=== PATIENT | male | born 1965 | race African-American/Black ===

== ENCOUNTER 2017-04-01 12:45 | Inpatient (IN) | payer OTHER ==
[2017-04-01 13:56] VITALS: BMI 28.3
--- NOTE | 2017-04-01 16:28 | HP ---
CIWA Score - CIWA Score Nausea/Vomitin Muscle Tremors: 4-Moderate,w/Arms Extend Anxiety: 4-Mod. Anxious/Guarded Agitation: 4-Moderately Restless Paroxysmal Sweats: 3 Orientation: 0-Oriented Tacttile Disturbances: 1-Very Mild Itch/Numbness Auditory Disturbances: 0-None Visual Disturbances: 0-None Headache: 1-Very Mild CIWA-Ar Total Score: 20 Admission ROS BHS - HPI Chief Complaint: alcohol withdrawal sx Allergies/Adverse Reactions: Allergies Allergy/AdvReac Type Severity Reaction Status Date / Time No Known Allergies Allergy Verified 04/01/17 15:23 History of Present Illness: 51 yo m with h/o alcohol, cannbis and crack cocaoine dependence admitted for alcohol detoxification c/o ALBERT. PMHX HIV+, DM, nicotine depenence 1PPD, hearing impaired bilaterally, wears aid left ear, totally deaf left ear, no suicidal ideation no suicide attempts in the pst. no h/o seizures or DTs. last drink this am, smoked crack this am. Exam Limitations: No Limitations, Physical Impairment (hearing impaired) - Ebola screening Have you been sick,other than usual withdrawal symptoms: No - Review of Systems Constitutional: Chills, Diaphoresis, Malaise, Night Sweats, Weakness, Weight Stable EENT: reports: No Symptoms Reported Respiratory: reports: No Symptoms reported Cardiac: reports: No Symptoms Reported GI: reports: Diarrhea, Nausea, Poor Appetite, Poor Fluid Intake, Indigestion, Abdominal cramping : reports: No Symptoms Reported Musculoskeletal: reports: No Symptoms Reported Integumentary: reports: Flushing, Lesions Neuro: reports: Headache, Numbness, Paresthesia, Tingling, Tremors, Weakness Endocrine: reports: No Symptoms Reported Hematology: reports: No Symptoms Reported Psychiatric: reports: Judgement Intact, Mood/Affect Appropiate, Orientated x3, Anxious, Depressed Other Systems: Reviewed and Negative Patient History - Patient Medical History Hx Anemia: No Hx Asthma: No Hx Chronic Obstructive Pulmonary Disease (COPD): No Hx Cancer: No Hx Cardiac Disorders: No Hx Congestive Heart Failure: No Hx Hypertension: Yes Hx Hypercholesterolemia: No Hx Pacemaker: No HX Cerebrovascular Accident: No Hx Seizures: No Hx Dementia: No Hx Diabetes: Yes (NIDDM) Hx Gastrointestinal Disorders: No Hx Liver Disease: No Hx Genitourinary Disorders: No Hx Sexually Transmitted Disorders: No Hx Renal Disease (ESRD): No Hx Thyroid Disease: No Hx Human Immunodeficiency Virus (HIV): Yes (2007, on atripla) Hx Hepatitis C: No Hx Depression: No Hx Suicide Attempt: No Hx Bipolar Disorder: No Hx Schizophrenia: No - Patient Surgical History Past Surgical History: Yes Hx Neurologic Surgery: No Hx Cataract Extraction: No Hx Cardiac Surgery: No Hx Lung Surgery: No Hx Breast Surgery: No Hx Breast Biopsy: No Hx Abdominal Surgery: No Hx Appendectomy: No Hx Cholecystectomy: No Hx Genitourinary Surgery: No Hx Section: No Hx Orthopedic Surgery: No Other Surgical History: left ear Anesthesia Reaction: No - PPD History Previous Implant?: Yes Documented Results: Negative w/proof Implanted On Prior [facility] Admission?: Yes Date: 02/14/16 Results: 0 mm PPD to be Administered?: Yes - Reproductive History Patient is a Female of Child Bearing Age (11 -55 yrs old): No Patient : No - Smoking Cessation Smoking history: Current every day smoker Have you smoked in the past 12 months: Yes Aproximately how many cigarettes per day: 10 Hx Chewing Tobacco Use: No Initiated information on smoking cessation: Yes 'Breaking Loose' booklet given: 04/01/17 - Substance & Tx. History Hx Alcohol Use: Yes Hx Substance Use: Yes Substance Use Type: Alcohol, Cocaine, Marijuana Hx Substance Use Treatment: Yes - Substances Abused Crack Route: Smoking Frequency: 1-2 times per week Amount used: $300 Age of first use: 24 Date of Last Use: 04/01/17 Alcohol-beer/vodka Route: Oral Frequency: Daily Amount used: 1-6 pk./2 pts. Age of first use: 17 Date of Last Use: 04/01/17 Marijuana/Hashish Frequency: 3-6 times per week Date of Last Use: 03/31/17 Family Disease History - Family Disease History Family Disease History: Diabetes: Brother, Other: Father (FORMER ALCOHOLIC), Mother (FORMER ALCOHOLIC) Admission Physical Exam BHS - Vital Signs Vital Signs: Vital Signs - 24 hr 04/01/17 13:44 Temperature 97.5 F L Pulse Rate 71 Respiratory 18 Rate Blood Pressure 114/68 - Physical General Appearance: Yes: Nourished, Appropriately Dressed, Disheveled, Mild Distress, Tremorous, Irritable, Sweating, Anxious HEENTM: Yes: EOMI, Hearing grossly Normal, Normal ENT Inspection, Normocephalic , Normal Voice, FELISHA, Pharynx Normal Respiratory: Yes: Within Normal Limits, Chest Non-Tender, Lungs Clear, Normal Breath Sounds, No Respiratory Distress, No Accessory Muscle Use Neck: Yes: Within Normal Limits, No masses,lesions,Nodules, Trachea in good position Breast: Yes: Breast Exam Deferred Cardiology: Yes: Within Normal Limits, Regular Rhythm, Regular Rate, S1, S2 Abdominal: Yes: Normal Bowel Sounds, Non Tender, Flat, Soft Genitourinary: Yes: Within Normal Limits Back: Yes: Normal Inspection Musculoskeletal: Yes: Within Normal Limits, full range of Motion, Gait Steady, Pelvis Stable Extremities: Yes: Normal Capillary Refill, Normal Inspection, Normal Range of Motion, Non-Tender, Tremors Neurological: Yes: block mason II-XII NML intact, Fully Oriented, Alert, Motor Strength 5/5, Normal Response, Depressed Affect Lymphatic: Yes: Within Normal Limits - Addiitonal Findings: withdrawal sx - Diagnostic (1) Alcohol dependence with uncomplicated withdrawal Current Visit: Yes Status: Acute (2) Cannabis dependence Current Visit: Yes Status: Acute (3) Cocaine dependence Current Visit: Yes Status: Acute (4) Drug-induced mood disorder Current Visit: Yes Status: Acute (5) Nicotine dependence Current Visit: Yes Status: Acute Qualifiers: Nicotine product type: cigarettes (6) Diabetes Current Visit: Yes Status: Acute (7) HTN (hypertension) Current Visit: Yes Status: Acute Qualifiers: Hypertension type: essential hypertension Qualified Code(s): I10 - Essential (primary) hypertension; I10 - Essential (primary) hypertension; I10 - Essential (primary) hypertension (8) Human immunodeficiency virus infection Current Visit: Yes Status: Chronic (9) deafness of right ear Current Visit: Yes Status: Acute (10) hearing loss left wearing hearing aide Current Visit: Yes Status: Acute Cleared for Admission S - Detox or Rehab [facility] Level of Care: Medically Managed Detox Regimen/Protocol: Librium S Breath Alcohol Content Breath Alcohol Content: 0 Urine Drug Screen - Results Drug Screen Negative: No Urine Drug Screen Results: THC-Marijuana, MINNIE-Cocaine
[2017-04-01] MEDS ORDERED: MAG HYDROX/AL HYDROX/SIMETH 30 ML UNIT-DOSE CUP PO PRN (16:31)
[2017-04-01] MEDS ORDERED: LOPERAMIDE HCL 2 MG CAPSULE PO PRN (16:31)
[2017-04-01] MEDS ORDERED: MENTHOL/PHENOL 1 EACH UD MM PRN (16:31)
[2017-04-01] MEDS ORDERED: MAGNESIUM HYDROX 2400MG/30ML ORAL SUSPENSION 30 ML CUP PO PRN (16:31)
[2017-04-01] MEDS ORDERED: ACETAMINOPHEN 325 MG TABLET (FP) PO PRN (16:31)
[2017-04-01] MEDS ORDERED: chlordiazePOXIDE HCL 25 MG CAPSULE PO PRN (16:31)
[2017-04-01] MEDS ORDERED: P-EPHED 60MG/TRIPROLIDI 2.5MG TABLET PO PRN (16:31)
[2017-04-01] MEDS ORDERED: MAGNESIUM CITRATE 300 ML BOTTLE PO PRN (16:31)
[2017-04-01] MEDS ORDERED: NICOTINE POLACRILEX 2 MG GUM BUC PRN (16:31)
[2017-04-01] MEDS ORDERED: hydrOXYzine PAMOATE 50 MG CAPSULE (FP) PO PRN (16:31)
[2017-04-01] MEDS ORDERED: IBUPROFEN 400 MG TABLET (FP) PO PRN (16:31)
[2017-04-01] MEDS ORDERED: guaiFENesin/D-METHORPHAN HB 10 ML UNIT-DOSE CUPS PO PRN (16:31)
[2017-04-01] MEDS: HYDROCHLOROTHIAZIDE 12.5 MG CAPSULE (FP) PO SCH (18:25)
[2017-04-01] MEDS: NICOTINE 14 MG/24 HOURS TOPICAL PATCH TD SCH (18:29)
[2017-04-01] MEDS: THIAMINE HCL 100 MG TABLET (FP) PO SCH (22:12)
[2017-04-01] MEDS: ZOLPIDEM TARTRATE 5 MG TABLET PO PRN (22:12)
[2017-04-01] MEDS: chlordiazePOXIDE HCL 25 MG CAPSULE PO SCH (22:12)
[2017-04-02] MEDS: chlordiazePOXIDE HCL 25 MG CAPSULE PO SCH ×4 (06:24→22:13)
[2017-04-02] MEDS: metFORMIN HCL 500 MG TABLET (FP) PO SCH ×2 (07:14→17:15)
[2017-04-02] MEDS ORDERED: EMTRICITABINE 200MG/TENOFOVIR 300MG PO SCH (10:00)
[2017-04-02] MEDS: PRENATAL VITAMINS W/ FOLIC ACID TABLET (FP) PO SCH (10:14)
[2017-04-02] MEDS: HYDROCHLOROTHIAZIDE 12.5 MG CAPSULE (FP) PO SCH (10:15)
[2017-04-02] MEDS: NICOTINE 14 MG/24 HOURS TOPICAL PATCH TD SCH (10:15)
[2017-04-02] MEDS ORDERED: PATIENT'S OWN MEDICATION (NON-FORMULARY) (Efavirenz/Emtricitab/Tenofovir 1 TAB) PO SCH (10:33)
[2017-04-02] MEDS: [UNRECOGNIZED DRUG - OTHER] OP SCH ×2 (11:05→11:38)
[2017-04-02] MEDS: PATIENT'S OWN MEDICATION (NON-FORMULARY) (Efavirenz/Emtricitab/Tenofovir 1 TAB) PO SCH ×2 (11:05→11:38)
[2017-04-02 11:29] LABS: MCH 27.4 pg (25.7-33.7); MCHC 32.5 g/dl (32.0-35.9); MEAN CELL VOLUME 84.3 fl (80-96); MEAN PLT VOLUME 7.7 fl (7.5-11.1); PLATELET COUNT 271 K/MM3 (134-434); RDW 15.3 % (11.9-15.9)
--- NOTE | 2017-04-02 11:37 | EKG ---
Test Reason : Blood Pressure : / mmHG Vent. Rate : 065 BPM Atrial Rate : 065 BPM P-R Int : 166 ms QRS Dur : 072 ms QT Int : 408 ms P-R-T Axes : 055 066 065 degrees QTc Int : 424 ms NORMAL SINUS RHYTHM WITH SINUS ARRHYTHMIA NONSPECIFIC T WAVE ABNORMALITY ABNORMAL ECG NO PREVIOUS ECGS AVAILABLE Confirmed by RAFAEL LOPES MD ([id number]) on 04/02/2017 11:37:04 AM Referred By: Confirmed By:RAFAEL LOPES MD
[2017-04-02 11:52] LABS: ALBUMIN 3.3 g/dl (3.4-5.0); ANION GAP 10 (8-16); CALCIUM 8.4 mg/dL (8.5-10.1); CO2 27 mmol/L (21-32); GLUCOSE,RANDOM 122 mg/dL (74-106)
[2017-04-02 11:56] LABS: ALK PHOS 96 U/L (45-117); BILIRUBIN,TOTAL 0.2 mg/dL (0.2-1.0); SGOT/AST 66 U/L (15-37); SGPT/ALT 89 U/L (12-78); TOT PROT 6.5 g/dl (6.4-8.2)
[2017-04-02] MEDS ORDERED: FLU VACCINE QUAD 60 MCG/0.5 ML (MDV 17-18) IM ONE (12:00)
--- NOTE | 2017-04-02 12:02 | PN ---
[facility] CIWA - CIWA Score Nausea/Vomitin-No Nausea/No Vomiting Muscle Tremors: 4-Moderate,w/Arms Extend Anxiety: 4-Mod. Anxious/Guarded Agitation: 4-Moderately Restless Paroxysmal Sweats: 1-Minimal Palms Moist Orientation: 0-Oriented Tacttile Disturbances: 3-Moderate Itch/Numb/Burn Auditory Disturbances: 0-None Visual Disturbances: 0-None Headache: 0-None Present CIWA-Ar Total Score: 16 BHS Progress Note (SOAP) Subjective: ANXIETY,TREMORS, SWEATS, INTERMITTENT SLEEP. Objective: 04/02/17 12:00 Vital Signs Temperature 97.5 F L 04/02/17 09:54 Pulse Rate 81 04/02/17 09:54 Respiratory Rate 20 04/02/17 09:54 Blood Pressure 116/68 04/02/17 09:54 O2 Sat by Pulse Oximetry (%) Laboratory Last Values WBC 6.0 K/mm3 (4.0-10.0) 04/02/17 07:45 RBC 4.79 M/mm3 (4.00-5.60) 04/02/17 07:45 Hgb 13.1 GM/dL (11.7-16.9) 04/02/17 07:45 Hct 40.4 % (35.4-49) 04/02/17 07:45 MCV 84.3 fl (80-96) 04/02/17 07:45 MCH 27.4 pg (25.7-33.7) 04/02/17 07:45 MCHC 32.5 g/dl (32.0-35.9) 04/02/17 07:45 RDW 15.3 % (11.9-15.9) 04/02/17 07:45 Plt Count 271 K/MM3 (134-434) 04/02/17 07:45 MPV 7.7 fl (7.5-11.1) 04/02/17 07:45 POC Glucometer 262 UNITS (()) 04/02/17 06:20 OTHER LABS PENDING Assessment: 04/02/17 12:01 WITHDRAWAL SX Plan: CONTINUE DETOX
[2017-04-02] MEDS: EMTRICITABINE 200MG/TENOFOVIR 300MG PO SCH (12:22)
[2017-04-02] MEDS: EFAVIRENZ 600 MG TABLET PO SCH (12:22)
[2017-04-02] MEDS ORDERED: NAPHAZOLINE/PHENIRAMINE OPHTHALMIC 15 ML BOTTLE OU SCH (14:00)
[2017-04-02 17:35] LABS: URINE APPEARANCE CLEAR; URINE BILIRUBIN NEGATIVE (NEGATIVE); URINE BLOOD NEGATIVE (NEGATIVE); URINE COLOR STRAW; URINE GLUCOSE (UA) NEGATIVE (NEGATIVE); URINE KETONE NEGATIVE (NEGATIVE); URINE NITRITE NEGATIVE (NEGATIVE); URINE PROTEIN NEGATIVE (NEGATIVE); URINE UROBILINOGEN NEGATIVE mg/dL (0.2-1.0)
[2017-04-02] MEDS: NAPHAZOLINE/PHENIRAMINE OPHTHALMIC 15 ML BOTTLE OU SCH ×3 (18:15→22:12)
[2017-04-02 20:28] LABS: URINE LEUK ESTERASE Negative (NEGATIVE)
[2017-04-02] MEDS: ZOLPIDEM TARTRATE 5 MG TABLET PO PRN (22:13)
[2017-04-02] MEDS: THIAMINE HCL 100 MG TABLET (FP) PO SCH (22:13)
[2017-04-03] MEDS: metFORMIN HCL 500 MG TABLET (FP) PO SCH ×2 (06:03→17:28)
[2017-04-03] MEDS: chlordiazePOXIDE HCL 25 MG CAPSULE PO SCH ×3 (06:03→17:28)
[2017-04-03] MEDS: POTASSIUM CHLORIDE TABS 20 MEQ TABLET.ER (FP) PO SCH (10:13)
[2017-04-03] MEDS: NICOTINE 14 MG/24 HOURS TOPICAL PATCH TD SCH (10:14)
[2017-04-03] MEDS: HYDROCHLOROTHIAZIDE 25 MG TABLET (FP) PO SCH (10:14)
[2017-04-03] MEDS: EFAVIRENZ 600 MG TABLET PO SCH (10:14)
[2017-04-03] MEDS: PRENATAL VITAMINS W/ FOLIC ACID TABLET (FP) PO SCH (10:14)
[2017-04-03] MEDS: NAPHAZOLINE/PHENIRAMINE OPHTHALMIC 15 ML BOTTLE OU SCH ×4 (10:16→22:11)
[2017-04-03] MEDS: EMTRICITABINE 200MG/TENOFOVIR 300MG PO SCH (10:16)
--- NOTE | 2017-04-03 11:43 | PN ---
[facility] CIWA - CIWA Score Nausea/Vomitin-No Nausea/No Vomiting Muscle Tremors: 3 Anxiety: 4-Mod. Anxious/Guarded Agitation: 3 Paroxysmal Sweats: 3 Orientation: 0-Oriented Tacttile Disturbances: 2-Mild Itch/Numbness/Burn Auditory Disturbances: 0-None Visual Disturbances: 2-Mild Sensitivity Headache: 0-None Present CIWA-Ar Total Score: 17 S Progress Note (SOAP) Subjective: Fatigue, Sweating, Tremors. Objective: PT. A & O X 3, OBSERVED AMBULATING ON UNIT. NO ACUTE DISTRESS. 04/03/17 11:42 Vital Signs Temperature 96.7 F L 04/03/17 09:44 Pulse Rate 84 04/03/17 09:44 Respiratory Rate 17 04/03/17 09:44 Blood Pressure 109/69 04/03/17 09:44 O2 Sat by Pulse Oximetry (%) Laboratory Tests 04/01/17 04/02/17 04/02/17 15:49 06:20 07:45 WBC 6.0 RBC 4.79 Hgb 13.1 Hct 40.4 MCV 84.3 MCH 27.4 MCHC 32.5 RDW 15.3 Plt Count 271 MPV 7.7 Sodium Potassium Chloride Carbon Dioxide Anion Gap BUN Creatinine Creat Clearance w eGFR POC Glucometer 118 262 Random Glucose Calcium Total Bilirubin AST ALT Alkaline Phosphatase Total Protein Albumin Urine Color Urine Appearance Urine pH Ur Specific [place] Urine Protein Urine Glucose (UA) Urine Ketones Urine Blood Urine Nitrite Urine Bilirubin Urine Urobilinogen Ur Leukocyte Esterase RPR Titer 04/02/17 04/02/17 04/02/17 07:45 07:45 16:12 WBC RBC Hgb Hct MCV MCH MCHC RDW Plt Count MPV Sodium 144 Potassium 3.3 L Chloride 107 Carbon Dioxide 27 Anion Gap 10 BUN 11 D Creatinine 1.0 Creat Clearance w eGFR > 60 POC Glucometer 139 Random Glucose 122 H D Calcium 8.4 L Total Bilirubin 0.2 AST 66 H D ALT 89 H D Alkaline Phosphatase 96 D Total Protein 6.5 Albumin 3.3 L Urine Color Urine Appearance Urine pH Ur Specific [place] Urine Protein Urine Glucose (UA) Urine Ketones Urine Blood Urine Nitrite Urine Bilirubin Urine Urobilinogen Ur Leukocyte Esterase RPR Titer Nonreactive 04/02/17 04/03/17 17:19 05:56 WBC RBC Hgb Hct MCV MCH MCHC RDW Plt Count MPV Sodium Potassium Chloride Carbon Dioxide Anion Gap BUN Creatinine Creat Clearance w eGFR POC Glucometer 153 Random Glucose Calcium Total Bilirubin AST ALT Alkaline Phosphatase Total Protein Albumin Urine Color Straw Urine Appearance Clear Urine pH 6.0 Ur Specific [place] 1.015 Urine Protein Negative Urine Glucose (UA) Negative Urine Ketones Negative Urine Blood Negative Urine Nitrite Negative Urine Bilirubin Negative Urine Urobilinogen Negative Ur Leukocyte Esterase Negative RPR Titer LABS NOTED. Assessment: 04/03/17 11:42 WITHDRAWAL SYMPTOMS. HYPOKALEMIA. Plan: CONTINUE DETOX. CONTINUE DAILY K-DUR FOR HYPOKALEMIA. INCREASE DAILY PO FLUID INTAKE.
[2017-04-03] MEDS: THIAMINE HCL 100 MG TABLET (FP) PO SCH (22:11)
[2017-04-03] MEDS: chlordiazePOXIDE 5 MG CAPSULE PO SCH (22:11)
[2017-04-03] MEDS: ZOLPIDEM TARTRATE 5 MG TABLET PO PRN (22:13)
[2017-04-04] MEDS: chlordiazePOXIDE 5 MG CAPSULE PO SCH ×3 (05:58→17:22)
[2017-04-04] MEDS: metFORMIN HCL 500 MG TABLET (FP) PO SCH ×2 (09:03→17:23)
[2017-04-04] MEDS: EFAVIRENZ 600 MG TABLET PO SCH (10:04)
[2017-04-04] MEDS: NICOTINE 14 MG/24 HOURS TOPICAL PATCH TD SCH (10:04)
[2017-04-04] MEDS: HYDROCHLOROTHIAZIDE 25 MG TABLET (FP) PO SCH (10:04)
[2017-04-04] MEDS: PRENATAL VITAMINS W/ FOLIC ACID TABLET (FP) PO SCH (10:04)
[2017-04-04] MEDS: EMTRICITABINE 200MG/TENOFOVIR 300MG PO SCH (10:04)
[2017-04-04] MEDS: NAPHAZOLINE/PHENIRAMINE OPHTHALMIC 15 ML BOTTLE OU SCH ×4 (10:04→22:04)
[2017-04-04] MEDS: POTASSIUM CHLORIDE TABS 20 MEQ TABLET.ER (FP) PO SCH (10:04)
--- NOTE | 2017-04-04 12:36 | PN ---
BHS Progress Note (SOAP) Subjective: Anxious. Objective: PT. A & O X 3, OBSERVED AMBULATING ON UNIT. NO ACUTE DISTRESS. 04/04/17 12:34 Vital Signs Temperature 97.2 F L 04/04/17 09:08 Pulse Rate 78 04/04/17 09:08 Respiratory Rate 18 04/04/17 09:08 Blood Pressure 140/99 04/04/17 09:08 O2 Sat by Pulse Oximetry (%) Laboratory Tests 04/01/17 04/02/17 04/02/17 15:49 06:20 07:45 WBC 6.0 RBC 4.79 Hgb 13.1 Hct 40.4 MCV 84.3 MCH 27.4 MCHC 32.5 RDW 15.3 Plt Count 271 MPV 7.7 Sodium Potassium Chloride Carbon Dioxide Anion Gap BUN Creatinine Creat Clearance w eGFR POC Glucometer 118 262 Random Glucose Calcium Total Bilirubin AST ALT Alkaline Phosphatase Total Protein Albumin Urine Color Urine Appearance Urine pH Ur Specific [place] Urine Protein Urine Glucose (UA) Urine Ketones Urine Blood Urine Nitrite Urine Bilirubin Urine Urobilinogen Ur Leukocyte Esterase RPR Titer 04/02/17 04/02/17 04/02/17 07:45 07:45 16:12 WBC RBC Hgb Hct MCV MCH MCHC RDW Plt Count MPV Sodium 144 Potassium 3.3 L Chloride 107 Carbon Dioxide 27 Anion Gap 10 BUN 11 D Creatinine 1.0 Creat Clearance w eGFR > 60 POC Glucometer 139 Random Glucose 122 H D Calcium 8.4 L Total Bilirubin 0.2 AST 66 H D ALT 89 H D Alkaline Phosphatase 96 D Total Protein 6.5 Albumin 3.3 L Urine Color Urine Appearance Urine pH Ur Specific [place] Urine Protein Urine Glucose (UA) Urine Ketones Urine Blood Urine Nitrite Urine Bilirubin Urine Urobilinogen Ur Leukocyte Esterase RPR Titer Nonreactive 04/02/17 04/03/17 04/03/17 17:19 05:56 16:14 WBC RBC Hgb Hct MCV MCH MCHC RDW Plt Count MPV Sodium Potassium Chloride Carbon Dioxide Anion Gap BUN Creatinine Creat Clearance w eGFR POC Glucometer 153 109 Random Glucose Calcium Total Bilirubin AST ALT Alkaline Phosphatase Total Protein Albumin Urine Color Straw Urine Appearance Clear Urine pH 6.0 Ur Specific [place] 1.015 Urine Protein Negative Urine Glucose (UA) Negative Urine Ketones Negative Urine Blood Negative Urine Nitrite Negative Urine Bilirubin Negative Urine Urobilinogen Negative Ur Leukocyte Esterase Negative RPR Titer 04/04/17 05:14 WBC RBC Hgb Hct MCV MCH MCHC RDW Plt Count MPV Sodium Potassium Chloride Carbon Dioxide Anion Gap BUN Creatinine Creat Clearance w eGFR POC Glucometer 116 Random Glucose Calcium Total Bilirubin AST ALT Alkaline Phosphatase Total Protein Albumin Urine Color Urine Appearance Urine pH Ur Specific [place] Urine Protein Urine Glucose (UA) Urine Ketones Urine Blood Urine Nitrite Urine Bilirubin Urine Urobilinogen Ur Leukocyte Esterase RPR Titer LABS NOTED. Assessment: 04/04/17 12:34 WITHDRAWAL SYMPTOMS. HYPOKALEMIA. 04/04/17 12:35 Plan: CONTINUE DETOX.
[2017-04-04] MEDS: ZOLPIDEM TARTRATE 5 MG TABLET PO PRN (22:04)
[2017-04-04] MEDS: THIAMINE HCL 100 MG TABLET (FP) PO SCH (22:04)
[2017-04-04] MEDS: chlordiazePOXIDE HCL 10 MG CAPSULE PO SCH (22:04)
[2017-04-05] MEDS: chlordiazePOXIDE HCL 10 MG CAPSULE PO SCH (07:03)
[2017-04-05] MEDS: metFORMIN HCL 500 MG TABLET (FP) PO SCH (08:38)
[2017-04-05 09:07] VITALS: BP 125/87; PULSE 72; TEMP 96.8
[2017-04-05] MEDS: HYDROCHLOROTHIAZIDE 25 MG TABLET (FP) PO SCH (09:37)
[2017-04-05] MEDS: POTASSIUM CHLORIDE TABS 20 MEQ TABLET.ER (FP) PO SCH (09:37)
[2017-04-05] MEDS: NAPHAZOLINE/PHENIRAMINE OPHTHALMIC 15 ML BOTTLE OU SCH (09:37)
[2017-04-05] MEDS: NICOTINE 14 MG/24 HOURS TOPICAL PATCH TD SCH (09:39)
--- NOTE | 2017-04-05 16:52 | DS ---
[facility] Detox Discharge Summary Admission Date: 04/01/17 Discharge Date: 04/05/17 - History Present History: Alcohol Dependence, Cannabis Dependence, Cocaine Dependence Additional Comments: PATIENT GOING HOME AND WILL RETURN TO WEEKLY COUNSELING SESSIONS AT [facility] ([place] PATIENT ALSO ADVISED TO CONSIDER LOCAL 12-STEP / NA / AA OUTPATIENT SUPPORTS GROUP MEETINGS FOR AFTERCARE. PATIENT WAS DISCHARGED FROM DETOX UNIT IN STABLE MEDICAL CONDITION. Pertinent Past History: HTN, Nicotine Dependence, Deafness of Right Ear, HIV, NIDDM. - Physical Exam Results Vital Signs: Vital Signs Temperature 96.8 F L 04/05/17 09:05 Pulse Rate 72 04/05/17 09:05 Respiratory Rate 18 04/05/17 09:05 Blood Pressure 125/87 04/05/17 09:05 O2 Sat by Pulse Oximetry (%) Pertinent Admission Physical Exam Findings: WITHDRAWAL SYMPTOMS. Laboratory Tests 04/01/17 04/02/17 04/02/17 15:49 06:20 07:45 WBC 6.0 RBC 4.79 Hgb 13.1 Hct 40.4 MCV 84.3 MCH 27.4 MCHC 32.5 RDW 15.3 Plt Count 271 MPV 7.7 Sodium Potassium Chloride Carbon Dioxide Anion Gap BUN Creatinine Creat Clearance w eGFR POC Glucometer 118 262 Random Glucose Calcium Total Bilirubin AST ALT Alkaline Phosphatase Total Protein Albumin Urine Color Urine Appearance Urine pH Ur Specific [place] Urine Protein Urine Glucose (UA) Urine Ketones Urine Blood Urine Nitrite Urine Bilirubin Urine Urobilinogen Ur Leukocyte Esterase RPR Titer 04/02/17 04/02/17 04/02/17 07:45 07:45 16:12 WBC RBC Hgb Hct MCV MCH MCHC RDW Plt Count MPV Sodium 144 Potassium 3.3 L Chloride 107 Carbon Dioxide 27 Anion Gap 10 BUN 11 D Creatinine 1.0 Creat Clearance w eGFR > 60 POC Glucometer 139 Random Glucose 122 H D Calcium 8.4 L Total Bilirubin 0.2 AST 66 H D ALT 89 H D Alkaline Phosphatase 96 D Total Protein 6.5 Albumin 3.3 L Urine Color Urine Appearance Urine pH Ur Specific [place] Urine Protein Urine Glucose (UA) Urine Ketones Urine Blood Urine Nitrite Urine Bilirubin Urine Urobilinogen Ur Leukocyte Esterase RPR Titer Nonreactive 04/02/17 04/03/17 04/03/17 17:19 05:56 16:14 WBC RBC Hgb Hct MCV MCH MCHC RDW Plt Count MPV Sodium Potassium Chloride Carbon Dioxide Anion Gap BUN Creatinine Creat Clearance w eGFR POC Glucometer 153 109 Random Glucose Calcium Total Bilirubin AST ALT Alkaline Phosphatase Total Protein Albumin Urine Color Straw Urine Appearance Clear Urine pH 6.0 Ur Specific [place] 1.015 Urine Protein Negative Urine Glucose (UA) Negative Urine Ketones Negative Urine Blood Negative Urine Nitrite Negative Urine Bilirubin Negative Urine Urobilinogen Negative Ur Leukocyte Esterase Negative RPR Titer 04/04/17 04/04/17 04/05/17 05:14 16:27 05:59 WBC RBC Hgb Hct MCV MCH MCHC RDW Plt Count MPV Sodium Potassium Chloride Carbon Dioxide Anion Gap BUN Creatinine Creat Clearance w eGFR POC Glucometer 116 126 120 Random Glucose Calcium Total Bilirubin AST ALT Alkaline Phosphatase Total Protein Albumin Urine Color Urine Appearance Urine pH Ur Specific [place] Urine Protein Urine Glucose (UA) Urine Ketones Urine Blood Urine Nitrite Urine Bilirubin Urine Urobilinogen Ur Leukocyte Esterase RPR Titer LABS NOTED. - Treatment Hospital Course: Detox Protocol Followed, Detoxed Safely, Responded well, Discharged Condition Good Patient has Accepted a Rehab Referral to: NO. PT WILL RETURN TO COUNSELING SESSIONS AT [facility] ([place]) - Medication Discharge Medications: Ambulatory Orders Naphazoline HCl/Phenir Mal [Opcon-A Eye Drops] 1 drop OP DAILY 30 Days 06/25/14 Metformin HCl [Glucophage -] 500 mg PO BID 01/15/15 Multivitamins [Tab-A-Vit -] 1 tab PO DAILY 01/15/15 Efavirenz/Emtricitab/Tenofovir [Atripla Tablet -] 1 tab PO DAILY #30 tab Hydrochlorothiazide [Hctz -] 25 mg PO DAILY #30 cap 02/16/16 - Diagnosis (1) Alcohol dependence with uncomplicated withdrawal Status: Acute (2) Cannabis dependence Status: Acute (3) Cocaine dependence Status: Acute (4) Diabetes Status: Chronic Qualifiers: Diabetes mellitus type: type 2 Diabetes mellitus complication status: without complication 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: without tool lathe operator use Qualified Code(s): E11.9 - Type 2 diabetes mellitus without complications; E11.9 - Type 2 diabetes mellitus without complications; E11.9 - Type 2 diabetes mellitus without complications; E11.9 - Type 2 diabetes mellitus without complications (5) Drug-induced mood disorder Status: Acute (6) Nicotine dependence Status: Acute Qualifiers: Nicotine product type: cigarettes Substance use status: in withdrawal Qualified Code(s): F17.213 - Nicotine dependence, cigarettes, with withdrawal; F17.213 - Nicotine dependence, cigarettes, with withdrawal (7) HTN (hypertension) Status: Chronic Qualifiers: Hypertension type: essential hypertension Qualified Code(s): I10 - Essential (primary) hypertension; I10 - Essential (primary) hypertension; I10 - Essential (primary) hypertension (8) Human immunodeficiency virus infection Status: Chronic (9) deafness of right ear Status: Chronic (10) hearing loss left wearing hearing aide Status: Chronic - AMA Did Patient Leave Against Medical Advice: No
== END 2017-04-05 10:03 | disposition home or self-care (01) | DRG 897 ==
LOC: YASAS 12:45 → Y3N 16:14
PROVIDERS: ADMIT Internal Medicine; ATTEND Internal Medicine
PROC: HZ2ZZZZ Detoxification Services for Substance Abuse Treatment (ICD-10-PCS; principal; 2017-04-01)
DX: F10.230 Alcohol dependence with withdrawal, uncomplicated (principal); F14.20 Cocaine dependence, uncomplicated; F12.20 Cannabis dependence, uncomplicated; F17.213 Nicotine dependence, cigarettes, with withdrawal; F19.24 Other psychoactive substance dependence with psychoactive substance-induced mood disorder; Z21 Asymptomatic human immunodeficiency virus [HIV] infection status; I10 Essential (primary) hypertension; E11.9 Type 2 diabetes mellitus without complications; Z79.84 Long term (current) use of oral hypoglycemic drugs; H91.8X1 Other specified hearing loss, right ear; H91.92 Unspecified hearing loss, left ear
CPT/HCPCS: 36415; 80053; 81003; 85027; 86593; 90688; 93005; 93010; G0008

== ENCOUNTER 2017-05-27 13:39 | Inpatient (IN) | payer OTHER ==
[2017-05-27 13:46] VITALS: BMI 28.4
--- NOTE | 2017-05-27 13:59 | HP ---
CIWA Score - CIWA Score Nausea/Vomitin Muscle Tremors: 3 Anxiety: 4-Mod. Anxious/Guarded Agitation: 1-Slight > Activity Paroxysmal Sweats: 1-Minimal Palms Moist Orientation: 0-Oriented Tacttile Disturbances: 1-Very Mild Itch/Numbness Auditory Disturbances: 0-None Visual Disturbances: 0-None Headache: 2-Mild CIWA-Ar Total Score: 14 Admission ROS BHS - HPI Chief Complaint: I want to detox from alcohol Allergies/Adverse Reactions: Allergies Allergy/AdvReac Type Severity Reaction Status Date / Time No Known Allergies Allergy Verified 04/01/17 15:23 History of Present Illness: 51 yo gentleman here for detox from alcohol, also using cocaine/crack. Last detoxed here in march. Exam Limitations: No Limitations - Ebola screening Have you traveled outside of the country in the last 21 days: No Have you had contact with anyone from an Ebola affected area: No Have you been sick,other than usual withdrawal symptoms: No Do you have a fever: No - Review of Systems Constitutional: Loss of Appetite, Changes in sleep EENT: reports: Hearing Loss, Other (left hearing aid) Respiratory: reports: No Symptoms reported Cardiac: reports: No Symptoms Reported GI: reports: No Symptoms Reported : reports: Frequency Musculoskeletal: reports: No Symptoms Reported Integumentary: reports: No Symptoms Reported Neuro: reports: Headache Endocrine: reports: No Symptoms Reported Hematology: reports: No Symptoms Reported Psychiatric: reports: Judgement Intact, Mood/Affect Appropiate, Anxious Other Systems: Reviewed and Negative Patient History - Patient Medical History Hx Anemia: No Hx Asthma: No Hx Chronic Obstructive Pulmonary Disease (COPD): No Hx Cancer: No Hx Cardiac Disorders: No Hx Congestive Heart Failure: No Hx Hypertension: Yes Hx Hypercholesterolemia: No Hx Pacemaker: No HX Cerebrovascular Accident: No Hx Seizures: No Hx Dementia: No Hx Diabetes: Yes (NIDDM) Hx Gastrointestinal Disorders: No Hx Liver Disease: No Hx Genitourinary Disorders: No Hx Sexually Transmitted Disorders: No Hx Renal Disease (ESRD): No Hx Thyroid Disease: No Hx Human Immunodeficiency Virus (HIV): Yes (2007, on atripla) Hx Hepatitis C: No Hx Depression: Yes (sees therapist) Hx Suicide Attempt: No Hx Bipolar Disorder: No Hx Schizophrenia: No Other Medical History: deafness - hearing aid left ear - Patient Surgical History Past Surgical History: Yes Hx Neurologic Surgery: No Hx Cataract Extraction: No Hx Cardiac Surgery: No Hx Lung Surgery: No Hx Breast Surgery: No Hx Breast Biopsy: No Hx Abdominal Surgery: No Hx Appendectomy: No Hx Cholecystectomy: No Hx Genitourinary Surgery: No Hx Section: No Hx Orthopedic Surgery: No Other Surgical History: left ear Anesthesia Reaction: No - PPD History Previous Implant?: Yes Documented Results: Negative w/proof Date: 04/03/17 Results: 0 mm PPD to be Administered?: No - Reproductive History Patient is a Female of Child Bearing Age (11 -55 yrs old): No (male) - Smoking Cessation Smoking history: Current some day smoker Have you smoked in the past 12 months: Yes Aproximately how many cigarettes per day: 5 Hx Chewing Tobacco Use: No Initiated information on smoking cessation: Yes 'Breaking Loose' booklet given: 05/27/17 - Substance & Tx. History Hx Alcohol Use: Yes Hx Substance Use: Yes Substance Use Type: Alcohol, Cocaine Hx Substance Use Treatment: Yes (detox, rehab) - Substances Abused Alcohol Route: Oral Frequency: Daily Amount used: 2 pints liquor, two 40 oz beer Age of first use: 17 Date of Last Use: 05/27/17 Crack Route: Smoking Frequency: 3-6 times per week Amount used: $300 Age of first use: 24 Date of Last Use: 05/27/17 Family Disease History - Family Disease History Family Disease History: Diabetes: Brother, Other: Father (living, FORMER ALCOHOLIC), Mother (living, FORMER ALCOHOLIC) Admission Physical Exam BHS - Vital Signs Vital Signs: Vital Signs - 24 hr 05/27/17 13:44 Temperature 98.2 F Pulse Rate 84 Respiratory 18 Rate Blood Pressure 120/69 - Physical General Appearance: Yes: Nourished, Appropriately Dressed, Mild Distress HEENTM: Yes: EOMI (mild redness of conjunctiva), Hearing Decreased, Other ( hearing aid left ear) Respiratory: Yes: Normal Breath Sounds, No Respiratory Distress Neck: Yes: No masses,lesions,Nodules, Supple Breast: Yes: Breast Exam Deferred Cardiology: Yes: Regular Rhythm, Regular Rate Abdominal: Yes: Soft Genitourinary: Yes: Frequency Back: Yes: Normal Inspection Musculoskeletal: Yes: full range of Motion, Gait Steady Extremities: Yes: Normal Inspection, Non-Tender Neurological: Yes: Fully Oriented, Alert, Normal Mood/Affect, Normal Response Integumentary: Yes: Normal Color, Warm Lymphatic: Yes: Within Normal Limits - Diagnostic (1) Alcohol dependence with uncomplicated withdrawal Current Visit: Yes Status: Acute (2) Cocaine dependence Current Visit: Yes Status: Acute (3) Diabetes Current Visit: Yes Status: Chronic Qualifiers: Diabetes mellitus type: type 2 Diabetes mellitus complication status: without complication Diabetes mellitus remote computer terminal operator insulin use: without remote computer terminal operator use Qualified Code(s): E11.9 - Type 2 diabetes mellitus without complications (4) HTN (hypertension) Current Visit: Yes Status: Chronic Qualifiers: Hypertension type: essential hypertension Qualified Code(s): I10 - Essential (primary) hypertension (5) Human immunodeficiency virus infection Current Visit: Yes Status: Chronic (6) deafness of right ear Current Visit: Yes Status: Chronic (7) hearing loss left wearing hearing aide Current Visit: Yes Status: Chronic Cleared for Admission S - Detox or Rehab [facility] Level of Care: Medically Managed Detox Regimen/Protocol: Librium S Breath Alcohol Content Breath Alcohol Content: 0 Urine Drug Screen - Results Drug Screen Negative: No Urine Drug Screen Results: MINNIE-Cocaine
[2017-05-27] MEDS ORDERED: MAGNESIUM HYDROX 2400MG/30ML ORAL SUSPENSION 30 ML CUP PO PRN (14:10)
[2017-05-27] MEDS ORDERED: ACETAMINOPHEN 325 MG TABLET (FP) PO PRN (14:10)
[2017-05-27] MEDS ORDERED: hydrOXYzine PAMOATE 25 MG CAPSULE (FP) PO PRN (14:10)
[2017-05-27] MEDS ORDERED: guaiFENesin/D-METHORPHAN HB 10 ML UNIT-DOSE CUPS PO PRN (14:10)
[2017-05-27] MEDS ORDERED: MAGNESIUM CITRATE 300 ML BOTTLE PO PRN (14:10)
[2017-05-27] MEDS ORDERED: MENTHOL/PHENOL 1 EACH UD MM PRN (14:10)
[2017-05-27] MEDS ORDERED: MAG HYDROX/AL HYDROX/SIMETH 30 ML UNIT-DOSE CUP PO PRN (14:10)
[2017-05-27] MEDS ORDERED: IBUPROFEN 400 MG TABLET (FP) PO PRN (14:10)
[2017-05-27] MEDS ORDERED: chlordiazePOXIDE HCL 25 MG CAPSULE PO PRN (14:10)
[2017-05-27] MEDS ORDERED: LOPERAMIDE HCL 2 MG CAPSULE PO PRN (14:10)
[2017-05-27] MEDS ORDERED: P-EPHED 60MG/TRIPROLIDI 2.5MG TABLET PO PRN (14:10)
[2017-05-27] MEDS ORDERED: PATIENT'S OWN MEDICATION (NON-FORMULARY) (Efavirenz/Emtricitab/Tenofovir 1 TAB) PO SCH (14:15)
[2017-05-27] MEDS ORDERED: chlordiazePOXIDE HCL 25 MG CAPSULE PO ONE (16:00)
[2017-05-27] MEDS: chlordiazePOXIDE HCL 25 MG CAPSULE PO SCH ×2 (17:37→22:47)
[2017-05-27] MEDS: THIAMINE HCL 100 MG TABLET (FP) PO SCH (22:47)
[2017-05-27] MEDS: metFORMIN HCL 500 MG TABLET (FP) PO SCH (22:47)
[2017-05-28 00:23] LABS: URINE APPEARANCE SLCLOUDY; URINE BILIRUBIN NEGATIVE (NEGATIVE); URINE BLOOD NEGATIVE (NEGATIVE); URINE COLOR AMBER; URINE GLUCOSE (UA) NEGATIVE (NEGATIVE); URINE KETONE 1+ (NEGATIVE); URINE LEUK ESTERASE NEGATIVE (NEGATIVE); URINE NITRITE NEGATIVE (NEGATIVE)
[2017-05-28 00:39] LABS: URINE PROTEIN 1+ (NEGATIVE)
[2017-05-28 00:45] LABS: URINE HYALINE CAST 2 /lpf; URINE MUCUS MANY; URINE RBC 7 /hpf (0-3); URINE WBC 4 /hpf (3-5)
[2017-05-28] MEDS: chlordiazePOXIDE HCL 25 MG CAPSULE PO SCH ×4 (05:13→22:17)
[2017-05-28 10:12] LABS: MCH 27.7 pg (25.7-33.7); MCHC 32.4 g/dl (32.0-35.9); MEAN CELL VOLUME 85.6 fl (80-96); MEAN PLT VOLUME 8.2 fl (7.5-11.1); PLATELET COUNT 255 K/MM3 (134-434); RDW 14.1 % (11.9-15.9); WHITE BLOOD COUNT 5.7 K/mm3 (4.0-10.0)
[2017-05-28 10:14] LABS: ALBUMIN 3.4 g/dl (3.4-5.0); ALK PHOS 76 U/L (45-117); ANION GAP 7 (8-16); BILIRUBIN,TOTAL 0.3 mg/dL (0.2-1.0); CALCIUM 8.6 mg/dL (8.5-10.1); CO2 28 mmol/L (21-32); CREATININE 0.9 mg/dL (0.7-1.3); GLUCOSE,RANDOM 99 mg/dL (74-106); SGOT/AST 70 U/L (15-37); SGPT/ALT 86 U/L (12-78); TOT PROT 6.4 g/dl (6.4-8.2)
[2017-05-28] MEDS: HYDROCHLOROTHIAZIDE 12.5 MG CAPSULE (FP) PO SCH (10:14)
[2017-05-28] MEDS: PRENATAL VITAMINS W/ FOLIC ACID TABLET (FP) PO SCH (10:14)
[2017-05-28] MEDS: metFORMIN HCL 500 MG TABLET (FP) PO SCH ×2 (10:14→22:17)
[2017-05-28 11:34] LABS: URINE LEUK ESTERASE Negative (NEGATIVE)
--- NOTE | 2017-05-28 12:31 | PN ---
[facility] CIWA - CIWA Score Nausea/Vomitin-No Nausea/No Vomiting Muscle Tremors: 3 Anxiety: 3 Agitation: 3 Paroxysmal Sweats: 1-Minimal Palms Moist Orientation: 0-Oriented Tacttile Disturbances: 0-None Auditory Disturbances: 0-None Visual Disturbances: 0-None Headache: 0-None Present CIWA-Ar Total Score: 10 S Progress Note (SOAP) Subjective: tremor anxiety agitation sweat Objective: 05/28/17 12:28 Vital Signs Temperature 98 F 05/28/17 10:36 Pulse Rate 71 05/28/17 10:36 Respiratory Rate 18 05/28/17 10:36 Blood Pressure 115/76 05/28/17 10:36 O2 Sat by Pulse Oximetry (%) Laboratory Last Values WBC 5.7 K/mm3 (4.0-10.0) 05/28/17 08:00 RBC 4.85 M/mm3 (4.00-5.60) 05/28/17 08:00 Hgb 13.5 GM/dL (11.7-16.9) 05/28/17 08:00 Hct 41.5 % (35.4-49) 05/28/17 08:00 MCV 85.6 fl (80-96) 05/28/17 08:00 MCH 27.7 pg (25.7-33.7) 05/28/17 08:00 MCHC 32.4 g/dl (32.0-35.9) 05/28/17 08:00 RDW 14.1 % (11.9-15.9) 05/28/17 08:00 Plt Count 255 K/MM3 (134-434) 05/28/17 08:00 MPV 8.2 fl (7.5-11.1) 05/28/17 08:00 Sodium 144 mmol/L (136-145) 05/28/17 08:00 Potassium 3.8 mmol/L (3.5-5.1) 05/28/17 08:00 Chloride 109 mmol/L (98-107) H 05/28/17 08:00 Carbon Dioxide 28 mmol/L (21-32) 05/28/17 08:00 Anion Gap 7 (8-16) L 05/28/17 08:00 BUN 14 mg/dL (7-18) D 05/28/17 08:00 Creatinine 0.9 mg/dL (0.7-1.3) 05/28/17 08:00 Creat Clearance w eGFR > 60 (>60) 05/28/17 08:00 POC Glucometer 117 UNITS (80-120) 05/27/17 14:55 Random Glucose 99 mg/dL (74-106) 05/28/17 08:00 Calcium 8.6 mg/dL (8.5-10.1) 05/28/17 08:00 Total Bilirubin 0.3 mg/dL (0.2-1.0) D 05/28/17 08:00 AST 70 U/L (15-37) H 05/28/17 08:00 ALT 86 U/L (12-78) H 05/28/17 08:00 Alkaline Phosphatase 76 U/L (45-117) D 05/28/17 08:00 Total Protein 6.4 g/dl (6.4-8.2) 05/28/17 08:00 Albumin 3.4 g/dl (3.4-5.0) 05/28/17 08:00 Urine Color Rosenda 05/27/17 14:30 Urine Appearance Slcloudy 05/27/17 14:30 Urine pH 5.0 (5.0-8.0) 05/27/17 14:30 Ur Specific [place] 1.034 (1.001-1.035) 05/27/17 14:30 Urine Protein 1+ (NEGATIVE) H 05/27/17 14:30 Urine Glucose (UA) Negative (NEGATIVE) 05/27/17 14:30 Urine Ketones 1+ (NEGATIVE) H 05/27/17 14:30 Urine Blood Negative (NEGATIVE) 05/27/17 14:30 Urine Nitrite Negative (NEGATIVE) 05/27/17 14:30 Urine Bilirubin Negative (NEGATIVE) 05/27/17 14:30 Urine Urobilinogen 2.0 mg/dL (0.2-1.0) 05/27/17 14:30 Ur Leukocyte Esterase Negative (NEGATIVE) 05/27/17 14:30 Urine WBC (Auto) 4 /hpf (3-5) 05/27/17 14:30 Urine RBC (Auto) 7 /hpf (0-3) 05/27/17 14:30 Ur Epithelial Cells Rare /HPF (FEW) 05/27/17 14:30 Hyaline Casts 2 /lpf 05/27/17 14:30 Urine Mucus Many 05/27/17 14:30 RPR Titer Nonreactive (NONREACTIVE) 05/28/17 08:00 lab noted Assessment: 05/28/17 12:30 withdrawal sx Plan: continue detox
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
[2017-05-28] MEDS: NAPHAZOLINE/PHENIRAMINE OPHTHALMIC 15 ML BOTTLE OU SCH (15:31)
[2017-05-28] MEDS: ZOLPIDEM TARTRATE 10 MG TABLET (PARK CARE ONLY) PO PRN (22:17)
[2017-05-28] MEDS: THIAMINE HCL 100 MG TABLET (FP) PO SCH (22:17)
[2017-05-28] MEDS: EFAVIRENZ 600 MG TABLET PO SCH (22:17)
[2017-05-28] MEDS: EMTRICITABINE 200MG/TENOFOVIR 300MG PO SCH (22:17)
[2017-05-29] MEDS: chlordiazePOXIDE HCL 25 MG CAPSULE PO SCH ×2 (05:52→10:18)
[2017-05-29] MEDS: HYDROCHLOROTHIAZIDE 12.5 MG CAPSULE (FP) PO SCH (10:18)
[2017-05-29] MEDS: PRENATAL VITAMINS W/ FOLIC ACID TABLET (FP) PO SCH (10:18)
[2017-05-29] MEDS: NAPHAZOLINE/PHENIRAMINE OPHTHALMIC 15 ML BOTTLE OU SCH (10:19)
[2017-05-29] MEDS: metFORMIN HCL 500 MG TABLET (FP) PO SCH ×2 (10:19→17:51)
--- NOTE | 2017-05-29 12:09 | PN ---
[facility] CIWA - CIWA Score Nausea/Vomitin-No Nausea/No Vomiting Muscle Tremors: 4-Moderate,w/Arms Extend Anxiety: 3 Agitation: 2 Paroxysmal Sweats: 2 Orientation: 0-Oriented Tacttile Disturbances: 0-None Auditory Disturbances: 0-None Visual Disturbances: 0-None Headache: 0-None Present CIWA-Ar Total Score: 11 S Progress Note (SOAP) Subjective: agitation sweats interrupted sleep Objective: 05/29/17 12:08 Vital Signs Temperature 98.1 F 05/29/17 10:00 Pulse Rate 78 05/29/17 10:00 Respiratory Rate 18 05/29/17 10:00 Blood Pressure 122/80 05/29/17 10:00 O2 Sat by Pulse Oximetry (%) Laboratory Tests 05/27/17 05/27/17 05/28/17 14:30 14:55 05:15 WBC RBC Hgb Hct MCV MCH MCHC RDW Plt Count MPV Sodium Potassium Chloride Carbon Dioxide Anion Gap BUN Creatinine Creat Clearance w eGFR POC Glucometer 117 127 Random Glucose Calcium Total Bilirubin AST ALT Alkaline Phosphatase Total Protein Albumin Urine Color Rosenda Urine Appearance Slcloudy Urine pH 5.0 Ur Specific [place] 1.034 Urine Protein 1+ H Urine Glucose (UA) Negative Urine Ketones 1+ H Urine Blood Negative Urine Nitrite Negative Urine Bilirubin Negative Urine Urobilinogen 2.0 Ur Leukocyte Esterase Negative Urine WBC (Auto) 4 Urine RBC (Auto) 7 Ur Epithelial Cells Rare Hyaline Casts 2 Urine Mucus Many RPR Titer 05/28/17 05/28/17 05/28/17 08:00 08:00 08:00 WBC 5.7 RBC 4.85 Hgb 13.5 Hct 41.5 MCV 85.6 MCH 27.7 MCHC 32.4 RDW 14.1 Plt Count 255 MPV 8.2 Sodium 144 Potassium 3.8 Chloride 109 H Carbon Dioxide 28 Anion Gap 7 L BUN 14 D Creatinine 0.9 Creat Clearance w eGFR > 60 POC Glucometer Random Glucose 99 Calcium 8.6 Total Bilirubin 0.3 D AST 70 H ALT 86 H Alkaline Phosphatase 76 D Total Protein 6.4 Albumin 3.4 Urine Color Urine Appearance Urine pH Ur Specific [place] Urine Protein Urine Glucose (UA) Urine Ketones Urine Blood Urine Nitrite Urine Bilirubin Urine Urobilinogen Ur Leukocyte Esterase Urine WBC (Auto) Urine RBC (Auto) Ur Epithelial Cells Hyaline Casts Urine Mucus RPR Titer Nonreactive 05/29/17 06:23 WBC RBC Hgb Hct MCV MCH MCHC RDW Plt Count MPV Sodium Potassium Chloride Carbon Dioxide Anion Gap BUN Creatinine Creat Clearance w eGFR POC Glucometer 123 Random Glucose Calcium Total Bilirubin AST ALT Alkaline Phosphatase Total Protein Albumin Urine Color Urine Appearance Urine pH Ur Specific [place] Urine Protein Urine Glucose (UA) Urine Ketones Urine Blood Urine Nitrite Urine Bilirubin Urine Urobilinogen Ur Leukocyte Esterase Urine WBC (Auto) Urine RBC (Auto) Ur Epithelial Cells Hyaline Casts Urine Mucus RPR Titer aaox3 ambulating no acute distress Assessment: 05/29/17 12:09 withdrawal sx Plan: continue detox increase fluids
--- NOTE | 2017-05-29 15:15 | EKG ---
Test Reason : Blood Pressure : / mmHG Vent. Rate : 067 BPM Atrial Rate : 067 BPM P-R Int : 162 ms QRS Dur : 074 ms QT Int : 412 ms P-R-T Axes : 059 072 068 degrees QTc Int : 435 ms NORMAL SINUS RHYTHM NORMAL ECG WHEN COMPARED WITH ECG OF 01-APR-2017 18:00, NO SIGNIFICANT CHANGE WAS FOUND Confirmed by ZA CHACON MD ([id number]) on 05/29/2017 3:15:21 PM Referred By: Confirmed By:ZA CHACON MD
[2017-05-29] MEDS: chlordiazePOXIDE 5 MG CAPSULE PO SCH ×2 (17:51→22:43)
[2017-05-29] MEDS: THIAMINE HCL 100 MG TABLET (FP) PO SCH (22:43)
[2017-05-29] MEDS: ZOLPIDEM TARTRATE 10 MG TABLET (PARK CARE ONLY) PO PRN (22:43)
[2017-05-29] MEDS: EFAVIRENZ 600 MG TABLET PO SCH (22:44)
[2017-05-29] MEDS: EMTRICITABINE 200MG/TENOFOVIR 300MG PO SCH (22:44)
[2017-05-30] MEDS: chlordiazePOXIDE 5 MG CAPSULE PO SCH ×2 (06:05→10:17)
[2017-05-30] MEDS: metFORMIN HCL 500 MG TABLET (FP) PO SCH ×2 (09:25→18:09)
[2017-05-30] MEDS: PRENATAL VITAMINS W/ FOLIC ACID TABLET (FP) PO SCH (10:17)
[2017-05-30] MEDS: HYDROCHLOROTHIAZIDE 25 MG TABLET (FP) PO SCH (10:17)
[2017-05-30] MEDS: NAPHAZOLINE/PHENIRAMINE OPHTHALMIC 15 ML BOTTLE OU SCH (10:17)
--- NOTE | 2017-05-30 12:06 | PN ---
BHS Progress Note (SOAP) Subjective: anxiety sweats Objective: 05/30/17 12:05 Vital Signs Temperature 97.4 F L 05/30/17 09:59 Pulse Rate 74 05/30/17 09:59 Respiratory Rate 18 05/30/17 09:59 Blood Pressure 135/95 05/30/17 09:59 O2 Sat by Pulse Oximetry (%) aaox3 ambulating no acute distress Assessment: 05/30/17 12:06 withdrawal sx Plan: continue detox increase fluids d/c in am
[2017-05-30] MEDS: chlordiazePOXIDE HCL 10 MG CAPSULE PO SCH ×2 (18:10→22:08)
[2017-05-30] MEDS: THIAMINE HCL 100 MG TABLET (FP) PO SCH (22:08)
[2017-05-30] MEDS: EFAVIRENZ 600 MG TABLET PO SCH (22:08)
[2017-05-30] MEDS: ZOLPIDEM TARTRATE 10 MG TABLET (PARK CARE ONLY) PO PRN (22:08)
[2017-05-30] MEDS: EMTRICITABINE 200MG/TENOFOVIR 300MG PO SCH (22:08)
[2017-05-31] MEDS: chlordiazePOXIDE HCL 10 MG CAPSULE PO SCH (05:37)
[2017-05-31] MEDS: metFORMIN HCL 500 MG TABLET (FP) PO SCH (07:38)
--- NOTE | 2017-05-31 08:55 | DS ---
[facility] Detox Discharge Summary Admission Date: 05/27/17 Discharge Date: 05/31/17 - History Present History: Alcohol Dependence, Cannabis Dependence, Cocaine Dependence - Physical Exam Results Vital Signs: Vital Signs Temperature 97.8 F 05/31/17 07:10 Pulse Rate 96 H 05/31/17 07:10 Respiratory Rate 20 05/31/17 07:10 Blood Pressure 134/92 05/31/17 07:10 O2 Sat by Pulse Oximetry (%) - Treatment Hospital Course: Detox Protocol Followed, Detoxed Safely, Responded well, Discharged Condition Good, Rehab Referral Accepted - Medication Discharge Medications: Ambulatory Orders Naphazoline HCl/Phenir Mal [Opcon-A Eye Drops] 1 drop OP DAILY 30 Days drops Metformin HCl [Glucophage -] 500 mg PO BID 01/15/15 Multivitamins [Tab-A-Vit -] 1 tab PO DAILY 01/15/15 Efavirenz/Emtricitab/Tenofovir [Atripla Tablet -] 1 tab PO DAILY #30 tab Hydrochlorothiazide [Hctz -] 25 mg PO DAILY #30 cap 02/16/16 - Diagnosis (1) Alcohol dependence with uncomplicated withdrawal Current Visit: Yes Status: Chronic (2) Cocaine dependence Current Visit: Yes Status: Chronic (3) Depressive disorder Current Visit: Yes Status: Acute (4) Substance-induced sleep disorder Current Visit: Yes Status: Acute (5) Diabetes Current Visit: Yes Status: Chronic Qualifiers: Diabetes mellitus type: type 2 Diabetes mellitus complication status: without complication Diabetes mellitus long-term insulin use: without salvage determiner use Qualified Code(s): E11.9 - Type 2 diabetes mellitus without complications (6) HTN (hypertension) Current Visit: Yes Status: Chronic Qualifiers: Hypertension type: essential hypertension Qualified Code(s): I10 - Essential (primary) hypertension (7) Human immunodeficiency virus infection Current Visit: Yes Status: Chronic (8) deafness of right ear Current Visit: Yes Status: Chronic (9) hearing loss left wearing hearing aide Current Visit: Yes Status: Chronic (10) Cannabis dependence Current Visit: No Status: Acute (11) Drug-induced mood disorder Current Visit: No Status: Acute (12) Nicotine dependence Current Visit: No Status: Chronic Qualifiers: Nicotine product type: cigarettes Substance use status: in withdrawal Qualified Code(s): F17.213 - Nicotine dependence, cigarettes, with withdrawal - AMA Did Patient Leave Against Medical Advice: No
[2017-05-31 10:00] VITALS: BP 143/70; PULSE 78; TEMP 96.6
[2017-05-31] MEDS: HYDROCHLOROTHIAZIDE 25 MG TABLET (FP) PO SCH (10:23)
[2017-05-31] MEDS: NAPHAZOLINE/PHENIRAMINE OPHTHALMIC 15 ML BOTTLE OU SCH (10:23)
[2017-05-31] MEDS: PRENATAL VITAMINS W/ FOLIC ACID TABLET (FP) PO SCH (10:23)
== END 2017-05-31 11:15 | disposition home or self-care (01) | DRG 897 ==
LOC: YASAS 13:39 → Y6N 15:12
PROVIDERS: ADMIT Internal Medicine; ATTEND Internal Medicine
PROC: HZ2ZZZZ Detoxification Services for Substance Abuse Treatment (ICD-10-PCS; principal; 2017-05-27)
DX: F10.230 Alcohol dependence with withdrawal, uncomplicated (principal); F14.20 Cocaine dependence, uncomplicated; F19.282 Other psychoactive substance dependence with psychoactive substance-induced sleep disorder; F12.20 Cannabis dependence, uncomplicated; F17.210 Nicotine dependence, cigarettes, uncomplicated; F19.24 Other psychoactive substance dependence with psychoactive substance-induced mood disorder; F32.9 Major depressive disorder, single episode, unspecified; E11.9 Type 2 diabetes mellitus without complications; Z79.84 Long term (current) use of oral hypoglycemic drugs; Z21 Asymptomatic human immunodeficiency virus [HIV] infection status
CPT/HCPCS: 36415; 80053; 81003; 81015; 85027; 86593; 93005; 93010

== ENCOUNTER 2017-06-30 12:21 | Inpatient (IN) | payer OTHER ==
[2017-06-30 16:23] VITALS: BMI 30.1
--- NOTE | 2017-06-30 16:57 | HP ---
CIWA Score - CIWA Score Nausea/Vomitin Muscle Tremors: 2 Anxiety: 1-Mildly Anxious Agitation: 3 Paroxysmal Sweats: 2 Orientation: 2-Disoriented Date<2 days Tacttile Disturbances: 0-None Auditory Disturbances: 0-None Visual Disturbances: 0-None Headache: 1-Very Mild CIWA-Ar Total Score: 13 Admission ROS S - HPI Chief Complaint: WITHDRAWAL SYMPTOMS Allergies/Adverse Reactions: Allergies Allergy/AdvReac Type Severity Reaction Status Date / Time No Known Allergies Allergy Verified 05/27/17 14:42 History of Present Illness: 51 Y.O. MAN WITH AN EXTENSIVE HISTORY OF ALCOHOL AND CRACK-COCAINE DEPENDENCE IS HERE SEEKING DETOX. HE HAS HAD MULTIPLE ADMISSION HERE FOR DETOX WITH HIS LAST BEING IN 05/2017. DOES NOT HAVE AN EXTENSIVE HISTORY OF SOBRIETY. Exam Limitations: Other (HARD HEARING) - Ebola screening Have you traveled outside of the country in the last 21 days: No Have you had contact with anyone from an Ebola affected area: No Have you been sick,other than usual withdrawal symptoms: No - Review of Systems Constitutional: No Symptoms Reported EENT: reports: Hearing Loss (DEAF ON RIGHT EAR), Tinnitus (LEFT EAR), Other Respiratory: reports: No Symptoms reported Cardiac: reports: No Symptoms Reported GI: reports: No Symptoms Reported : reports: Other (H/O PROSTATE CAN) Musculoskeletal: reports: No Symptoms Reported Integumentary: reports: No Symptoms Reported Neuro: reports: No Symptoms reported Endocrine: reports: No Symptoms Reported Hematology: reports: No Symptoms Reported Psychiatric: reports: Judgement Intact, Mood/Affect Appropiate Other Systems: Reviewed and Negative Patient History - Patient Medical History Hx Anemia: No Hx Asthma: No Hx Chronic Obstructive Pulmonary Disease (COPD): No Hx Cancer: No Hx Cardiac Disorders: No Hx Congestive Heart Failure: No Hx Hypertension: Yes Hx Hypercholesterolemia: No Hx Pacemaker: No HX Cerebrovascular Accident: No Hx Seizures: No Hx Dementia: No Hx Diabetes: Yes ([id number]) Hx Gastrointestinal Disorders: No Hx Liver Disease: No Hx Genitourinary Disorders: No Hx Sexually Transmitted Disorders: No Hx Renal Disease (ESRD): No Hx Thyroid Disease: No Hx Human Immunodeficiency Virus (HIV): Yes (2007, on atripla) Hx Hepatitis C: No Hx Depression: No Hx Suicide Attempt: No Hx Bipolar Disorder: No Hx Schizophrenia: No - Patient Surgical History Past Surgical History: Yes Hx Neurologic Surgery: No Hx Cataract Extraction: No Hx Cardiac Surgery: No Hx Lung Surgery: No Hx Breast Surgery: No Hx Breast Biopsy: No Hx Abdominal Surgery: No Hx Appendectomy: No Hx Cholecystectomy: No Hx Genitourinary Surgery: No Hx Section: No Hx Orthopedic Surgery: No Other Surgical History: left ear; prostate sx 08/2016 Anesthesia Reaction: No - PPD History Previous Implant?: Yes Documented Results: Negative w/proof Date: 04/03/17 Results: 0 mm PPD to be Administered?: No - Reproductive History Patient is a Female of Child Bearing Age (11 -55 yrs old): No - Smoking Cessation Smoking history: Current some day smoker Have you smoked in the past 12 months: Yes Aproximately how many cigarettes per day: 10 Hx Chewing Tobacco Use: No Initiated information on smoking cessation: Yes 'Breaking Loose' booklet given: 06/30/17 - Substance & Tx. History Hx Alcohol Use: Yes Hx Substance Use: Yes Substance Use Type: Alcohol, Cocaine Hx Substance Use Treatment: Yes (Detox: 05/2017) - Substances Abused Alcohol Route: Oral Frequency: Daily Amount used: 1 pint + 2 16oz cans of beer Age of first use: 17 Date of Last Use: 06/30/17 Crack Route: Smoking Frequency: 3-6 times per week Amount used: $100 Age of first use: 24 Date of Last Use: 06/30/17 Family Disease History - Family Disease History Family Disease History: Diabetes: Brother, Other: Father (living, FORMER ALCOHOLIC), Mother (living, FORMER ALCOHOLIC) Admission Physical Exam S - Vital Signs Vital Signs: Vital Signs - 24 hr 06/30/17 16:21 Temperature 98.9 F Pulse Rate 80 Respiratory 18 Rate Blood Pressure 137/70 - Physical General Appearance: Yes: No Apparent Distress, Nourished HEENTM: Yes: Hearing Decreased Respiratory: Yes: Lungs Clear, Normal Breath Sounds, No Respiratory Distress, No Accessory Muscle Use Neck: Yes: No masses,lesions,Nodules, Trachea in good position Breast: Yes: Breast Exam Deferred Cardiology: Yes: Regular Rhythm, Regular Rate Abdominal: Yes: Normal Bowel Sounds, Non Tender, Flat Genitourinary: Yes: Other (NO COMPLAINTS REPORTED) Back: Yes: Normal Inspection Musculoskeletal: Yes: full range of Motion, Gait Steady, Pelvis Stable Extremities: Yes: Normal Capillary Refill, Normal Inspection, Normal Range of Motion, Non-Tender Neurological: Yes: Alert, Normal Mood/Affect, Normal Response Integumentary: Yes: Normal Color, Dry, Warm Lymphatic: Yes: Within Normal Limits - Diagnostic (1) History of prostate cancer Current Visit: Yes Status: Chronic (2) Alcohol dependence with uncomplicated withdrawal Current Visit: Yes Status: Chronic (3) Cocaine dependence Current Visit: Yes Status: Chronic (4) Diabetes Current Visit: Yes Status: Chronic Qualifiers: Diabetes mellitus type: type 2 Diabetes mellitus complication status: without complication Diabetes mellitus long term care social worker insulin use: without correction use Qualified Code(s): E11.9 - Type 2 diabetes mellitus without complications (5) HTN (hypertension) Current Visit: Yes Status: Chronic Qualifiers: Hypertension type: essential hypertension Qualified Code(s): I10 - Essential (primary) hypertension (6) Human immunodeficiency virus infection Current Visit: Yes Status: Chronic (7) Nicotine dependence Current Visit: Yes Status: Chronic Qualifiers: Nicotine product type: cigarettes Substance use status: in withdrawal Qualified Code(s): F17.213 - Nicotine dependence, cigarettes, with withdrawal (8) deafness of right ear Current Visit: Yes Status: Chronic (9) hearing loss left wearing hearing aide Current Visit: Yes Status: Chronic Cleared for Admission S - Detox or Rehab [facility] Level of Care: Medically Supervised 2Day Detox Regimen/Protocol: Librium S Breath Alcohol Content Breath Alcohol Content: 0 Urine Drug Screen - Results Drug Screen Negative: No Urine Drug Screen Results: MINNIE-Cocaine, OPI-Opiates
[2017-06-30] MEDS ORDERED: guaiFENesin/D-METHORPHAN HB 10 ML UNIT-DOSE CUPS PO PRN (17:29)
[2017-06-30] MEDS ORDERED: chlordiazePOXIDE HCL 25 MG CAPSULE PO PRN (17:29)
[2017-06-30] MEDS ORDERED: MAGNESIUM HYDROX 2400MG/30ML ORAL SUSPENSION 30 ML CUP PO PRN (17:29)
[2017-06-30] MEDS ORDERED: MAGNESIUM CITRATE 300 ML BOTTLE PO PRN (17:29)
[2017-06-30] MEDS ORDERED: IBUPROFEN 400 MG TABLET (FP) PO PRN (17:29)
[2017-06-30] MEDS ORDERED: ACETAMINOPHEN 325 MG TABLET (FP) PO PRN (17:29)
[2017-06-30] MEDS ORDERED: LOPERAMIDE HCL 2 MG CAPSULE PO PRN (17:29)
[2017-06-30] MEDS ORDERED: MAG HYDROX/AL HYDROX/SIMETH 30 ML UNIT-DOSE CUP PO PRN (17:29)
[2017-06-30] MEDS ORDERED: MENTHOL/PHENOL 1 EACH UD MM PRN (17:29)
[2017-06-30] MEDS ORDERED: P-EPHED 60MG/TRIPROLIDI 2.5MG TABLET PO PRN (17:29)
[2017-06-30] MEDS: THIAMINE HCL 100 MG TABLET (FP) PO SCH (22:15)
[2017-06-30] MEDS: chlordiazePOXIDE HCL 25 MG CAPSULE PO SCH (22:15)
[2017-06-30 23:15] LABS: URINE APPEARANCE CLEAR; URINE BILIRUBIN NEGATIVE (NEGATIVE); URINE BLOOD NEGATIVE (NEGATIVE); URINE COLOR YELLOW; URINE GLUCOSE (UA) NEGATIVE (NEGATIVE); URINE KETONE NEGATIVE (NEGATIVE); URINE LEUK ESTERASE NEGATIVE (NEGATIVE); URINE NITRITE NEGATIVE (NEGATIVE); URINE PROTEIN NEGATIVE (NEGATIVE)
[2017-07-01] MEDS: chlordiazePOXIDE HCL 25 MG CAPSULE PO SCH ×4 (06:46→22:40)
[2017-07-01] MEDS: metFORMIN HCL 500 MG TABLET (FP) PO SCH ×2 (08:36→17:34)
[2017-07-01 10:42] LABS: ALBUMIN 3.6 g/dl (3.4-5.0); ALK PHOS 83 U/L (45-117); ANION GAP 4 (8-16); BILIRUBIN,TOTAL 0.3 mg/dL (0.2-1.0); BLOOD UREA NITROGEN 15 mg/dL (7-18); CALCIUM 8.3 mg/dL (8.5-10.1); CHLORIDE 110 mmol/L (98-107); CO2 29 mmol/L (21-32); CREATININE 0.9 mg/dL (0.7-1.3); GLUCOSE,RANDOM 93 mg/dL (74-106); POTASSIUM 3.9 mmol/L (3.5-5.1); SGOT/AST 53 U/L (15-37); SGPT/ALT 71 U/L (12-78); SODIUM 143 mmol/L (136-145); TOT PROT 6.9 g/dl (6.4-8.2)
[2017-07-01 10:44] LABS: HEMATOCRIT 41.1 % (35.4-49); HEMOGLOBIN 13.3 GM/dL (11.7-16.9); MCH 27.7 pg (25.7-33.7); MCHC 32.3 g/dl (32.0-35.9); MEAN CELL VOLUME 85.7 fl (80-96); MEAN PLT VOLUME 7.6 fl (7.5-11.1); PLATELET COUNT 268 K/MM3 (134-434); RDW 14.7 % (11.9-15.9); WHITE BLOOD COUNT 5.4 K/mm3 (4.0-10.0)
[2017-07-01] MEDS: HYDROCHLOROTHIAZIDE 12.5 MG CAPSULE (FP) PO SCH (11:22)
[2017-07-01] MEDS: PRENATAL VITAMINS W/ FOLIC ACID TABLET (FP) PO SCH (11:22)
--- NOTE | 2017-07-01 12:24 | PN ---
S CIWA - CIWA Score Nausea/Vomitin Muscle Tremors: 3 Anxiety: 3 Agitation: 2 Paroxysmal Sweats: 1-Minimal Palms Moist Orientation: 0-Oriented Tacttile Disturbances: 1-Very Mild Itch/Numbness Auditory Disturbances: 1-Very Mild Visual Disturbances: 0-None Headache: 2-Mild CIWA-Ar Total Score: 16 BHS Progress Note (SOAP) Subjective: ALERT,IRRITABLE,ANXIOUS,INTERRUPTED SLEEP,TREMOR,PAIN IN THE BODY Objective: 07/01/17 12:23 Vital Signs Temperature 97.9 F 07/01/17 10:30 Pulse Rate 65 07/01/17 10:30 Respiratory Rate 18 07/01/17 10:30 Blood Pressure 133/86 07/01/17 10:30 O2 Sat by Pulse Oximetry (%) 07/01/17 12:25 EKG NSR 75/MIN NO CHEST PAIN,NO SOB,NO DIZZINESS Laboratory Last Values WBC 5.4 K/mm3 (4.0-10.0) 07/01/17 08:00 RBC 4.80 M/mm3 (4.00-5.60) 07/01/17 08:00 Hgb 13.3 GM/dL (11.7-16.9) 07/01/17 08:00 Hct 41.1 % (35.4-49) 07/01/17 08:00 MCV 85.7 fl (80-96) 07/01/17 08:00 MCH 27.7 pg (25.7-33.7) 07/01/17 08:00 MCHC 32.3 g/dl (32.0-35.9) 07/01/17 08:00 RDW 14.7 % (11.9-15.9) 07/01/17 08:00 Plt Count 268 K/MM3 (134-434) 07/01/17 08:00 MPV 7.6 fl (7.5-11.1) 07/01/17 08:00 Sodium 143 mmol/L (136-145) 07/01/17 08:00 Potassium 3.9 mmol/L (3.5-5.1) 07/01/17 08:00 Chloride 110 mmol/L (98-107) H 07/01/17 08:00 Carbon Dioxide 29 mmol/L (21-32) 07/01/17 08:00 Anion Gap 4 (8-16) L 07/01/17 08:00 BUN 15 mg/dL (7-18) 07/01/17 08:00 Creatinine 0.9 mg/dL (0.7-1.3) 07/01/17 08:00 Creat Clearance w eGFR > 60 (>60) 07/01/17 08:00 POC Glucometer 116 UNITS (80-120) 07/01/17 06:55 Random Glucose 93 mg/dL (74-106) 07/01/17 08:00 Calcium 8.3 mg/dL (8.5-10.1) L 07/01/17 08:00 Total Bilirubin 0.3 mg/dL (0.2-1.0) 07/01/17 08:00 AST 53 U/L (15-37) H D 07/01/17 08:00 ALT 71 U/L (12-78) 07/01/17 08:00 Alkaline Phosphatase 83 U/L (45-117) 07/01/17 08:00 Total Protein 6.9 g/dl (6.4-8.2) 07/01/17 08:00 Albumin 3.6 g/dl (3.4-5.0) 07/01/17 08:00 Urine Color Yellow 06/30/17 21:00 Urine Appearance Clear 06/30/17 21:00 Urine pH 6.0 (5.0-8.0) 06/30/17 21:00 Ur Specific [place] 1.025 (1.001-1.035) 06/30/17 21:00 Urine Protein Negative (NEGATIVE) 06/30/17 21:00 Urine Glucose (UA) Negative (NEGATIVE) 06/30/17 21:00 Urine Ketones Negative (NEGATIVE) 06/30/17 21:00 Urine Blood Negative (NEGATIVE) 06/30/17 21:00 Urine Nitrite Negative (NEGATIVE) 06/30/17 21:00 Urine Bilirubin Negative (NEGATIVE) 06/30/17 21:00 Urine Urobilinogen 2.0 mg/dL (0.2-1.0) 06/30/17 21:00 Ur Leukocyte Esterase Negative (NEGATIVE) 06/30/17 21:00 Assessment: 07/01/17 12:27 WITHDRAWAL SYMPTOM Plan: CONTINUE DETOX,BGM MONITORING
[2017-07-01] MEDS: EFAVIRENZ 600 MG TABLET PO SCH (15:01)
[2017-07-01] MEDS: EMTRICITABINE 200MG/TENOFOVIR 300MG PO SCH (15:02)
--- NOTE | 2017-07-01 16:52 | EKG ---
Test Reason : Blood Pressure : / mmHG Vent. Rate : 075 BPM Atrial Rate : 075 BPM P-R Int : 172 ms QRS Dur : 070 ms QT Int : 378 ms P-R-T Axes : 056 049 062 degrees QTc Int : 422 ms NORMAL SINUS RHYTHM NONSPECIFIC T WAVE ABNORMALITY ABNORMAL ECG WHEN COMPARED WITH ECG OF 27-MAY-2017 17:39, NO SIGNIFICANT CHANGE WAS FOUND Confirmed by MEGHAN RAMOS MD ([id number]) on 07/01/2017 4:52:01 PM Referred By: Confirmed By:MEGHAN RAMOS MD
[2017-07-01] MEDS: ARTIFICIAL TEARS (POLYVINYL ALCOHOL 1.4%) OPTH DROPS OU SCH ×2 (22:40→23:48)
[2017-07-01] MEDS: THIAMINE HCL 100 MG TABLET (FP) PO SCH (22:40)
[2017-07-01] MEDS: hydrOXYzine PAMOATE 50 MG CAPSULE (FP) PO PRN (22:41)
[2017-07-02] MEDS: chlordiazePOXIDE HCL 25 MG CAPSULE PO SCH ×3 (06:32→17:42)
[2017-07-02] MEDS: metFORMIN HCL 500 MG TABLET (FP) PO SCH ×2 (06:32→17:43)
[2017-07-02] MEDS: ARTIFICIAL TEARS (POLYVINYL ALCOHOL 1.4%) OPTH DROPS OU SCH ×3 (06:32→22:41)
[2017-07-02] MEDS: EMTRICITABINE 200MG/TENOFOVIR 300MG PO SCH (10:55)
[2017-07-02] MEDS: EFAVIRENZ 600 MG TABLET PO SCH (10:55)
[2017-07-02] MEDS: PRENATAL VITAMINS W/ FOLIC ACID TABLET (FP) PO SCH (10:55)
[2017-07-02] MEDS: HYDROCHLOROTHIAZIDE 12.5 MG CAPSULE (FP) PO SCH (10:55)
--- NOTE | 2017-07-02 12:37 | PN ---
[facility] CIWA - CIWA Score Nausea/Vomitin-No Nausea/No Vomiting Muscle Tremors: 3 Anxiety: 3 Agitation: 3 Paroxysmal Sweats: 3 Orientation: 0-Oriented Tacttile Disturbances: 1-Very Mild Itch/Numbness Auditory Disturbances: 0-None Visual Disturbances: 0-None Headache: 0-None Present CIWA-Ar Total Score: 13 BHS Progress Note (SOAP) Subjective: tremor anxiety agitation restlessness alert Objective: 07/02/17 12:36 Vital Signs Temperature 97.7 F 07/02/17 10:00 Pulse Rate 70 07/02/17 10:00 Respiratory Rate 18 07/02/17 10:00 Blood Pressure 139/95 07/02/17 10:00 O2 Sat by Pulse Oximetry (%) Laboratory Last Values WBC 5.4 K/mm3 (4.0-10.0) 07/01/17 08:00 RBC 4.80 M/mm3 (4.00-5.60) 07/01/17 08:00 Hgb 13.3 GM/dL (11.7-16.9) 07/01/17 08:00 Hct 41.1 % (35.4-49) 07/01/17 08:00 MCV 85.7 fl (80-96) 07/01/17 08:00 MCH 27.7 pg (25.7-33.7) 07/01/17 08:00 MCHC 32.3 g/dl (32.0-35.9) 07/01/17 08:00 RDW 14.7 % (11.9-15.9) 07/01/17 08:00 Plt Count 268 K/MM3 (134-434) 07/01/17 08:00 MPV 7.6 fl (7.5-11.1) 07/01/17 08:00 Sodium 143 mmol/L (136-145) 07/01/17 08:00 Potassium 3.9 mmol/L (3.5-5.1) 07/01/17 08:00 Chloride 110 mmol/L (98-107) H 07/01/17 08:00 Carbon Dioxide 29 mmol/L (21-32) 07/01/17 08:00 Anion Gap 4 (8-16) L 07/01/17 08:00 BUN 15 mg/dL (7-18) 07/01/17 08:00 Creatinine 0.9 mg/dL (0.7-1.3) 07/01/17 08:00 Creat Clearance w eGFR > 60 (>60) 07/01/17 08:00 POC Glucometer 105 UNITS (80-120) 07/02/17 06:28 Random Glucose 93 mg/dL (74-106) 07/01/17 08:00 Calcium 8.3 mg/dL (8.5-10.1) L 07/01/17 08:00 Total Bilirubin 0.3 mg/dL (0.2-1.0) 07/01/17 08:00 AST 53 U/L (15-37) H D 07/01/17 08:00 ALT 71 U/L (12-78) 07/01/17 08:00 Alkaline Phosphatase 83 U/L (45-117) 07/01/17 08:00 Total Protein 6.9 g/dl (6.4-8.2) 07/01/17 08:00 Albumin 3.6 g/dl (3.4-5.0) 07/01/17 08:00 Urine Color Yellow 06/30/17 21:00 Urine Appearance Clear 06/30/17 21:00 Urine pH 6.0 (5.0-8.0) 06/30/17 21:00 Ur Specific [place] 1.025 (1.001-1.035) 06/30/17 21:00 Urine Protein Negative (NEGATIVE) 06/30/17 21:00 Urine Glucose (UA) Negative (NEGATIVE) 06/30/17 21:00 Urine Ketones Negative (NEGATIVE) 06/30/17 21:00 Urine Blood Negative (NEGATIVE) 06/30/17 21:00 Urine Nitrite Negative (NEGATIVE) 06/30/17 21:00 Urine Bilirubin Negative (NEGATIVE) 06/30/17 21:00 Urine Urobilinogen 2.0 mg/dL (0.2-1.0) 06/30/17 21:00 Ur Leukocyte Esterase Negative (NEGATIVE) 06/30/17 21:00 RPR Titer Nonreactive (NONREACTIVE) 07/01/17 08:00 lab noted Assessment: 07/02/17 12:36 withdrawal sx Plan: continue detox
[2017-07-02] MEDS: hydrOXYzine PAMOATE 50 MG CAPSULE (FP) PO PRN (22:41)
[2017-07-02] MEDS: chlordiazePOXIDE 5 MG CAPSULE PO SCH (22:41)
[2017-07-02] MEDS: THIAMINE HCL 100 MG TABLET (FP) PO SCH (22:41)
[2017-07-03] MEDS: ARTIFICIAL TEARS (POLYVINYL ALCOHOL 1.4%) OPTH DROPS OU SCH ×3 (06:05→22:37)
[2017-07-03] MEDS: chlordiazePOXIDE 5 MG CAPSULE PO SCH ×3 (06:06→18:04)
[2017-07-03] MEDS: metFORMIN HCL 500 MG TABLET (FP) PO SCH ×2 (06:06→18:04)
[2017-07-03] MEDS: EFAVIRENZ 600 MG TABLET PO SCH (11:54)
[2017-07-03] MEDS: PRENATAL VITAMINS W/ FOLIC ACID TABLET (FP) PO SCH (11:55)
[2017-07-03] MEDS: EMTRICITABINE 200MG/TENOFOVIR 300MG PO SCH (11:55)
[2017-07-03] MEDS: HYDROCHLOROTHIAZIDE 12.5 MG CAPSULE (FP) PO SCH (11:55)
--- NOTE | 2017-07-03 12:21 | PN ---
BHS Progress Note (SOAP) Subjective: ALERT,IRRITABLE,ANXIOUS,INTERRUPTED SLEEP,TREMOR Objective: 07/03/17 12:20 Vital Signs Temperature 98 F 07/03/17 11:47 Pulse Rate 69 07/03/17 11:47 Respiratory Rate 18 07/03/17 11:47 Blood Pressure 107/57 07/03/17 11:47 O2 Sat by Pulse Oximetry (%) Assessment: 07/03/17 12:20 WITHDRAWAL SYMPTOM 07/03/17 12:21 BGM 131 Plan: CONTINUE DETOX,BGM MONITORING
[2017-07-03] MEDS: chlordiazePOXIDE HCL 10 MG CAPSULE PO SCH (22:37)
[2017-07-03] MEDS: THIAMINE HCL 100 MG TABLET (FP) PO SCH (22:37)
[2017-07-03] MEDS: hydrOXYzine PAMOATE 50 MG CAPSULE (FP) PO PRN (22:37)
[2017-07-04] MEDS: chlordiazePOXIDE HCL 10 MG CAPSULE PO SCH ×2 (05:50→10:58)
[2017-07-04] MEDS: ARTIFICIAL TEARS (POLYVINYL ALCOHOL 1.4%) OPTH DROPS OU SCH ×2 (07:20→15:18)
[2017-07-04] MEDS: metFORMIN HCL 500 MG TABLET (FP) PO SCH (10:57)
[2017-07-04] MEDS: EFAVIRENZ 600 MG TABLET PO SCH (10:57)
[2017-07-04] MEDS: HYDROCHLOROTHIAZIDE 12.5 MG CAPSULE (FP) PO SCH (10:57)
[2017-07-04] MEDS: PRENATAL VITAMINS W/ FOLIC ACID TABLET (FP) PO SCH (10:57)
[2017-07-04] MEDS: EMTRICITABINE 200MG/TENOFOVIR 300MG PO SCH (10:58)
--- NOTE | 2017-07-04 13:27 | DS ---
[facility] Detox Discharge Summary Admission Date: 06/30/17 Discharge Date: 07/04/17 - History Present History: Alcohol Dependence, Cannabis Dependence, Cocaine Dependence Pertinent Past History: [place] (R) - Physical Exam Results Vital Signs: Vital Signs Temperature 97.5 F L 07/04/17 10:22 Pulse Rate 77 07/04/17 10:22 Respiratory Rate 18 07/04/17 10:22 Blood Pressure 151/95 07/04/17 10:22 O2 Sat by Pulse Oximetry (%) - Treatment Hospital Course: Detox Protocol Followed, Detoxed Safely, Responded well, Discharged Condition Good Patient has Accepted a Rehab Referral to: Continue self help programs - Medication Discharge Medications: Ambulatory Orders Naphazoline HCl/Phenir Mal [Opcon-A Eye Drops] 1 drop OP DAILY 30 Days drops Metformin HCl [Glucophage -] 500 mg PO BID 01/15/15 Multivitamins [Tab-A-Vit -] 1 tab PO DAILY 01/15/15 Efavirenz/Emtricitab/Tenofovir [Atripla Tablet -] 1 tab PO DAILY #30 tab Hydrochlorothiazide [Hctz -] 25 mg PO DAILY #30 cap 02/16/16 - Diagnosis (1) DM2 (diabetes mellitus, type 2) Current Visit: Yes Status: Acute (2) Alcohol dependence with uncomplicated withdrawal Current Visit: Yes Status: Chronic (3) Cocaine dependence Current Visit: Yes Status: Chronic (4) HTN (hypertension) Current Visit: Yes Status: Chronic Qualifiers: Hypertension type: essential hypertension Qualified Code(s): I10 - Essential (primary) hypertension (5) History of prostate cancer Current Visit: Yes Status: Chronic (6) Human immunodeficiency virus infection Current Visit: Yes Status: Chronic (7) Nicotine dependence Current Visit: Yes Status: Chronic Qualifiers: Nicotine product type: cigarettes Substance use status: in withdrawal Qualified Code(s): F17.213 - Nicotine dependence, cigarettes, with withdrawal (8) deafness of right ear Current Visit: Yes Status: Chronic (9) hearing loss left wearing hearing aide Current Visit: Yes Status: Chronic (10) Cannabis dependence Current Visit: No Status: Acute - AMA Did Patient Leave Against Medical Advice: No
[2017-07-04 14:37] VITALS: BP 155/95; PULSE 92; TEMP 98.2
== END 2017-07-04 15:10 | disposition other institution (70) | DRG 897 ==
LOC: YASAS 12:21 → Y6N 17:42
PROVIDERS: ADMIT Internal Medicine; ATTEND Internal Medicine
PROC: HZ2ZZZZ Detoxification Services for Substance Abuse Treatment (ICD-10-PCS; principal; 2017-06-30)
DX: F10.230 Alcohol dependence with withdrawal, uncomplicated (principal); F14.20 Cocaine dependence, uncomplicated; F12.20 Cannabis dependence, uncomplicated; F17.213 Nicotine dependence, cigarettes, with withdrawal; F19.24 Other psychoactive substance dependence with psychoactive substance-induced mood disorder; E11.9 Type 2 diabetes mellitus without complications; I10 Essential (primary) hypertension; Z85.46 Personal history of malignant neoplasm of prostate; H91.8X3 Other specified hearing loss, bilateral; Z79.84 Long term (current) use of oral hypoglycemic drugs
CPT/HCPCS: 36415; 80053; 81003; 82962; 85027; 86593; 93005; 93010

== ENCOUNTER 2017-07-04 15:31 | Inpatient (IN) | payer OTHER ==
[2017-07-04] MEDS ORDERED: MAGNESIUM CITRATE 300 ML BOTTLE PO PRN (16:24)
[2017-07-04] MEDS ORDERED: guaiFENesin/D-METHORPHAN HB 10 ML UNIT-DOSE CUPS PO PRN (16:24)
[2017-07-04] MEDS ORDERED: P-EPHED 60MG/TRIPROLIDI 2.5MG TABLET PO PRN (16:24)
[2017-07-04] MEDS ORDERED: MAG HYDROX/AL HYDROX/SIMETH 30 ML UNIT-DOSE CUP PO PRN (16:24)
[2017-07-04] MEDS ORDERED: LOPERAMIDE HCL 2 MG CAPSULE PO PRN (16:24)
[2017-07-04] MEDS ORDERED: MENTHOL/PHENOL 1 EACH UD MM PRN (16:24)
[2017-07-04] MEDS ORDERED: MAGNESIUM HYDROX 2400MG/30ML ORAL SUSPENSION 30 ML CUP PO PRN (16:24)
[2017-07-04] MEDS ORDERED: ACETAMINOPHEN 325 MG TABLET (FP) PO PRN (16:24)
[2017-07-04] MEDS ORDERED: NICOTINE POLACRILEX 2 MG GUM BUC PRN (16:24)
--- NOTE | 2017-07-04 16:24 | HP ---
[facility] Rehab Assess/Revision - Admission History Admitted to Rehab from: [facility] [place] Date of Admission to Rehab: 07/04/17 - Findings Detox History & Physical reviewed: Yes Concur with findings: Yes Comments/Additional Findings: transferred from detox to rehab as per protocol Inpatient Rehab Admission - Initial Determination Are CD services needed?: Yes Free of communicable disease: Yes Not in need of hospitalization: Yes - Rehab Admission Criteria Previous failed treatment: Yes Poor recovery environment: Yes Comorbidities: Yes Lacks judgement: No Patient is meeting Inpatient Rehab admission criteria:: Yes
[2017-07-04 16:39] VITALS: BMI 29.3
[2017-07-04] MEDS ORDERED: NICOTINE 14 MG/24 HOURS TOPICAL PATCH TD PRN (17:15)
[2017-07-04] MEDS: metFORMIN HCL 500 MG TABLET (FP) PO SCH (17:16)
[2017-07-04] MEDS: THIAMINE HCL 100 MG TABLET (FP) PO SCH (21:42)
[2017-07-04] MEDS: ARTIFICIAL TEARS (POLYVINYL ALCOHOL 1.4%) OPTH DROPS OU SCH (21:42)
[2017-07-05] MEDS ORDERED: hydrOXYzine PAMOATE 25 MG CAPSULE (FP) PO ONE (00:15)
[2017-07-05] MEDS ORDERED: PT OWN MED DRAWER 7, Y5N ONE (03:23)
[2017-07-05] MEDS: ARTIFICIAL TEARS (POLYVINYL ALCOHOL 1.4%) OPTH DROPS OU SCH ×3 (06:33→21:36)
[2017-07-05] MEDS: metFORMIN HCL 500 MG TABLET (FP) PO SCH ×2 (06:33→17:35)
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
[2017-07-05] MEDS: EMTRICITABINE 200MG/TENOFOVIR 300MG PO SCH (09:56)
[2017-07-05] MEDS: EFAVIRENZ 600 MG TABLET PO SCH (09:56)
[2017-07-05] MEDS: PRENATAL VITAMINS W/ FOLIC ACID TABLET (FP) PO SCH (09:56)
[2017-07-05] MEDS: HYDROCHLOROTHIAZIDE 25 MG TABLET (FP) PO SCH (09:56)
[2017-07-05] MEDS ORDERED: PATIENT'S OWN MEDICATION (NON-FORMULARY) (Efavirenz/Emtricitab/Tenofovir 1 TAB) PO SCH (10:00)
[2017-07-05] MEDS ORDERED: [UNRECOGNIZED DRUG - OTHER] OP SCH (10:00)
[2017-07-05] MEDS: THIAMINE HCL 100 MG TABLET (FP) PO SCH (21:36)
[2017-07-06] MEDS ORDERED: hydrOXYzine PAMOATE 25 MG CAPSULE (FP) PO ONE (00:15)
[2017-07-06] MEDS: metFORMIN HCL 500 MG TABLET (FP) PO SCH ×2 (06:22→16:47)
[2017-07-06] MEDS: ARTIFICIAL TEARS (POLYVINYL ALCOHOL 1.4%) OPTH DROPS OU SCH ×3 (06:23→21:39)
[2017-07-06] MEDS: EMTRICITABINE 200MG/TENOFOVIR 300MG PO SCH (10:19)
[2017-07-06] MEDS: PRENATAL VITAMINS W/ FOLIC ACID TABLET (FP) PO SCH (10:19)
[2017-07-06] MEDS: HYDROCHLOROTHIAZIDE 25 MG TABLET (FP) PO SCH (10:19)
[2017-07-06] MEDS: EFAVIRENZ 600 MG TABLET PO SCH (10:20)
[2017-07-06] MEDS: THIAMINE HCL 100 MG TABLET (FP) PO SCH (21:38)
[2017-07-07] MEDS ORDERED: hydrOXYzine PAMOATE 50 MG CAPSULE (FP) PO ONE (02:41)
[2017-07-07] MEDS: metFORMIN HCL 500 MG TABLET (FP) PO SCH ×2 (06:43→16:58)
[2017-07-07] MEDS: ARTIFICIAL TEARS (POLYVINYL ALCOHOL 1.4%) OPTH DROPS OU SCH ×3 (06:44→21:30)
[2017-07-07] MEDS: EFAVIRENZ 600 MG TABLET PO SCH (10:09)
[2017-07-07] MEDS: HYDROCHLOROTHIAZIDE 25 MG TABLET (FP) PO SCH (10:10)
[2017-07-07] MEDS: PRENATAL VITAMINS W/ FOLIC ACID TABLET (FP) PO SCH (10:10)
[2017-07-07] MEDS: EMTRICITABINE 200MG/TENOFOVIR 300MG PO SCH (10:10)
--- NOTE | 2017-07-07 11:39 | PN ---
Psychiatric Progress Note Vital Signs: Vital Signs Period Temp Pulse Resp BP Sys/Almanza Pulse Ox Last 24 Hr 97.8 F 77-85 16-18 131-141/71-82 Date of Session: 07/07/17 Chief Complaint:: "insomnia" HPI: Patient is addressing alcohol, cocaine and nicotine dependence. Current Medications: Active Medications Generic Name Dose Route Start Last Admin Trade Name Freq PRN Reason Stop Dose Admin Acetaminophen 650 mg 07/04/17 16:24 Tylenol - PO Q4H PRN FEVER Al Hydroxide/Mg Hydroxide 30 ml 07/04/17 16:24 Mylanta Oral Suspension - PO Q6H PRN DYSPEPSIA Artificial Tears 1 drop 07/04/17 22:00 07/07/17 06:44 Artificial Tears OU 1 drop TID MAXIME Administration Efavirenz 600 mg 07/05/17 10:00 07/07/17 10:09 Sustiva - PO 600 mg DAILY MAIXME Administration Emtricitabine/Tenofovir 1 tab 07/05/17 10:00 07/07/17 10:10 Truvada PO 1 tab DAILY MAXIME Administration Eucalyptus/Menthol/Phenol/Sorbitol 1 each 07/04/17 16:24 Cepastat Lozenge - MM Q4H PRN SORE THROAT Guaifenesin 10 ml 07/04/17 16:24 Robitussin Dm - PO Q6H PRN COUGH Hydrochlorothiazide 25 mg 07/05/17 10:00 07/07/17 10:10 Hctz - PO 25 mg DAILY MAXIME Administration Ibuprofen 400 mg 07/04/17 16:24 Motrin - PO Q6H PRN Pain Level 4-6 Loperamide HCl 4 mg 07/04/17 16:24 Imodium - PO Q6H PRN DIARRHEA Magnesium Citrate 300 ml 07/04/17 16:24 Citroma - PO Q48H PRN CONSTIPATION Magnesium Hydroxide 30 ml 07/04/17 16:24 Milk Of Magnesia - PO DAILY PRN CONSTIPATION Metformin HCl 500 mg 07/04/17 16:30 07/07/17 06:43 Glucophage - PO 500 mg BIDAC MAXIME Administration Nicotine 14 mg 07/04/17 17:15 Nicoderm Patch - TD DAILY PRN WITHDRAWAL(CONT SUBST) Nicotine Polacrilex 2 mg 07/04/17 16:24 Nicorette Gum - BUC Q2H PRN NICOTINE REPLACEMENT RX Multivit/Folic Acid/Iron 1 tab 07/05/17 10:00 07/07/17 10:10 Vitamins (Sjr) - PO 1 tab DAILY MAXIME Administration Pseudoephedrine/Triprolidine 1 combo 07/04/17 16:24 Actifed - PO TID PRN NASAL CONGESTION Thiamine HCl 100 mg 07/04/17 22:00 07/06/17 21:38 Vitamin B1 - PO 100 mg HS MAXIME Administration Current Side Effect: No Lab tests ordered: No Lab tests reviewed: Yes Provider note:: Patient was seen today, reports last night was not able to sleep ; even with Vistaril, slept 3 hours and was up the rest of the night. Patient was discussed sleep hygiene, educated regarding addiction relation with insomnia , indications and properties of Belsomra discussed and recommended, patient agreed to start. Supportive therapy provided. Total face to face time:: 25 Mental Status Exam - Mental Status Exam Alert and Oriented to: Time, Place, Person Cognitive Function: Grossly Intact Patient Appearance: Well Groomed Mood: Anxious Affect: Appropriate, Mood Congruent Patient Behavior: Appropriate, Cooperative Speech Pattern: Clear, Appropriate Voice Loudness: Normal Thought Process: Intact, Goal Oriented Thought Disorder: Not Present Hallucinations: Denies Suicidal Ideation: Denies Homicidal Ideation: Denies Insight/Judgement: Fair Sleep: Poorly, Difficulty falling asleep Appetite: Good Muscle strength/Tone: Normal Gait/Station: Normal Psychiatric Treatment Plan - Problem List (1) Cocaine dependence Current Visit: No (2) Alcohol dependence Current Visit: Yes (3) Diabetes Current Visit: No Qualifiers: Diabetes mellitus type: type 2 Diabetes mellitus complication status: without complication Diabetes mellitus terminal operations manager insulin use: without prison use Qualified Code(s): E11.9 - Type 2 diabetes mellitus without complications (4) HTN (hypertension) Current Visit: No Qualifiers: Hypertension type: essential hypertension Qualified Code(s): I10 - Essential (primary) hypertension (5) Nicotine dependence Current Visit: No Qualifiers: Nicotine product type: cigarettes Substance use status: in withdrawal Qualified Code(s): F17.213 - Nicotine dependence, cigarettes, with withdrawal (6) deafness of right ear Current Visit: No (7) hearing loss left wearing hearing aide Current Visit: No (8) Substance-induced sleep disorder Current Visit: No
[2017-07-07] MEDS: IBUPROFEN 400 MG TABLET (FP) PO PRN (15:10)
[2017-07-07] MEDS: SUVOREXANT 10 MG TABLET PO PRN (21:28)
[2017-07-07] MEDS: THIAMINE HCL 100 MG TABLET (FP) PO SCH (21:29)
[2017-07-08] MEDS: metFORMIN HCL 500 MG TABLET (FP) PO SCH ×2 (06:42→16:52)
[2017-07-08] MEDS: ARTIFICIAL TEARS (POLYVINYL ALCOHOL 1.4%) OPTH DROPS OU SCH ×3 (06:43→21:20)
[2017-07-08] MEDS: EFAVIRENZ 600 MG TABLET PO SCH (10:17)
[2017-07-08] MEDS: PRENATAL VITAMINS W/ FOLIC ACID TABLET (FP) PO SCH (10:17)
[2017-07-08] MEDS: EMTRICITABINE 200MG/TENOFOVIR 300MG PO SCH (10:17)
[2017-07-08] MEDS: HYDROCHLOROTHIAZIDE 25 MG TABLET (FP) PO SCH (10:17)
[2017-07-08] MEDS: THIAMINE HCL 100 MG TABLET (FP) PO SCH (21:20)
[2017-07-08] MEDS: SUVOREXANT 10 MG TABLET PO PRN (21:20)
[2017-07-09] MEDS: metFORMIN HCL 500 MG TABLET (FP) PO SCH ×2 (06:45→16:59)
[2017-07-09] MEDS: ARTIFICIAL TEARS (POLYVINYL ALCOHOL 1.4%) OPTH DROPS OU SCH ×3 (07:23→21:20)
[2017-07-09] MEDS: PRENATAL VITAMINS W/ FOLIC ACID TABLET (FP) PO SCH (10:00)
[2017-07-09] MEDS: EFAVIRENZ 600 MG TABLET PO SCH (10:00)
[2017-07-09] MEDS: HYDROCHLOROTHIAZIDE 25 MG TABLET (FP) PO SCH (10:00)
[2017-07-09] MEDS: EMTRICITABINE 200MG/TENOFOVIR 300MG PO SCH (10:01)
[2017-07-09] MEDS: IBUPROFEN 400 MG TABLET (FP) PO PRN (17:16)
[2017-07-09] MEDS: THIAMINE HCL 100 MG TABLET (FP) PO SCH (21:20)
[2017-07-09] MEDS: SUVOREXANT 10 MG TABLET PO PRN (21:20)
[2017-07-10] MEDS: IBUPROFEN 400 MG TABLET (FP) PO PRN (01:16)
[2017-07-10] MEDS: ARTIFICIAL TEARS (POLYVINYL ALCOHOL 1.4%) OPTH DROPS OU SCH ×3 (06:32→21:38)
[2017-07-10] MEDS: metFORMIN HCL 500 MG TABLET (FP) PO SCH ×2 (06:33→17:06)
[2017-07-10] MEDS: PRENATAL VITAMINS W/ FOLIC ACID TABLET (FP) PO SCH (10:21)
[2017-07-10] MEDS: EFAVIRENZ 600 MG TABLET PO SCH (10:21)
[2017-07-10] MEDS: EMTRICITABINE 200MG/TENOFOVIR 300MG PO SCH (10:21)
[2017-07-10] MEDS: HYDROCHLOROTHIAZIDE 25 MG TABLET (FP) PO SCH (10:21)
[2017-07-10] MEDS: THIAMINE HCL 100 MG TABLET (FP) PO SCH (21:37)
[2017-07-10] MEDS: SUVOREXANT 10 MG TABLET PO PRN (21:38)
[2017-07-11] MEDS: ARTIFICIAL TEARS (POLYVINYL ALCOHOL 1.4%) OPTH DROPS OU SCH ×3 (06:32→21:38)
[2017-07-11] MEDS: metFORMIN HCL 500 MG TABLET (FP) PO SCH ×2 (06:33→16:46)
[2017-07-11] MEDS: HYDROCHLOROTHIAZIDE 25 MG TABLET (FP) PO SCH (10:12)
[2017-07-11] MEDS: PRENATAL VITAMINS W/ FOLIC ACID TABLET (FP) PO SCH (10:12)
[2017-07-11] MEDS: EFAVIRENZ 600 MG TABLET PO SCH (10:12)
[2017-07-11] MEDS: EMTRICITABINE 200MG/TENOFOVIR 300MG PO SCH (10:13)
--- NOTE | 2017-07-11 12:26 | PN ---
[facility] Progress Note Note: patient reports belsomra effective, no side-effects reported, will r/n belsomra , continue to monitor progress
[2017-07-11] MEDS: THIAMINE HCL 100 MG TABLET (FP) PO SCH (21:38)
[2017-07-11] MEDS: SUVOREXANT 10 MG TABLET PO PRN (21:39)
[2017-07-12] MEDS: ARTIFICIAL TEARS (POLYVINYL ALCOHOL 1.4%) OPTH DROPS OU SCH ×3 (06:33→21:34)
[2017-07-12] MEDS: metFORMIN HCL 500 MG TABLET (FP) PO SCH ×2 (06:36→17:11)
[2017-07-12] MEDS: PRENATAL VITAMINS W/ FOLIC ACID TABLET (FP) PO SCH (10:41)
[2017-07-12] MEDS: EFAVIRENZ 600 MG TABLET PO SCH (10:41)
[2017-07-12] MEDS: HYDROCHLOROTHIAZIDE 25 MG TABLET (FP) PO SCH (10:41)
[2017-07-12] MEDS: EMTRICITABINE 200MG/TENOFOVIR 300MG PO SCH (10:41)
[2017-07-12] MEDS: SUVOREXANT 10 MG TABLET PO PRN (21:34)
[2017-07-12] MEDS: THIAMINE HCL 100 MG TABLET (FP) PO SCH (21:34)
[2017-07-13] MEDS: metFORMIN HCL 500 MG TABLET (FP) PO SCH ×2 (06:25→16:48)
[2017-07-13] MEDS: ARTIFICIAL TEARS (POLYVINYL ALCOHOL 1.4%) OPTH DROPS OU SCH ×3 (06:25→21:48)
[2017-07-13] MEDS: EMTRICITABINE 200MG/TENOFOVIR 300MG PO SCH (10:18)
[2017-07-13] MEDS: EFAVIRENZ 600 MG TABLET PO SCH (10:18)
[2017-07-13] MEDS: PRENATAL VITAMINS W/ FOLIC ACID TABLET (FP) PO SCH (10:18)
[2017-07-13] MEDS: HYDROCHLOROTHIAZIDE 25 MG TABLET (FP) PO SCH (10:18)
[2017-07-13] MEDS: SUVOREXANT 10 MG TABLET PO PRN (21:47)
[2017-07-13] MEDS: THIAMINE HCL 100 MG TABLET (FP) PO SCH (21:48)
[2017-07-14] MEDS: ARTIFICIAL TEARS (POLYVINYL ALCOHOL 1.4%) OPTH DROPS OU SCH ×3 (06:35→21:30)
[2017-07-14] MEDS: metFORMIN HCL 500 MG TABLET (FP) PO SCH ×2 (07:02→16:47)
[2017-07-14] MEDS: PRENATAL VITAMINS W/ FOLIC ACID TABLET (FP) PO SCH (10:23)
[2017-07-14] MEDS: EFAVIRENZ 600 MG TABLET PO SCH (10:23)
[2017-07-14] MEDS: EMTRICITABINE 200MG/TENOFOVIR 300MG PO SCH (10:23)
[2017-07-14] MEDS: HYDROCHLOROTHIAZIDE 25 MG TABLET (FP) PO SCH (10:23)
[2017-07-14] MEDS: THIAMINE HCL 100 MG TABLET (FP) PO SCH (21:30)
[2017-07-14] MEDS: SUVOREXANT 10 MG TABLET PO PRN (21:30)
[2017-07-15] MEDS: metFORMIN HCL 500 MG TABLET (FP) PO SCH ×2 (06:30→16:38)
[2017-07-15] MEDS: ARTIFICIAL TEARS (POLYVINYL ALCOHOL 1.4%) OPTH DROPS OU SCH ×3 (06:30→22:07)
[2017-07-15] MEDS: PRENATAL VITAMINS W/ FOLIC ACID TABLET (FP) PO SCH (10:22)
[2017-07-15] MEDS: HYDROCHLOROTHIAZIDE 25 MG TABLET (FP) PO SCH (10:22)
[2017-07-15] MEDS: EFAVIRENZ 600 MG TABLET PO SCH (10:22)
[2017-07-15] MEDS: EMTRICITABINE 200MG/TENOFOVIR 300MG PO SCH (10:23)
--- NOTE | 2017-07-15 16:51 | PN ---
[facility] Progress Note Note: Psychiatry Attending's note : Called to renew order for belsomra 10 m/hs. Chart reviewed.Dr Upton 's notes : read. Medication is verified.Tolerability confirmed. Belsomra 10 mg po hs. Renewed.
[2017-07-15] MEDS: SUVOREXANT 10 MG TABLET PO PRN (21:32)
[2017-07-15] MEDS: THIAMINE HCL 100 MG TABLET (FP) PO SCH (21:32)
[2017-07-16] MEDS: metFORMIN HCL 500 MG TABLET (FP) PO SCH ×2 (06:51→16:40)
[2017-07-16] MEDS: ARTIFICIAL TEARS (POLYVINYL ALCOHOL 1.4%) OPTH DROPS OU SCH ×3 (06:52→21:28)
[2017-07-16] MEDS: EMTRICITABINE 200MG/TENOFOVIR 300MG PO SCH (10:15)
[2017-07-16] MEDS: PRENATAL VITAMINS W/ FOLIC ACID TABLET (FP) PO SCH (10:15)
[2017-07-16] MEDS: HYDROCHLOROTHIAZIDE 25 MG TABLET (FP) PO SCH (10:15)
[2017-07-16] MEDS: EFAVIRENZ 600 MG TABLET PO SCH (10:15)
[2017-07-16] MEDS: THIAMINE HCL 100 MG TABLET (FP) PO SCH (21:27)
[2017-07-16] MEDS: SUVOREXANT 10 MG TABLET PO PRN (21:28)
[2017-07-17] MEDS: metFORMIN HCL 500 MG TABLET (FP) PO SCH ×2 (06:38→16:48)
[2017-07-17] MEDS: ARTIFICIAL TEARS (POLYVINYL ALCOHOL 1.4%) OPTH DROPS OU SCH ×3 (07:12→21:35)
[2017-07-17] MEDS: EFAVIRENZ 600 MG TABLET PO SCH (10:30)
[2017-07-17] MEDS: PRENATAL VITAMINS W/ FOLIC ACID TABLET (FP) PO SCH (10:30)
[2017-07-17] MEDS: HYDROCHLOROTHIAZIDE 25 MG TABLET (FP) PO SCH (10:30)
[2017-07-17] MEDS: EMTRICITABINE 200MG/TENOFOVIR 300MG PO SCH (10:31)
[2017-07-17] MEDS: THIAMINE HCL 100 MG TABLET (FP) PO SCH (21:34)
[2017-07-17] MEDS: SUVOREXANT 10 MG TABLET PO PRN (21:35)
[2017-07-18] MEDS: ARTIFICIAL TEARS (POLYVINYL ALCOHOL 1.4%) OPTH DROPS OU SCH ×3 (06:41→21:28)
[2017-07-18] MEDS: metFORMIN HCL 500 MG TABLET (FP) PO SCH ×2 (06:41→16:44)
[2017-07-18] MEDS: EFAVIRENZ 600 MG TABLET PO SCH (10:20)
[2017-07-18] MEDS: HYDROCHLOROTHIAZIDE 25 MG TABLET (FP) PO SCH (10:20)
[2017-07-18] MEDS: PRENATAL VITAMINS W/ FOLIC ACID TABLET (FP) PO SCH (10:20)
[2017-07-18] MEDS: EMTRICITABINE 200MG/TENOFOVIR 300MG PO SCH (10:20)
[2017-07-18] MEDS: THIAMINE HCL 100 MG TABLET (FP) PO SCH (21:28)
[2017-07-18] MEDS: SUVOREXANT 10 MG TABLET PO PRN (21:28)
[2017-07-19] MEDS: metFORMIN HCL 500 MG TABLET (FP) PO SCH ×2 (06:35→17:15)
[2017-07-19] MEDS: ARTIFICIAL TEARS (POLYVINYL ALCOHOL 1.4%) OPTH DROPS OU SCH ×3 (06:36→21:31)
[2017-07-19] MEDS: HYDROCHLOROTHIAZIDE 25 MG TABLET (FP) PO SCH (10:30)
[2017-07-19] MEDS: EMTRICITABINE 200MG/TENOFOVIR 300MG PO SCH (10:30)
[2017-07-19] MEDS: EFAVIRENZ 600 MG TABLET PO SCH (10:30)
[2017-07-19] MEDS: PRENATAL VITAMINS W/ FOLIC ACID TABLET (FP) PO SCH (10:30)
[2017-07-19] MEDS: SUVOREXANT 10 MG TABLET PO PRN (21:31)
[2017-07-19] MEDS: THIAMINE HCL 100 MG TABLET (FP) PO SCH (21:31)
[2017-07-20] MEDS: metFORMIN HCL 500 MG TABLET (FP) PO SCH ×2 (06:47→17:04)
[2017-07-20] MEDS: ARTIFICIAL TEARS (POLYVINYL ALCOHOL 1.4%) OPTH DROPS OU SCH ×3 (06:47→21:29)
[2017-07-20] MEDS: EMTRICITABINE 200MG/TENOFOVIR 300MG PO SCH (10:18)
[2017-07-20] MEDS: PRENATAL VITAMINS W/ FOLIC ACID TABLET (FP) PO SCH (10:18)
[2017-07-20] MEDS: EFAVIRENZ 600 MG TABLET PO SCH (10:18)
[2017-07-20] MEDS: HYDROCHLOROTHIAZIDE 25 MG TABLET (FP) PO SCH (10:18)
[2017-07-20] MEDS: SUVOREXANT 10 MG TABLET PO PRN (21:28)
[2017-07-20] MEDS: THIAMINE HCL 100 MG TABLET (FP) PO SCH (21:28)
[2017-07-21] MEDS: ARTIFICIAL TEARS (POLYVINYL ALCOHOL 1.4%) OPTH DROPS OU SCH ×3 (06:26→21:34)
[2017-07-21] MEDS: metFORMIN HCL 500 MG TABLET (FP) PO SCH ×2 (06:28→16:39)
[2017-07-21] MEDS: PRENATAL VITAMINS W/ FOLIC ACID TABLET (FP) PO SCH (10:18)
[2017-07-21] MEDS: HYDROCHLOROTHIAZIDE 25 MG TABLET (FP) PO SCH (10:18)
[2017-07-21] MEDS: EMTRICITABINE 200MG/TENOFOVIR 300MG PO SCH (10:19)
[2017-07-21] MEDS: EFAVIRENZ 600 MG TABLET PO SCH (10:19)
[2017-07-21] MEDS: SUVOREXANT 10 MG TABLET PO PRN (21:33)
[2017-07-21] MEDS: THIAMINE HCL 100 MG TABLET (FP) PO SCH (21:33)
[2017-07-22] MEDS: ARTIFICIAL TEARS (POLYVINYL ALCOHOL 1.4%) OPTH DROPS OU SCH ×3 (06:13→21:49)
[2017-07-22] MEDS: metFORMIN HCL 500 MG TABLET (FP) PO SCH ×2 (06:13→16:35)
[2017-07-22] MEDS: EFAVIRENZ 600 MG TABLET PO SCH (10:35)
[2017-07-22] MEDS: PRENATAL VITAMINS W/ FOLIC ACID TABLET (FP) PO SCH (10:35)
[2017-07-22] MEDS: HYDROCHLOROTHIAZIDE 25 MG TABLET (FP) PO SCH (10:35)
[2017-07-22] MEDS ORDERED: PT OWN MED DRAWER 7, Y5N ONE (10:38)
[2017-07-22] MEDS: EMTRICITABINE 200MG/TENOFOVIR 300MG PO SCH (11:05)
[2017-07-22] MEDS: THIAMINE HCL 100 MG TABLET (FP) PO SCH (21:48)
[2017-07-22] MEDS: SUVOREXANT 10 MG TABLET PO PRN (22:51)
[2017-07-23] MEDS: metFORMIN HCL 500 MG TABLET (FP) PO SCH ×2 (06:09→16:40)
[2017-07-23] MEDS: ARTIFICIAL TEARS (POLYVINYL ALCOHOL 1.4%) OPTH DROPS OU SCH ×3 (06:09→22:09)
[2017-07-23] MEDS: EFAVIRENZ 600 MG TABLET PO SCH (10:39)
[2017-07-23] MEDS: EMTRICITABINE 200MG/TENOFOVIR 300MG PO SCH (10:39)
[2017-07-23] MEDS: PRENATAL VITAMINS W/ FOLIC ACID TABLET (FP) PO SCH (10:39)
[2017-07-23] MEDS: HYDROCHLOROTHIAZIDE 25 MG TABLET (FP) PO SCH (10:39)
[2017-07-23] MEDS: THIAMINE HCL 100 MG TABLET (FP) PO SCH (22:09)
[2017-07-23] MEDS: SUVOREXANT 10 MG TABLET PO PRN (22:09)
[2017-07-24] MEDS: ARTIFICIAL TEARS (POLYVINYL ALCOHOL 1.4%) OPTH DROPS OU SCH ×3 (05:58→21:41)
[2017-07-24] MEDS: metFORMIN HCL 500 MG TABLET (FP) PO SCH ×2 (06:11→16:40)
[2017-07-24] MEDS: EFAVIRENZ 600 MG TABLET PO SCH (10:47)
[2017-07-24] MEDS: PRENATAL VITAMINS W/ FOLIC ACID TABLET (FP) PO SCH (10:47)
[2017-07-24] MEDS: HYDROCHLOROTHIAZIDE 25 MG TABLET (FP) PO SCH (10:47)
[2017-07-24] MEDS: EMTRICITABINE 200MG/TENOFOVIR 300MG PO SCH (10:48)
[2017-07-24] MEDS: THIAMINE HCL 100 MG TABLET (FP) PO SCH (21:39)
[2017-07-24] MEDS: SUVOREXANT 10 MG TABLET PO PRN (21:40)
[2017-07-25] MEDS: ARTIFICIAL TEARS (POLYVINYL ALCOHOL 1.4%) OPTH DROPS OU SCH (06:37)
[2017-07-25 06:40] VITALS: BP 144/88; PULSE 65; TEMP 97.6
[2017-07-25] MEDS: metFORMIN HCL 500 MG TABLET (FP) PO SCH (07:36)
[2017-07-25] MEDS: PRENATAL VITAMINS W/ FOLIC ACID TABLET (FP) PO SCH (10:09)
[2017-07-25] MEDS: HYDROCHLOROTHIAZIDE 25 MG TABLET (FP) PO SCH (10:09)
[2017-07-25] MEDS: EFAVIRENZ 600 MG TABLET PO SCH (10:09)
--- NOTE | 2017-07-25 10:11 | PN ---
Psychiatric Progress Note Vital Signs: Vital Signs Period Temp Pulse Resp BP Sys/Almanza Pulse Ox Last 24 Hr 97.6 F 65 18-18 144/88 Date of Session: 07/25/17 Chief Complaint:: discharge visit HPI: Patient is addressing alcohol, cocaine, nicotine dependence comorbid substance induced sleep diaorder.. ROS: DM, HTN medically managed. Current Medications: Active Medications Generic Name Dose Route Start Last Admin Trade Name Freq PRN Reason Stop Dose Admin Acetaminophen 650 mg 07/04/17 16:24 Tylenol - PO Q4H PRN FEVER Al Hydroxide/Mg Hydroxide 30 ml 07/04/17 16:24 Mylanta Oral Suspension - PO Q6H PRN DYSPEPSIA Artificial Tears 1 drop 07/04/17 22:00 07/25/17 06:37 Artificial Tears OU 1 drop TID MAXIME Administration Efavirenz 600 mg 07/05/17 10:00 07/24/17 10:47 Sustiva - PO 600 mg DAILY MAXIME Administration Emtricitabine/Tenofovir 1 tab 07/05/17 10:00 07/24/17 10:48 Truvada PO 1 tab DAILY MAXIME Administration Eucalyptus/Menthol/Phenol/Sorbitol 1 each 07/04/17 16:24 Cepastat Lozenge - MM Q4H PRN SORE THROAT Guaifenesin 10 ml 07/04/17 16:24 Robitussin Dm - PO Q6H PRN COUGH Hydrochlorothiazide 25 mg 07/05/17 10:00 07/24/17 10:47 Hctz - PO 25 mg DAILY MAXIME Administration Ibuprofen 400 mg 07/04/17 16:24 07/10/17 01:16 Motrin - PO 400 mg Q6H PRN Administration Pain Level 4-6 Loperamide HCl 4 mg 07/04/17 16:24 Imodium - PO Q6H PRN DIARRHEA Magnesium Citrate 300 ml 07/04/17 16:24 Citroma - PO Q48H PRN CONSTIPATION Magnesium Hydroxide 30 ml 07/04/17 16:24 Milk Of Magnesia - PO DAILY PRN CONSTIPATION Metformin HCl 500 mg 07/04/17 16:30 07/25/17 07:36 Glucophage - PO 500 mg BIDAC MAXIME Administration Nicotine 14 mg 07/04/17 17:15 Nicoderm Patch - TD DAILY PRN WITHDRAWAL(CONT SUBST) Nicotine Polacrilex 2 mg 07/04/17 16:24 Nicorette Gum - BUC Q2H PRN NICOTINE REPLACEMENT RX Multivit/Folic Acid/Iron 1 tab 07/05/17 10:00 07/24/17 10:47 Vitamins (Sjr) - PO 1 tab DAILY MAXIME Administration Pseudoephedrine/Triprolidine 1 combo 07/04/17 16:24 Actifed - PO TID PRN NASAL CONGESTION Thiamine HCl 100 mg 07/04/17 22:00 07/24/17 21:39 Vitamin B1 - PO 100 mg HS MAXIME Administration Current Side Effect: No Lab tests ordered: No Lab tests reviewed: Yes Provider note:: Patient has completed today his treatment and met his goals, will continue to address his issues at [facility] outpatient treatment program. He gained insights into importance of changning attitudes and utilize all supports available to prevent repases, patient was encouraged to continue maintain abstienence, he is stable for discharge today. Total face to face time:: 20 Mental Status Exam - Mental Status Exam Alert and Oriented to: Time, Place, Person Cognitive Function: Good Patient Appearance: Well Groomed Mood: Hopeful Affect: Appropriate, Mood Congruent Patient Behavior: Appropriate, Cooperative Speech Pattern: Clear, Appropriate Voice Loudness: Normal Thought Process: Intact Thought Disorder: Not Present Hallucinations: Denies Suicidal Ideation: Denies Homicidal Ideation: Denies Insight/Judgement: Fair Sleep: Fair Appetite: Fair Muscle strength/Tone: Normal Gait/Station: Normal Psychiatric Treatment Plan - Problem List (1) Cocaine dependence Current Visit: No (2) Alcohol dependence Current Visit: Yes (3) Diabetes Current Visit: No Qualifiers: Diabetes mellitus type: type 2 Diabetes mellitus complication status: without complication Diabetes mellitus half-way insulin use: without clinical social work aide use Qualified Code(s): E11.9 - Type 2 diabetes mellitus without complications (4) HTN (hypertension) Current Visit: No Qualifiers: Hypertension type: essential hypertension Qualified Code(s): I10 - Essential (primary) hypertension (5) Nicotine dependence Current Visit: No Qualifiers: Nicotine product type: cigarettes Substance use status: in withdrawal Qualified Code(s): F17.213 - Nicotine dependence, cigarettes, with withdrawal (6) deafness of right ear Current Visit: No (7) hearing loss left wearing hearing aide Current Visit: No (8) Substance-induced sleep disorder Current Visit: No
[2017-07-25] MEDS: EMTRICITABINE 200MG/TENOFOVIR 300MG PO SCH (10:12)
== END 2017-07-25 10:30 | disposition home or self-care (01) | DRG 895 ==
LOC: YASAS 15:31 → Y5N 15:32
PROVIDERS: ADMIT Psychiatry & Neurology Psychiatry; ATTEND Psychiatry & Neurology Psychiatry
PROC: HZ42ZZZ Group Counseling for Substance Abuse Treatment, Cognitive-Behavioral (ICD-10-PCS; principal; 2017-07-04)
DX: F10.20 Alcohol dependence, uncomplicated (principal); F14.20 Cocaine dependence, uncomplicated; F19.282 Other psychoactive substance dependence with psychoactive substance-induced sleep disorder; F17.213 Nicotine dependence, cigarettes, with withdrawal; I10 Essential (primary) hypertension; E11.9 Type 2 diabetes mellitus without complications; Z21 Asymptomatic human immunodeficiency virus [HIV] infection status; H91.93 Unspecified hearing loss, bilateral; Z79.84 Long term (current) use of oral hypoglycemic drugs
CPT/HCPCS: 82962

== ENCOUNTER 2017-10-09 15:25 | Inpatient (IN) | payer OTHER ==
[2017-10-09 17:01] VITALS: BMI 29.7
--- NOTE | 2017-10-09 18:25 | HP ---
CIWA Score - CIWA Score Nausea/Vomitin-No Nausea/No Vomiting Muscle Tremors: 2 Anxiety: 2 Agitation: 2 Paroxysmal Sweats: 2 Orientation: 0-Oriented Tacttile Disturbances: 1-Very Mild Itch/Numbness (right thumb) Auditory Disturbances: 1-Very Mild Visual Disturbances: 1-Very Mild Sensitivity Headache: 1-Very Mild CIWA-Ar Total Score: 12 Admission ROS S - HPI Chief Complaint: alcohol withdrawal symptoms Allergies/Adverse Reactions: Allergies Allergy/AdvReac Type Severity Reaction Status Date / Time No Known Allergies Allergy Verified 10/09/17 17:49 History of Present Illness: 52 yo male with hx of nicotine, alcohol and cocaine dependence is here seeking detox. Patient has had multiple admissions to [facility]. Reports recently relapse this past Monday. Longest period sobriety three years. PMHX: KIVALINA Right, tinnitus Left ear, DM II, HTN. Denies suicidal / homicidal ideation or suicide attempts. Exam Limitations: No Limitations - Ebola screening Have you traveled outside of the country in the last 21 days: No Have you had contact with anyone from an Ebola affected area: No Have you been sick,other than usual withdrawal symptoms: No Do you have a fever: No - Review of Systems Constitutional: Chills, Changes in sleep EENT: reports: Hearing Loss (right ear), Tinnitus (left ear), Dental Problems Respiratory: reports: No Symptoms reported Cardiac: reports: No Symptoms Reported GI: reports: Constipated (last BM this morning), Poor Fluid Intake : reports: Other (no symptoms reported past hx of prostate CA) Musculoskeletal: reports: No Symptoms Reported Integumentary: reports: No Symptoms Reported Neuro: reports: Headache, Tingling (right thumb) Endocrine: reports: No Symptoms Reported Hematology: reports: No Symptoms Reported Psychiatric: reports: Orientated x3, Agitated, Anxious Other Systems: Reviewed and Negative Patient History - Patient Medical History Hx Anemia: No Hx Asthma: No Hx Chronic Obstructive Pulmonary Disease (COPD): No Hx Cancer: No Hx Cardiac Disorders: No Hx Congestive Heart Failure: No Hx Hypertension: Yes (With treatment HCTZ) Hx Hypercholesterolemia: No Hx Pacemaker: No HX Cerebrovascular Accident: No Hx Seizures: No Hx Dementia: No Hx Diabetes: Yes (Type 2) Hx Gastrointestinal Disorders: No Hx Liver Disease: No Hx Genitourinary Disorders: No Hx Sexually Transmitted Disorders: No Hx Renal Disease (ESRD): No Hx Thyroid Disease: No Hx Human Immunodeficiency Virus (HIV): Yes (2007, on atripla) Hx Hepatitis C: No Hx Depression: Yes Hx Suicide Attempt: No Hx Bipolar Disorder: No Hx Schizophrenia: No - Patient Surgical History Past Surgical History: Yes Hx Neurologic Surgery: No Hx Cataract Extraction: No Hx Cardiac Surgery: No Hx Lung Surgery: No Hx Breast Surgery: No Hx Breast Biopsy: No Hx Abdominal Surgery: No Hx Appendectomy: No Hx Cholecystectomy: No Hx Genitourinary Surgery: No Hx Section: No Hx Orthopedic Surgery: No Other Surgical History: left ear; prostate sx 08/2016 Anesthesia Reaction: No - PPD History Date: 04/03/17 Results: 0mm PPD to be Administered?: No - Reproductive History Patient is a Female of Child Bearing Age (11 -55 yrs old): No - Smoking Cessation Smoking history: Current some day smoker Have you smoked in the past 12 months: Yes Aproximately how many cigarettes per day: 10 Hx Chewing Tobacco Use: No Initiated information on smoking cessation: Yes 'Breaking Loose' booklet given: 10/09/17 - Substance & Tx. History Hx Alcohol Use: Yes Hx Substance Use: Yes Substance Use Type: Alcohol, Cocaine Hx Substance Use Treatment: Yes ([facility] June 2017) - Substances Abused Alcohol Route: Oral Frequency: Daily Amount used: 3 PINT BACARDI - 6 PACKS BEER Age of first use: 14 Date of Last Use: 10/09/17 Cocaine Route: Smoking Frequency: 3-6 times per week Amount used: $200 Age of first use: 24 Date of Last Use: 10/09/17 Family Disease History - Family Disease History Family Disease History: Diabetes: Brother, Other: Father (living, FORMER ALCOHOLIC), Mother (living, FORMER ALCOHOLIC) Admission Physical Exam S - Vital Signs Vital Signs: Vital Signs - 24 hr 10/09/17 16:59 Temperature 96.8 F L Pulse Rate 73 Respiratory 18 Rate Blood Pressure 116/80 - Physical General Appearance: Yes: Appropriately Dressed, Irritable, Anxious HEENTM: Yes: EOMI, Normal ENT Inspection, Normocephalic, Normal Voice, FELISHA, Pharynx Normal, Tm's normal, Other (hearing aid left ear) Respiratory: Yes: Chest Non-Tender, Lungs Clear, Normal Breath Sounds, No Respiratory Distress, No Accessory Muscle Use Neck: Yes: Within Normal Limits Breast: Yes: Breast Exam Deferred Cardiology: Yes: Regular Rhythm, Regular Rate Abdominal: Yes: Normal Bowel Sounds, Non Tender, Soft, Protuberent Genitourinary: Yes: Within Normal Limits Back: Yes: Normal Inspection Musculoskeletal: Yes: full range of Motion, Gait Steady, Pelvis Stable Extremities: Yes: Normal Capillary Refill, Normal Inspection, Normal Range of Motion, Non-Tender Neurological: Yes: contact center representative II-XII NML intact, Fully Oriented, Alert, Motor Strength 5/5, Depressed Affect Integumentary: Yes: Normal Color, Warm, Moist Lymphatic: Yes: Within Normal Limits - Diagnostic (1) DM2 (diabetes mellitus, type 2) Current Visit: Yes Status: Chronic 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 shelter use (2) Alcohol dependence with uncomplicated withdrawal Current Visit: Yes Status: Chronic (3) Cocaine dependence Current Visit: No Status: Chronic (4) HTN (hypertension) Current Visit: No Status: Chronic Qualifiers: Hypertension type: essential hypertension Qualified Code(s): I10 - Essential (primary) hypertension (5) History of prostate cancer Current Visit: Yes Status: Chronic (6) Human immunodeficiency virus infection Current Visit: Yes Status: Chronic (7) Nicotine dependence Current Visit: Yes Status: Chronic Qualifiers: Nicotine product type: cigarettes Substance use status: in withdrawal Qualified Code(s): F17.213 - Nicotine dependence, cigarettes, with withdrawal (8) deafness of right ear Current Visit: Yes Status: Chronic (9) hearing loss left wearing hearing aide Current Visit: Yes Status: Chronic Cleared for Admission [facility] - Detox or Rehab [facility] Level of Care: Medically Managed Detox Regimen/Protocol: Librium [facility] Breath Alcohol Content Breath Alcohol Content: 0 Urine Drug Screen - Results Drug Screen Negative: No Urine Drug Screen Results: THC-Marijuana, MINNIE-Cocaine
[2017-10-09] MEDS ORDERED: MAGNESIUM HYDROX 2400MG/30ML ORAL SUSPENSION 30 ML CUP PO PRN (18:37)
[2017-10-09] MEDS ORDERED: guaiFENesin/D-METHORPHAN HB 10 ML UNIT-DOSE CUPS PO PRN (18:37)
[2017-10-09] MEDS ORDERED: MENTHOL/PHENOL 1 EACH UD MM PRN (18:37)
[2017-10-09] MEDS ORDERED: NICOTINE POLACRILEX 2 MG GUM BC PRN (18:37)
[2017-10-09] MEDS ORDERED: IBUPROFEN 400 MG TABLET (FP) PO PRN (18:37)
[2017-10-09] MEDS ORDERED: ACETAMINOPHEN 325 MG TABLET (FP) PO PRN (18:37)
[2017-10-09] MEDS ORDERED: MAGNESIUM CITRATE 300 ML BOTTLE PO PRN (18:37)
[2017-10-09] MEDS ORDERED: chlordiazePOXIDE HCL 25 MG CAPSULE PO PRN (18:37)
[2017-10-09] MEDS ORDERED: MAG HYDROX/AL HYDROX/SIMETH 30 ML UNIT-DOSE CUP PO PRN (18:37)
[2017-10-09] MEDS ORDERED: P-EPHED 60MG/TRIPROLIDI 2.5MG TABLET PO PRN (18:37)
[2017-10-09] MEDS ORDERED: LOPERAMIDE HCL 2 MG CAPSULE PO PRN (18:37)
[2017-10-09] MEDS ORDERED: hydrOXYzine PAMOATE 50 MG CAPSULE (FP) PO PRN (18:37)
[2017-10-09] MEDS ORDERED: chlordiazePOXIDE HCL 25 MG CAPSULE PO ONE (19:15)
[2017-10-09] MEDS ORDERED: MELATONIN 5 MG TABLETS PO PRN (22:00)
[2017-10-09] MEDS: THIAMINE HCL 100 MG TABLET (FP) PO SCH (22:16)
[2017-10-09] MEDS: chlordiazePOXIDE HCL 25 MG CAPSULE PO SCH (22:16)
[2017-10-10 03:51] LABS: URINE APPEARANCE CLEAR; URINE BILIRUBIN NEGATIVE (<2.0 mg/dL); URINE COLOR YELLOW; URINE GLUCOSE (UA) NEGATIVE (NEGATIVE); URINE KETONE NEGATIVE (NEGATIVE); URINE LEUK ESTERASE NEGATIVE (NEGATIVE); URINE NITRITE NEGATIVE (NEGATIVE); URINE PROTEIN NEGATIVE (NEGATIVE)
--- NOTE | 2017-10-10 04:31 | PN ---
[facility] Progress Note Note: Patient with history of DM on metformin. BMG ordered.
[2017-10-10] MEDS: metFORMIN HCL 500 MG TABLET (FP) PO SCH ×2 (06:01→16:35)
[2017-10-10] MEDS: chlordiazePOXIDE HCL 25 MG CAPSULE PO SCH ×4 (06:01→22:38)
[2017-10-10 10:07] LABS: HEMATOCRIT 38.2 % (35.4-49); HEMOGLOBIN 12.7 GM/dL (11.7-16.9); MCH 28.4 pg (25.7-33.7); MCHC 33.3 g/dl (32.0-35.9); MEAN CELL VOLUME 85.2 fl (80-96); MEAN PLT VOLUME 7.4 fl (7.5-11.1); PLATELET COUNT 272 K/MM3 (134-434); RBC 4.49 M/mm3 (4.00-5.60); RDW 14.3 % (11.9-15.9); WHITE BLOOD COUNT 6.4 K/mm3 (4.0-10.0)
--- NOTE | 2017-10-10 10:09 | PN ---
S CIWA - CIWA Score Nausea/Vomitin-No Nausea/No Vomiting Muscle Tremors: 4-Moderate,w/Arms Extend Anxiety: 5 Agitation: 4-Moderately Restless Paroxysmal Sweats: 1-Minimal Palms Moist Orientation: 0-Oriented Tacttile Disturbances: 0-None Auditory Disturbances: 0-None Visual Disturbances: 0-None Headache: 0-None Present CIWA-Ar Total Score: 14 BHS Progress Note (SOAP) Subjective: ANXIETY,SWEATS,IRRITABILITY. Objective: 10/10/17 10:08 Vital Signs Temperature 98.5 F 10/10/17 09:43 Pulse Rate 71 10/10/17 09:43 Respiratory Rate 20 10/10/17 09:43 Blood Pressure 106/61 10/10/17 09:43 O2 Sat by Pulse Oximetry (%) Laboratory Last Values POC Glucometer 110 UNITS (80-120) 10/10/17 05:58 Urine Color Yellow 10/09/17 22:46 Urine Appearance Clear 10/09/17 22:46 Urine pH 6.0 (5.0-8.0) 10/09/17 22:46 Ur Specific [place] 1.021 (1.001-1.035) 10/09/17 22:46 Urine Protein Negative (NEGATIVE) 10/09/17 22:46 Urine Glucose (UA) Negative (NEGATIVE) 10/09/17 22:46 Urine Ketones Negative (NEGATIVE) 10/09/17 22:46 Urine Blood Negative (NEGATIVE) 10/09/17 22:46 Urine Nitrite Negative (NEGATIVE) 10/09/17 22:46 Urine Bilirubin Negative (<2.0 mg/dL) 10/09/17 22:46 Urine Urobilinogen 2.0 mg/dL (0.2-1.0) 10/09/17 22:46 Ur Leukocyte Esterase Negative (NEGATIVE) 10/09/17 22:46 OTHER LABS PENDING Assessment: 10/10/17 10:09 WITHDRAWAL SX Plan: CONTINUE DETOX
--- NOTE | 2017-10-10 10:26 | EKG ---
Test Reason : Blood Pressure : / mmHG Vent. Rate : 064 BPM Atrial Rate : 064 BPM P-R Int : 172 ms QRS Dur : 074 ms QT Int : 396 ms P-R-T Axes : 051 064 053 degrees QTc Int : 408 ms NORMAL SINUS RHYTHM NORMAL ECG WHEN COMPARED WITH ECG OF 30-JUN-2017 19:14, NONSPECIFIC T WAVE ABNORMALITY NO LONGER EVIDENT IN ANTEROLATERAL LEADS Confirmed by MD RYLAND, KERWIN ([id number]) on 10/10/2017 10:25:31 AM Referred By: Confirmed By:KERWIN MARCELINO MD
[2017-10-10] MEDS: PRENATAL VITAMINS W/ FOLIC ACID TABLET (FP) PO SCH (10:35)
[2017-10-10] MEDS: HYDROCHLOROTHIAZIDE 25 MG TABLET (FP) PO SCH (10:35)
[2017-10-10] MEDS: NICOTINE 14 MG/24 HOURS TOPICAL PATCH TD SCH (10:36)
[2017-10-10 11:13] LABS: CHLORIDE 113 mmol/L (98-107); SODIUM 143 mmol/L (136-145)
[2017-10-10 11:26] LABS: ALBUMIN 3.4 g/dl (3.4-5.0); ALK PHOS 74 U/L (45-117); ANION GAP 3 (8-16); BILIRUBIN,TOTAL 0.3 mg/dL (0.2-1.0); BLOOD UREA NITROGEN 16 mg/dL (7-18); CALCIUM 8.1 mg/dL (8.5-10.1); CO2 27 mmol/L (21-32); GLUCOSE,RANDOM 108 mg/dL (74-106); SGOT/AST 35 U/L (15-37); SGPT/ALT 63 U/L (12-78); TOT PROT 6.3 g/dl (6.4-8.2)
[2017-10-10] MEDS ORDERED: [UNRECOGNIZED DRUG - OTHER] OP SCH (11:30)
--- NOTE | 2017-10-10 13:20 | CONSULT ---
[facility] Psychiatric Consult - Data Date of interview: 10/10/17 Admission source: [facility] Identifying data: Readmission to [facility] for this 52 y/o AA male seeking detox treatment on for alcohol and cocaine (crack) dependence.Patient is single without children,domiciled,unemployed and supported on SSI/SSD benefits (self-report). Substance Abuse History: Confirmed by patient in this session.Details in current [facility] report : Smoking history: Current some day smoker. Have you smoked in the past 12 months: Yes. Aproximately how many cigarettes per day: 10. Hx Chewing Tobacco Use: No. Initiated information on smoking cessation: Yes. ' Breaking Loose' booklet given: 10/09/17. - Substance & Tx. History. Hx Alcohol Use: Yes. Hx Substance Use: Yes. Substance Use Type: Alcohol, Cocaine. Hx Substance Use Treatment: Yes ([facility] June 2017). - Substances Abused. Alcohol. Route: Oral. Frequency: Daily. Amount used: 3 PINT BACARDI - 6 PACKS BEER. Age of first use: 14. Date of Last Use: 10/09/17. Cocaine. Route: Smoking. Frequency: 3-6 times per week. Amount used: $200. Age of first use: 24. Date of Last Use: 10/09/17 Medical History: Severe hearing impediment : deafness in right ear + decreased hearing in left ear (hearing aid in place),tinnitus,diabetes mellitus, hypertension,HIV infection since 2007 (on HAART medications) and a history of treatment for prostatic cancer. Psychiatric History: Patient admits to a distant psychiatric hospitalization ( 1992) at [facility].Reportedly diagnosed, in the past, with MDD but there is no evidence of utilization of antidepressant medications (noted refill for risperdal 1mg bid on 08/27/17 at [facility]).Mr Carreon sees a psychiatrist at the [facility] in [place].No reported history of suicide attempts. Physical/Sexual Abuse/Trauma History: Patient denies history of abuse.Traumatized by his hearing disability. Additional Comment: Urine Drug Screen Results: THC-Marijuana, MINNIE-Cocaine.Noted. Mental Status Exam - Mental Status Exam Alert and Oriented to: Time, Place, Person Cognitive Function: Good Patient Appearance: Well Groomed Mood: Nervous, Anxious, Irritable Affect: Mood Congruent Patient Behavior: Fatigued, Talkative, Cooperative Speech Pattern: Clear Voice Loudness: Moderately Loud (due to hearing disability) Thought Process: Goal Oriented Thought Disorder: Not Present Hallucinations: Denies Suicidal Ideation: Denies Homicidal Ideation: Denies Insight/Judgement: Poor Sleep: Poorly, Difficulty falling asleep Appetite: Good Muscle strength/Tone: Normal Gait/Station: Normal Psychiatric Findings - Problem List ([place] 1, 2,3) (1) Alcohol dependence with uncomplicated withdrawal Status: Acute (2) Cocaine dependence, uncomplicated Status: Acute (3) Nicotine dependence Status: Acute Qualifiers: Nicotine product type: cigarettes Substance use status: in withdrawal Qualified Code(s): F17.213 - Nicotine dependence, cigarettes, with withdrawal (4) Drug-induced mood disorder Status: Acute (5) Insomnia Status: Acute - Initial Treatment Plan Initial Treatment Plan: Records revisited.Detoxification in progress.Sleep hygiene.Ambien 5 mg po hs prn.Patient is informed of risk of sleep- walking.Agrees with this careplan.Declines to resume risperdal.Observation.
[2017-10-10] MEDS: NAPHAZOLINE/PHENIRAMINE OPHTHALMIC 15 ML BOTTLE OU SCH (13:46)
[2017-10-10] MEDS: EFAVIRENZ 600 MG TABLET PO SCH (13:46)
[2017-10-10] MEDS: EMTRICITABINE 200MG/TENOFOVIR 300MG PO SCH (13:46)
[2017-10-10] MEDS: ZOLPIDEM TARTRATE 5 MG TABLET PO PRN (22:38)
[2017-10-10] MEDS: THIAMINE HCL 100 MG TABLET (FP) PO SCH (22:38)
[2017-10-11] MEDS: chlordiazePOXIDE HCL 25 MG CAPSULE PO SCH ×3 (07:32→17:26)
[2017-10-11] MEDS: metFORMIN HCL 500 MG TABLET (FP) PO SCH ×2 (07:32→17:26)
[2017-10-11] MEDS: HYDROCHLOROTHIAZIDE 25 MG TABLET (FP) PO SCH (10:26)
[2017-10-11] MEDS: PRENATAL VITAMINS W/ FOLIC ACID TABLET (FP) PO SCH (10:26)
[2017-10-11] MEDS: NAPHAZOLINE/PHENIRAMINE OPHTHALMIC 15 ML BOTTLE OU SCH (10:27)
[2017-10-11] MEDS: EMTRICITABINE 200MG/TENOFOVIR 300MG PO SCH (10:27)
[2017-10-11] MEDS: NICOTINE 14 MG/24 HOURS TOPICAL PATCH TD SCH (10:28)
[2017-10-11] MEDS: EFAVIRENZ 600 MG TABLET PO SCH (10:59)
--- NOTE | 2017-10-11 11:33 | PN ---
[facility] CIWA - CIWA Score Nausea/Vomitin-No Nausea/No Vomiting Muscle Tremors: 4-Moderate,w/Arms Extend Anxiety: 4-Mod. Anxious/Guarded Agitation: 3 Paroxysmal Sweats: 1-Minimal Palms Moist Orientation: 0-Oriented Tacttile Disturbances: 0-None Auditory Disturbances: 0-None Visual Disturbances: 0-None Headache: 0-None Present CIWA-Ar Total Score: 12 S Progress Note (SOAP) Subjective: ALERT O X 3. OOB AMBULATING ON UNIT WITH NAD. DETOX PROCEEDING PER PROTOCOL. Objective: 10/11/17 11:32 Vital Signs Temperature 96.2 F L 10/11/17 10:11 Pulse Rate 104 H 10/11/17 10:11 Respiratory Rate 20 10/11/17 10:11 Blood Pressure 131/78 10/11/17 10:11 O2 Sat by Pulse Oximetry (%) Laboratory Last Values WBC 6.4 K/mm3 (4.0-10.0) 10/10/17 07:30 RBC 4.49 M/mm3 (4.00-5.60) 10/10/17 07:30 Hgb 12.7 GM/dL (11.7-16.9) 10/10/17 07:30 Hct 38.2 % (35.4-49) 10/10/17 07:30 MCV 85.2 fl (80-96) 10/10/17 07:30 MCH 28.4 pg (25.7-33.7) 10/10/17 07:30 MCHC 33.3 g/dl (32.0-35.9) 10/10/17 07:30 RDW 14.3 % (11.9-15.9) 10/10/17 07:30 Plt Count 272 K/MM3 (134-434) 10/10/17 07:30 MPV 7.4 fl (7.5-11.1) L 10/10/17 07:30 Sodium 143 mmol/L (136-145) 10/10/17 07:30 Potassium 4.0 mmol/L (3.5-5.1) 10/10/17 07:30 Chloride 113 mmol/L (98-107) H 10/10/17 07:30 Carbon Dioxide 27 mmol/L (21-32) 10/10/17 07:30 Anion Gap 3 (8-16) L 10/10/17 07:30 BUN 16 mg/dL (7-18) 10/10/17 07:30 Creatinine 1.0 mg/dL (0.7-1.3) 10/10/17 07:30 Creat Clearance w eGFR > 60 (>60) 10/10/17 07:30 POC Glucometer 122 UNITS (80-120) 10/11/17 07:27 Random Glucose 108 mg/dL (74-106) H 10/10/17 07:30 Calcium 8.1 mg/dL (8.5-10.1) L 10/10/17 07:30 Total Bilirubin 0.3 mg/dL (0.2-1.0) 10/10/17 07:30 AST 35 U/L (15-37) D 10/10/17 07:30 ALT 63 U/L (12-78) 10/10/17 07:30 Alkaline Phosphatase 74 U/L (45-117) 10/10/17 07:30 Total Protein 6.3 g/dl (6.4-8.2) L 10/10/17 07:30 Albumin 3.4 g/dl (3.4-5.0) 10/10/17 07:30 Urine Color Yellow 10/09/17 22:46 Urine Appearance Clear 10/09/17 22:46 Urine pH 6.0 (5.0-8.0) 10/09/17 22:46 Ur Specific [place] 1.021 (1.001-1.035) 10/09/17 22:46 Urine Protein Negative (NEGATIVE) 10/09/17 22:46 Urine Glucose (UA) Negative (NEGATIVE) 10/09/17 22:46 Urine Ketones Negative (NEGATIVE) 10/09/17 22:46 Urine Blood Negative (NEGATIVE) 10/09/17 22:46 Urine Nitrite Negative (NEGATIVE) 10/09/17 22:46 Urine Bilirubin Negative (<2.0 mg/dL) 10/09/17 22:46 Urine Urobilinogen 2.0 mg/dL (0.2-1.0) 10/09/17 22:46 Ur Leukocyte Esterase Negative (NEGATIVE) 10/09/17 22:46 RPR Titer Nonreactive (NONREACTIVE) 10/10/17 07:30 Assessment: 10/11/17 11:33 WITHDRAWAL SX Plan: CONTINUE DETOX
[2017-10-11] MEDS: THIAMINE HCL 100 MG TABLET (FP) PO SCH (22:22)
[2017-10-11] MEDS: ZOLPIDEM TARTRATE 5 MG TABLET PO PRN (22:22)
[2017-10-11] MEDS: chlordiazePOXIDE 5 MG CAPSULE PO SCH (22:22)
[2017-10-12] MEDS: chlordiazePOXIDE 5 MG CAPSULE PO SCH ×3 (06:03→17:33)
[2017-10-12] MEDS: metFORMIN HCL 500 MG TABLET (FP) PO SCH ×2 (08:33→16:59)
[2017-10-12] MEDS: NICOTINE 14 MG/24 HOURS TOPICAL PATCH TD SCH (10:05)
[2017-10-12] MEDS: NAPHAZOLINE/PHENIRAMINE OPHTHALMIC 15 ML BOTTLE OU SCH (10:05)
[2017-10-12] MEDS: EFAVIRENZ 600 MG TABLET PO SCH (10:05)
[2017-10-12] MEDS: PRENATAL VITAMINS W/ FOLIC ACID TABLET (FP) PO SCH (10:05)
[2017-10-12] MEDS: HYDROCHLOROTHIAZIDE 25 MG TABLET (FP) PO SCH (10:05)
[2017-10-12] MEDS: BACITRACIN 0.9 GM PACKET TP SCH (10:06)
[2017-10-12] MEDS: EMTRICITABINE 200MG/TENOFOVIR 300MG PO SCH (10:07)
--- NOTE | 2017-10-12 12:30 | PN ---
BHS Progress Note (SOAP) Subjective: OOB ON HALLWAYS WITH STAEDY GAIT. PT ABLE TO APPROPRIATELY MAKE NEEDS KNOWN TO STAFF.ALERT O X 3. 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 Objective: 10/12/17 12:29 Vital Signs 10/12/17 10/12/17 10/12/17 06:14 06:30 09:19 Temperature 96.7 F L 97.2 F L Pulse Rate 71 61 Respiratory 18 18 18 Rate Blood Pressure 127/78 128/88 Laboratory Last Values WBC 6.4 K/mm3 (4.0-10.0) 10/10/17 07:30 RBC 4.49 M/mm3 (4.00-5.60) 10/10/17 07:30 Hgb 12.7 GM/dL (11.7-16.9) 10/10/17 07:30 Hct 38.2 % (35.4-49) 10/10/17 07:30 MCV 85.2 fl (80-96) 10/10/17 07:30 MCH 28.4 pg (25.7-33.7) 10/10/17 07:30 MCHC 33.3 g/dl (32.0-35.9) 10/10/17 07:30 RDW 14.3 % (11.9-15.9) 10/10/17 07:30 Plt Count 272 K/MM3 (134-434) 10/10/17 07:30 MPV 7.4 fl (7.5-11.1) L 10/10/17 07:30 Sodium 143 mmol/L (136-145) 10/10/17 07:30 Potassium 4.0 mmol/L (3.5-5.1) 10/10/17 07:30 Chloride 113 mmol/L (98-107) H 10/10/17 07:30 Carbon Dioxide 27 mmol/L (21-32) 10/10/17 07:30 Anion Gap 3 (8-16) L 10/10/17 07:30 BUN 16 mg/dL (7-18) 10/10/17 07:30 Creatinine 1.0 mg/dL (0.7-1.3) 10/10/17 07:30 Creat Clearance w eGFR > 60 (>60) 10/10/17 07:30 POC Glucometer 119 UNITS (80-120) 10/12/17 05:55 Random Glucose 108 mg/dL (74-106) H 10/10/17 07:30 Calcium 8.1 mg/dL (8.5-10.1) L 10/10/17 07:30 Total Bilirubin 0.3 mg/dL (0.2-1.0) 10/10/17 07:30 AST 35 U/L (15-37) D 10/10/17 07:30 ALT 63 U/L (12-78) 10/10/17 07:30 Alkaline Phosphatase 74 U/L (45-117) 10/10/17 07:30 Total Protein 6.3 g/dl (6.4-8.2) L 10/10/17 07:30 Albumin 3.4 g/dl (3.4-5.0) 10/10/17 07:30 Urine Color Yellow 10/09/17 22:46 Urine Appearance Clear 10/09/17 22:46 Urine pH 6.0 (5.0-8.0) 10/09/17 22:46 Ur Specific [place] 1.021 (1.001-1.035) 10/09/17 22:46 Urine Protein Negative (NEGATIVE) 10/09/17 22:46 Urine Glucose (UA) Negative (NEGATIVE) 10/09/17 22:46 Urine Ketones Negative (NEGATIVE) 10/09/17 22:46 Urine Blood Negative (NEGATIVE) 10/09/17 22:46 Urine Nitrite Negative (NEGATIVE) 10/09/17 22:46 Urine Bilirubin Negative (<2.0 mg/dL) 10/09/17 22:46 Urine Urobilinogen 2.0 mg/dL (0.2-1.0) 10/09/17 22:46 Ur Leukocyte Esterase Negative (NEGATIVE) 10/09/17 22:46 RPR Titer Nonreactive (NONREACTIVE) 10/10/17 07:30 Assessment: 10/12/17 12:29 WITHDRAWAL SX Plan: CONTINUE DETOX BACITRACIN OINTMENT TO AFFECTED AREA DIRECTED
[2017-10-12] MEDS: chlordiazePOXIDE HCL 10 MG CAPSULE PO SCH (22:15)
[2017-10-12] MEDS: THIAMINE HCL 100 MG TABLET (FP) PO SCH (22:15)
[2017-10-13] MEDS: metFORMIN HCL 500 MG TABLET (FP) PO SCH (06:48)
[2017-10-13] MEDS: chlordiazePOXIDE HCL 10 MG CAPSULE PO SCH (06:48)
[2017-10-13 09:07] VITALS: BP 116/77; PULSE 90; TEMP 95.9
[2017-10-13] MEDS: NAPHAZOLINE/PHENIRAMINE OPHTHALMIC 15 ML BOTTLE OU SCH (09:42)
[2017-10-13] MEDS: BACITRACIN 0.9 GM PACKET TP SCH (09:43)
[2017-10-13] MEDS: EMTRICITABINE 200MG/TENOFOVIR 300MG PO SCH (09:44)
[2017-10-13] MEDS: HYDROCHLOROTHIAZIDE 25 MG TABLET (FP) PO SCH (09:44)
[2017-10-13] MEDS: PRENATAL VITAMINS W/ FOLIC ACID TABLET (FP) PO SCH (09:44)
[2017-10-13] MEDS: EFAVIRENZ 600 MG TABLET PO SCH (09:44)
[2017-10-13] MEDS: NICOTINE 14 MG/24 HOURS TOPICAL PATCH TD SCH (09:46)
--- NOTE | 2017-10-13 12:38 | PN ---
[facility] Progress Note (SOAP) Subjective: DETOX COMPLETED. ALERT O X 3. NAD. PT STATES HE HAS PCP DR. DELATORRE AT [place], [place] Objective: 10/13/17 12:37 Vital Signs Temperature 95.9 F L 10/13/17 09:07 Pulse Rate 90 10/13/17 09:07 Respiratory Rate 20 10/13/17 09:07 Blood Pressure 116/77 10/13/17 09:07 O2 Sat by Pulse Oximetry (%) Laboratory Tests 10/09/17 10/10/17 10/10/17 22:46 05:58 07:30 WBC 6.4 RBC 4.49 Hgb 12.7 Hct 38.2 MCV 85.2 MCH 28.4 MCHC 33.3 RDW 14.3 Plt Count 272 MPV 7.4 L Sodium Potassium Chloride Carbon Dioxide Anion Gap BUN Creatinine Creat Clearance w eGFR POC Glucometer 110 Random Glucose Calcium Total Bilirubin AST ALT Alkaline Phosphatase Total Protein Albumin Urine Color Yellow Urine Appearance Clear Urine pH 6.0 Ur Specific [place] 1.021 Urine Protein Negative Urine Glucose (UA) Negative Urine Ketones Negative Urine Blood Negative Urine Nitrite Negative Urine Bilirubin Negative Urine Urobilinogen 2.0 Ur Leukocyte Esterase Negative RPR Titer 10/10/17 10/10/17 10/10/17 07:30 07:30 16:32 WBC RBC Hgb Hct MCV MCH MCHC RDW Plt Count MPV Sodium 143 Potassium 4.0 Chloride 113 H Carbon Dioxide 27 Anion Gap 3 L BUN 16 Creatinine 1.0 Creat Clearance w eGFR > 60 POC Glucometer 114 Random Glucose 108 H Calcium 8.1 L Total Bilirubin 0.3 AST 35 D ALT 63 Alkaline Phosphatase 74 Total Protein 6.3 L Albumin 3.4 Urine Color Urine Appearance Urine pH Ur Specific [place] Urine Protein Urine Glucose (UA) Urine Ketones Urine Blood Urine Nitrite Urine Bilirubin Urine Urobilinogen Ur Leukocyte Esterase RPR Titer Nonreactive 10/11/17 10/11/17 10/12/17 07:27 16:27 05:55 WBC RBC Hgb Hct MCV MCH MCHC RDW Plt Count MPV Sodium Potassium Chloride Carbon Dioxide Anion Gap BUN Creatinine Creat Clearance w eGFR POC Glucometer 122 109 119 Random Glucose Calcium Total Bilirubin AST ALT Alkaline Phosphatase Total Protein Albumin Urine Color Urine Appearance Urine pH Ur Specific [place] Urine Protein Urine Glucose (UA) Urine Ketones Urine Blood Urine Nitrite Urine Bilirubin Urine Urobilinogen Ur Leukocyte Esterase RPR Titer 10/12/17 10/13/17 16:21 06:44 WBC RBC Hgb Hct MCV MCH MCHC RDW Plt Count MPV Sodium Potassium Chloride Carbon Dioxide Anion Gap BUN Creatinine Creat Clearance w eGFR POC Glucometer 126 101 Random Glucose Calcium Total Bilirubin AST ALT Alkaline Phosphatase Total Protein Albumin Urine Color Urine Appearance Urine pH Ur Specific [place] Urine Protein Urine Glucose (UA) Urine Ketones Urine Blood Urine Nitrite Urine Bilirubin Urine Urobilinogen Ur Leukocyte Esterase RPR Titer Assessment: 10/13/17 12:37 MEDICALLY STABLE Plan: D/C PT TODAY
--- NOTE | 2017-10-13 12:41 | DS ---
[facility] Dis[facility] Summary Admission Date: 10/09/17 Discharge Date: 10/13/17 - History Present History: Alcohol Dependence Additional Comments: DETOX COMPLETED. ALERT O X 3. NAD. REPORTS PCP DR. DELATORRE AT [facility] IN [place], [place]. REPORTS HE HAS OWN MEDS. Pertinent Past History: PLEASE SEE DX BELOW - Physical Exam Results Vital Signs: Vital Signs Temperature 95.9 F L 10/13/17 09:07 Pulse Rate 90 10/13/17 09:07 Respiratory Rate 20 10/13/17 09:07 Blood Pressure 116/77 10/13/17 09:07 O2 Sat by Pulse Oximetry (%) Pertinent Admission Physical Exam Findings: WITHDRAWAL SX Laboratory Last Values WBC 6.4 K/mm3 (4.0-10.0) 10/10/17 07:30 RBC 4.49 M/mm3 (4.00-5.60) 10/10/17 07:30 Hgb 12.7 GM/dL (11.7-16.9) 10/10/17 07:30 Hct 38.2 % (35.4-49) 10/10/17 07:30 MCV 85.2 fl (80-96) 10/10/17 07:30 MCH 28.4 pg (25.7-33.7) 10/10/17 07:30 MCHC 33.3 g/dl (32.0-35.9) 10/10/17 07:30 RDW 14.3 % (11.9-15.9) 10/10/17 07:30 Plt Count 272 K/MM3 (134-434) 10/10/17 07:30 MPV 7.4 fl (7.5-11.1) L 10/10/17 07:30 Sodium 143 mmol/L (136-145) 10/10/17 07:30 Potassium 4.0 mmol/L (3.5-5.1) 10/10/17 07:30 Chloride 113 mmol/L (98-107) H 10/10/17 07:30 Carbon Dioxide 27 mmol/L (21-32) 10/10/17 07:30 Anion Gap 3 (8-16) L 10/10/17 07:30 BUN 16 mg/dL (7-18) 10/10/17 07:30 Creatinine 1.0 mg/dL (0.7-1.3) 10/10/17 07:30 Creat Clearance w eGFR > 60 (>60) 10/10/17 07:30 POC Glucometer 101 UNITS (80-120) 10/13/17 06:44 Random Glucose 108 mg/dL (74-106) H 10/10/17 07:30 Calcium 8.1 mg/dL (8.5-10.1) L 10/10/17 07:30 Total Bilirubin 0.3 mg/dL (0.2-1.0) 10/10/17 07:30 AST 35 U/L (15-37) D 10/10/17 07:30 ALT 63 U/L (12-78) 10/10/17 07:30 Alkaline Phosphatase 74 U/L (45-117) 10/10/17 07:30 Total Protein 6.3 g/dl (6.4-8.2) L 10/10/17 07:30 Albumin 3.4 g/dl (3.4-5.0) 10/10/17 07:30 Urine Color Yellow 10/09/17 22:46 Urine Appearance Clear 10/09/17 22:46 Urine pH 6.0 (5.0-8.0) 10/09/17 22:46 Ur Specific [place] 1.021 (1.001-1.035) 10/09/17 22:46 Urine Protein Negative (NEGATIVE) 10/09/17 22:46 Urine Glucose (UA) Negative (NEGATIVE) 10/09/17 22:46 Urine Ketones Negative (NEGATIVE) 10/09/17 22:46 Urine Blood Negative (NEGATIVE) 10/09/17 22:46 Urine Nitrite Negative (NEGATIVE) 10/09/17 22:46 Urine Bilirubin Negative (<2.0 mg/dL) 10/09/17 22:46 Urine Urobilinogen 2.0 mg/dL (0.2-1.0) 10/09/17 22:46 Ur Leukocyte Esterase Negative (NEGATIVE) 10/09/17 22:46 RPR Titer Nonreactive (NONREACTIVE) 10/10/17 07:30 - Treatment Hospital Course: Detox Protocol Followed, Detoxed Safely, Responded well, Discharged Condition Good - Medication Discharge Medications: Ambulatory Orders Naphazoline HCl/Phenir Mal [Opcon-A Eye Drops] 1 drop OP DAILY 30 Days drops Multivitamins [Multivit ([facility] Formulary)] 1 tab PO DAILY 01/15/15 Efavirenz/Emtricitab/Tenofovir [Atripla Tablet -] 1 tab PO DAILY #30 tab Efavirenz [Sustiva -] 600 mg PO DAILY #30 tablet 07/24/17 Emtricitabine/Tenofovir [Truvada -] 1 tab PO DAILY #30 tablet 07/24/17 Hydrochlorothiazide [Hctz -] 25 mg PO DAILY #30 cap 07/24/17 metFORMIN HCL [Glucophage -] 500 mg PO BID #60 tablet 07/24/17 - Diagnosis (1) Alcohol dependence with uncomplicated withdrawal Status: Acute (2) DM2 (diabetes mellitus, type 2) Status: Chronic Qualifiers: Diabetes mellitus shelter insulin use: without superintendent container terminal use (3) History of prostate cancer Status: Chronic (4) Human immunodeficiency virus infection Status: Chronic (5) Nicotine dependence Status: Acute Qualifiers: Nicotine product type: cigarettes Substance use status: in withdrawal Qualified Code(s): F17.213 - Nicotine dependence, cigarettes, with withdrawal (6) hearing loss left wearing hearing aide Status: Chronic (7) HTN (hypertension) Status: Chronic Qualifiers: Hypertension type: essential hypertension Qualified Code(s): I10 - Essential (primary) hypertension (8) deafness of right ear Status: Chronic (9) Cocaine dependence, uncomplicated Status: Acute - AMA Did Patient Leave Against Medical Advice: No
== END 2017-10-13 09:55 | disposition home or self-care (01) | DRG 897 ==
LOC: YASAS 15:25 → Y3N 18:32
PROVIDERS: ADMIT Internal Medicine; ATTEND Internal Medicine
PROC: HZ2ZZZZ Detoxification Services for Substance Abuse Treatment (ICD-10-PCS; principal; 2017-10-09)
DX: F10.230 Alcohol dependence with withdrawal, uncomplicated (principal); F14.20 Cocaine dependence, uncomplicated; F19.282 Other psychoactive substance dependence with psychoactive substance-induced sleep disorder; F17.210 Nicotine dependence, cigarettes, uncomplicated; I10 Essential (primary) hypertension; E11.9 Type 2 diabetes mellitus without complications; Z79.4 Long term (current) use of insulin; G47.00 Insomnia, unspecified; Z21 Asymptomatic human immunodeficiency virus [HIV] infection status; Z85.46 Personal history of malignant neoplasm of prostate
CPT/HCPCS: 36415; 80053; 81003; 82962; 85027; 86593; 93005; 93010

== ENCOUNTER 2018-02-10 13:04 | Inpatient (IN) | payer OTHER ==
[2018-02-10 14:08] VITALS: BMI 28.8
--- NOTE | 2018-02-10 14:40 | HP ---
CIWA Score - CIWA Score Nausea/Vomitin-Mild Nausea/No Vomiting Muscle Tremors: 4-Moderate,w/Arms Extend Anxiety: 4-Mod. Anxious/Guarded Agitation: 1-Slight > Activity Paroxysmal Sweats: 1-Minimal Palms Moist Orientation: 0-Oriented Tacttile Disturbances: 1-Very Mild Itch/Numbness Auditory Disturbances: 0-None Visual Disturbances: 0-None Headache: 2-Mild CIWA-Ar Total Score: 14 Admission ROS BHS - HPI Chief Complaint: I want to stop, things have been getting out of control lately, I'm very lonely and dealing with too much since my cancer surgery Allergies/Adverse Reactions: Allergies Allergy/AdvReac Type Severity Reaction Status Date / Time No Known Allergies Allergy Verified 02/10/18 15:05 History of Present Illness: 52 yo gentleman here for detox from alcohol - no seizures, does have black outs. This is one of multiple admissions for treatment. Patient has very bloodshot left eye - states no pain, no blurriness, no discharge - he got dust in it yesterday and rubbed it too much. 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 Patient reports he has been seeing an eye doctor and told he needs laser surgery for his left eye but not sure why. Exam Limitations: Clinical Condition - Ebola screening Have you traveled outside of the country in the last 21 days: No (N) Have you had contact with anyone from an Ebola affected area: No Have you been sick,other than usual withdrawal symptoms: No Do you have a fever: No - Review of Systems Constitutional: Loss of Appetite, Changes in sleep, Weakness EENT: reports: Hearing Loss, Other (deaf right ear; hearing aid left ear) Respiratory: reports: No Symptoms reported Cardiac: reports: No Symptoms Reported GI: reports: Nausea, Poor Appetite, Poor Fluid Intake, Indigestion, Abdominal cramping : reports: Frequency Musculoskeletal: reports: No Symptoms Reported Integumentary: reports: Dryness Neuro: reports: Tremors Endocrine: reports: No Symptoms Reported Hematology: reports: No Symptoms Reported Psychiatric: reports: Judgement Intact, Mood/Affect Appropiate, Anxious Other Systems: Reviewed and Negative Patient History - Patient Medical History Hx Anemia: No Hx Asthma: No Hx Chronic Obstructive Pulmonary Disease (COPD): No Hx Cancer: Yes (prostate cancer - cancer free since prostatectomy) Hx Cardiac Disorders: No Hx Congestive Heart Failure: No Hx Hypertension: Yes (With treatment HCTZ) Hx Hypercholesterolemia: No Hx Pacemaker: No HX Cerebrovascular Accident: No Hx Seizures: No Hx Dementia: No Hx Diabetes: Yes (Type 2) Hx Gastrointestinal Disorders: No Hx Liver Disease: No Hx Genitourinary Disorders: Yes (prostate ca 2017 surgical removed) Hx Sexually Transmitted Disorders: No Hx Renal Disease (ESRD): No Hx Thyroid Disease: No Hx Human Immunodeficiency Virus (HIV): Yes (2007, on atripla) Hx Hepatitis C: No Hx Depression: Yes (years ago in [facility] related to disabilty) Hx Suicide Attempt: No Hx Bipolar Disorder: Yes Hx Schizophrenia: No Other Medical History: hearing loss - Patient Surgical History Past Surgical History: Yes Hx Neurologic Surgery: No Hx Cataract Extraction: No Hx Cardiac Surgery: No Hx Lung Surgery: No Hx Breast Surgery: No Hx Breast Biopsy: No Hx Abdominal Surgery: No Hx Appendectomy: No Hx Cholecystectomy: No Hx Genitourinary Surgery: No Hx Section: No Hx Orthopedic Surgery: No Other Surgical History: left ear; prostate sx 08/2016 Anesthesia Reaction: No - PPD History Previous Implant?: Yes Documented Results: Negative w/proof Implanted On Prior R Admission?: Yes Date: 04/03/17 Results: 0mm PPD to be Administered?: No - Reproductive History Patient is a Female of Child Bearing Age (11 -55 yrs old): No - Smoking Cessation Smoking history: Current some day smoker Have you smoked in the past 12 months: Yes Aproximately how many cigarettes per day: 10 Cigars Per Day: 0 Hx Chewing Tobacco Use: No Initiated information on smoking cessation: Yes 'Breaking Loose' booklet given: 02/10/18 (give on floor) - Substance & Tx. History Hx Alcohol Use: Yes Hx Substance Use: Yes Substance Use Type: Alcohol, Cocaine Hx Substance Use Treatment: Yes (detox, rehab) - Substances Abused alcohol Route: Oral Frequency: Daily Amount used: 3 nips, 1/5 bacardi; one six pack 8 oz beer Age of first use: 17 Date of Last Use: 02/10/18 crack Route: Smoking Frequency: 3-6 times per week Amount used: $150 Age of first use: 22 Date of Last Use: 02/10/18 Family Disease History - Family Disease History Family Disease History: Diabetes: Brother, Other: Father (living, FORMER ALCOHOLIC), Mother (living, FORMER ALCOHOLIC) Admission Physical Exam [facility] - Vital Signs Vital Signs: Vital Signs - 24 hr 02/10/18 13:58 Temperature 97.3 F L Pulse Rate 78 Respiratory 20 Rate Blood Pressure 135/91 - Physical General Appearance: Yes: Nourished, Appropriately Dressed, Moderate Distress, Tremorous, Anxious HEENTM: Yes: EOMI, Normocephalic, Pharynx Normal, Hearing Decreased, Other ( left eye red conjuntiva - denies blurriness, denies pain) Respiratory: Yes: Normal Breath Sounds, No Respiratory Distress Neck: Yes: No masses,lesions,Nodules Breast: Yes: Breast Exam Deferred Cardiology: Yes: Regular Rhythm, Regular Rate Abdominal: Yes: Non Tender, Flat, Soft Genitourinary: Yes: Frequency Back: Yes: Normal Inspection Musculoskeletal: Yes: full range of Motion, Gait Steady Extremities: Yes: Normal Capillary Refill, Normal Inspection, Non-Tender Neurological: Yes: Fully Oriented, Alert, Normal Mood/Affect, Normal Response Integumentary: Yes: Normal Color, Warm Lymphatic: Yes: Within Normal Limits - Diagnostic (1) Alcohol dependence with uncomplicated withdrawal Current Visit: Yes Status: Acute (2) Cocaine dependence, uncomplicated Current Visit: Yes Status: Chronic (3) Nicotine dependence Current Visit: Yes Status: Acute Qualifiers: Nicotine product type: cigarettes Substance use status: in withdrawal Qualified Code(s): F17.213 - Nicotine dependence, cigarettes, with withdrawal (4) DM2 (diabetes mellitus, type 2) Current Visit: Yes Status: Chronic Qualifiers: Diabetes mellitus long distance operator insulin use: without long distance operator use Diabetes mellitus complication status: without complication Qualified Code(s): E11.9 - Type 2 diabetes mellitus without complications (5) Human immunodeficiency virus infection Current Visit: Yes Status: Chronic (6) deafness of right ear Current Visit: Yes Status: Chronic (7) hearing loss left wearing hearing aide Current Visit: Yes Status: Chronic (8) History of prostate cancer Current Visit: Yes Status: Chronic (9) Irritation of left eye Current Visit: Yes Status: Acute Comment: no blurriness, no pain Cleared for Admission [facility] - Detox or Rehab [facility] Level of Care: Medically Managed Detox Regimen/Protocol: Librium S Breath Alcohol Content Breath Alcohol Content: 0 Urine Drug Screen - Results Drug Screen Negative: No Urine Drug Screen Results: MINNIE-Cocaine
[2018-02-10] MEDS ORDERED: MAG HYDROX/AL HYDROX/SIMETH 30 ML UNIT-DOSE CUP PO PRN (14:52)
[2018-02-10] MEDS ORDERED: MAGNESIUM HYDROX 2400MG/30ML ORAL SUSPENSION 30 ML CUP PO PRN (14:52)
[2018-02-10] MEDS ORDERED: MAGNESIUM CITRATE 300 ML BOTTLE PO PRN (14:52)
[2018-02-10] MEDS ORDERED: chlordiazePOXIDE HCL 25 MG CAPSULE PO ONE (14:52)
[2018-02-10] MEDS ORDERED: chlordiazePOXIDE HCL 25 MG CAPSULE PO PRN (14:52)
[2018-02-10] MEDS ORDERED: ACETAMINOPHEN 325 MG TABLET (FP) PO PRN (14:52)
[2018-02-10] MEDS ORDERED: guaiFENesin/D-METHORPHAN HB 10 ML UNIT-DOSE CUPS PO PRN (14:52)
[2018-02-10] MEDS ORDERED: LOPERAMIDE HCL 2 MG CAPSULE PO PRN (14:52)
[2018-02-10] MEDS ORDERED: IBUPROFEN 400 MG TABLET (FP) PO PRN (14:52)
[2018-02-10] MEDS ORDERED: MENTHOL/PHENOL 1 EACH UD MM PRN (14:52)
[2018-02-10] MEDS ORDERED: P-EPHED 60MG/TRIPROLIDI 2.5MG TABLET PO PRN (14:52)
[2018-02-10] MEDS ORDERED: hydrOXYzine PAMOATE 25 MG CAPSULE (FP) PO PRN (14:52)
[2018-02-10] MEDS ORDERED: PATIENT'S OWN MEDICATION (NON-FORMULARY) (Efavirenz/Emtricitab/Tenofovir 1 TAB) PO SCH (15:00)
[2018-02-10] MEDS: metFORMIN HCL 500 MG TABLET (FP) PO SCH (17:09)
[2018-02-10 21:18] LABS: URINE APPEARANCE TURBID; URINE BILIRUBIN NEGATIVE (<2.0 mg/dL); URINE COLOR YELLOW; URINE GLUCOSE (UA) NEGATIVE (NEGATIVE); URINE KETONE 1+ (NEGATIVE); URINE LEUK ESTERASE NEGATIVE (NEGATIVE); URINE NITRITE NEGATIVE (NEGATIVE); URINE PROTEIN NEGATIVE (NEGATIVE); URINE UROBILINOGEN NEGATIVE mg/dL (0.2-1.0)
[2018-02-10] MEDS ORDERED: MELATONIN 5 MG TABLETS PO PRN (22:00)
[2018-02-10] MEDS: ARTIFICIAL TEARS (POLYVINYL ALCOHOL) OPTH DROPS OU PRN (22:27)
[2018-02-10] MEDS: ATORVASTATIN CA 40 MG TABLET (FP) PO SCH (22:28)
[2018-02-10] MEDS: THIAMINE HCL 100 MG TABLET (FP) PO SCH (22:28)
[2018-02-10] MEDS: chlordiazePOXIDE HCL 25 MG CAPSULE PO SCH (22:28)
[2018-02-11] MEDS: chlordiazePOXIDE HCL 25 MG CAPSULE PO SCH ×4 (06:36→23:11)
[2018-02-11] MEDS: metFORMIN HCL 500 MG TABLET (FP) PO SCH ×2 (06:36→17:44)
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
[2018-02-11] MEDS ORDERED: EFAVIRENZ 600 MG TABLET PO ONE (10:30)
[2018-02-11] MEDS ORDERED: EMTRICITABINE 200MG/TENOFOVIR 300MG PO ONE (10:30)
[2018-02-11] MEDS: PRENATAL VITAMINS W/ FOLIC ACID TABLET (FP) PO SCH (10:33)
[2018-02-11] MEDS: HYDROCHLOROTHIAZIDE 12.5 MG CAPSULE (FP) PO SCH (10:33)
[2018-02-11 10:34] LABS: HEMATOCRIT 38.9 % (35.4-49); HEMOGLOBIN 12.8 GM/dL (11.7-16.9); MCH 28.2 pg (25.7-33.7); MCHC 32.9 g/dl (32.0-35.9); MEAN CELL VOLUME 85.5 fl (80-96); MEAN PLT VOLUME 7.5 fl (7.5-11.1); PLATELET COUNT 274 K/MM3 (134-434); RBC 4.55 M/mm3 (4.00-5.60); RDW 14.4 % (11.9-15.9); WHITE BLOOD COUNT 5.8 K/mm3 (4.0-10.0)
[2018-02-11] MEDS: ARTIFICIAL TEARS (POLYVINYL ALCOHOL) OPTH DROPS OU PRN (10:35)
[2018-02-11 10:37] LABS: CHLORIDE 108 mmol/L (98-107); POTASSIUM 3.8 mmol/L (3.5-5.1); SODIUM 144 mmol/L (136-145)
[2018-02-11 10:48] LABS: ALBUMIN 3.3 g/dl (3.4-5.0); ANION GAP 7 MMOL/L (8-16); BLOOD UREA NITROGEN 19 mg/dL (7-18); CALCIUM 8.6 mg/dL (8.5-10.1); CO2 29 mmol/L (21-32); GLUCOSE,RANDOM 90 mg/dL (74-106)
[2018-02-11 10:52] LABS: ALK PHOS 85 U/L (45-117); BILIRUBIN,TOTAL 0.3 mg/dL (0.2-1.0); SGOT/AST 51 U/L (15-37); SGPT/ALT 77 U/L (12-78); TOT PROT 6.3 g/dl (6.4-8.2)
--- NOTE | 2018-02-11 16:08 | PN ---
S CIWA - CIWA Score Nausea/Vomitin Muscle Tremors: 4-Moderate,w/Arms Extend Anxiety: 4-Mod. Anxious/Guarded Agitation: 3 Paroxysmal Sweats: 2 Orientation: 0-Oriented Tacttile Disturbances: 1-Very Mild Itch/Numbness Auditory Disturbances: 0-None Visual Disturbances: 0-None Headache: 1-Very Mild CIWA-Ar Total Score: 18 BHS Progress Note (SOAP) Subjective: Patient is asleep, snoring Objective: 02/11/18 16:07 Last Vital Signs Temp Pulse Resp BP Pulse Ox 96.9 F L 77 18 118/77 02/11/18 14:49 02/11/18 14:49 02/11/18 14:49 02/11/18 14:49 Laboratory Tests 02/10/18 02/10/18 02/11/18 15:25 17:55 06:35 WBC RBC Hgb Hct MCV MCH MCHC RDW Plt Count MPV Sodium Potassium Chloride Carbon Dioxide Anion Gap BUN Creatinine Creat Clearance w eGFR POC Glucometer 149 98 Random Glucose Calcium Total Bilirubin AST ALT Alkaline Phosphatase Total Protein Albumin Urine Color Yellow Urine Appearance Turbid Urine pH 5.0 Ur Specific [place] 1.025 Urine Protein Negative Urine Glucose (UA) Negative Urine Ketones 1+ H Urine Blood Negative Urine Nitrite Negative Urine Bilirubin Negative Urine Urobilinogen Negative Ur Leukocyte Esterase Negative RPR Titer 02/11/18 02/11/18 02/11/18 07:30 07:30 07:30 WBC 5.8 RBC 4.55 Hgb 12.8 Hct 38.9 MCV 85.5 MCH 28.2 MCHC 32.9 RDW 14.4 Plt Count 274 MPV 7.5 Sodium 144 Potassium 3.8 Chloride 108 H Carbon Dioxide 29 Anion Gap 7 L BUN 19 H Creatinine 1.0 Creat Clearance w eGFR > 60 POC Glucometer Random Glucose 90 Calcium 8.6 Total Bilirubin 0.3 AST 51 H D ALT 77 Alkaline Phosphatase 85 Total Protein 6.3 L Albumin 3.3 L Urine Color Urine Appearance Urine pH Ur Specific [place] Urine Protein Urine Glucose (UA) Urine Ketones Urine Blood Urine Nitrite Urine Bilirubin Urine Urobilinogen Ur Leukocyte Esterase RPR Titer Nonreactive 02/11/18 11:31 WBC RBC Hgb Hct MCV MCH MCHC RDW Plt Count MPV Sodium Potassium Chloride Carbon Dioxide Anion Gap BUN Creatinine Creat Clearance w eGFR POC Glucometer 135 Random Glucose Calcium Total Bilirubin AST ALT Alkaline Phosphatase Total Protein Albumin Urine Color Urine Appearance Urine pH Ur Specific [place] Urine Protein Urine Glucose (UA) Urine Ketones Urine Blood Urine Nitrite Urine Bilirubin Urine Urobilinogen Ur Leukocyte Esterase RPR Titer Labs reviewed Assessment: 02/11/18 16:08 Withdrawal symptoms Plan: Continue detox Encouraged PO water intake
--- NOTE | 2018-02-11 21:59 | EKG ---
Test Reason : Blood Pressure : / mmHG Vent. Rate : 076 BPM Atrial Rate : 076 BPM P-R Int : 176 ms QRS Dur : 074 ms QT Int : 382 ms P-R-T Axes : 068 071 074 degrees QTc Int : 429 ms NORMAL SINUS RHYTHM NORMAL ECG WHEN COMPARED WITH ECG OF 28-DEC-2017 17:17, NO SIGNIFICANT CHANGE WAS FOUND Confirmed by MARIA DEL CARMEN JARVIS MD ([id number]) on 02/11/2018 9:59:20 PM Referred By: Confirmed By:MARIA DEL CARMEN JARVIS MD
[2018-02-11] MEDS ORDERED: QUEtiapine FUMARATE 50 MG TABLET PO SCH (22:00)
[2018-02-11] MEDS: THIAMINE HCL 100 MG TABLET (FP) PO SCH (22:09)
[2018-02-11] MEDS: QUEtiapine FUMARATE 50 MG TABLET PO SCH (22:09)
[2018-02-11] MEDS: ATORVASTATIN CA 40 MG TABLET (FP) PO SCH (22:09)
[2018-02-12] MEDS: chlordiazePOXIDE HCL 25 MG CAPSULE PO SCH ×3 (05:59→18:14)
[2018-02-12] MEDS: metFORMIN HCL 500 MG TABLET (FP) PO SCH ×2 (07:21→18:14)
[2018-02-12] MEDS: EFAVIRENZ 600 MG TABLET PO SCH (10:05)
[2018-02-12] MEDS: HYDROCHLOROTHIAZIDE 12.5 MG CAPSULE (FP) PO SCH (10:05)
[2018-02-12] MEDS: PRENATAL VITAMINS W/ FOLIC ACID TABLET (FP) PO SCH (10:05)
[2018-02-12] MEDS: EMTRICITABINE 200MG/TENOFOVIR 300MG PO SCH (10:06)
[2018-02-12] MEDS: ARTIFICIAL TEARS (POLYVINYL ALCOHOL) OPTH DROPS OU PRN (10:07)
--- NOTE | 2018-02-12 11:49 | PN ---
S CIWA - CIWA Score Nausea/Vomitin-No Nausea/No Vomiting Muscle Tremors: 4-Moderate,w/Arms Extend Anxiety: 4-Mod. Anxious/Guarded Agitation: 4-Moderately Restless Paroxysmal Sweats: 1-Minimal Palms Moist Orientation: 0-Oriented Tacttile Disturbances: 0-None Auditory Disturbances: 0-None Visual Disturbances: 0-None Headache: 0-None Present CIWA-Ar Total Score: 13 BHS Progress Note (SOAP) Subjective: C/O ANXIETY, TREMORS, REDNESS TO LEFT EYE. Objective: 02/12/18 11:47 Vital Signs 02/12/18 02/12/18 02/12/18 06:12 06:30 09:27 Temperature 97.1 F L 97.9 F Pulse Rate 65 73 Respiratory 18 18 18 Rate Blood Pressure 123/83 105/73 Laboratory Tests 02/10/18 02/10/18 02/11/18 15:25 17:55 06:35 WBC RBC Hgb Hct MCV MCH MCHC RDW Plt Count MPV Sodium Potassium Chloride Carbon Dioxide Anion Gap BUN Creatinine Creat Clearance w eGFR POC Glucometer 149 98 Random Glucose Calcium Total Bilirubin AST ALT Alkaline Phosphatase Total Protein Albumin Urine Color Yellow Urine Appearance Turbid Urine pH 5.0 Ur Specific [place] 1.025 Urine Protein Negative Urine Glucose (UA) Negative Urine Ketones 1+ H Urine Blood Negative Urine Nitrite Negative Urine Bilirubin Negative Urine Urobilinogen Negative Ur Leukocyte Esterase Negative RPR Titer 02/11/18 02/11/18 02/11/18 07:30 07:30 07:30 WBC 5.8 RBC 4.55 Hgb 12.8 Hct 38.9 MCV 85.5 MCH 28.2 MCHC 32.9 RDW 14.4 Plt Count 274 MPV 7.5 Sodium 144 Potassium 3.8 Chloride 108 H Carbon Dioxide 29 Anion Gap 7 L BUN 19 H Creatinine 1.0 Creat Clearance w eGFR > 60 POC Glucometer Random Glucose 90 Calcium 8.6 Total Bilirubin 0.3 AST 51 H D ALT 77 Alkaline Phosphatase 85 Total Protein 6.3 L Albumin 3.3 L Urine Color Urine Appearance Urine pH Ur Specific [place] Urine Protein Urine Glucose (UA) Urine Ketones Urine Blood Urine Nitrite Urine Bilirubin Urine Urobilinogen Ur Leukocyte Esterase RPR Titer Nonreactive 02/11/18 02/12/18 11:31 05:59 WBC RBC Hgb Hct MCV MCH MCHC RDW Plt Count MPV Sodium Potassium Chloride Carbon Dioxide Anion Gap BUN Creatinine Creat Clearance w eGFR POC Glucometer 135 110 Random Glucose Calcium Total Bilirubin AST ALT Alkaline Phosphatase Total Protein Albumin Urine Color Urine Appearance Urine pH Ur Specific [place] Urine Protein Urine Glucose (UA) Urine Ketones Urine Blood Urine Nitrite Urine Bilirubin Urine Urobilinogen Ur Leukocyte Esterase RPR Titer Assessment: 02/12/18 11:47 WITHDRAWAL SX Plan: CONTINUE DETOX
[2018-02-12] MEDS: ARTIFICIAL TEARS (POLYVINYL ALCOHOL) OPTH DROPS OU SCH ×3 (15:39→22:40)
[2018-02-12] MEDS: QUEtiapine FUMARATE 50 MG TABLET PO SCH (22:40)
[2018-02-12] MEDS: chlordiazePOXIDE 5 MG CAPSULE PO SCH (22:40)
[2018-02-12] MEDS: ATORVASTATIN CA 40 MG TABLET (FP) PO SCH (22:40)
[2018-02-12] MEDS: THIAMINE HCL 100 MG TABLET (FP) PO SCH (22:40)
[2018-02-13] MEDS: chlordiazePOXIDE 5 MG CAPSULE PO SCH ×3 (05:54→17:45)
[2018-02-13] MEDS: metFORMIN HCL 500 MG TABLET (FP) PO SCH ×2 (07:21→17:44)
[2018-02-13] MEDS: ARTIFICIAL TEARS (POLYVINYL ALCOHOL) OPTH DROPS OU SCH ×4 (10:27→22:38)
[2018-02-13] MEDS: HYDROCHLOROTHIAZIDE 12.5 MG CAPSULE (FP) PO SCH (10:27)
[2018-02-13] MEDS: PRENATAL VITAMINS W/ FOLIC ACID TABLET (FP) PO SCH (10:27)
[2018-02-13] MEDS: EFAVIRENZ 600 MG TABLET PO SCH (11:35)
[2018-02-13] MEDS: EMTRICITABINE 200MG/TENOFOVIR 300MG PO SCH (11:35)
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
[2018-02-13] MEDS: BACITRACIN 0.9 GM PACKET TP SCH ×2 (13:21→22:37)
[2018-02-13] MEDS: THIAMINE HCL 100 MG TABLET (FP) PO SCH (22:37)
[2018-02-13] MEDS: ATORVASTATIN CA 40 MG TABLET (FP) PO SCH (22:37)
[2018-02-13] MEDS: chlordiazePOXIDE HCL 10 MG CAPSULE PO SCH (22:37)
[2018-02-13] MEDS: QUEtiapine FUMARATE 50 MG TABLET PO SCH (22:37)
[2018-02-14] MEDS: chlordiazePOXIDE HCL 10 MG CAPSULE PO SCH (05:54)
[2018-02-14 06:39] VITALS: BP 121/79; PULSE 71; TEMP 97.5
[2018-02-14] MEDS: metFORMIN HCL 500 MG TABLET (FP) PO SCH (07:53)
--- NOTE | 2018-03-13 08:31 | DS ---
[facility] Detox Discharge Summary Admission Date: 02/10/18 Discharge Date: 02/14/18 - History Present History: Alcohol Dependence, Cocaine Dependence Additional Comments: follow up with after [facility] program as arrangement Pertinent Past History: type 2 dm hiv deafness of right ear hearing loss left prostatic cancer hypertension - Physical Exam Results Vital Signs: Vital Signs Temperature 97.5 F L 02/14/18 06:39 Pulse Rate 71 02/14/18 06:39 Respiratory Rate 18 02/14/18 06:39 Blood Pressure 121/79 02/14/18 06:39 O2 Sat by Pulse Oximetry (%) Pertinent Admission Physical Exam Findings: Vital Signs Temperature 97.5 F L 02/14/18 06:39 Pulse Rate 71 02/14/18 06:39 Respiratory Rate 18 02/14/18 06:39 Blood Pressure 121/79 02/14/18 06:39 O2 Sat by Pulse Oximetry (%) - Treatment Hospital Course: Detox Protocol Followed, Detoxed Safely, Responded well, Discharged Condition Good, Rehab Referral Accepted Patient has Accepted a Rehab Referral to: [facility] - Medication Discharge Medications: Ambulatory Orders Efavirenz/Emtricitab/Tenofovir [Atripla Tablet -] 1 tab PO DAILY #30 tab Atorvastatin Calcium 40 mg PO HS #14 tablet 12/31/17 Hydrochlorothiazide [Hctz -] 25 mg PO DAILY #14 cap 12/31/17 metFORMIN HCL [Glucophage -] 500 mg PO BID #30 tablet 12/31/17 Quetiapine Fumarate [Seroquel -] 50 mg PO HS #30 tablet 02/11/18 - Diagnosis (1) Alcohol dependence with uncomplicated withdrawal Status: Acute (2) Cocaine dependence, uncomplicated Status: Acute (3) DM2 (diabetes mellitus, type 2) Status: Chronic Qualifiers: Diabetes mellitus automobile mechanic helper insulin use: without prison use Diabetes mellitus complication status: without complication Qualified Code(s): E11.9 - Type 2 diabetes mellitus without complications (4) HTN (hypertension) Status: Chronic Qualifiers: Hypertension type: essential hypertension Qualified Code(s): I10 - Essential (primary) hypertension (5) Human immunodeficiency virus infection Status: Chronic (6) Nicotine dependence Status: Chronic Qualifiers: Nicotine product type: cigarettes Substance use status: in withdrawal Qualified Code(s): F17.213 - Nicotine dependence, cigarettes, with withdrawal (7) deafness of right ear Status: Chronic (8) hearing loss left wearing hearing aide Status: Chronic (9) History of prostate cancer Status: Suspected (10) MDD (major depressive disorder) Status: Ruled-out - AMA Did Patient Leave Against Medical Advice: No
== END 2018-02-14 08:46 | disposition home or self-care (01) | DRG 897 ==
LOC: YASAS 13:04 → UNDOADMIN 15:38 → Y6N 15:38 → Y3N 15:53
PROVIDERS: ADMIT Surgery; ATTEND Surgery
PROC: HZ2ZZZZ Detoxification Services for Substance Abuse Treatment (ICD-10-PCS; principal; 2018-02-10)
DX: F10.230 Alcohol dependence with withdrawal, uncomplicated (principal); F14.20 Cocaine dependence, uncomplicated; F33.9 Major depressive disorder, recurrent, unspecified; F17.213 Nicotine dependence, cigarettes, with withdrawal; I10 Essential (primary) hypertension; H57.8 Other specified disorders of eye and adnexa; E11.9 Type 2 diabetes mellitus without complications; Z21 Asymptomatic human immunodeficiency virus [HIV] infection status; H91.8X1 Other specified hearing loss, right ear; H91.92 Unspecified hearing loss, left ear; Z85.46 Personal history of malignant neoplasm of prostate; Z90.79 Acquired absence of other genital organ(s); Z79.84 Long term (current) use of oral hypoglycemic drugs
CPT/HCPCS: 36415; 80053; 81003; 82962; 85027; 86593; 93005; 93010

== ENCOUNTER 2018-04-23 16:13 | Inpatient (IN) | payer OTHER ==
[2018-04-23 19:50] VITALS: BMI 25.8
--- NOTE | 2018-04-23 21:07 | HP ---
CIWA Score - CIWA Score Nausea/Vomitin-No Nausea/No Vomiting Muscle Tremors: 2 Anxiety: 3 Agitation: 4-Moderately Restless Paroxysmal Sweats: 2 Orientation: 0-Oriented Tacttile Disturbances: 2-Mild Itch/Numbness/Burn Auditory Disturbances: 0-None Visual Disturbances: 1-Very Mild Sensitivity Headache: 0-None Present CIWA-Ar Total Score: 14 Admission ROS BHS - HPI Chief Complaint: " I am having withdrawal, I want get clean, this is insane" alcohol withdrawal symptoms Allergies/Adverse Reactions: Allergies Allergy/AdvReac Type Severity Reaction Status Date / Time No Known Allergies Allergy Verified 04/23/18 19:36 History of Present Illness: 52 yo male with hx of nicotine, alcohol and crack /cocaine dependence is here seeking detox, this is one of multiple admissions. Last detox [facility] 02/10/18 -02/14. PMHX: HTN, DMII, deaf (R), HIV, bipolar. Denies homicidal / homicidal ideation. Longest period of sobriety three years 2008 -2011 Exam Limitations: No Limitations - Ebola screening Have you traveled outside of the country in the last 21 days: No (N) Have you had contact with anyone from an Ebola affected area: No Do you have a fever: No - Review of Systems Constitutional: Chills, Loss of Appetite, Changes in sleep, Unintentional Wgt. Loss (20 lbs) EENT: reports: No Symptoms Reported Respiratory: reports: No Symptoms reported Cardiac: reports: No Symptoms Reported GI: reports: Diarrhea, Poor Appetite, Poor Fluid Intake, Abdominal cramping : reports: No Symptoms Reported Musculoskeletal: reports: Joint Pain Integumentary: reports: No Symptoms Reported Neuro: reports: Numbness (both hands) Endocrine: reports: Increased Thirst Hematology: reports: No Symptoms Reported Psychiatric: reports: Orientated x3, Depressed Patient History - Patient Medical History Hx Anemia: No Hx Asthma: No Hx Chronic Obstructive Pulmonary Disease (COPD): No Hx Cancer: Yes (prostate cancer - cancer free since prostatectomy) Hx Cardiac Disorders: No Hx Congestive Heart Failure: No Hx Hypertension: Yes (With treatment HCTZ) Hx Hypercholesterolemia: No Hx Pacemaker: No HX Cerebrovascular Accident: No Hx Seizures: No Hx Dementia: No Hx Diabetes: Yes (Type 2 on metformin ) Hx Gastrointestinal Disorders: No Hx Liver Disease: No Hx Genitourinary Disorders: Yes (prostate ca 2017 surgical removed) Hx Sexually Transmitted Disorders: No Hx Renal Disease (ESRD): No Hx Thyroid Disease: No Hx Human Immunodeficiency Virus (HIV): Yes (2007, on atripla) Hx Hepatitis C: No Hx Depression: Yes (years ago in [facility] related to disabilty) Hx Suicide Attempt: No Hx Bipolar Disorder: Yes Hx Schizophrenia: No - Patient Surgical History Past Surgical History: Yes Hx Neurologic Surgery: No Hx Cataract Extraction: No Hx Cardiac Surgery: No Hx Lung Surgery: No Hx Breast Surgery: No Hx Breast Biopsy: No Hx Abdominal Surgery: No Hx Appendectomy: No Hx Cholecystectomy: No Hx Genitourinary Surgery: No Hx Section: No Hx Orthopedic Surgery: No Other Surgical History: left ear; prostate sx 08/2016 Anesthesia Reaction: No - PPD History Previous Implant?: Yes Documented Results: Negative w/proof Date: 04/03/17 Results: 0mm PPD to be Administered?: Yes - Smoking Cessation Smoking history: Current some day smoker Have you smoked in the past 12 months: Yes Aproximately how many cigarettes per day: 10 Cigars Per Day: 0 Hx Chewing Tobacco Use: No Initiated information on smoking cessation: Yes 'Breaking Loose' booklet given: 04/23/18 - Substance & Tx. History Hx Alcohol Use: Yes Hx Substance Use: Yes Substance Use Type: Alcohol, Cocaine Hx Substance Use Treatment: Yes (Last detox [facility] 02/10/18 -02/14/18. ) - Substances Abused Alcohol Route: Oral Frequency: Daily Amount used: LIQUOR- 4 PINTS, BEER- BEER- 2 SIX PACK Age of first use: 17 Date of Last Use: 04/22/18 Cocaine Route: Smoking Frequency: Daily Amount used: $200 Age of first use: 24 Date of Last Use: 04/22/18 Family Disease History - Family Disease History Family Disease History: Diabetes: Brother, Other: Father (living, FORMER ALCOHOLIC), Mother (living, FORMER ALCOHOLIC) Admission Physical Exam S - Vital Signs Vital Signs: Vital Signs - 24 hr 04/23/18 19:24 Temperature 98.1 F Pulse Rate 70 Respiratory 18 Rate Blood Pressure 150/90 - Physical General Appearance: Yes: Appropriately Dressed, Mild Distress, Thin, Sweating, Anxious HEENTM: Yes: EOMI, Normal ENT Inspection, Normocephalic, Normal Voice, FELISHA, Pharynx Normal, Tm's normal, Other (hearing aid right ear) Respiratory: Yes: Chest Non-Tender, Lungs Clear, Normal Breath Sounds, No Respiratory Distress, No Accessory Muscle Use Neck: Yes: Within Normal Limits Breast: Yes: Breast Exam Deferred Cardiology: Yes: Regular Rhythm, Regular Rate Abdominal: Yes: Normal Bowel Sounds, Non Tender, Flat, Soft Genitourinary: Yes: Within Normal Limits Back: Yes: Normal Inspection Musculoskeletal: Yes: full range of Motion, Gait Steady, Pelvis Stable Extremities: Yes: Normal Capillary Refill, Normal Inspection, Normal Range of Motion 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 NML intact, Fully Oriented, Alert, Motor Strength 5/5, Depressed Affect Integumentary: Yes: Normal Color, Warm, Diaphoresis Lymphatic: Yes: Within Normal Limits - Diagnostic (1) Alcohol dependence with uncomplicated withdrawal Current Visit: Yes Status: Acute (2) Cocaine dependence, uncomplicated Current Visit: Yes Status: Acute (3) DM2 (diabetes mellitus, type 2) Current Visit: Yes Status: Chronic Qualifiers: Diabetes mellitus snf insulin use: without snf use Diabetes mellitus complication status: without complication Qualified Code(s): E11.9 - Type 2 diabetes mellitus without complications (4) HTN (hypertension) Current Visit: Yes Status: Chronic Qualifiers: Hypertension type: essential hypertension Qualified Code(s): I10 - Essential (primary) hypertension (5) Human immunodeficiency virus infection Current Visit: No Status: Chronic (6) Nicotine dependence Current Visit: Yes Status: Chronic Qualifiers: Nicotine product type: cigarettes Substance use status: in withdrawal Qualified Code(s): F17.213 - Nicotine dependence, cigarettes, with withdrawal (7) hearing loss left wearing hearing aide Current Visit: Yes Status: Chronic (8) Hyperlipidemia Current Visit: Yes Status: Chronic Qualifiers: Hyperlipidemia type: unspecified Qualified Code(s): E78.5 - Hyperlipidemia , unspecified Cleared for Admission BHS - Detox or Rehab [facility] Level of Care: Medically Managed Detox Regimen/Protocol: Librium [facility] Breath Alcohol Content Breath Alcohol Content: 0 Urine Drug Screen - Results Drug Screen Negative: No Urine Drug Screen Results: MINNIE-Cocaine
[2018-04-23] MEDS ORDERED: MAGNESIUM CITRATE 300 ML BOTTLE PO PRN (21:16)
[2018-04-23] MEDS ORDERED: MAGNESIUM HYDROX 2400MG/30ML ORAL SUSPENSION 30 ML CUP PO PRN (21:16)
[2018-04-23] MEDS ORDERED: LOPERAMIDE HCL 2 MG CAPSULE PO PRN (21:16)
[2018-04-23] MEDS ORDERED: MAG HYDROX/AL HYDROX/SIMETH 30 ML UNIT-DOSE CUP PO PRN (21:16)
[2018-04-23] MEDS ORDERED: chlordiazePOXIDE HCL 25 MG CAPSULE PO PRN (21:16)
[2018-04-23] MEDS ORDERED: ACETAMINOPHEN 325 MG TABLET (FP) PO PRN (21:16)
[2018-04-23] MEDS ORDERED: P-EPHED 60MG/TRIPROLIDI 2.5MG TABLET PO PRN (21:16)
[2018-04-23] MEDS ORDERED: guaiFENesin/D-METHORPHAN HB 10 ML UNIT-DOSE CUPS PO PRN (21:16)
[2018-04-23] MEDS ORDERED: IBUPROFEN 400 MG TABLET (FP) PO PRN (21:16)
[2018-04-23] MEDS ORDERED: MENTHOL/PHENOL 1 EACH UD MM PRN (21:16)
[2018-04-23] MEDS ORDERED: hydrOXYzine PAMOATE 50 MG CAPSULE (FP) PO PRN (21:21)
[2018-04-23] MEDS ORDERED: NICOTINE POLACRILEX 2 MG GUM BC PRN (21:21)
[2018-04-23] MEDS ORDERED: ATORVASTATIN CA 20 MG TABLET (FP) ONE (21:58)
[2018-04-23] MEDS: chlordiazePOXIDE HCL 25 MG CAPSULE PO SCH (22:33)
[2018-04-23] MEDS: THIAMINE HCL 100 MG TABLET (FP) PO SCH (22:33)
[2018-04-23] MEDS: ATORVASTATIN CA 40 MG TABLET (FP) PO SCH (22:34)
[2018-04-23] MEDS: MELATONIN 5 MG TABLETS PO PRN (22:37)
[2018-04-24 01:36] LABS: URINE APPEARANCE SLCLOUDY; URINE BILIRUBIN NEGATIVE (<2.0 mg/dL); URINE COLOR YELLOW; URINE GLUCOSE (UA) NEGATIVE (NEGATIVE); URINE KETONE NEGATIVE (NEGATIVE); URINE LEUK ESTERASE NEGATIVE (NEGATIVE); URINE NITRITE NEGATIVE (NEGATIVE); URINE PROTEIN NEGATIVE (NEGATIVE); URINE UROBILINOGEN NEGATIVE mg/dL (0.2-1.0)
[2018-04-24] MEDS: chlordiazePOXIDE HCL 25 MG CAPSULE PO SCH ×4 (06:30→22:44)
[2018-04-24] MEDS: metFORMIN HCL 500 MG TABLET (FP) PO SCH ×2 (06:30→20:15)
[2018-04-24] MEDS: HYDROCHLOROTHIAZIDE 25 MG TABLET (FP) PO SCH (10:17)
[2018-04-24] MEDS: PRENATAL VITAMINS W/ FOLIC ACID TABLET (FP) PO SCH (10:17)
[2018-04-24] MEDS: NICOTINE 14 MG/24 HOURS TOPICAL PATCH TD SCH (10:18)
--- NOTE | 2018-04-24 10:50 | PN ---
S CIWA - CIWA Score Nausea/Vomitin-No Nausea/No Vomiting Muscle Tremors: 2 Anxiety: 2 Agitation: 1-Slight > Activity Paroxysmal Sweats: 3 Orientation: 0-Oriented Tacttile Disturbances: 0-None Auditory Disturbances: 0-None Visual Disturbances: 0-None Headache: 0-None Present CIWA-Ar Total Score: 8 BHS Progress Note (SOAP) Subjective: PATIENT C/O SHAKES, SWEATING, AND ANXIETY. Objective: 04/24/18 10:48 Vital Signs Temperature 97.5 F L 04/24/18 09:23 Pulse Rate 71 04/24/18 09:23 Respiratory Rate 18 04/24/18 09:23 Blood Pressure 114/72 04/24/18 09:23 O2 Sat by Pulse Oximetry (%) Laboratory Tests 04/23/18 04/23/18 04/24/18 19:33 23:58 06:45 POC Glucometer 113 107 Urine Color Yellow Urine Appearance Slcloudy Urine pH 5.0 Ur Specific [place] 1.029 Urine Protein Negative Urine Glucose (UA) Negative Urine Ketones Negative Urine Blood Negative Urine Nitrite Negative Urine Bilirubin Negative Urine Urobilinogen Negative Ur Leukocyte Esterase Negative SKIN WARM, + SWEATING CAR S1S2 RESP CTA BL EXT +TREMORS, FULL ROM AMB AD NICHOLAS ALERT AND ORIENTED X 3 Assessment: 04/24/18 10:49 WITHDRAWAL SX Plan: CONTINUE DETOX ORDERED ENCOURAGE ORAL FLUIDS CONTINUE TO MONITOR CLINICALLY
[2018-04-24 11:40] LABS: HEMATOCRIT 38.8 % (35.4-49); HEMOGLOBIN 12.8 GM/dL (11.7-16.9); MCH 28.3 pg (25.7-33.7); MEAN CELL VOLUME 85.8 fl (80-96); MEAN PLT VOLUME 7.6 fl (7.5-11.1); PLATELET COUNT 270 K/MM3 (134-434); RBC 4.52 M/mm3 (4.00-5.60); RDW 15.2 % (11.9-15.9); WHITE BLOOD COUNT 5.4 K/mm3 (4.0-10.0)
[2018-04-24 11:50] LABS: ALBUMIN 3.2 g/dl (3.4-5.0); ALK PHOS 92 U/L (45-117); ANION GAP 10 MMOL/L (8-16); BILIRUBIN,TOTAL 0.2 mg/dL (0.2-1); BLOOD UREA NITROGEN 14 mg/dL (7-18); CALCIUM 8.5 mg/dL (8.5-10.1); CHLORIDE 107 mmol/L (98-107); CO2 26 mmol/L (21-32); CREATININE 0.9 mg/dL (0.55-1.3); GLUCOSE,RANDOM 97 mg/dL (74-106); POTASSIUM 3.8 mmol/L (3.5-5.1); SGOT/AST 28 U/L (15-37); SGPT/ALT 57 U/L (13-61); SODIUM 142 mmol/L (136-145); TOT PROT 5.9 g/dl (6.4-8.2)
[2018-04-24] MEDS: PATIENT'S OWN MEDICATION (NON-FORMULARY) (Efavirenz/Emtricitab/Tenofovir 1 TAB) PO SCH (12:40)
--- NOTE | 2018-04-24 18:33 | CONSULT ---
[facility] Psychiatric Consult - Data Date of interview: 04/24/18 Admission source: [facility] Identifying data: Psychiatric examination deferred. Patient asleep. Observed resting comfortably in bed. Will follow.
[2018-04-24] MEDS: ATORVASTATIN CA 40 MG TABLET (FP) PO SCH (22:44)
[2018-04-24] MEDS: THIAMINE HCL 100 MG TABLET (FP) PO SCH (22:44)
[2018-04-24] MEDS: MELATONIN 5 MG TABLETS PO PRN (22:44)
[2018-04-25] MEDS: chlordiazePOXIDE HCL 25 MG CAPSULE PO SCH ×3 (05:41→17:31)
[2018-04-25] MEDS: metFORMIN HCL 500 MG TABLET (FP) PO SCH ×2 (07:44→17:31)
--- NOTE | 2018-04-25 09:52 | EKG ---
Test Reason : Blood Pressure : / mmHG Vent. Rate : 066 BPM Atrial Rate : 066 BPM P-R Int : 162 ms QRS Dur : 068 ms QT Int : 374 ms P-R-T Axes : 042 069 057 degrees QTc Int : 392 ms NORMAL SINUS RHYTHM NONSPECIFIC T WAVE ABNORMALITY ABNORMAL ECG WHEN COMPARED WITH ECG OF 10-FEB-2018 16:41, NONSPECIFIC T WAVE ABNORMALITY NOW EVIDENT IN ANTERIOR LEADS Confirmed by JADYN AVILA, JULIA ([id number]) on 04/25/2018 9:52:06 AM Referred By: Confirmed By:JULIA SALAMANCA MD
[2018-04-25] MEDS: PRENATAL VITAMINS W/ FOLIC ACID TABLET (FP) PO SCH (10:30)
[2018-04-25] MEDS: NICOTINE 14 MG/24 HOURS TOPICAL PATCH TD SCH (10:32)
[2018-04-25] MEDS: HYDROCHLOROTHIAZIDE 25 MG TABLET (FP) PO SCH (10:32)
--- NOTE | 2018-04-25 10:41 | PN ---
S CIWA - CIWA Score Nausea/Vomitin-No Nausea/No Vomiting Muscle Tremors: None Anxiety: 2 Agitation: 2 Paroxysmal Sweats: 2 Orientation: 0-Oriented Tacttile Disturbances: 0-None Auditory Disturbances: 0-None Visual Disturbances: 0-None Headache: 0-None Present CIWA-Ar Total Score: 6 BHS Progress Note (SOAP) Subjective: PATIENT C/O MILD SHAKES, ANXIETY, RESTLESSNESS (INTERMITTENT). Objective: 04/25/18 10:39 Laboratory Tests 04/23/18 04/23/18 04/24/18 19:33 23:58 06:45 WBC RBC Hgb Hct MCV MCH MCHC RDW Plt Count MPV Sodium Potassium Chloride Carbon Dioxide Anion Gap BUN Creatinine Creat Clearance w eGFR POC Glucometer 113 107 Random Glucose Calcium Total Bilirubin AST ALT Alkaline Phosphatase Total Protein Albumin Urine Color Yellow Urine Appearance Slcloudy Urine pH 5.0 Ur Specific [place] 1.029 Urine Protein Negative Urine Glucose (UA) Negative Urine Ketones Negative Urine Blood Negative Urine Nitrite Negative Urine Bilirubin Negative Urine Urobilinogen Negative Ur Leukocyte Esterase Negative RPR Titer 04/24/18 04/24/18 04/24/18 07:00 07:00 07:00 WBC 5.4 RBC 4.52 Hgb 12.8 Hct 38.8 MCV 85.8 MCH 28.3 MCHC 33.0 RDW 15.2 Plt Count 270 MPV 7.6 Sodium 142 Potassium 3.8 Chloride 107 Carbon Dioxide 26 Anion Gap 10 BUN 14 Creatinine 0.9 Creat Clearance w eGFR > 60 POC Glucometer Random Glucose 97 Calcium 8.5 Total Bilirubin 0.2 AST 28 ALT 57 Alkaline Phosphatase 92 Total Protein 5.9 L Albumin 3.2 L Urine Color Urine Appearance Urine pH Ur Specific [place] Urine Protein Urine Glucose (UA) Urine Ketones Urine Blood Urine Nitrite Urine Bilirubin Urine Urobilinogen Ur Leukocyte Esterase RPR Titer Nonreactive 04/24/18 04/25/18 16:33 07:15 WBC RBC Hgb Hct MCV MCH MCHC RDW Plt Count MPV Sodium Potassium Chloride Carbon Dioxide Anion Gap BUN Creatinine Creat Clearance w eGFR POC Glucometer 111 109 Random Glucose Calcium Total Bilirubin AST ALT Alkaline Phosphatase Total Protein Albumin Urine Color Urine Appearance Urine pH Ur Specific [place] Urine Protein Urine Glucose (UA) Urine Ketones Urine Blood Urine Nitrite Urine Bilirubin Urine Urobilinogen Ur Leukocyte Esterase RPR Titer PE: SKIN WARM AND DRY CAR S1S2 RESP CTA BL EXT FULL ROM, MILDLY TREMOROUS AMB AD NICHOLAS ALERT AND ORIENTED X 3 Assessment: 04/25/18 10:41 WITHDRAWAL SX Plan: CONTINUE DETOX REGIMEN ENCOURAGE ORAL FLUIDS FLU VACCINE X 1 ORDERED CONTINUE TO MONITOR CLINICALLY
[2018-04-25] MEDS: EFAVIRENZ 600 MG TABLET PO SCH (11:53)
[2018-04-25] MEDS: EMTRICITABINE 200MG/TENOFOVIR 300MG PO SCH (11:54)
[2018-04-25] MEDS ORDERED: FLU VACCINE QUAD 60 MCG/0.5 ML (MDV 18-19) IM ONE (12:00)
[2018-04-25] MEDS: PATIENT'S OWN MEDICATION (NON-FORMULARY) (Efavirenz/Emtricitab/Tenofovir 1 TAB) PO SCH (12:08)
[2018-04-25] MEDS: chlordiazePOXIDE 5 MG CAPSULE PO SCH (22:11)
[2018-04-25] MEDS: ATORVASTATIN CA 40 MG TABLET (FP) PO SCH (22:11)
[2018-04-25] MEDS: THIAMINE HCL 100 MG TABLET (FP) PO SCH (22:11)
[2018-04-25] MEDS: MELATONIN 5 MG TABLETS PO PRN (22:12)
[2018-04-26] MEDS: chlordiazePOXIDE 5 MG CAPSULE PO SCH (05:37)
[2018-04-26] MEDS: metFORMIN HCL 500 MG TABLET (FP) PO SCH (07:37)
[2018-04-26 09:11] VITALS: BP 114/69; PULSE 76; TEMP 98.2
[2018-04-26] MEDS ORDERED: chlordiazePOXIDE HCL 10 MG CAPSULE PO ONE (10:21)
[2018-04-26] MEDS: EMTRICITABINE 200MG/TENOFOVIR 300MG PO SCH (10:28)
[2018-04-26] MEDS: PRENATAL VITAMINS W/ FOLIC ACID TABLET (FP) PO SCH (10:28)
[2018-04-26] MEDS: EFAVIRENZ 600 MG TABLET PO SCH (10:28)
[2018-04-26] MEDS: HYDROCHLOROTHIAZIDE 25 MG TABLET (FP) PO SCH (10:29)
[2018-04-26] MEDS: NICOTINE 14 MG/24 HOURS TOPICAL PATCH TD SCH (10:30)
--- NOTE | 2018-04-26 12:16 | DS ---
[facility] Detox Discharge Summary Admission Date: 04/23/18 Discharge Date: 04/26/18 - History Present History: Alcohol Dependence, Cocaine Dependence Additional Comments: Patient scheduled for discharge tomorrow and requested early discharge today. As per patient, he has to go to work today and wants to leave. He denied any withdrawal symptoms stating that he is feeling fine. Patient is A/A/Ox3, in nad , ambulatory. Patient refused his scheduled dose of librium 15mg at 5am this morning. He agreed to take librium 10mg PO x 1 dose before leaving so that he doesn't experience any withdrawal symptoms. Patient is stable for discharge and denied any complaints. Patient instructed to call 911 if feeling sick or having any withdrawal symptoms and to follow up with his PCP within 1-2 weeks. Pertinent Past History: DMT2 HLD HIV HTN Hearing loss ([place]) - Physical Exam Results Vital Signs: Vital Signs Temperature 98.2 F 04/26/18 09:10 Pulse Rate 76 04/26/18 09:10 Respiratory Rate 18 04/26/18 09:10 Blood Pressure 114/69 04/26/18 09:10 O2 Sat by Pulse Oximetry (%) Pertinent Admission Physical Exam Findings: Withdrawal symptoms Laboratory Tests 04/23/18 04/23/18 04/24/18 19:33 23:58 06:45 WBC RBC Hgb Hct MCV MCH MCHC RDW Plt Count MPV Sodium Potassium Chloride Carbon Dioxide Anion Gap BUN Creatinine Creat Clearance w eGFR POC Glucometer 113 107 Random Glucose Calcium Total Bilirubin AST ALT Alkaline Phosphatase Total Protein Albumin Urine Color Yellow Urine Appearance Slcloudy Urine pH 5.0 Ur Specific [place] 1.029 Urine Protein Negative Urine Glucose (UA) Negative Urine Ketones Negative Urine Blood Negative Urine Nitrite Negative Urine Bilirubin Negative Urine Urobilinogen Negative Ur Leukocyte Esterase Negative RPR Titer 04/24/18 04/24/18 04/24/18 07:00 07:00 07:00 WBC 5.4 RBC 4.52 Hgb 12.8 Hct 38.8 MCV 85.8 MCH 28.3 MCHC 33.0 RDW 15.2 Plt Count 270 MPV 7.6 Sodium 142 Potassium 3.8 Chloride 107 Carbon Dioxide 26 Anion Gap 10 BUN 14 Creatinine 0.9 Creat Clearance w eGFR > 60 POC Glucometer Random Glucose 97 Calcium 8.5 Total Bilirubin 0.2 AST 28 ALT 57 Alkaline Phosphatase 92 Total Protein 5.9 L Albumin 3.2 L Urine Color Urine Appearance Urine pH Ur Specific [place] Urine Protein Urine Glucose (UA) Urine Ketones Urine Blood Urine Nitrite Urine Bilirubin Urine Urobilinogen Ur Leukocyte Esterase RPR Titer Nonreactive 04/24/18 04/25/18 04/25/18 16:33 07:15 16:21 WBC RBC Hgb Hct MCV MCH MCHC RDW Plt Count MPV Sodium Potassium Chloride Carbon Dioxide Anion Gap BUN Creatinine Creat Clearance w eGFR POC Glucometer 111 109 104 Random Glucose Calcium Total Bilirubin AST ALT Alkaline Phosphatase Total Protein Albumin Urine Color Urine Appearance Urine pH Ur Specific [place] Urine Protein Urine Glucose (UA) Urine Ketones Urine Blood Urine Nitrite Urine Bilirubin Urine Urobilinogen Ur Leukocyte Esterase RPR Titer 04/26/18 07:35 WBC RBC Hgb Hct MCV MCH MCHC RDW Plt Count MPV Sodium Potassium Chloride Carbon Dioxide Anion Gap BUN Creatinine Creat Clearance w eGFR POC Glucometer 115 Random Glucose Calcium Total Bilirubin AST ALT Alkaline Phosphatase Total Protein Albumin Urine Color Urine Appearance Urine pH Ur Specific [place] Urine Protein Urine Glucose (UA) Urine Ketones Urine Blood Urine Nitrite Urine Bilirubin Urine Urobilinogen Ur Leukocyte Esterase RPR Titer Labs reviewed - Treatment Hospital Course: Detox Protocol Followed, Detoxed Safely, Responded well, Discharged Condition Good - Medication Discharge Medications: Ambulatory Orders Efavirenz/Emtricitab/Tenofovir [Atripla Tablet -] 1 tab PO DAILY #30 tab Atorvastatin Calcium 40 mg PO HS #14 tablet 12/31/17 Hydrochlorothiazide [Hctz -] 25 mg PO DAILY #14 cap 12/31/17 metFORMIN HCL [Glucophage -] 500 mg PO BID #30 tablet 12/31/17 Quetiapine Fumarate [Seroquel -] 50 mg PO HS #30 tablet 02/11/18 - Diagnosis (1) Alcohol dependence with uncomplicated withdrawal Current Visit: Yes Status: Acute (2) Cocaine dependence, uncomplicated Current Visit: Yes Status: Chronic (3) DM2 (diabetes mellitus, type 2) Current Visit: Yes Status: Chronic Qualifiers: Diabetes mellitus usp insulin use: without usp use Diabetes mellitus complication status: without complication Qualified Code(s): E11.9 - Type 2 diabetes mellitus without complications (4) HTN (hypertension) Current Visit: Yes Status: Chronic Qualifiers: Hypertension type: essential hypertension Qualified Code(s): I10 - Essential (primary) hypertension (5) Hyperlipidemia Current Visit: Yes Status: Chronic Qualifiers: Hyperlipidemia type: unspecified Qualified Code(s): E78.5 - Hyperlipidemia , unspecified (6) Nicotine dependence Current Visit: Yes Status: Chronic Qualifiers: Nicotine product type: cigarettes Substance use status: in withdrawal Qualified Code(s): F17.213 - Nicotine dependence, cigarettes, with withdrawal (7) hearing loss left wearing hearing aide Current Visit: Yes Status: Chronic (8) Human immunodeficiency virus infection Current Visit: Yes Status: Chronic - AMA Did Patient Leave Against Medical Advice: No (F/U with your PCP within 1-2 weeks )
[2018-04-26] MEDS ORDERED: chlordiazePOXIDE HCL 10 MG CAPSULE PO SCH (23:00)
== END 2018-04-26 11:46 | disposition home or self-care (01) | DRG 897 ==
LOC: YASAS 16:13 → Y3N 19:35
PROC: HZ2ZZZZ Detoxification Services for Substance Abuse Treatment (ICD-10-PCS; principal; 2018-04-23)
DX: F10.230 Alcohol dependence with withdrawal, uncomplicated (principal); F14.20 Cocaine dependence, uncomplicated; F17.210 Nicotine dependence, cigarettes, uncomplicated; F31.9 Bipolar disorder, unspecified; Z21 Asymptomatic human immunodeficiency virus [HIV] infection status; I10 Essential (primary) hypertension; E11.9 Type 2 diabetes mellitus without complications; Z79.84 Long term (current) use of oral hypoglycemic drugs; H91.8X1 Other specified hearing loss, right ear; H91.8X2 Other specified hearing loss, left ear; Z85.46 Personal history of malignant neoplasm of prostate; Z90.79 Acquired absence of other genital organ(s); Z97.4 Presence of external hearing-aid
CPT/HCPCS: 36415; 80053; 81003; 82962; 85027; 86593; 90688; 93005; 93010; G0008

== ENCOUNTER 2018-07-24 15:41 | Inpatient (IN) | payer OTHER ==
[2018-07-24 17:31] VITALS: BMI 24.7
--- NOTE | 2018-07-24 20:18 | HP ---
"CIWA Score Nausea/Vomitin-No Nausea/No Vomiting Muscle Tremors: None Anxiety: 4-Mod. Anxious/Guarded Agitation: 4-Moderately Restless Paroxysmal Sweats: 3 Orientation: 0-Oriented Tacttile Disturbances: 0-None Auditory Disturbances: 2-Mild Harshness/Frighten Visual Disturbances: 0-None Headache: 0-None Present CIWA-Ar Total Score: 13 - Admission Criteria OASAS Guidelines: Admission for Medically Managed Detox: Requires at least one of the followin. CIWA greater than 12 2. Seizures within the past 24 hours 3. Delirium tremens within the past 24 hours 4. Hallucinations within the past 24 hours 5. Acute intervention needed for co occurring medical disorder 6. Acute intervention needed for co occurring psychiatric disorder 7. Severe withdrawal that cannot be handled at a lower level of care (continued vomiting, continued diarrhea, abnormal vital signs) requiring intravenous medication and/or fluids 8. Patient presents the following: Acute intervention needed for co-occurring med or psych disorder Admission Criteria Met: Admission criteria met Admission ROS [facility] Chief Complaint: c/o worsening withdrawal sx's. seeking detox Allergies/Adverse Reactions: Allergies Allergy/AdvReac Type Severity Reaction Status Date / Time No Known Allergies Allergy Verified 07/24/18 20:22 History of Present Illness: 52 Y.O. MALE WITH HX/O ALCOHOLISM, CRACK/COCAINE HERE FOR DETOX. CLIENT IS KNOWN TO THIS PROGRAM . LAST HERE 04/2018. SELF REFERRED. PRESENTS WITH C/O WORSENING WITHDRAWAL SX'S. CIWA 13. 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 REPORTS LONGEST CLEAN TIME 3 YEARS IN A RESIDENTIAL PROGRAM. DENIES HX/O SEIZURES, DT, SI/HI, AVH. HOMELESS, DIABILITY, DENIES LEGALS. Search Terms: enrrique rodney, 1965 Search Date: 07/24/2018 08:16:31 PM The Drug Utilization Report below displays all of the controlled substance prescriptions, if any, that your patient has filled in the last twelve months. The information displayed on this report is compiled from pharmacy submissions to the Department, and accurately reflects the information as submitted by the pharmacies. This report was requested by: Annabella Friend | Reference #: [id number] There are no results for the search terms that you entered. Exam Limitations: Other ([place]) - Ebola screening Have you traveled outside of the country in the last 21 days: No Have you had contact with anyone from an Ebola affected area: No Have you been sick,other than usual withdrawal symptoms: No Do you have a fever: No - Review of Systems Constitutional: Loss of Appetite, Changes in sleep, Unintentional Wgt. Loss EENT: reports: Hearing Loss Respiratory: reports: No Symptoms reported Cardiac: reports: No Symptoms Reported GI: reports: Diarrhea, Poor Appetite, Poor Fluid Intake : reports: No Symptoms Reported Musculoskeletal: reports: No Symptoms Reported Integumentary: reports: No Symptoms Reported Neuro: reports: No Symptoms reported Endocrine: reports: Other (JX/O DM) Hematology: reports: No Symptoms Reported Psychiatric: reports: Orientated x3, Agitated, Depressed Other Systems: Reviewed and Negative Patient History - Patient Medical History Hx Anemia: No Hx Asthma: No Hx Chronic Obstructive Pulmonary Disease (COPD): No Hx Cancer: Yes (prostate cancer - cancer free since prostatectomy) Hx Cardiac Disorders: No Hx Congestive Heart Failure: No Hx Hypertension: Yes (With treatment HCTZ) Hx Hypercholesterolemia: No Hx Pacemaker: No HX Cerebrovascular Accident: No Hx Seizures: No Hx Dementia: No Hx Diabetes: Yes (Type 2 on metformin ) Hx Gastrointestinal Disorders: No Hx Liver Disease: No Hx Genitourinary Disorders: Yes (prostate ca 2017 surgical removed) Hx Sexually Transmitted Disorders: No Hx Renal Disease (ESRD): No Hx Thyroid Disease: No Hx Human Immunodeficiency Virus (HIV): Yes (2007, on atripla) Hx Hepatitis C: No Hx Depression: Yes (years ago in [facility] related to disabilty) Hx Suicide Attempt: No Hx Bipolar Disorder: Yes Hx Schizophrenia: No - Patient Surgical History Past Surgical History: Yes Hx Neurologic Surgery: No Hx Cataract Extraction: No Hx Cardiac Surgery: No Hx Lung Surgery: No Hx Breast Surgery: No Hx Breast Biopsy: No Hx Abdominal Surgery: No Hx Appendectomy: No Hx Cholecystectomy: No Hx Genitourinary Surgery: No Hx Section: No Hx Orthopedic Surgery: No Other Surgical History: left ear; prostate sx 08/2016 Anesthesia Reaction: No - PPD History Previous Implant?: Yes Documented Results: Negative w/proof Implanted On Prior R Admission?: Yes Date: 04/25/18 Results: 0mm PPD to be Administered?: No - Smoking Cessation Smoking history: Current some day smoker Have you smoked in the past 12 months: Yes Aproximately how many cigarettes per day: 10 Cigars Per Day: 0 Hx Chewing Tobacco Use: No Initiated information on smoking cessation: Yes 'Breaking Loose' booklet given: 07/24/18 - Substance & Tx. History Hx Alcohol Use: Yes Hx Substance Use: Yes Substance Use Type: Alcohol, Cocaine Hx Substance Use Treatment: Yes ([facility]) - Substances Abused BEER/LIQUOR Route: Oral Frequency: Daily Amount used: 2- 6 PACKS/ 3 NIPS Age of first use: 17 Date of Last Use: 07/24/18 CRACK/COCAINE Route: Smoking Frequency: Daily Amount used: $250 Age of first use: 24 Date of Last Use: 07/24/18 Family Disease History - Family Disease History Family Disease History: Diabetes: Brother, Other: Father (living, FORMER ALCOHOLIC), Mother (living, FORMER ALCOHOLIC) Admission Physical Exam [facility] - Vital Signs Vital Signs: Vital Signs - 24 hr 07/24/18 17:29 Temperature 98.3 F Pulse Rate 84 Respiratory 18 Rate Blood Pressure 124/68 - Physical General Appearance: Yes: Appropriately Dressed, Mild Distress, Irritable, Anxious HEENTM: Yes: EOMI, Normocephalic, Normal Voice, FELISHA, Pharynx Normal, Hearing Decreased (R EAR DEAF NESS LEFT EAR WITH HEARING AIDE), Other (MISSING TEETH) Respiratory: Yes: Chest Non-Tender, Lungs Clear, Normal Breath Sounds, No Respiratory Distress, No Accessory Muscle Use Neck: Yes: No masses,lesions,Nodules, Supple, Trachea in good position Breast: Yes: Breast Exam Deferred Cardiology: Yes: Regular Rhythm, Regular Rate, S1, S2 Abdominal: Yes: Normal Bowel Sounds, Non Tender, Flat, Soft Genitourinary: Yes: Other (NO C/O) Back: Yes: Normal Inspection Musculoskeletal: Yes: full range of Motion, Gait Steady Extremities: Yes: Normal Capillary Refill, Normal Range of Motion, Non-Tender Neurological: Yes: Fully Oriented, Alert, Motor Strength 5/5 Integumentary: Yes: Dry, Warm Lymphatic: Yes: Within Normal Limits - Diagnostic (1) Alcohol dependence with uncomplicated withdrawal Current Visit: No Status: Acute (2) Insomnia Current Visit: No Status: Acute (3) Substance-induced sleep disorder Current Visit: No Status: Acute (4) Cocaine dependence, uncomplicated Current Visit: No Status: Chronic (5) DM2 (diabetes mellitus, type 2) Current Visit: No Status: Chronic Qualifiers: Diabetes mellitus fdc insulin use: without terminal supervisor use Diabetes mellitus complication status: without complication Qualified Code(s): E11.9 - Type 2 diabetes mellitus without complications (6) Drug-induced mood disorder Current Visit: No Status: Chronic (7) HTN (hypertension) Current Visit: No Status: Chronic Qualifiers: Hypertension type: essential hypertension Qualified Code(s): I10 - Essential (primary) hypertension (8) Human immunodeficiency virus infection Current Visit: No Status: Chronic (9) Hyperlipidemia Current Visit: No Status: Chronic Qualifiers: Hyperlipidemia type: unspecified Qualified Code(s): E78.5 - Hyperlipidemia , unspecified (10) Nicotine dependence Current Visit: No Status: Chronic Qualifiers: Nicotine product type: cigarettes Substance use status: in withdrawal Qualified Code(s): F17.213 - Nicotine dependence, cigarettes, with withdrawal (11) deafness of right ear Current Visit: No Status: Chronic (12) hearing loss left wearing hearing aide Current Visit: No Status: Chronic (13) History of prostate cancer Current Visit: No Status: Suspected (14) MDD (major depressive disorder) Current Visit: No Status: Ruled-out Cleared for Admission S - Detox or Rehab [facility] Level of Care: Medically Managed Detox Regimen/Protocol: Librium Claeared for Rehab Admission: No S Breath Alcohol Content Breath Alcohol Content: 0 Urine Drug Screen - Results Drug Screen Negative: No Urine Drug Screen Results: MINNIE-Cocaine"
[2018-07-24] MEDS ORDERED: P-EPHED 60MG/TRIPROLIDI 2.5MG TABLET PO PRN (20:37)
[2018-07-24] MEDS ORDERED: MAG HYDROX/AL HYDROX/SIMETH 30 ML UNIT-DOSE CUP PO PRN (20:37)
[2018-07-24] MEDS ORDERED: MAGNESIUM HYDROX 2400MG/30ML ORAL SUSPENSION 30 ML CUP PO PRN (20:37)
[2018-07-24] MEDS ORDERED: guaiFENesin/D-METHORPHAN HB 10 ML UNIT-DOSE CUPS PO PRN (20:37)
[2018-07-24] MEDS ORDERED: MAGNESIUM CITRATE 300 ML BOTTLE PO PRN (20:37)
[2018-07-24] MEDS ORDERED: hydrOXYzine PAMOATE 50 MG CAPSULE (FP) PO PRN (20:37)
[2018-07-24] MEDS ORDERED: LOPERAMIDE HCL 2 MG CAPSULE PO PRN (20:37)
[2018-07-24] MEDS ORDERED: ACETAMINOPHEN 325 MG TABLET (FP) PO PRN (20:37)
[2018-07-24] MEDS ORDERED: chlordiazePOXIDE HCL 25 MG CAPSULE PO PRN (20:37)
[2018-07-24] MEDS ORDERED: NICOTINE POLACRILEX 2 MG GUM BC PRN (20:37)
[2018-07-24] MEDS ORDERED: MENTHOL/PHENOL 1 EACH UD MM PRN (20:37)
[2018-07-24] MEDS ORDERED: IBUPROFEN 400 MG TABLET (FP) PO PRN (20:37)
[2018-07-24] MEDS: chlordiazePOXIDE HCL 25 MG CAPSULE PO SCH (23:01)
[2018-07-24] MEDS: ATORVASTATIN CA 40 MG TABLET (FP) PO SCH (23:02)
[2018-07-24] MEDS: THIAMINE HCL 100 MG TABLET (FP) PO SCH (23:02)
[2018-07-25 01:52] LABS: URINE APPEARANCE CLEAR; URINE BILIRUBIN NEGATIVE (<2.0 mg/dL); URINE COLOR LTYELLOW; URINE GLUCOSE (UA) NEGATIVE (NEGATIVE); URINE KETONE NEGATIVE (NEGATIVE); URINE LEUK ESTERASE NEGATIVE (NEGATIVE); URINE NITRITE NEGATIVE (NEGATIVE); URINE PROTEIN NEGATIVE (NEGATIVE); URINE UROBILINOGEN NEGATIVE mg/dL (0.2-1.0)
[2018-07-25] MEDS: chlordiazePOXIDE HCL 25 MG CAPSULE PO SCH ×4 (06:00→22:14)
[2018-07-25] MEDS: metFORMIN HCL 500 MG TABLET (FP) PO SCH ×2 (08:00→17:33)
[2018-07-25] MEDS ORDERED: PATIENT'S OWN MEDICATION (NON-FORMULARY) (Efavirenz/Emtricitab/Tenofovir 1 TAB) PO SCH (10:00)
[2018-07-25 10:06] LABS: HEMATOCRIT 37.6 % (35.4-49); HEMOGLOBIN 12.8 GM/dL (11.7-16.9); MCH 29.1 pg (25.7-33.7); MCHC 34.1 g/dl (32.0-35.9); MEAN CELL VOLUME 85.4 fl (80-96); MEAN PLT VOLUME 7.4 fl (7.5-11.1); PLATELET COUNT 274 K/MM3 (134-434); WHITE BLOOD COUNT 5.5 K/mm3 (4.0-10.0)
[2018-07-25] MEDS: NICOTINE 14 MG/24 HOURS TOPICAL PATCH TD SCH (10:58)
[2018-07-25] MEDS: HYDROCHLOROTHIAZIDE 12.5 MG CAPSULE (FP) PO SCH (10:58)
[2018-07-25] MEDS: PRENATAL VITAMINS W/ FOLIC ACID TABLET (FP) PO SCH (10:58)
[2018-07-25 10:59] LABS: ALBUMIN 3.1 g/dl (3.4-5.0); ALK PHOS 112 U/L (45-117); ANION GAP 4 MMOL/L (8-16); BILIRUBIN,TOTAL 0.1 mg/dL (0.2-1); BLOOD UREA NITROGEN 16 mg/dL (7-18); CALCIUM 8.5 mg/dL (8.5-10.1); CHLORIDE 107 mmol/L (98-107); CO2 29 mmol/L (21-32); CREATININE 0.9 mg/dL (0.55-1.3); GLUCOSE,RANDOM 102 mg/dL (74-106); POTASSIUM 3.7 mmol/L (3.5-5.1); SGOT/AST 34 U/L (15-37); SGPT/ALT 60 U/L (13-61); SODIUM 141 mmol/L (136-145)
[2018-07-25] MEDS: EFAVIRENZ 600 MG TABLET PO SCH (11:51)
[2018-07-25] MEDS: EMTRICITABINE 200MG/TENOFOVIR 300MG PO SCH (15:06)
--- NOTE | 2018-07-25 17:54 | PN ---
S CIWA - CIWA Score Nausea/Vomitin-No Nausea/No Vomiting Muscle Tremors: 2 Anxiety: 3 Agitation: 2 Paroxysmal Sweats: 2 Orientation: 0-Oriented Tacttile Disturbances: 0-None Auditory Disturbances: 2-Mild Harshness/Frighten Visual Disturbances: 2-Mild Sensitivity Headache: 0-None Present CIWA-Ar Total Score: 13 [facility] Progress Note (SOAP) Subjective: Sweating, Tremors, Anxious. Objective: PATIENT A & O X 3, OBSERVED AMBULATING ON UNIT. IN NO ACUTE DISTRESS. 07/25/18 17:55 Vital Signs Temperature 98.2 F 07/25/18 17:23 Pulse Rate 76 07/25/18 17:23 Respiratory Rate 19 07/25/18 17:23 Blood Pressure 138/72 07/25/18 17:23 O2 Sat by Pulse Oximetry (%) Laboratory Tests 07/24/18 07/24/18 07/25/18 20:47 22:33 07:00 WBC 5.5 RBC 4.40 Hgb 12.8 Hct 37.6 MCV 85.4 MCH 29.1 MCHC 34.1 RDW 15.0 Plt Count 274 MPV 7.4 L Sodium Potassium Chloride Carbon Dioxide Anion Gap BUN Creatinine Creat Clearance w eGFR POC Glucometer 118 Random Glucose Calcium Total Bilirubin AST ALT Alkaline Phosphatase Total Protein Albumin Urine Color Ltyellow Urine Appearance Clear Urine pH 5.0 Ur Specific [place] 1.018 Urine Protein Negative Urine Glucose (UA) Negative Urine Ketones Negative Urine Blood Negative Urine Nitrite Negative Urine Bilirubin Negative Urine Urobilinogen Negative Ur Leukocyte Esterase Negative RPR Titer 07/25/18 07/25/18 07/25/18 07:00 07:00 08:01 WBC RBC Hgb Hct MCV MCH MCHC RDW Plt Count MPV Sodium 141 Potassium 3.7 Chloride 107 Carbon Dioxide 29 Anion Gap 4 L BUN 16 Creatinine 0.9 Creat Clearance w eGFR > 60 POC Glucometer 94 Random Glucose 102 Calcium 8.5 Total Bilirubin 0.1 L AST 34 ALT 60 Alkaline Phosphatase 112 Total Protein 6.0 L Albumin 3.1 L Urine Color Urine Appearance Urine pH Ur Specific [place] Urine Protein Urine Glucose (UA) Urine Ketones Urine Blood Urine Nitrite Urine Bilirubin Urine Urobilinogen Ur Leukocyte Esterase RPR Titer Nonreactive 07/25/18 16:59 WBC RBC Hgb Hct MCV MCH MCHC RDW Plt Count MPV Sodium Potassium Chloride Carbon Dioxide Anion Gap BUN Creatinine Creat Clearance w eGFR POC Glucometer 110 Random Glucose Calcium Total Bilirubin AST ALT Alkaline Phosphatase Total Protein Albumin Urine Color Urine Appearance Urine pH Ur Specific [place] Urine Protein Urine Glucose (UA) Urine Ketones Urine Blood Urine Nitrite Urine Bilirubin Urine Urobilinogen Ur Leukocyte Esterase RPR Titer LABS NOTED. Assessment: 07/25/18 17:55 WITHDRAWAL SYMPTOMS. Plan: CONTINUE DETOX.
[2018-07-25] MEDS: ATORVASTATIN CA 40 MG TABLET (FP) PO SCH (22:14)
[2018-07-25] MEDS: THIAMINE HCL 100 MG TABLET (FP) PO SCH (22:14)
[2018-07-25] MEDS: MELATONIN 5 MG TABLETS PO PRN (22:16)
[2018-07-26] MEDS: chlordiazePOXIDE HCL 25 MG CAPSULE PO SCH ×3 (06:29→17:11)
[2018-07-26] MEDS: metFORMIN HCL 500 MG TABLET (FP) PO SCH ×2 (06:29→17:11)
[2018-07-26] MEDS: HYDROCHLOROTHIAZIDE 12.5 MG CAPSULE (FP) PO SCH (10:07)
[2018-07-26] MEDS: PRENATAL VITAMINS W/ FOLIC ACID TABLET (FP) PO SCH (10:07)
[2018-07-26] MEDS: EFAVIRENZ 600 MG TABLET PO SCH (10:08)
[2018-07-26] MEDS: EMTRICITABINE 200MG/TENOFOVIR 300MG PO SCH (10:08)
[2018-07-26] MEDS: NICOTINE 14 MG/24 HOURS TOPICAL PATCH TD SCH (10:09)
--- NOTE | 2018-07-26 16:46 | PN ---
S CIWA - CIWA Score Nausea/Vomitin-No Nausea/No Vomiting Muscle Tremors: 2 Anxiety: 3 Agitation: 2 Paroxysmal Sweats: 2 Orientation: 0-Oriented Tacttile Disturbances: 1-Very Mild Itch/Numbness Auditory Disturbances: 0-None Visual Disturbances: 1-Very Mild Sensitivity Headache: 0-None Present CIWA-Ar Total Score: 11 S Progress Note (SOAP) Subjective: Sweating, Tremors, Anxious. Objective: PATIENT A & O X 2 (UNCERTAIN ABOUT CURRENT DAY / DATE). PATIENT OBSERVED AMBULATING ON UNIT. IN NO ACUTE DISTRESS. 07/26/18 16:44 Vital Signs Temperature 97.0 F L 07/26/18 13:58 Pulse Rate 75 07/26/18 13:58 Respiratory Rate 18 07/26/18 13:58 Blood Pressure 133/92 07/26/18 13:58 O2 Sat by Pulse Oximetry (%) Laboratory Tests 07/24/18 07/24/18 07/25/18 20:47 22:33 07:00 WBC 5.5 RBC 4.40 Hgb 12.8 Hct 37.6 MCV 85.4 MCH 29.1 MCHC 34.1 RDW 15.0 Plt Count 274 MPV 7.4 L Sodium Potassium Chloride Carbon Dioxide Anion Gap BUN Creatinine Creat Clearance w eGFR POC Glucometer 118 Random Glucose Calcium Total Bilirubin AST ALT Alkaline Phosphatase Total Protein Albumin Urine Color Ltyellow Urine Appearance Clear Urine pH 5.0 Ur Specific [place] 1.018 Urine Protein Negative Urine Glucose (UA) Negative Urine Ketones Negative Urine Blood Negative Urine Nitrite Negative Urine Bilirubin Negative Urine Urobilinogen Negative Ur Leukocyte Esterase Negative RPR Titer 07/25/18 07/25/18 07/25/18 07:00 07:00 08:01 WBC RBC Hgb Hct MCV MCH MCHC RDW Plt Count MPV Sodium 141 Potassium 3.7 Chloride 107 Carbon Dioxide 29 Anion Gap 4 L BUN 16 Creatinine 0.9 Creat Clearance w eGFR > 60 POC Glucometer 94 Random Glucose 102 Calcium 8.5 Total Bilirubin 0.1 L AST 34 ALT 60 Alkaline Phosphatase 112 Total Protein 6.0 L Albumin 3.1 L Urine Color Urine Appearance Urine pH Ur Specific [place] Urine Protein Urine Glucose (UA) Urine Ketones Urine Blood Urine Nitrite Urine Bilirubin Urine Urobilinogen Ur Leukocyte Esterase RPR Titer Nonreactive 07/25/18 07/26/18 07/26/18 16:59 06:28 16:32 WBC RBC Hgb Hct MCV MCH MCHC RDW Plt Count MPV Sodium Potassium Chloride Carbon Dioxide Anion Gap BUN Creatinine Creat Clearance w eGFR POC Glucometer 110 104 105 Random Glucose Calcium Total Bilirubin AST ALT Alkaline Phosphatase Total Protein Albumin Urine Color Urine Appearance Urine pH Ur Specific [place] Urine Protein Urine Glucose (UA) Urine Ketones Urine Blood Urine Nitrite Urine Bilirubin Urine Urobilinogen Ur Leukocyte Esterase RPR Titer LABS NOTED. Assessment: 07/26/18 16:45 WITHDRAWAL SYMPTOMS. Plan: CONTINUE DETOX.
[2018-07-26] MEDS: chlordiazePOXIDE 5 MG CAPSULE PO SCH (22:19)
[2018-07-26] MEDS: ATORVASTATIN CA 40 MG TABLET (FP) PO SCH (22:19)
[2018-07-26] MEDS: MELATONIN 5 MG TABLETS PO PRN (22:20)
[2018-07-26] MEDS: THIAMINE HCL 100 MG TABLET (FP) PO SCH (22:35)
[2018-07-27] MEDS: chlordiazePOXIDE 5 MG CAPSULE PO SCH ×2 (05:57→10:03)
[2018-07-27] MEDS: metFORMIN HCL 500 MG TABLET (FP) PO SCH (06:44)
[2018-07-27] MEDS: HYDROCHLOROTHIAZIDE 12.5 MG CAPSULE (FP) PO SCH (10:03)
[2018-07-27] MEDS: PRENATAL VITAMINS W/ FOLIC ACID TABLET (FP) PO SCH (10:03)
[2018-07-27] MEDS: EFAVIRENZ 600 MG TABLET PO SCH (10:04)
[2018-07-27] MEDS: EMTRICITABINE 200MG/TENOFOVIR 300MG PO SCH (10:04)
[2018-07-27] MEDS: NICOTINE 14 MG/24 HOURS TOPICAL PATCH TD SCH (10:04)
--- NOTE | 2018-07-27 13:07 | PN ---
[facility] Progress Note Note: pt has no s/s of withdrawals; wants to go home. d/c today ordered. pt will f/u with aftercare as referred.
--- NOTE | 2018-07-27 13:09 | DS ---
[facility] Detox Discharge Summary Admission Date: 07/24/18 Discharge Date: 07/27/18 - History Present History: Alcohol Dependence, Cocaine Dependence - Physical Exam Results Vital Signs: Vital Signs Temperature 97.5 F L 07/27/18 09:19 Pulse Rate 78 07/27/18 09:19 Respiratory Rate 18 07/27/18 09:19 Blood Pressure 127/75 07/27/18 09:19 O2 Sat by Pulse Oximetry (%) - Treatment Hospital Course: Detox Protocol Followed, Detoxed Safely, Responded well, Discharged Condition Good, Rehab Referral Accepted - Medication Discharge Medications: Ambulatory Orders Efavirenz/Emtricitab/Tenofovir [Atripla Tablet -] 1 tab PO DAILY #30 tab Atorvastatin Calcium 40 mg PO HS #14 tablet 12/31/17 Hydrochlorothiazide [Hctz -] 25 mg PO DAILY #14 cap 12/31/17 metFORMIN HCL [Glucophage -] 500 mg PO BID #30 tablet 12/31/17 Quetiapine Fumarate [Seroquel -] 50 mg PO HS #30 tablet 02/11/18 - Diagnosis (1) Alcohol dependence with uncomplicated withdrawal Current Visit: Yes Status: Chronic (2) Insomnia Current Visit: Yes Status: Chronic Qualifiers: Insomnia type: unspecified Qualified Code(s): G47.00 - Insomnia, unspecified (3) Substance-induced sleep disorder Current Visit: No Status: Acute (4) Cocaine dependence, uncomplicated Current Visit: Yes Status: Chronic (5) DM2 (diabetes mellitus, type 2) Current Visit: No Status: Chronic Qualifiers: 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: without penitentiary use Diabetes mellitus complication status: without complication Qualified Code(s): E11.9 - Type 2 diabetes mellitus without complications (6) Depressive disorder Current Visit: No Status: Chronic (7) Drug-induced mood disorder Current Visit: No Status: Chronic (8) HTN (hypertension) Current Visit: Yes Status: Chronic Qualifiers: Hypertension type: essential hypertension Qualified Code(s): I10 - Essential (primary) hypertension (9) Human immunodeficiency virus infection Current Visit: Yes Status: Chronic (10) Hyperlipidemia Current Visit: Yes Status: Chronic Qualifiers: Hyperlipidemia type: unspecified Qualified Code(s): E78.5 - Hyperlipidemia , unspecified (11) Nicotine dependence Current Visit: Yes Status: Chronic Qualifiers: Nicotine product type: cigarettes Substance use status: uncomplicated Qualified Code(s): F17.210 - Nicotine dependence, cigarettes, uncomplicated (12) deafness of right ear Current Visit: Yes Status: Chronic (13) hearing loss left wearing hearing aide Current Visit: Yes Status: Chronic (14) MDD (major depressive disorder) Current Visit: No Status: Ruled-out - AMA Did Patient Leave Against Medical Advice: No (referred to outpatient rehab pt willf/u. pt will d/c today going home)
[2018-07-27 14:24] VITALS: BP 116/72; PULSE 93; TEMP 98.6
[2018-07-27] MEDS ORDERED: chlordiazePOXIDE HCL 10 MG CAPSULE PO SCH (23:00)
== END 2018-07-27 04:55 | disposition home or self-care (01) | DRG 897 ==
LOC: YASAS 15:41 → Y6N 21:28
PROVIDERS: ADMIT Surgery; ATTEND Surgery
PROC: HZ2ZZZZ Detoxification Services for Substance Abuse Treatment (ICD-10-PCS; principal; 2018-07-24)
DX: F10.230 Alcohol dependence with withdrawal, uncomplicated (principal); F14.20 Cocaine dependence, uncomplicated; F19.282 Other psychoactive substance dependence with psychoactive substance-induced sleep disorder; F17.210 Nicotine dependence, cigarettes, uncomplicated; F19.24 Other psychoactive substance dependence with psychoactive substance-induced mood disorder; F32.9 Major depressive disorder, single episode, unspecified; I10 Essential (primary) hypertension; G47.00 Insomnia, unspecified; E11.9 Type 2 diabetes mellitus without complications; Z21 Asymptomatic human immunodeficiency virus [HIV] infection status; H91.8X1 Other specified hearing loss, right ear; H91.8X2 Other specified hearing loss, left ear; Z85.46 Personal history of malignant neoplasm of prostate; Z79.84 Long term (current) use of oral hypoglycemic drugs; Z90.79 Acquired absence of other genital organ(s)
CPT/HCPCS: 36415; 80053; 81003; 82962; 85027; 86593

== ENCOUNTER 2018-09-25 11:10 | Inpatient (IN) | payer OTHER ==
[2018-09-25 11:55] VITALS: BMI 27.8
--- NOTE | 2018-09-25 12:31 | HP ---
CIWA Score Nausea/Vomitin Muscle Tremors: 2 Anxiety: 4-Mod. Anxious/Guarded Agitation: 0-Normal Activity Paroxysmal Sweats: No Perspiration Orientation: 0-Oriented Tacttile Disturbances: 1-Very Mild Itch/Numbness Auditory Disturbances: 0-None Visual Disturbances: 0-None Headache: 0-None Present CIWA-Ar Total Score: 10 - Admission Criteria OASAS Guidelines: Admission for Medically Managed Detox: Requires at least one of the followin. CIWA greater than 12 2. Seizures within the past 24 hours 3. Delirium tremens within the past 24 hours 4. Hallucinations within the past 24 hours 5. Acute intervention needed for co occurring medical disorder 6. Acute intervention needed for co occurring psychiatric disorder 7. Severe withdrawal that cannot be handled at a lower level of care (continued vomiting, continued diarrhea, abnormal vital signs) requiring intravenous medication and/or fluids 8. Admission ROS S - HPI Allergies/Adverse Reactions: Allergies Allergy/AdvReac Type Severity Reaction Status Date / Time No Known Allergies Allergy Verified 09/25/18 11:43 History of Present Illness: pt here requesting detox from etoh use , reports 16-oz beer x 3-4 /day , drinks every other day , reprots tremors if not drinking , current symptoms as above. Prior detox Jul 2018 at this facility . crack cocaine : every other day ,cannabis - denies , tobacco : 1/2 ppd , metamphetamine : denies PMHX : htn, DM II , hiv , hld Exam Limitations: Other (decreased hearing) - Ebola screening Have you traveled outside of the country in the last 21 days: No ([place]) Have you had contact with anyone from an Ebola affected area: No Do you have a fever: No - Review of Systems Constitutional: See HPI EENT: reports: See HPI, Hearing Loss (w/ left hearing aide) Respiratory: reports: No Symptoms reported Cardiac: reports: No Symptoms Reported GI: reports: See HPI : reports: No Symptoms Reported Musculoskeletal: reports: No Symptoms Reported Integumentary: reports: No Symptoms Reported Neuro: reports: See HPI Endocrine: reports: See HPI Psychiatric: reports: Orientated x3, Anxious Patient History - Patient Medical History Hx Anemia: No Hx Asthma: No Hx Chronic Obstructive Pulmonary Disease (COPD): No Hx Cancer: Yes (prostate cancer - cancer free since prostatectomy) Hx Cardiac Disorders: No Hx Congestive Heart Failure: No Hx Hypertension: Yes (With treatment HCTZ) Hx Hypercholesterolemia: No Hx Pacemaker: No HX Cerebrovascular Accident: No Hx Seizures: No Hx Dementia: No Hx Diabetes: Yes (Type 2 on metformin ) Hx Gastrointestinal Disorders: No Hx Liver Disease: No Hx Genitourinary Disorders: Yes (prostate ca 2017 surgical removed) Hx Sexually Transmitted Disorders: No Hx Renal Disease (ESRD): No Hx Thyroid Disease: No Hx Human Immunodeficiency Virus (HIV): Yes (2007, on atripla) Hx Hepatitis C: No Hx Depression: Yes (years ago in [facility] related to disabilty) Hx Suicide Attempt: No Hx Bipolar Disorder: Yes Hx Schizophrenia: No - Patient Surgical History Past Surgical History: Yes Hx Neurologic Surgery: No Hx Cataract Extraction: No Hx Cardiac Surgery: No Hx Lung Surgery: No Hx Breast Surgery: No Hx Breast Biopsy: No Hx Abdominal Surgery: No Hx Appendectomy: No Hx Cholecystectomy: No Hx Genitourinary Surgery: No Hx Section: No Hx Orthopedic Surgery: No Other Surgical History: left ear; prostate sx 08/2016 Anesthesia Reaction: No - PPD History Date: 04/25/18 Results: 0mm - Smoking Cessation Smoking history: Current some day smoker Have you smoked in the past 12 months: Yes Aproximately how many cigarettes per day: 10 Cigars Per Day: 0 Hx Chewing Tobacco Use: No Initiated information on smoking cessation: No - Substances abused Alcohol Substance route: Oral Frequency: Daily Amount used: 3 beers ( 40 oz cans )3 nips vodka, Age of first use: 17 Date of last use: 09/25/18 Cocaine Substance route: Smoking Frequency: 3-6 times per week Amount used: $400 Age of first use: 44 Date of last use: 09/25/18 Crack Substance route: Oral Frequency: 3-6 times per week Amount used: $80 Age of first use: 44 Date of last use: 09/25/18 Family Disease History - Family Disease History Family Disease History: Diabetes: Brother, Other: Father (living, FORMER ALCOHOLIC), Mother (living, FORMER ALCOHOLIC) Admission Physical Exam [facility] - Vital Signs Vital Signs: Vital Signs - 24 hr 09/25/18 11:45 Temperature 97.3 F L Pulse Rate 81 Respiratory 18 Rate Blood Pressure 140/78 - Physical General Appearance: Yes: Mild Distress, Anxious HEENTM: Yes: Hearing Decreased, Other (left ear w/ hearing aide) Respiratory: Yes: Chest Non-Tender, Lungs Clear, Normal Breath Sounds Neck: Yes: No masses,lesions,Nodules, Trachea in good position Cardiology: Yes: Regular Rhythm, Regular Rate, S1, S2 Abdominal: Yes: Non Tender, Soft Musculoskeletal: Yes: full range of Motion Extremities: Yes: Non-Tender Neurological: Yes: Alert, Motor Strength 5/5 Integumentary: Yes: Warm - Diagnostic (1) Alcohol dependence with uncomplicated withdrawal Current Visit: Yes Status: Acute (2) Cocaine dependence, uncomplicated Current Visit: Yes Status: Chronic (3) Nicotine dependence Current Visit: Yes Status: Chronic Qualifiers: Nicotine product type: cigarettes Substance use status: uncomplicated Qualified Code(s): F17.210 - Nicotine dependence, cigarettes, uncomplicated Breathalyzer - Breathalyzer Breathalyzer: 0 Urine Drug Screen - Test Device Lot number: [id number] Expiration date: 05/18/20 - Control Is test valid?: Yes - Results Drug screen NEGATIVE: No Urine drug screen results: THC-Marijuana, MINNIE-Cocaine, MET-Methamphetamine Inpatient Rehab Admission - Rehab Decision to Admit Inpatient rehab admission?: No
[2018-09-25] MEDS ORDERED: ACETAMINOPHEN 325 MG TABLET (FP) PO PRN ×2 (12:36)
[2018-09-25] MEDS ORDERED: NICOTINE POLACRILEX 2 MG GUM BUC PRN (12:36)
[2018-09-25] MEDS ORDERED: IBUPROFEN 400 MG TABLET (FP) PO PRN (12:36)
[2018-09-25] MEDS ORDERED: MAGNESIUM CITRATE 300 ML BOTTLE PO PRN (12:36)
[2018-09-25] MEDS ORDERED: MAGNESIUM HYDROX 2400MG/30ML ORAL SUSPENSION 30 ML CUP PO PRN (12:36)
[2018-09-25] MEDS ORDERED: diazePAM 5 MG TABLET PO PRN (12:36)
[2018-09-25] MEDS ORDERED: BISMUTH SUBSALICYLATE 262 MG/15 ML BTL PO PRN (12:36)
[2018-09-25] MEDS ORDERED: MAG HYDROX/AL HYDROX/SIMETH 30 ML UNIT-DOSE CUP PO PRN (12:36)
[2018-09-25] MEDS ORDERED: MENTHOL/PHENOL 1 EACH UD MM PRN (12:36)
[2018-09-25] MEDS: diazePAM 5 MG TABLET PO SCH ×2 (13:17→22:09)
[2018-09-25] MEDS: metFORMIN HCL 500 MG TABLET (FP) PO SCH (17:30)
[2018-09-25] MEDS: THIAMINE HCL 100 MG TABLET (FP) PO SCH (22:09)
[2018-09-25] MEDS: ATORVASTATIN CA 40 MG TABLET (FP) PO SCH (22:09)
[2018-09-26] MEDS: diazePAM 5 MG TABLET PO SCH ×3 (05:57→22:30)
[2018-09-26] MEDS: metFORMIN HCL 500 MG TABLET (FP) PO SCH ×2 (06:00→16:40)
[2018-09-26 09:57] LABS: ALBUMIN 3.6 g/dl (3.4-5.0); ALK PHOS 93 U/L (45-117); ANION GAP 5 MMOL/L (8-16); BILIRUBIN,TOTAL 0.1 mg/dL (0.2-1); BLOOD UREA NITROGEN 14 mg/dL (7-18); CALCIUM 8.9 mg/dL (8.5-10.1); CHLORIDE 110 mmol/L (98-107); CO2 28 mmol/L (21-32); GLUCOSE,RANDOM 105 mg/dL (74-106); POTASSIUM 3.8 mmol/L (3.5-5.1); SGOT/AST 89 U/L (15-37); SGPT/ALT 72 U/L (13-61); SODIUM 143 mmol/L (136-145); TOT PROT 6.8 g/dl (6.4-8.2)
[2018-09-26 10:10] LABS: HEMATOCRIT 39.2 % (35.4-49); HEMOGLOBIN 13.1 GM/dL (11.7-16.9); MCH 28.8 pg (25.7-33.7); MCHC 33.5 g/dl (32.0-35.9); MEAN CELL VOLUME 85.8 fl (80-96); MEAN PLT VOLUME 7.6 fl (7.5-11.1); PLATELET COUNT 246 K/MM3 (134-434); RBC 4.57 M/mm3 (4.00-5.60); RDW 14.5 % (11.9-15.9); WHITE BLOOD COUNT 5.2 K/mm3 (4.0-10.0)
[2018-09-26] MEDS: PRENATAL VITAMINS W/ FOLIC ACID TABLET (FP) PO SCH (10:23)
[2018-09-26] MEDS: HYDROCHLOROTHIAZIDE 25 MG TABLET (FP) PO SCH (10:23)
[2018-09-26] MEDS: PATIENT'S OWN MEDICATION (NON-FORMULARY) (Efavirenz/Emtricitab/Tenofovir 1 TAB) PO SCH (10:23)
--- NOTE | 2018-09-26 14:03 | PN ---
S CIWA - CIWA Score Nausea/Vomitin-Mild Nausea/No Vomiting Muscle Tremors: 1-None Visible, but [place] Anxiety: 2 Agitation: 2 Paroxysmal Sweats: 2 Orientation: 0-Oriented Tacttile Disturbances: 0-None Auditory Disturbances: 0-None Visual Disturbances: 0-None Headache: 1-Very Mild CIWA-Ar Total Score: 9 [facility] Progress Note (SOAP) Subjective: pt c/o whitish discharge from L ear, no pain, h/o difficulty hearing since childhood. day #2 detox O: Vital Signs - 24 hr 09/25/18 09/25/18 09/26/18 17:15 21:46 00:30 Temperature 98.1 F 97.9 F Pulse Rate 77 63 Respiratory 18 19 18 Rate Blood Pressure 133/85 119/73 09/26/18 09/26/18 09/26/18 03:30 07:00 09:24 Temperature 97.9 F 98.1 F Pulse Rate 73 85 Respiratory 18 18 18 Rate Blood Pressure 121/81 139/86 09/26/18 13:44 Temperature 97.7 F Pulse Rate 82 Respiratory 18 Rate Blood Pressure 135/95 PE: ear- L inner ear- TM's WNL, no cerumen noted a/p: continue detox- pt doing well TM's and inner ear WNL
[2018-09-26] MEDS: ATORVASTATIN CA 40 MG TABLET (FP) PO SCH (22:30)
[2018-09-26] MEDS: THIAMINE HCL 100 MG TABLET (FP) PO SCH (22:31)
[2018-09-26] MEDS: MELATONIN 5 MG TABLETS PO PRN (22:32)
[2018-09-27] MEDS ORDERED: diazePAM 5 MG TABLET PO ONE (06:00)
[2018-09-27] MEDS: metFORMIN HCL 500 MG TABLET (FP) PO SCH ×2 (08:01→17:30)
--- NOTE | 2018-09-27 09:58 | PN ---
S CIWA - CIWA Score Nausea/Vomitin Muscle Tremors: 2 Anxiety: 2 Agitation: 2 Paroxysmal Sweats: 1-Minimal Palms Moist Orientation: 0-Oriented Tacttile Disturbances: 1-Very Mild Itch/Numbness Auditory Disturbances: 1-Very Mild Visual Disturbances: 0-None Headache: 2-Mild CIWA-Ar Total Score: 13 BHS Progress Note (SOAP) Subjective: alert,irritable,anxious,interrupted sleep,tremor,irritation in left ear Objective: 09/27/18 09:56 Vital Signs Temperature 98.1 F 09/27/18 09:03 Pulse Rate 85 09/27/18 09:03 Respiratory Rate 18 09/27/18 09:03 Blood Pressure 133/90 09/27/18 09:03 O2 Sat by Pulse Oximetry (%) 09/27/18 09:56 Laboratory Last Values WBC 5.2 K/mm3 (4.0-10.0) 09/26/18 06:00 RBC 4.57 M/mm3 (4.00-5.60) 09/26/18 06:00 Hgb 13.1 GM/dL (11.7-16.9) 09/26/18 06:00 Hct 39.2 % (35.4-49) 09/26/18 06:00 MCV 85.8 fl (80-96) 09/26/18 06:00 MCH 28.8 pg (25.7-33.7) 09/26/18 06:00 MCHC 33.5 g/dl (32.0-35.9) 09/26/18 06:00 RDW 14.5 % (11.9-15.9) 09/26/18 06:00 Plt Count 246 K/MM3 (134-434) 09/26/18 06:00 MPV 7.6 fl (7.5-11.1) 09/26/18 06:00 Sodium 143 mmol/L (136-145) 09/26/18 06:00 Potassium 3.8 mmol/L (3.5-5.1) 09/26/18 06:00 Chloride 110 mmol/L (98-107) H 09/26/18 06:00 Carbon Dioxide 28 mmol/L (21-32) 09/26/18 06:00 Anion Gap 5 MMOL/L (8-16) L 09/26/18 06:00 BUN 14 mg/dL (7-18) 09/26/18 06:00 Creatinine 1.0 mg/dL (0.55-1.3) 09/26/18 06:00 Creat Clearance w eGFR 78.47 (>60) 09/26/18 06:00 POC Glucometer 100 UNITS (80-120) 09/27/18 05:27 Random Glucose 105 mg/dL (74-106) 09/26/18 06:00 Calcium 8.9 mg/dL (8.5-10.1) 09/26/18 06:00 Total Bilirubin 0.1 mg/dL (0.2-1) L 09/26/18 06:00 AST 89 U/L (15-37) H 09/26/18 06:00 ALT 72 U/L (13-61) H 09/26/18 06:00 Alkaline Phosphatase 93 U/L (45-117) 09/26/18 06:00 Total Protein 6.8 g/dl (6.4-8.2) 09/26/18 06:00 Albumin 3.6 g/dl (3.4-5.0) 09/26/18 06:00 RPR Titer Nonreactive (NONREACTIVE) 09/26/18 06:00 09/27/18 09:56 bgm 100 Assessment: 09/27/18 09:56 withdrawal symptom Plan: continue detox,requested medication for wax left ear,debrox 5 gtt left ear bid, wearing hearing aid left ear
[2018-09-27] MEDS: PRENATAL VITAMINS W/ FOLIC ACID TABLET (FP) PO SCH (10:47)
[2018-09-27] MEDS: HYDROCHLOROTHIAZIDE 25 MG TABLET (FP) PO SCH (10:47)
[2018-09-27] MEDS: PATIENT'S OWN MEDICATION (NON-FORMULARY) (Efavirenz/Emtricitab/Tenofovir 1 TAB) PO SCH (10:47)
[2018-09-27] MEDS: CARBAMIDE PEROXIDE 6.5% OTIC 15 ML BOTTLE AS SCH ×2 (10:49→21:24)
[2018-09-27] MEDS: ATORVASTATIN CA 40 MG TABLET (FP) PO SCH (21:24)
[2018-09-27] MEDS: THIAMINE HCL 100 MG TABLET (FP) PO SCH (21:24)
[2018-09-27] MEDS: MELATONIN 5 MG TABLETS PO PRN (21:25)
[2018-09-28] MEDS: metFORMIN HCL 500 MG TABLET (FP) PO SCH (06:49)
[2018-09-28 09:17] VITALS: BP 133/88; PULSE 81; TEMP 97
--- NOTE | 2018-09-28 09:26 | DS ---
[facility] Detox Discharge Summary Admission Date: 09/25/18 Discharge Date: 09/28/18 - History Present History: Alcohol Dependence, Cocaine Dependence - Physical Exam Results Vital Signs: Vital Signs Temperature 97.0 F L 09/28/18 09:17 Pulse Rate 81 09/28/18 09:17 Respiratory Rate 20 09/28/18 09:17 Blood Pressure 133/88 09/28/18 09:17 O2 Sat by Pulse Oximetry (%) - Treatment Hospital Course: Detox Protocol Followed, Detoxed Safely, Responded well, Discharged Condition Good, Rehab Referral Accepted - Medication Discharge Medications: Ambulatory Orders Efavirenz/Emtricitab/Tenofovir [Atripla Tablet -] 1 tab PO DAILY #30 tab Atorvastatin Calcium 40 mg PO HS #14 tablet 12/31/17 Hydrochlorothiazide [Hctz -] 25 mg PO DAILY #14 cap 12/31/17 metFORMIN HCL [Glucophage -] 500 mg PO BID #30 tablet 12/31/17 Quetiapine Fumarate [Seroquel -] 50 mg PO HS #30 tablet 02/11/18 - Diagnosis (1) Alcohol dependence with uncomplicated withdrawal Current Visit: Yes Status: Chronic (2) Cocaine dependence, uncomplicated Current Visit: Yes Status: Chronic (3) Nicotine dependence Current Visit: Yes Status: Chronic Qualifiers: Nicotine product type: cigarettes Substance use status: uncomplicated Qualified Code(s): F17.210 - Nicotine dependence, cigarettes, uncomplicated (4) Substance-induced sleep disorder Current Visit: No Status: Acute (5) DM2 (diabetes mellitus, type 2) Current Visit: No Status: Chronic Qualifiers: Diabetes mellitus fdc insulin use: without fdc use Diabetes mellitus complication status: without complication Qualified Code(s): E11.9 - Type 2 diabetes mellitus without complications (6) Depressive disorder Current Visit: No Status: Chronic (7) Drug-induced mood disorder Current Visit: No Status: Chronic (8) HTN (hypertension) Current Visit: No Status: Chronic Qualifiers: Hypertension type: essential hypertension Qualified Code(s): I10 - Essential (primary) hypertension (9) Human immunodeficiency virus infection Current Visit: No Status: Chronic (10) Hyperlipidemia Current Visit: No Status: Chronic Qualifiers: Hyperlipidemia type: unspecified Qualified Code(s): E78.5 - Hyperlipidemia , unspecified (11) Insomnia Current Visit: No Status: Chronic Qualifiers: Insomnia type: unspecified Qualified Code(s): G47.00 - Insomnia, unspecified (12) deafness of right ear Current Visit: No Status: Chronic (13) hearing loss left wearing hearing aide Current Visit: No Status: Chronic (14) MDD (major depressive disorder) Current Visit: No Status: Ruled-out - AMA Did Patient Leave Against Medical Advice: No ([facility] )
[2018-09-28] MEDS: PRENATAL VITAMINS W/ FOLIC ACID TABLET (FP) PO SCH (10:53)
[2018-09-28] MEDS: CARBAMIDE PEROXIDE 6.5% OTIC 15 ML BOTTLE AS SCH (10:54)
[2018-09-28] MEDS: HYDROCHLOROTHIAZIDE 25 MG TABLET (FP) PO SCH (10:54)
[2018-09-28] MEDS: PATIENT'S OWN MEDICATION (NON-FORMULARY) (Efavirenz/Emtricitab/Tenofovir 1 TAB) PO SCH (10:54)
== END 2018-09-28 11:15 | disposition home or self-care (01) | DRG 897 ==
LOC: YASAS 11:10 → Y6N 12:39
PROVIDERS: ADMIT Surgery; ATTEND Surgery
PROC: HZ2ZZZZ Detoxification Services for Substance Abuse Treatment (ICD-10-PCS; principal; 2018-09-25)
DX: F10.230 Alcohol dependence with withdrawal, uncomplicated (principal); F14.20 Cocaine dependence, uncomplicated; F19.282 Other psychoactive substance dependence with psychoactive substance-induced sleep disorder; F17.210 Nicotine dependence, cigarettes, uncomplicated; F32.9 Major depressive disorder, single episode, unspecified; F19.24 Other psychoactive substance dependence with psychoactive substance-induced mood disorder; I10 Essential (primary) hypertension; E11.9 Type 2 diabetes mellitus without complications; E78.5 Hyperlipidemia, unspecified; G47.00 Insomnia, unspecified; H91.90 Unspecified hearing loss, unspecified ear; H91.92 Unspecified hearing loss, left ear; Z85.46 Personal history of malignant neoplasm of prostate; Z90.79 Acquired absence of other genital organ(s); Z79.84 Long term (current) use of oral hypoglycemic drugs
CPT/HCPCS: 36415; 80053; 82962; 85027; 86593

== ENCOUNTER 2018-10-26 11:46 | Inpatient (IN) | payer OTHER ==
[2018-10-26 12:15] VITALS: BMI 28.3
--- NOTE | 2018-10-26 13:20 | HP ---
CIWA Score Nausea/Vomitin-No Nausea/No Vomiting Muscle Tremors: 1-None Visible, but [place] Anxiety: 1-Mildly Anxious Agitation: 0-Normal Activity Paroxysmal Sweats: No Perspiration Orientation: 0-Oriented Tacttile Disturbances: 0-None Auditory Disturbances: 0-None Visual Disturbances: 2-Mild Sensitivity Headache: 0-None Present CIWA-Ar Total Score: 4 - Admission Criteria OASAS Guidelines: Admission for Medically Managed Detox: Requires at least one of the followin. CIWA greater than 12 2. Seizures within the past 24 hours 3. Delirium tremens within the past 24 hours 4. Hallucinations within the past 24 hours 5. Acute intervention needed for co occurring medical disorder 6. Acute intervention needed for co occurring psychiatric disorder 7. Severe withdrawal that cannot be handled at a lower level of care (continued vomiting, continued diarrhea, abnormal vital signs) requiring intravenous medication and/or fluids 8. Admission ROS S - HPI Allergies/Adverse Reactions: Allergies Allergy/AdvReac Type Severity Reaction Status Date / Time No Known Allergies Allergy Verified 10/26/18 12:05 History of Present Illness: pt here requesting detox from etoh use , reports 40-oz beer x 3-4 /day and 4 nips every other day , reports tremors if not drinking , current symptoms as above , latest use this morning . Prior detox Jul 2018 , September 2018 at this facility . crack cocaine : every other day ,cannabis - denies , tobacco : 1/2 ppd PMHX : htn, DM II , hiv , hld - Ebola screening Have you traveled outside of the country in the last 21 days: No Have you had contact with anyone from an Ebola affected area: No Do you have a fever: No - Review of Systems Constitutional: See HPI EENT: reports: Hearing Loss Respiratory: reports: No Symptoms reported Cardiac: reports: No Symptoms Reported GI: reports: No Symptoms Reported : reports: No Symptoms Reported Musculoskeletal: reports: No Symptoms Reported Integumentary: reports: No Symptoms Reported Neuro: reports: See HPI Endocrine: reports: No Symptoms Reported Psychiatric: reports: Orientated x3 Patient History - Patient Medical History Hx Anemia: No Hx Asthma: No Hx Chronic Obstructive Pulmonary Disease (COPD): No Hx Cancer: Yes (prostate cancer - cancer free since prostatectomy) Hx Cardiac Disorders: No Hx Congestive Heart Failure: No Hx Hypertension: Yes (With treatment HCTZ) Hx Hypercholesterolemia: No Hx Pacemaker: No HX Cerebrovascular Accident: No Hx Seizures: No Hx Dementia: No Hx Diabetes: Yes (Type 2 on metformin ) Hx Gastrointestinal Disorders: No Hx Liver Disease: No Hx Genitourinary Disorders: Yes (prostate ca 2017 surgical removed) Hx Sexually Transmitted Disorders: No Hx Renal Disease (ESRD): No Hx Thyroid Disease: No Hx Human Immunodeficiency Virus (HIV): Yes (2007, on atripla) Hx Hepatitis C: No Hx Depression: Yes (years ago in [facility] related to disabilty) Hx Suicide Attempt: No Hx Bipolar Disorder: Yes Hx Schizophrenia: No - Patient Surgical History Past Surgical History: Yes Hx Neurologic Surgery: No Hx Cataract Extraction: No Hx Cardiac Surgery: No Hx Lung Surgery: No Hx Breast Surgery: No Hx Breast Biopsy: No Hx Abdominal Surgery: No Hx Appendectomy: No Hx Cholecystectomy: No Hx Genitourinary Surgery: No Hx Section: No Hx Orthopedic Surgery: No Other Surgical History: left ear; prostate sx 08/2016 Anesthesia Reaction: No - PPD History Date: 04/25/18 Results: 0mm - Smoking Cessation Smoking history: Current some day smoker Have you smoked in the past 12 months: Yes Aproximately how many cigarettes per day: 10 Cigars Per Day: 0 Hx Chewing Tobacco Use: No Initiated information on smoking cessation: No - Substances abused Alcohol Substance route: Oral Frequency: Daily Amount used: 3 beers ( 40 oz cans )3 PTS vodka, Age of first use: 19 Date of last use: 10/26/18 Cocaine Substance route: Smoking Frequency: 3-6 times per week Amount used: $400 Age of first use: 44 Date of last use: 09/25/18 Crack Substance route: Smoking Frequency: 3-6 times per week Amount used: $1200 Age of first use: 24 Date of last use: 10/26/18 Family Disease History - Family Disease History Family Disease History: Diabetes: Brother, Other: Father (living, FORMER ALCOHOLIC), Mother (living, FORMER ALCOHOLIC) Admission Physical Exam S - Vital Signs Vital Signs: Vital Signs - 24 hr 10/26/18 12:01 Temperature 97.3 F L Pulse Rate 74 Respiratory 20 Rate Blood Pressure 118/79 - Physical General Appearance: Yes: No Apparent Distress HEENTM: Yes: EOMI, Normocephalic, Normal Voice, Hearing Decreased (has hearing aid left ear) Respiratory: Yes: Chest Non-Tender, Lungs Clear, No Respiratory Distress, No Accessory Muscle Use Neck: Yes: No masses,lesions,Nodules, Trachea in good position Cardiology: Yes: Regular Rhythm, Regular Rate, S1, S2 Abdominal: Yes: Non Tender, Soft Back: Yes: Normal Inspection Musculoskeletal: Yes: full range of Motion, Gait Steady Extremities: Yes: Normal Range of Motion, Non-Tender Neurological: Yes: Fully Oriented, Motor Strength 5/5 Integumentary: Yes: Warm - Diagnostic (1) Cocaine dependence, uncomplicated Current Visit: Yes Status: Chronic (2) Nicotine dependence Current Visit: Yes Status: Chronic Qualifiers: Nicotine product type: cigarettes (3) Alcohol dependence with uncomplicated withdrawal Current Visit: Yes Status: Acute Breathalyzer - Breathalyzer Breathalyzer: 0 Urine Drug Screen - Test Device Lot number: [id number] Expiration date: 07/19/20 - Control Is test valid?: Yes - Results Drug screen NEGATIVE: No Urine drug screen results: MINNIE-Cocaine Inpatient Rehab Admission - Rehab Decision to Admit Inpatient rehab admission?: No
[2018-10-26] MEDS ORDERED: hydrOXYzine PAMOATE 25 MG CAPSULE (FP) PO PRN (13:29)
[2018-10-26] MEDS ORDERED: MAG HYDROX/AL HYDROX/SIMETH 30 ML UNIT-DOSE CUP PO PRN (13:29)
[2018-10-26] MEDS ORDERED: MAGNESIUM HYDROX 2400MG/30ML ORAL SUSPENSION 30 ML CUP PO PRN (13:29)
[2018-10-26] MEDS ORDERED: ACETAMINOPHEN 325 MG TABLET (FP) PO PRN ×2 (13:29)
[2018-10-26] MEDS ORDERED: IBUPROFEN 400 MG TABLET (FP) PO PRN (13:29)
[2018-10-26] MEDS ORDERED: MAGNESIUM CITRATE 300 ML BOTTLE PO PRN (13:29)
[2018-10-26] MEDS ORDERED: MENTHOL/PHENOL 1 EACH UD MM PRN (13:29)
[2018-10-26] MEDS ORDERED: BISMUTH SUBSALICYLATE 262 MG/15 ML BTL PO PRN (13:29)
[2018-10-26] MEDS ORDERED: diazePAM 5 MG TABLET PO PRN (13:29)
[2018-10-26] MEDS: diazePAM 5 MG TABLET PO SCH ×2 (15:04→22:25)
[2018-10-26] MEDS: THIAMINE HCL 100 MG TABLET (FP) PO SCH (22:24)
[2018-10-26] MEDS ORDERED: QUEtiapine FUMARATE 50 MG TABLET PO ONE (23:19)
[2018-10-26] MEDS: ATORVASTATIN CA 40 MG TABLET (FP) PO SCH (23:27)
[2018-10-26] MEDS: MELATONIN 5 MG TABLETS PO PRN (23:49)
[2018-10-27] MEDS: metFORMIN HCL 500 MG TABLET (FP) PO SCH ×2 (06:08→16:47)
[2018-10-27] MEDS: diazePAM 5 MG TABLET PO SCH ×3 (06:11→22:16)
[2018-10-27] MEDS: HYDROCHLOROTHIAZIDE 12.5 MG CAPSULE (FP) PO SCH (11:00)
[2018-10-27] MEDS: PRENATAL VITAMINS W/ FOLIC ACID TABLET (FP) PO SCH (11:00)
[2018-10-27 11:32] LABS: HEMATOCRIT 36.8 % (35.4-49); HEMOGLOBIN 12.1 GM/dL (11.7-16.9); MCH 28.2 pg (25.7-33.7); MCHC 32.9 g/dl (32.0-35.9); MEAN CELL VOLUME 85.6 fl (80-96); MEAN PLT VOLUME 7.2 fl (7.5-11.1); PLATELET COUNT 293 K/MM3 (134-434); RDW 14.1 % (11.9-15.9); WHITE BLOOD COUNT 5.6 K/mm3 (4.0-10.0)
[2018-10-27 11:52] LABS: ALBUMIN 3.2 g/dl (3.4-5.0); BILIRUBIN,TOTAL 0.4 mg/dL (0.2-1); CALCIUM 8.8 mg/dL (8.5-10.1); CREATININE 0.9 mg/dL (0.55-1.3); POTASSIUM 3.9 mmol/L (3.5-5.1)
--- NOTE | 2018-10-27 12:46 | CONSULT ---
[facility] Psychiatric Consult - Data Date of interview: 10/27/18 Admission source: [facility] Identifying data: Readmission to [facility] for this 52 y/o AA male seeking detox treatment on for alcohol and cocaine (crack) dependence.Patient is single without children,domiciled,unemployed and supported on SSI/SSD benefits (self-report). Substance Abuse History: Discussed with patient in this interview. Refer to current [facility] report for details : Smoking history: Current some day smoker. Have you smoked in the past 12 months: Yes. Aproximately how many cigarettes per day: 10. Cigars Per Day: 0. Hx Chewing Tobacco Use: No. Initiated information on smoking cessation: No. - Substances abused. Alcohol. Substance route: Oral. Frequency: Daily. Amount used: 3 beers ( 40 oz cans )3 PTS vodka,. Age of first use: 19. Date of last use: 10/26/18. Cocaine. Substance route: Smoking. Frequency: 3-6 times per week. Amount used: $400. Age of first use: 44. Date of last use: 09/25/18. Crack. Substance route: Smoking. Frequency: 3-6 times per week. Amount used: $1200. Age of first use : 24. Date of last use: 10/26/18 Medical History: Significant for deafness in right ear + decreased hearing in left ear (hearing aid in place), tinnitus, diabetes mellitus, hypertension, HIV infection since 2007 (on HAART medications), dyslipidemia and a history of treatment for prostatic cancer. Smokes 10 cigarettes daily Psychiatric History: Communication with patient is achieved via written material (questions are presented to Mr Carreon in writing). Distant history of a psychiatric hospitalization (1992) at [facility]. Diagnosed with MDD (in the past). Mr Carreon is not certain about his psychiatric diagnosis. Patient sees a psychiatrist at the [facility] clinic in [facility]. Prescribed seroquel 50 mg/hs. No reported history of suicide attempts. Physical/Sexual Abuse/Trauma History: Patient denies. Additional Comment: Urine drug screen results: MINNIE-Cocaine. Noted. Mental Status Exam - Mental Status Exam Alert and Oriented to: Time, Place, Person Cognitive Function: Grossly Intact Patient Appearance: Well Groomed Mood: Apprehensive Affect: Mood Congruent Patient Behavior: Fatigued, Cooperative Speech Pattern: Clear, Appropriate Voice Loudness: Normal Thought Process: Goal Oriented Thought Disorder: Not Present Hallucinations: Denies Suicidal Ideation: Denies Homicidal Ideation: Denies Insight/Judgement: Poor Sleep: Poorly, Difficulty falling asleep Appetite: Good Muscle strength/Tone: Normal Gait/Station: Normal Psychiatric Findings - Problem List ([place] 1, 2,3) (1) Alcohol dependence with uncomplicated withdrawal Current Visit: Yes Status: Acute (2) Cocaine dependence, uncomplicated Current Visit: Yes Status: Chronic (3) Nicotine dependence Current Visit: Yes Status: Chronic Qualifiers: Nicotine product type: cigarettes (4) Drug-induced mood disorder Current Visit: Yes Status: Chronic (5) Insomnia Current Visit: Yes Status: Chronic Qualifiers: Insomnia type: unspecified Qualified Code(s): G47.00 - Insomnia, unspecified (6) Non-compliance Current Visit: Yes Status: Chronic - Initial Treatment Plan Initial Treatment Plan: Psychoeducation (communication via written material). Sleep hygiene. Detoxification. AA meetings. Seroquel 50 mg po hs. Side effects/ benefits discussed, on paper, with the patient. Mr Carreon agrees to this plan of care.
[2018-10-27] MEDS: EFAVIRENZ 600 MG TABLET PO SCH (14:01)
[2018-10-27] MEDS: EMTRICITABINE 200MG/TENOFOVIR 300MG PO SCH (14:02)
--- NOTE | 2018-10-27 15:30 | PN ---
S CIWA - CIWA Score Nausea/Vomitin-No Nausea/No Vomiting Muscle Tremors: 2 Anxiety: 4-Mod. Anxious/Guarded Agitation: 3 Paroxysmal Sweats: 2 Orientation: 0-Oriented Tacttile Disturbances: 0-None Auditory Disturbances: 0-None Visual Disturbances: 2-Mild Sensitivity Headache: 0-None Present CIWA-Ar Total Score: 13 S Progress Note (SOAP) Subjective: Anxious, Agitated, Tremors, Sweating. Objective: PATIENT A & O X 3, OBSERVED AMBULATING ON UNIT UNASSISTED. IN NO ACUTE DISTRESS. 10/27/18 15:26 Vital Signs Temperature 98.4 F 10/27/18 10:26 Pulse Rate 70 10/27/18 10:26 Respiratory Rate 20 10/27/18 10:26 Blood Pressure 135/87 10/27/18 10:26 O2 Sat by Pulse Oximetry (%) Laboratory Tests 10/26/18 10/26/18 10/27/18 14:35 23:42 08:00 WBC 5.6 RBC 4.30 Hgb 12.1 Hct 36.8 MCV 85.6 MCH 28.2 MCHC 32.9 RDW 14.1 Plt Count 293 MPV 7.2 L Sodium Potassium Chloride Carbon Dioxide Anion Gap BUN Creatinine Est GFR (CKD-EPI)AfAm Est GFR (CKD-EPI)NonAf POC Glucometer 97 110 Random Glucose Calcium Total Bilirubin AST ALT Alkaline Phosphatase Total Protein Albumin RPR Titer 10/27/18 10/27/18 08:00 08:00 WBC RBC Hgb Hct MCV MCH MCHC RDW Plt Count MPV Sodium 141 Potassium 3.9 Chloride 110 H Carbon Dioxide 26 Anion Gap 6 L BUN 19 H Creatinine 0.9 Est GFR (CKD-EPI)AfAm 113.41 Est GFR (CKD-EPI)NonAf 97.85 POC Glucometer Random Glucose 100 Calcium 8.8 Total Bilirubin 0.4 AST 30 ALT 51 Alkaline Phosphatase 87 Total Protein 6.0 L Albumin 3.2 L RPR Titer Nonreactive LABS NOTED. Assessment: 10/27/18 15:26 WITHDRAWAL SYMPTOMS. Plan: CONTINUE DETOX. INCREASE DAILY PO FLUID INTAKE. PATIENT REPORTS HISTORY OF PRESCRIPTION OF [facility] OUTPATIENT FOR TREATMENT OF H.I.V. PATIENT BROUGHT BOTTLE OF MEDICATION WITH HIM AT TIME OF ADMISSION TO DETOX; HOWEVER, BOTTLE DOES NOT HAVE ORIGINAL PHARMACY LABEL ON IT. [facility] NOT CURRENTLY AVAILABLE SINGLE MEDICATION IN [facility]MUL[facility]. [facility] AND EFAVIR[facility] ORDERED SUBSTITUTION WHILE PATIENT IS ADMITTED FOR DETOX.
[2018-10-27] MEDS: THIAMINE HCL 100 MG TABLET (FP) PO SCH (22:16)
[2018-10-27] MEDS: QUEtiapine FUMARATE 50 MG TABLET PO SCH (22:17)
[2018-10-27] MEDS: ATORVASTATIN CA 40 MG TABLET (FP) PO SCH (22:17)
[2018-10-28] MEDS ORDERED: diazePAM 5 MG TABLET PO ONE (06:00)
[2018-10-28] MEDS: metFORMIN HCL 500 MG TABLET (FP) PO SCH ×2 (06:17→17:45)
[2018-10-28] MEDS: PRENATAL VITAMINS W/ FOLIC ACID TABLET (FP) PO SCH (10:36)
[2018-10-28] MEDS: EFAVIRENZ 600 MG TABLET PO SCH (10:37)
[2018-10-28] MEDS: EMTRICITABINE 200MG/TENOFOVIR 300MG PO SCH (10:37)
[2018-10-28] MEDS: HYDROCHLOROTHIAZIDE 12.5 MG CAPSULE (FP) PO SCH (10:38)
--- NOTE | 2018-10-28 12:25 | PN ---
[facility] CIWA - CIWA Score Nausea/Vomitin-Mild Nausea/No Vomiting Muscle Tremors: 2 Anxiety: 2 Agitation: 2 Paroxysmal Sweats: 1-Minimal Palms Moist Orientation: 0-Oriented Tacttile Disturbances: 0-None Auditory Disturbances: 0-None Visual Disturbances: 0-None Headache: 1-Very Mild CIWA-Ar Total Score: 9 S Progress Note (SOAP) Subjective: FEELING OK TODAY AGREES TO RETURN TO INFECTIOUS DISEASE SPECIALIST FOR MEDICAL AND MENTAL ISSUES Objective: 10/28/18 12:24 Vital Signs Temperature 97.1 F L 10/28/18 09:58 Pulse Rate 72 10/28/18 09:58 Respiratory Rate 18 10/28/18 09:58 Blood Pressure 136/86 10/28/18 09:58 O2 Sat by Pulse Oximetry (%) Laboratory Last Values WBC 5.6 K/mm3 (4.0-10.0) 10/27/18 08:00 RBC 4.30 M/mm3 (4.00-5.60) 10/27/18 08:00 Hgb 12.1 GM/dL (11.7-16.9) 10/27/18 08:00 Hct 36.8 % (35.4-49) 10/27/18 08:00 MCV 85.6 fl (80-96) 10/27/18 08:00 MCH 28.2 pg (25.7-33.7) 10/27/18 08:00 MCHC 32.9 g/dl (32.0-35.9) 10/27/18 08:00 RDW 14.1 % (11.9-15.9) 10/27/18 08:00 Plt Count 293 K/MM3 (134-434) 10/27/18 08:00 MPV 7.2 fl (7.5-11.1) L 10/27/18 08:00 Sodium 141 mmol/L (136-145) 10/27/18 08:00 Potassium 3.9 mmol/L (3.5-5.1) 10/27/18 08:00 Chloride 110 mmol/L (98-107) H 10/27/18 08:00 Carbon Dioxide 26 mmol/L (21-32) 10/27/18 08:00 Anion Gap 6 MMOL/L (8-16) L 10/27/18 08:00 BUN 19 mg/dL (7-18) H 10/27/18 08:00 Creatinine 0.9 mg/dL (0.55-1.3) 10/27/18 08:00 Est GFR (CKD-EPI)AfAm 113.41 10/27/18 08:00 Est GFR (CKD-EPI)NonAf 97.85 10/27/18 08:00 POC Glucometer 98 UNITS (80-120) 10/28/18 07:01 Random Glucose 100 mg/dL (74-106) 10/27/18 08:00 Calcium 8.8 mg/dL (8.5-10.1) 10/27/18 08:00 Total Bilirubin 0.4 mg/dL (0.2-1) 10/27/18 08:00 AST 30 U/L (15-37) 10/27/18 08:00 ALT 51 U/L (13-61) 10/27/18 08:00 Alkaline Phosphatase 87 U/L (45-117) 10/27/18 08:00 Total Protein 6.0 g/dl (6.4-8.2) L 10/27/18 08:00 Albumin 3.2 g/dl (3.4-5.0) L 10/27/18 08:00 RPR Titer Nonreactive (NONREACTIVE) 10/27/18 08:00 LAB NOTED Assessment: 10/28/18 12:25 ALCOHOL WITHDRAWAL SX Plan: CONTINUE DETOX
[2018-10-28] MEDS: ATORVASTATIN CA 40 MG TABLET (FP) PO SCH (22:28)
[2018-10-28] MEDS: THIAMINE HCL 100 MG TABLET (FP) PO SCH (22:28)
[2018-10-28] MEDS: QUEtiapine FUMARATE 50 MG TABLET PO SCH (22:28)
[2018-10-28] MEDS: MELATONIN 5 MG TABLETS PO PRN (22:29)
[2018-10-29] MEDS: metFORMIN HCL 500 MG TABLET (FP) PO SCH ×2 (06:11→16:52)
[2018-10-29] MEDS: HYDROCHLOROTHIAZIDE 12.5 MG CAPSULE (FP) PO SCH (10:44)
[2018-10-29] MEDS: EFAVIRENZ 600 MG TABLET PO SCH (10:45)
[2018-10-29] MEDS: PRENATAL VITAMINS W/ FOLIC ACID TABLET (FP) PO SCH (10:45)
[2018-10-29] MEDS: EMTRICITABINE 200MG/TENOFOVIR 300MG PO SCH (10:45)
--- NOTE | 2018-10-29 15:38 | DS ---
[facility] Detox Discharge Summary Admission Date: 10/26/18 Discharge Date: 10/29/18 - History Present History: Alcohol Dependence Additional Comments: 53 years old male admitted on 10/26/18 for alcohol withdrawal stabilization completed detox regimen aftercare self help support group Pertinent Past History: bring in medication list and lab report to follow up appointment - Physical Exam Results Vital Signs: Vital Signs Temperature 96.7 F L 10/29/18 09:07 Pulse Rate 78 10/29/18 09:07 Respiratory Rate 18 10/29/18 09:07 Blood Pressure 132/92 10/29/18 09:07 O2 Sat by Pulse Oximetry (%) Pertinent Admission Physical Exam Findings: alcohol withdrawal sx Laboratory Last Values WBC 5.6 K/mm3 (4.0-10.0) 10/27/18 08:00 RBC 4.30 M/mm3 (4.00-5.60) 10/27/18 08:00 Hgb 12.1 GM/dL (11.7-16.9) 10/27/18 08:00 Hct 36.8 % (35.4-49) 10/27/18 08:00 MCV 85.6 fl (80-96) 10/27/18 08:00 MCH 28.2 pg (25.7-33.7) 10/27/18 08:00 MCHC 32.9 g/dl (32.0-35.9) 10/27/18 08:00 RDW 14.1 % (11.9-15.9) 10/27/18 08:00 Plt Count 293 K/MM3 (134-434) 10/27/18 08:00 MPV 7.2 fl (7.5-11.1) L 10/27/18 08:00 Sodium 141 mmol/L (136-145) 10/27/18 08:00 Potassium 3.9 mmol/L (3.5-5.1) 10/27/18 08:00 Chloride 110 mmol/L (98-107) H 10/27/18 08:00 Carbon Dioxide 26 mmol/L (21-32) 10/27/18 08:00 Anion Gap 6 MMOL/L (8-16) L 10/27/18 08:00 BUN 19 mg/dL (7-18) H 10/27/18 08:00 Creatinine 0.9 mg/dL (0.55-1.3) 10/27/18 08:00 Est GFR (CKD-EPI)AfAm 113.41 10/27/18 08:00 Est GFR (CKD-EPI)NonAf 97.85 10/27/18 08:00 POC Glucometer 108 UNITS (80-120) 10/29/18 06:09 Random Glucose 100 mg/dL (74-106) 10/27/18 08:00 Calcium 8.8 mg/dL (8.5-10.1) 10/27/18 08:00 Total Bilirubin 0.4 mg/dL (0.2-1) 10/27/18 08:00 AST 30 U/L (15-37) 10/27/18 08:00 ALT 51 U/L (13-61) 10/27/18 08:00 Alkaline Phosphatase 87 U/L (45-117) 10/27/18 08:00 Total Protein 6.0 g/dl (6.4-8.2) L 10/27/18 08:00 Albumin 3.2 g/dl (3.4-5.0) L 10/27/18 08:00 RPR Titer Nonreactive (NONREACTIVE) 10/27/18 08:00 lab noted - Treatment Hospital Course: Detox Protocol Followed, Detoxed Safely, Responded well, Discharged Condition Good, Rehab Referral Accepted Patient has Accepted a Rehab Referral to: community self help support meeting - Medication Discharge Medications: Ambulatory Orders Efavirenz/Emtricitab/Tenofovir [Atripla Tablet -] 1 tab PO DAILY #30 tab Atorvastatin Calcium 40 mg PO HS #14 tablet 12/31/17 Hydrochlorothiazide [Hctz -] 25 mg PO DAILY #14 cap 12/31/17 metFORMIN HCL [Glucophage -] 500 mg PO BID #30 tablet 12/31/17 Quetiapine Fumarate [Seroquel -] 50 mg PO HS #30 tablet 02/11/18 - Diagnosis (1) Alcohol dependence with uncomplicated withdrawal Current Visit: Yes Status: Acute (2) Nicotine dependence Current Visit: Yes Status: Acute Qualifiers: Nicotine product type: cigarettes Substance use status: in withdrawal Qualified Code(s): F17.213 - Nicotine dependence, cigarettes, with withdrawal (3) Substance-induced sleep disorder Current Visit: Yes Status: Suspected (4) DM2 (diabetes mellitus, type 2) Current Visit: Yes Status: Chronic Qualifiers: Diabetes mellitus weld inspector insulin use: without jail use Diabetes mellitus complication status: without complication Qualified Code(s): E11.9 - Type 2 diabetes mellitus without complications (5) HTN (hypertension) Current Visit: Yes Status: Chronic Qualifiers: Hypertension type: essential hypertension Qualified Code(s): I10 - Essential (primary) hypertension (6) Human immunodeficiency virus infection Current Visit: Yes Status: Chronic (7) Hyperlipidemia Current Visit: Yes Status: Chronic Qualifiers: Hyperlipidemia type: unspecified Qualified Code(s): E78.5 - Hyperlipidemia , unspecified (8) deafness of right ear Current Visit: No Status: Chronic - AMA Did Patient Leave Against Medical Advice: No
[2018-10-29 17:48] VITALS: BP 138/95; PULSE 81; TEMP 98.2
== END 2018-10-29 17:59 | disposition other institution (70) | DRG 897 ==
LOC: YASAS 11:46 → Y3N 14:33
PROVIDERS: ADMIT Surgery; ATTEND Surgery
PROC: HZ2ZZZZ Detoxification Services for Substance Abuse Treatment (ICD-10-PCS; principal; 2018-10-26)
DX: F10.230 Alcohol dependence with withdrawal, uncomplicated (principal); F14.20 Cocaine dependence, uncomplicated; F19.282 Other psychoactive substance dependence with psychoactive substance-induced sleep disorder; F17.213 Nicotine dependence, cigarettes, with withdrawal; F19.24 Other psychoactive substance dependence with psychoactive substance-induced mood disorder; I10 Essential (primary) hypertension; E11.9 Type 2 diabetes mellitus without complications; E78.5 Hyperlipidemia, unspecified; Z21 Asymptomatic human immunodeficiency virus [HIV] infection status; H91.93 Unspecified hearing loss, bilateral; G47.00 Insomnia, unspecified; Z85.46 Personal history of malignant neoplasm of prostate; Z91.19 Patient's noncompliance with other medical treatment and regimen
CPT/HCPCS: 36415; 80053; 82962; 85027; 86593

== ENCOUNTER 2018-10-29 18:19 | Inpatient (IN) | payer OTHER ==
--- NOTE | 2018-10-29 15:43 | HP ---
[facility] Rehab Assess/Revision - Admission History Admitted to Rehab from: [facility] Date of Admission to Rehab: 10/29/18 - Findings Detox History & Physical reviewed: Yes Concur with findings: Yes Comments/Additional Findings: transferred from detox to rehab admission as per protocol Inpatient Rehab Admission - Rehab Decision to Admit Inpatient rehab admission?: Yes - Initial Determination Are CD services needed?: Yes Free of communicable disease: Yes Not in need of hospitalization: Yes - Rehab Admission Criteria Previous failed treatment: Yes Poor recovery environment: Yes Comorbidities: Yes Lacks judgement: No Patient is meeting Inpatient Rehab admission criteria:: Yes
[~2018-10-29 18:19] MED LIST: ACETAMINOPHEN 325 MG TABLET (FP) PO PRN; LOPERAMIDE HCL 2 MG CAPSULE PO PRN; MAG HYDROX/AL HYDROX/SIMETH 30 ML UNIT-DOSE CUP PO PRN; MAGNESIUM CITRATE 300 ML BOTTLE PO PRN; MENTHOL/PHENOL 1 EACH UD MM PRN; NICOTINE 14 MG/24 HOURS TOPICAL PATCH TD PRN; NICOTINE POLACRILEX 2 MG GUM BC PRN; P-EPHED 60MG/TRIPROLIDI 2.5MG TABLET PO PRN; guaiFENesin 200 MG/10 ML 10 ML UNIT-DOSE CUPS PO PRN
[2018-10-29] MEDS: metFORMIN HCL 500 MG TABLET (FP) PO SCH (19:35)
[2018-10-29] MEDS: MAGNESIUM HYDROX 2400MG/30ML ORAL SUSPENSION 30 ML CUP PO PRN (19:55)
[2018-10-29] MEDS: THIAMINE HCL 100 MG TABLET (FP) PO SCH (21:05)
[2018-10-29] MEDS: MELATONIN 5 MG TABLETS PO PRN (21:05)
[2018-10-29] MEDS: ATORVASTATIN CA 40 MG TABLET (FP) PO SCH (21:05)
[2018-10-29] MEDS: IBUPROFEN 400 MG TABLET (FP) PO PRN (21:58)
[2018-10-30] MEDS: metFORMIN HCL 500 MG TABLET (FP) PO SCH ×2 (06:50→16:31)
[2018-10-30] MEDS: HYDROCHLOROTHIAZIDE 12.5 MG CAPSULE (FP) PO SCH (10:00)
[2018-10-30] MEDS: PRENATAL VITAMINS W/ FOLIC ACID TABLET (FP) PO SCH (10:00)
[2018-10-30] MEDS: MAGNESIUM HYDROX 2400MG/30ML ORAL SUSPENSION 30 ML CUP PO PRN (10:02)
[2018-10-30] MEDS ORDERED: PATIENT'S OWN MEDICATION (NON-FORMULARY) (Efavirenz/Emtricitab/Tenofovir 1 TAB) PO SCH (10:45)
[2018-10-30] MEDS: EFAVIRENZ 600 MG TABLET PO SCH (11:30)
[2018-10-30] MEDS: EMTRICITABINE 200MG/TENOFOVIR 300MG PO SCH (11:31)
[2018-10-30] MEDS: ATORVASTATIN CA 40 MG TABLET (FP) PO SCH (21:09)
[2018-10-30] MEDS: THIAMINE HCL 100 MG TABLET (FP) PO SCH (21:09)
[2018-10-30] MEDS: MELATONIN 5 MG TABLETS PO PRN (21:10)
[2018-10-31] MEDS: metFORMIN HCL 500 MG TABLET (FP) PO SCH ×2 (06:38→16:44)
[2018-10-31] MEDS: PRENATAL VITAMINS W/ FOLIC ACID TABLET (FP) PO SCH (10:16)
[2018-10-31] MEDS: HYDROCHLOROTHIAZIDE 12.5 MG CAPSULE (FP) PO SCH (10:16)
[2018-10-31] MEDS: EMTRICITABINE 200MG/TENOFOVIR 300MG PO SCH (10:17)
[2018-10-31] MEDS: EFAVIRENZ 600 MG TABLET PO SCH (10:17)
[2018-10-31] MEDS: THIAMINE HCL 100 MG TABLET (FP) PO SCH (21:10)
[2018-10-31] MEDS: ATORVASTATIN CA 40 MG TABLET (FP) PO SCH (21:10)
[2018-10-31] MEDS: MELATONIN 5 MG TABLETS PO PRN (21:11)
[2018-11-01] MEDS: metFORMIN HCL 500 MG TABLET (FP) PO SCH ×2 (06:50→16:36)
[2018-11-01] MEDS: HYDROCHLOROTHIAZIDE 12.5 MG CAPSULE (FP) PO SCH (10:30)
[2018-11-01] MEDS: EFAVIRENZ 600 MG TABLET PO SCH (10:30)
[2018-11-01] MEDS: PRENATAL VITAMINS W/ FOLIC ACID TABLET (FP) PO SCH (10:30)
[2018-11-01] MEDS: EMTRICITABINE 200MG/TENOFOVIR 300MG PO SCH (10:31)
[2018-11-01] MEDS: THIAMINE HCL 100 MG TABLET (FP) PO SCH (21:05)
[2018-11-01] MEDS: ATORVASTATIN CA 40 MG TABLET (FP) PO SCH (21:05)
[2018-11-01] MEDS: MELATONIN 5 MG TABLETS PO PRN (21:06)
[2018-11-02] MEDS: metFORMIN HCL 500 MG TABLET (FP) PO SCH ×2 (06:24→16:40)
[2018-11-02] MEDS: HYDROCHLOROTHIAZIDE 12.5 MG CAPSULE (FP) PO SCH (10:03)
[2018-11-02] MEDS: EFAVIRENZ 600 MG TABLET PO SCH (10:03)
[2018-11-02] MEDS: PRENATAL VITAMINS W/ FOLIC ACID TABLET (FP) PO SCH (10:03)
[2018-11-02] MEDS: EMTRICITABINE 200MG/TENOFOVIR 300MG PO SCH (10:03)
[2018-11-02] MEDS: ARTIFICIAL TEARS (POLYVINYL ALCOHOL) OPTH DROPS OU SCH ×2 (15:02→21:11)
[2018-11-02] MEDS: ATORVASTATIN CA 40 MG TABLET (FP) PO SCH (21:10)
[2018-11-02] MEDS: THIAMINE HCL 100 MG TABLET (FP) PO SCH (21:10)
[2018-11-02] MEDS ORDERED: PT OWN MED DRAWER 7, Y5N ONE (21:11)
[2018-11-02] MEDS: MELATONIN 5 MG TABLETS PO PRN (21:11)
[2018-11-03] MEDS: metFORMIN HCL 500 MG TABLET (FP) PO SCH ×2 (06:08→16:46)
[2018-11-03] MEDS: PRENATAL VITAMINS W/ FOLIC ACID TABLET (FP) PO SCH (09:42)
[2018-11-03] MEDS: HYDROCHLOROTHIAZIDE 12.5 MG CAPSULE (FP) PO SCH (09:42)
[2018-11-03] MEDS: ARTIFICIAL TEARS (POLYVINYL ALCOHOL) OPTH DROPS OU SCH ×3 (09:42→21:09)
[2018-11-03] MEDS: EFAVIRENZ 600 MG TABLET PO SCH (09:42)
[2018-11-03] MEDS: EMTRICITABINE 200MG/TENOFOVIR 300MG PO SCH (09:43)
[2018-11-03] MEDS: MELATONIN 5 MG TABLETS PO PRN (21:07)
[2018-11-03] MEDS: THIAMINE HCL 100 MG TABLET (FP) PO SCH (21:07)
[2018-11-03] MEDS: ATORVASTATIN CA 40 MG TABLET (FP) PO SCH (21:07)
[2018-11-04] MEDS: metFORMIN HCL 500 MG TABLET (FP) PO SCH ×2 (07:07→16:35)
[2018-11-04] MEDS: ARTIFICIAL TEARS (POLYVINYL ALCOHOL) OPTH DROPS OU SCH ×3 (07:08→21:06)
[2018-11-04] MEDS: EMTRICITABINE 200MG/TENOFOVIR 300MG PO SCH (09:50)
[2018-11-04] MEDS: PRENATAL VITAMINS W/ FOLIC ACID TABLET (FP) PO SCH (09:50)
[2018-11-04] MEDS: EFAVIRENZ 600 MG TABLET PO SCH (09:50)
[2018-11-04] MEDS: HYDROCHLOROTHIAZIDE 12.5 MG CAPSULE (FP) PO SCH (09:50)
[2018-11-04] MEDS: MAGNESIUM HYDROX 2400MG/30ML ORAL SUSPENSION 30 ML CUP PO PRN (19:39)
[2018-11-04] MEDS: ATORVASTATIN CA 40 MG TABLET (FP) PO SCH (21:06)
[2018-11-04] MEDS: THIAMINE HCL 100 MG TABLET (FP) PO SCH (21:06)
[2018-11-04] MEDS: MELATONIN 5 MG TABLETS PO PRN (21:07)
[2018-11-05] MEDS: ARTIFICIAL TEARS (POLYVINYL ALCOHOL) OPTH DROPS OU SCH ×3 (07:22→21:08)
[2018-11-05] MEDS: metFORMIN HCL 500 MG TABLET (FP) PO SCH ×2 (07:23→16:24)
[2018-11-05] MEDS: MAGNESIUM HYDROX 2400MG/30ML ORAL SUSPENSION 30 ML CUP PO PRN (08:44)
[2018-11-05] MEDS: HYDROCHLOROTHIAZIDE 12.5 MG CAPSULE (FP) PO SCH (09:56)
[2018-11-05] MEDS: PRENATAL VITAMINS W/ FOLIC ACID TABLET (FP) PO SCH (09:56)
[2018-11-05] MEDS: EFAVIRENZ 600 MG TABLET PO SCH (09:57)
[2018-11-05] MEDS: EMTRICITABINE 200MG/TENOFOVIR 300MG PO SCH (09:57)
[2018-11-05] MEDS: THIAMINE HCL 100 MG TABLET (FP) PO SCH (21:07)
[2018-11-05] MEDS: MELATONIN 5 MG TABLETS PO PRN (21:07)
[2018-11-05] MEDS: ATORVASTATIN CA 40 MG TABLET (FP) PO SCH (21:07)
[2018-11-06] MEDS: IBUPROFEN 400 MG TABLET (FP) PO PRN (01:41)
[2018-11-06] MEDS: ARTIFICIAL TEARS (POLYVINYL ALCOHOL) OPTH DROPS OU SCH (06:29)
[2018-11-06] MEDS: metFORMIN HCL 500 MG TABLET (FP) PO SCH (06:32)
[2018-11-06 06:45] VITALS: BP 129/76; PULSE 77; TEMP 97.1
--- NOTE | 2018-11-06 09:35 | PN ---
[facility] Progress Note Note: PT COMPLETED REHAB AND DISCHARGING TODAY. PT WAS SEEN BY HIS COUNSELOR TODAY AND PT WAS REFERRED TO [facility] ON [address], [place] FOR CD AFTERCARE/MENTAL HEALTH FOLLOW UP. PT ALSO REPORTS HE HAS A PCP(PT FORGOT NAME) AT THE [facility] ON [address] [place], [place]. PT HAS OWN MEDICATIONS IN SECURITY SAFE ON ADMISSION. PT IS ALERT O X 3. DENIES S/H/I. Home Medication List Medication Instructions Recorded Confirmed Type Carboxymethylcellulos/Glycerin 2 drop OU TID PRN 11/02/18 11/02/18 History [Refresh Optive Gel Eye Drops] Active Medications Generic Name Dose Route Start Last Admin Trade Name Freq PRN Reason Stop Dose Admin Acetaminophen 650 mg 10/29/18 15:44 Tylenol - PO Q4H PRN FEVER Al Hydroxide/Mg Hydroxide 30 ml 10/29/18 15:44 Mylanta Oral Suspension - PO Q6H PRN DYSPEPSIA Artificial Tears 1 drop 11/02/18 14:00 11/06/18 06:29 Artificial Tears OU 1 drop TID MAXIME Administration Atorvastatin Calcium 40 mg 10/29/18 22:00 11/05/18 21:07 Lipitor - PO 40 mg HS MAXIME Administration Efavirenz 600 mg 10/30/18 11:05 11/05/18 09:57 Sustiva - PO 600 mg DAILY MAXIME Administration Emtricitabine/Tenofovir 1 tab 10/30/18 11:05 11/05/18 09:57 Truvada PO 1 tab DAILY MAXIME Administration Eucalyptus/Menthol/Phenol/Sorbitol 1 each 10/29/18 15:44 Cepastat Lozenge - MM Q4H PRN SORE THROAT Guaifenesin 10 ml 10/29/18 15:44 Robitussin - PO Q6H PRN COUGH Hydrochlorothiazide 25 mg 10/30/18 10:00 11/05/18 09:56 Hctz - PO 25 mg DAILY MAXIME Administration Ibuprofen 400 mg 10/29/18 15:44 11/06/18 01:41 Motrin - PO 400 mg Q6H PRN Administration Pain level 4-6 Loperamide HCl 4 mg 10/29/18 15:44 Imodium - PO Q6H PRN DIARRHEA Magnesium Citrate 300 ml 10/29/18 15:44 Citroma - PO Q48H PRN CONSTIPATION Magnesium Hydroxide 30 ml 10/29/18 15:44 11/05/18 08:44 Milk Of Magnesia - PO 30 ml DAILY PRN Administration CONSTIPATION Melatonin 5 mg 10/29/18 22:00 11/05/18 21:07 Melatonin PO 5 mg HS PRN Administration INSOMNIA Metformin HCl 500 mg 10/29/18 16:30 11/06/18 06:32 Glucophage - PO 500 mg BID@0700,1630 MAXIME Administration Nicotine 14 mg 10/29/18 15:44 Nicoderm Patch - TD DAILY PRN NICOTINE REPLACEMENT RX Nicotine Polacrilex 2 mg 10/29/18 15:44 Nicorette Gum - BC Q2H PRN NICOTINE REPLACEMENT RX Multivit/Folic Acid/Iron 1 tab 10/30/18 10:00 11/05/18 09:56 Vitamins (Sjr) - PO 1 tab DAILY MAXIME Administration Pseudoephedrine/Triprolidine 1 combo 10/29/18 15:44 Actifed - PO TID PRN NASAL CONGESTION Thiamine HCl 100 mg 10/29/18 22:00 11/05/18 21:07 Vitamin B1 - PO 100 mg HS MAXIME Administration Vital Signs - 24 hr 11/06/18 11/06/18 03:30 06:44 Temperature 97.1 F L Pulse Rate 77 Respiratory 18 18 Rate Blood Pressure 129/76 Laboratory Tests 10/30/18 10/30/18 10/31/18 06:50 16:31 06:37 POC Glucometer 103 100 105 10/31/18 11/01/18 11/01/18 16:43 06:49 16:35 POC Glucometer 135 115 113 11/02/18 11/02/18 11/03/18 06:24 16:38 06:07 POC Glucometer 101 151 102 11/03/18 11/04/18 11/04/18 16:46 07:06 16:34 POC Glucometer 110 104 111 11/05/18 11/05/18 11/06/18 06:29 16:24 06:31 POC Glucometer 93 92 89 NAD MEDICALLY STABLE PLAN:FOLLOW UP WITH CD AFTERCARE RECOMMENDED. FOLLOW UP WITH PCP FOR MEDICAL MANAGEMENT WITHIN 1-2 WEEKS AFTER DISCHARGE..
[2018-11-06] MEDS: PRENATAL VITAMINS W/ FOLIC ACID TABLET (FP) PO SCH (09:36)
[2018-11-06] MEDS: HYDROCHLOROTHIAZIDE 12.5 MG CAPSULE (FP) PO SCH (09:36)
[2018-11-06] MEDS: EFAVIRENZ 600 MG TABLET PO SCH (09:36)
[2018-11-06] MEDS: EMTRICITABINE 200MG/TENOFOVIR 300MG PO SCH (09:36)
== END 2018-11-06 11:00 | disposition home or self-care (01) | DRG 895 ==
LOC: YASAS 18:19 → Y5N 18:21
PROVIDERS: ADMIT Neuromusculoskeletal Medicine & OMM; ATTEND Neuromusculoskeletal Medicine & OMM
PROC: HZ42ZZZ Group Counseling for Substance Abuse Treatment, Cognitive-Behavioral (ICD-10-PCS; principal; 2018-10-29)
DX: F14.20 Cocaine dependence, uncomplicated (principal); F17.210 Nicotine dependence, cigarettes, uncomplicated; I10 Essential (primary) hypertension; E11.9 Type 2 diabetes mellitus without complications; Z21 Asymptomatic human immunodeficiency virus [HIV] infection status; E78.5 Hyperlipidemia, unspecified; H91.93 Unspecified hearing loss, bilateral
CPT/HCPCS: 82962

== ENCOUNTER 2019-01-11 16:41 | Inpatient (IN) | payer OTHER | END 2019-01-14 10:15 | disposition home or self-care (01) | LOC: Y6N 01-12 01:14 → YASAS 16:41 ==

== ENCOUNTER 2019-07-14 11:42 | Inpatient (IN) | payer OTHER ==
[2019-07-14 13:12] VITALS: BMI 29.2
--- NOTE | 2019-07-14 14:07 | HP ---
CIWA Score Nausea/Vomitin Muscle Tremors: 2 Anxiety: 2 Agitation: 2 Paroxysmal Sweats: 2 Orientation: 0-Oriented Tacttile Disturbances: 2-Mild Itch/Numbness/Burn Auditory Disturbances: 0-None Visual Disturbances: 0-None Headache: 2-Mild CIWA-Ar Total Score: 14 - Admission Criteria OASAS Guidelines: Admission for Medically Managed Detox: Requires at least one of the followin. CIWA greater than 12 2. Seizures within the past 24 hours 3. Delirium tremens within the past 24 hours 4. Hallucinations within the past 24 hours 5. Acute intervention needed for co occurring medical disorder 6. Acute intervention needed for co occurring psychiatric disorder 7. Severe withdrawal that cannot be handled at a lower level of care (continued vomiting, continued diarrhea, abnormal vital signs) requiring intravenous medication and/or fluids 8. Patient presents the following: CIWA greater than 12 Admission Criteria Met: Admission criteria met Admitting History and Physical - Smoking History Smoking history: Current some day smoker Have you smoked in the past 12 months: Yes Aproximately how many cigarettes per day: 10 - Alcohol/Substance Use Hx Alcohol Use: Yes Admission ROS BHS - HPI Chief Complaint: Withdrawal sx Allergies/Adverse Reactions: Allergies Allergy/AdvReac Type Severity Reaction Status Date / Time No Known Allergies Allergy Verified 07/14/19 12:58 History of Present Illness: 53 year old man with alcohol dependence presents for detox, he is known to this facility. Patient has h/o aggressive behavior towards staff and on this admission,he has signed a behavioral contract. - Ebola screening Have you traveled outside of the country in the last 21 days: No (N) Have you had contact with anyone from an Ebola affected area: No Have you been sick,other than usual withdrawal symptoms: No Do you have a fever: No - Review of Systems Constitutional: Changes in sleep EENT: reports: Tinnitus (in right ear) Respiratory: reports: No Symptoms reported Cardiac: reports: No Symptoms Reported (on and off), Chest Tightness GI: reports: Nausea, Poor Appetite, Abdominal cramping : reports: No Symptoms Reported Musculoskeletal: reports: Muscle Pain, Muscle Weakness Integumentary: reports: Sweating Neuro: reports: Headache, Numbness, Tremors Endocrine: reports: No Symptoms Reported Hematology: reports: No Symptoms Reported Psychiatric: reports: Anxious Other Systems: Reviewed and Negative Patient History - Patient Medical History Hx Anemia: No Hx Asthma: No Hx Chronic Obstructive Pulmonary Disease (COPD): No Hx Cancer: Yes (prostate cancer - s/p prostatectomy) Hx Cardiac Disorders: No Hx Congestive Heart Failure: No Hx Hypertension: Yes Hx Hypercholesterolemia: Yes Hx Pacemaker: No HX Cerebrovascular Accident: No Hx Seizures: No Hx Dementia: No Hx Diabetes: Yes Hx Gastrointestinal Disorders: No Hx Liver Disease: No Hx Genitourinary Disorders: No Hx Sexually Transmitted Disorders: Yes Hx Renal Disease (ESRD): No Hx Thyroid Disease: No Hx Human Immunodeficiency Virus (HIV): Yes (diagnosed in 2007) Hx Hepatitis C: No Hx Depression: Yes Hx Suicide Attempt: No Hx Bipolar Disorder: Yes Hx Schizophrenia: No Other Medical History: bilateral hearing loss - Patient Surgical History Past Surgical History: Yes Hx Neurologic Surgery: No Hx Cataract Extraction: No Hx Cardiac Surgery: No Hx Lung Surgery: No Hx Breast Surgery: No Hx Breast Biopsy: No Hx Abdominal Surgery: No Hx Appendectomy: No Hx Cholecystectomy: No Hx Genitourinary Surgery: No Hx Section: No Hx Orthopedic Surgery: No Other Surgical History: left ear surg ; prostate sx 08/2016 Anesthesia Reaction: No - PPD History Documented Results: Negative w/proof Implanted On Prior [facility] Admission?: Yes Date: 04/25/18 Results: 0mm PPD to be Administered?: Yes - Smoking Cessation Smoking history: Current some day smoker Have you smoked in the past 12 months: Yes Aproximately how many cigarettes per day: 10 Cigars Per Day: 0 Hx Chewing Tobacco Use: No Initiated information on smoking cessation: Yes 'Breaking Loose' booklet given: 07/14/19 - Substances abused Alcohol Substance route: Oral Frequency: Daily Amount used: 4 (40oz beers)/3pints of bacardi Age of first use: 17 Date of last use: 07/14/19 Crack Substance route: Smoking Frequency: Daily Amount used: 150$ Age of first use: 24 Date of last use: 07/13/19 Admission Physical Exam BHS - Vital Signs Vital Signs: Vital Signs - 24 hr 07/14/19 13:04 Temperature 98.5 F Pulse Rate 90 Respiratory 18 Rate Blood Pressure 135/80 - Physical General Appearance: Yes: No Apparent Distress HEENTM: Yes: Normocephalic, Pharynx Normal, Other (hearing loss) Respiratory: Yes: Chest Non-Tender, Lungs Clear, Decreased Breath Sounds, No Respiratory Distress, No Accessory Muscle Use Neck: Yes: No masses,lesions,Nodules, Supple Breast: Yes: Breast Exam Deferred Cardiology: Yes: Regular Rhythm, Regular Rate, S1, S2 Abdominal: Yes: Normal Bowel Sounds, Soft Genitourinary: Yes: Within Normal Limits Back: Yes: Normal Inspection Musculoskeletal: Yes: full range of Motion, Gait Steady, Back pain, Muscle Pain Extremities: Yes: Normal Range of Motion, Tremors Neurological: Yes: sub arc operator II-XII NML intact, Fully Oriented, Motor Strength 5/5, Normal Mood/Affect, Normal Response Integumentary: Yes: Warm Lymphatic: Yes: Within Normal Limits - Diagnostic (1) Cocaine dependence, uncomplicated Current Visit: Yes Status: Acute (2) HTN (hypertension) Current Visit: Yes Status: Chronic Qualifiers: Hypertension type: essential hypertension Qualified Code(s): I10 - Essential (primary) hypertension (3) Human immunodeficiency virus infection Current Visit: Yes Status: Chronic (4) Nicotine dependence Current Visit: Yes Status: Acute Qualifiers: Nicotine product type: cigarettes Substance use status: uncomplicated Qualified Code(s): F17.210 - Nicotine dependence, cigarettes, uncomplicated (5) hearing loss left wearing hearing aide Current Visit: Yes Status: Chronic (6) Drug-induced mood disorder Current Visit: Yes Status: Chronic Cleared for Admission [facility] - Detox or Rehab [facility] Level of Care: Medically Managed Detox Regimen/Protocol: Librium Claeared for Rehab Admission: No Breathalyzer - Breathalyzer Breathalyzer: 0 Urine Drug Screen - Test Device Lot number: [id number] Expiration date: 08/16/20 - Control Is test valid?: Yes - Results Drug screen NEGATIVE: No Urine drug screen results: THC-Marijuana, MINNIE-Cocaine Inpatient Rehab Admission - Rehab Decision to Admit Inpatient rehab admission?: No
[2019-07-14] MEDS ORDERED: MAGNESIUM HYDROX 2400MG/30ML ORAL SUSPENSION 30 ML CUP PO PRN (14:21)
[2019-07-14] MEDS ORDERED: BISMUTH SUBSALICYLATE 524 MG/30 ML UD PO PRN (14:21)
[2019-07-14] MEDS ORDERED: IBUPROFEN 400 MG TABLET (FP) PO PRN (14:21)
[2019-07-14] MEDS ORDERED: MENTHOL/PHENOL 1 EACH UD MM PRN (14:21)
[2019-07-14] MEDS ORDERED: hydrOXYzine PAMOATE 25 MG CAPSULE (FP) PO PRN (14:21)
[2019-07-14] MEDS ORDERED: chlordiazePOXIDE HCL 25 MG CAPSULE PO ONE (14:21)
[2019-07-14] MEDS ORDERED: METHOCARBAMOL 500 MG TABLET PO PRN (14:21)
[2019-07-14] MEDS ORDERED: ONDANSETRON *ODT* 4 MG TABLET SL PRN (14:21)
[2019-07-14] MEDS ORDERED: chlordiazePOXIDE HCL 10 MG CAPSULE PO PRN (14:21)
[2019-07-14] MEDS ORDERED: ACETAMINOPHEN 325 MG TABLET (FP) PO PRN ×2 (14:21)
[2019-07-14] MEDS ORDERED: MAGNESIUM CITRATE 300 ML BOTTLE PO PRN (14:21)
[2019-07-14] MEDS ORDERED: MAG HYDROX/AL HYDROX/SIMETH 30 ML UNIT-DOSE CUP PO PRN (14:21)
[2019-07-14] MEDS ORDERED: NICOTINE POLACRILEX 2 MG GUM BUC PRN (14:21)
[2019-07-14] MEDS: NICOTINE 14 MG/24 HOURS TOPICAL PATCH TD SCH (18:07)
[2019-07-14] MEDS: metFORMIN HCL 500 MG TABLET (FP) PO SCH (18:10)
[2019-07-14] MEDS ORDERED: ATORVASTATIN CA 40 MG TABLET (FP) PO SCH (22:00)
[2019-07-14] MEDS: THIAMINE HCL 100 MG TABLET (FP) PO SCH (22:24)
[2019-07-14] MEDS: chlordiazePOXIDE HCL 25 MG CAPSULE PO SCH (22:24)
[2019-07-14] MEDS: QUEtiapine FUMARATE 50 MG TABLET PO SCH (22:25)
[2019-07-14] MEDS: MELATONIN 5 MG TABLETS PO PRN (22:26)
[2019-07-15] MEDS: metFORMIN HCL 500 MG TABLET (FP) PO SCH ×2 (07:43→17:37)
[2019-07-15] MEDS: chlordiazePOXIDE HCL 25 MG CAPSULE PO SCH ×3 (07:43→22:03)
[2019-07-15 09:37] LABS: HEMOGLOBIN 12.8 GM/dL (11.7-16.9); MCH 28.4 pg (25.7-33.7); MCHC 33.7 g/dl (32.0-35.9); MEAN CELL VOLUME 84.5 fl (80-96); MEAN PLT VOLUME 7.5 fl (7.5-11.1); PLATELET COUNT 277 K/MM3 (134-434); RBC 4.49 M/mm3 (4.00-5.60); RDW 15.1 % (11.9-15.9); WHITE BLOOD COUNT 5.1 K/mm3 (4.0-10.0)
[2019-07-15 09:49] LABS: ALBUMIN 3.7 g/dl (3.4-5.0); BILIRUBIN,TOTAL 0.3 mg/dL (0.2-1); BLOOD UREA NITROGEN 21.5 mg/dL (7-18); CALCIUM 9.1 mg/dL (8.5-10.1); CREATININE 1.3 mg/dL (0.55-1.3); POTASSIUM 4.1 mmol/L (3.5-5.1); TOT PROT 6.9 g/dl (6.4-8.2)
[2019-07-15] MEDS: HYDROCHLOROTHIAZIDE 12.5 MG CAPSULE (FP) PO SCH (10:25)
[2019-07-15] MEDS: NICOTINE 14 MG/24 HOURS TOPICAL PATCH TD SCH (10:25)
[2019-07-15] MEDS: PRENATAL VITAMINS W/ FOLIC ACID TABLET (FP) PO SCH (10:25)
--- NOTE | 2019-07-15 12:00 | PN ---
[facility] CIWA - CIWA Score Nausea/Vomitin-No Nausea/No Vomiting Muscle Tremors: 3 Anxiety: 4-Mod. Anxious/Guarded Agitation: 0-Normal Activity Paroxysmal Sweats: 2 Orientation: 0-Oriented Tacttile Disturbances: 0-None Auditory Disturbances: 0-None Visual Disturbances: 0-None Headache: 2-Mild CIWA-Ar Total Score: 11 S Progress Note (SOAP) Subjective: 53 years old male admitted on 07/14/19 for alcohol withdrawal sx management treating with librium detox regimen resting in bed ate breakfast limited conversation with staff no eye contact Objective: 07/15/19 12:00 Vital Signs Temperature 97.4 F L 07/15/19 09:24 Pulse Rate 88 07/15/19 09:24 Respiratory Rate 17 07/15/19 09:24 Blood Pressure 117/75 07/15/19 09:24 O2 Sat by Pulse Oximetry (%) Laboratory Last Values WBC 5.1 K/mm3 (4.0-10.0) 07/15/19 08:00 RBC 4.49 M/mm3 (4.00-5.60) 07/15/19 08:00 Hgb 12.8 GM/dL (11.7-16.9) 07/15/19 08:00 Hct 38.0 % (35.4-49) 07/15/19 08:00 MCV 84.5 fl (80-96) 07/15/19 08:00 MCH 28.4 pg (25.7-33.7) 07/15/19 08:00 MCHC 33.7 g/dl (32.0-35.9) 07/15/19 08:00 RDW 15.1 % (11.9-15.9) 07/15/19 08:00 Plt Count 277 K/MM3 (134-434) 07/15/19 08:00 MPV 7.5 fl (7.5-11.1) 07/15/19 08:00 Sodium 141 mmol/L (136-145) 07/15/19 08:00 Potassium 4.1 mmol/L (3.5-5.1) 07/15/19 08:00 Chloride 108 mmol/L (98-107) H 07/15/19 08:00 Carbon Dioxide 27 mmol/L (21-32) 07/15/19 08:00 Anion Gap 6 MMOL/L (8-16) L 07/15/19 08:00 BUN 21.5 mg/dL (7-18) H 07/15/19 08:00 Creatinine 1.3 mg/dL (0.55-1.3) 07/15/19 08:00 Est GFR (CKD-EPI)AfAm 72.71 07/15/19 08:00 Est GFR (CKD-EPI)NonAf 62.73 07/15/19 08:00 POC Glucometer 129 UNITS (80-120) 07/15/19 07:46 Random Glucose 94 mg/dL (74-106) 07/15/19 08:00 Calcium 9.1 mg/dL (8.5-10.1) 07/15/19 08:00 Total Bilirubin 0.3 mg/dL (0.2-1) 07/15/19 08:00 AST 48 U/L (15-37) H 07/15/19 08:00 ALT 47 U/L (13-61) 07/15/19 08:00 Alkaline Phosphatase 70 U/L (45-117) 07/15/19 08:00 Total Protein 6.9 g/dl (6.4-8.2) 07/15/19 08:00 Albumin 3.7 g/dl (3.4-5.0) 07/15/19 08:00 RPR Titer Nonreactive (NONREACTIVE) 07/15/19 08:00 lab noted Assessment: 07/15/19 12:00 alcohol withdrawal Plan: librium regimen
--- NOTE | 2019-07-15 17:51 | PN ---
[facility] Progress Note Note: Patients' home pharamcy called and confirmed the following information: Genvoya 1 tab PO daily - last rx/ pick-up 06/24/19 HCTZ 25 mg po - last rx/ pick-up 06/24/19 Atorvastatin -last rx/ pick-up 06/24/19 Metformin 500 mg PO BID last rx/ pick-up 06/24/19 Current prescription for Trazodone 50 mg - to be picked up (Last Trazodone was for 100 mg on 05/2019) Seroquel Last rx/ pick-up 10/2018 Plan: Will order Genvoya and continue HCTZ/Metformin/Atorvastatin
[2019-07-15] MEDS: ELVITEG/COB/EMTRI/TENOF (GENVOYA) TABLET (NF) PO SCH (19:14)
[2019-07-15] MEDS: ATORVASTATIN CA 20 MG TABLET (FP) PO SCH (22:03)
[2019-07-15] MEDS: QUEtiapine FUMARATE 50 MG TABLET PO SCH (22:03)
[2019-07-15] MEDS: THIAMINE HCL 100 MG TABLET (FP) PO SCH (22:03)
[2019-07-15] MEDS: MELATONIN 5 MG TABLETS PO PRN (23:05)
[2019-07-16] MEDS: chlordiazePOXIDE 5 MG CAPSULE PO SCH ×3 (07:10→21:27)
[2019-07-16] MEDS: metFORMIN HCL 500 MG TABLET (FP) PO SCH ×2 (07:10→17:02)
[2019-07-16] MEDS: ELVITEG/COB/EMTRI/TENOF (GENVOYA) TABLET (NF) PO SCH (07:11)
--- NOTE | 2019-07-16 10:00 | PN ---
[facility] CIWA - CIWA Score Nausea/Vomitin-No Nausea/No Vomiting Muscle Tremors: 2 Anxiety: 2 Agitation: 2 Paroxysmal Sweats: 2 Orientation: 0-Oriented Tacttile Disturbances: 0-None Auditory Disturbances: 0-None Visual Disturbances: 0-None Headache: 0-None Present CIWA-Ar Total Score: 8 S Progress Note (SOAP) Subjective: 53 years old male admitted on 07/14/19 for alcohol withdrawal sx management treating with librium detox regiment feeling ok today ambulating on hallway limited socialization with peers and staff resume [facility] hypercholesterol hypertension and diabetes medications Objective: 07/16/19 10:00 Vital Signs Temperature 97.9 F 07/16/19 09:12 Pulse Rate 84 07/16/19 09:12 Respiratory Rate 18 07/16/19 09:12 Blood Pressure 119/76 07/16/19 09:12 O2 Sat by Pulse Oximetry (%) Laboratory Last Values WBC 5.1 K/mm3 (4.0-10.0) 07/15/19 08:00 RBC 4.49 M/mm3 (4.00-5.60) 07/15/19 08:00 Hgb 12.8 GM/dL (11.7-16.9) 07/15/19 08:00 Hct 38.0 % (35.4-49) 07/15/19 08:00 MCV 84.5 fl (80-96) 07/15/19 08:00 MCH 28.4 pg (25.7-33.7) 07/15/19 08:00 MCHC 33.7 g/dl (32.0-35.9) 07/15/19 08:00 RDW 15.1 % (11.9-15.9) 07/15/19 08:00 Plt Count 277 K/MM3 (134-434) 07/15/19 08:00 MPV 7.5 fl (7.5-11.1) 07/15/19 08:00 Sodium 141 mmol/L (136-145) 07/15/19 08:00 Potassium 4.1 mmol/L (3.5-5.1) 07/15/19 08:00 Chloride 108 mmol/L (98-107) H 07/15/19 08:00 Carbon Dioxide 27 mmol/L (21-32) 07/15/19 08:00 Anion Gap 6 MMOL/L (8-16) L 07/15/19 08:00 BUN 21.5 mg/dL (7-18) H 07/15/19 08:00 Creatinine 1.3 mg/dL (0.55-1.3) 07/15/19 08:00 Est GFR (CKD-EPI)AfAm 72.71 07/15/19 08:00 Est GFR (CKD-EPI)NonAf 62.73 07/15/19 08:00 POC Glucometer 104 UNITS (80-120) 07/16/19 07:13 Random Glucose 94 mg/dL (74-106) 07/15/19 08:00 Calcium 9.1 mg/dL (8.5-10.1) 07/15/19 08:00 Total Bilirubin 0.3 mg/dL (0.2-1) 07/15/19 08:00 AST 48 U/L (15-37) H 07/15/19 08:00 ALT 47 U/L (13-61) 07/15/19 08:00 Alkaline Phosphatase 70 U/L (45-117) 07/15/19 08:00 Total Protein 6.9 g/dl (6.4-8.2) 07/15/19 08:00 Albumin 3.7 g/dl (3.4-5.0) 07/15/19 08:00 RPR Titer Nonreactive (NONREACTIVE) 07/15/19 08:00 lab noted Assessment: 07/16/19 10:00 alcohol withdrawal Plan: librium regiment
[2019-07-16] MEDS: HYDROCHLOROTHIAZIDE 12.5 MG CAPSULE (FP) PO SCH (10:23)
[2019-07-16] MEDS: PRENATAL VITAMINS W/ FOLIC ACID TABLET (FP) PO SCH (10:23)
[2019-07-16] MEDS: NICOTINE 14 MG/24 HOURS TOPICAL PATCH TD SCH (10:24)
[2019-07-16] MEDS: QUEtiapine FUMARATE 50 MG TABLET PO SCH (21:28)
[2019-07-16] MEDS: MELATONIN 5 MG TABLETS PO PRN (21:28)
[2019-07-16] MEDS: ATORVASTATIN CA 20 MG TABLET (FP) PO SCH (21:28)
[2019-07-16] MEDS: THIAMINE HCL 100 MG TABLET (FP) PO SCH (21:28)
[2019-07-17] MEDS ORDERED: chlordiazePOXIDE HCL 10 MG CAPSULE PO PRN
[2019-07-17] MEDS: chlordiazePOXIDE HCL 10 MG CAPSULE PO SCH ×3 (06:21→22:24)
[2019-07-17] MEDS: metFORMIN HCL 500 MG TABLET (FP) PO SCH ×2 (06:22→17:18)
[2019-07-17] MEDS: PRENATAL VITAMINS W/ FOLIC ACID TABLET (FP) PO SCH (10:31)
[2019-07-17] MEDS: ELVITEG/COB/EMTRI/TENOF (GENVOYA) TABLET (NF) PO SCH (10:31)
[2019-07-17] MEDS: NICOTINE 14 MG/24 HOURS TOPICAL PATCH TD SCH (10:32)
[2019-07-17] MEDS: HYDROCHLOROTHIAZIDE 12.5 MG CAPSULE (FP) PO SCH (10:32)
--- NOTE | 2019-07-17 10:46 | PN ---
[facility] CIWA - CIWA Score Nausea/Vomitin-No Nausea/No Vomiting Muscle Tremors: 1-None Visible, but [place] Anxiety: 1-Mildly Anxious Agitation: 1-Slight > Activity Paroxysmal Sweats: 1-Minimal Palms Moist Orientation: 0-Oriented Tacttile Disturbances: 0-None Auditory Disturbances: 0-None Visual Disturbances: 0-None Headache: 0-None Present CIWA-Ar Total Score: 4 BHS Progress Note (SOAP) Subjective: 53 years old male admitted on 07/14/19 for alcohol withdrawal sx management treating with librium detox regiment cooperative with staff ate breakfast stay in room most of time had hearing aid in place Objective: 07/17/19 10:45 Vital Signs Temperature 97.6 F 07/17/19 08:16 Pulse Rate 91 H 07/17/19 08:16 Respiratory Rate 20 07/17/19 08:16 Blood Pressure 147/84 07/17/19 08:16 O2 Sat by Pulse Oximetry (%) Laboratory Last Values WBC 5.1 K/mm3 (4.0-10.0) 07/15/19 08:00 RBC 4.49 M/mm3 (4.00-5.60) 07/15/19 08:00 Hgb 12.8 GM/dL (11.7-16.9) 07/15/19 08:00 Hct 38.0 % (35.4-49) 07/15/19 08:00 MCV 84.5 fl (80-96) 07/15/19 08:00 MCH 28.4 pg (25.7-33.7) 07/15/19 08:00 MCHC 33.7 g/dl (32.0-35.9) 07/15/19 08:00 RDW 15.1 % (11.9-15.9) 07/15/19 08:00 Plt Count 277 K/MM3 (134-434) 07/15/19 08:00 MPV 7.5 fl (7.5-11.1) 07/15/19 08:00 Sodium 141 mmol/L (136-145) 07/15/19 08:00 Potassium 4.1 mmol/L (3.5-5.1) 07/15/19 08:00 Chloride 108 mmol/L (98-107) H 07/15/19 08:00 Carbon Dioxide 27 mmol/L (21-32) 07/15/19 08:00 Anion Gap 6 MMOL/L (8-16) L 07/15/19 08:00 BUN 21.5 mg/dL (7-18) H 07/15/19 08:00 Creatinine 1.3 mg/dL (0.55-1.3) 07/15/19 08:00 Est GFR (CKD-EPI)AfAm 72.71 07/15/19 08:00 Est GFR (CKD-EPI)NonAf 62.73 07/15/19 08:00 POC Glucometer 104 UNITS (80-120) 07/17/19 06:39 Random Glucose 94 mg/dL (74-106) 07/15/19 08:00 Calcium 9.1 mg/dL (8.5-10.1) 07/15/19 08:00 Total Bilirubin 0.3 mg/dL (0.2-1) 07/15/19 08:00 AST 48 U/L (15-37) H 07/15/19 08:00 ALT 47 U/L (13-61) 07/15/19 08:00 Alkaline Phosphatase 70 U/L (45-117) 07/15/19 08:00 Total Protein 6.9 g/dl (6.4-8.2) 07/15/19 08:00 Albumin 3.7 g/dl (3.4-5.0) 07/15/19 08:00 RPR Titer Nonreactive (NONREACTIVE) 07/15/19 08:00 lab noted Assessment: 07/17/19 10:45 alcohol withdrawal Plan: librium regiment
[2019-07-17] MEDS: THIAMINE HCL 100 MG TABLET (FP) PO SCH (22:24)
[2019-07-17] MEDS: QUEtiapine FUMARATE 50 MG TABLET PO SCH (22:24)
[2019-07-17] MEDS: ATORVASTATIN CA 20 MG TABLET (FP) PO SCH (22:24)
[2019-07-18] MEDS ORDERED: chlordiazePOXIDE HCL 10 MG CAPSULE PO ONE (05:00)
[2019-07-18] MEDS: metFORMIN HCL 500 MG TABLET (FP) PO SCH ×2 (06:41→16:49)
[2019-07-18] MEDS: HYDROCHLOROTHIAZIDE 12.5 MG CAPSULE (FP) PO SCH (10:41)
[2019-07-18] MEDS: PRENATAL VITAMINS W/ FOLIC ACID TABLET (FP) PO SCH (10:42)
[2019-07-18] MEDS: NICOTINE 14 MG/24 HOURS TOPICAL PATCH TD SCH (10:43)
[2019-07-18] MEDS: ELVITEG/COB/EMTRI/TENOF (GENVOYA) TABLET (NF) PO SCH (11:16)
--- NOTE | 2019-07-18 12:55 | PN ---
S Progress Note (SOAP) Subjective: Patient Name: rodney osuna Date of : 1965 Patient Status: Inpatient Attending Provider: Kaveh Santizo Date: 07/14/19 12:42 Initialization Date: 07/14/19 12:4 Original Note: [facility] CIWA - CIWA Score Nausea/Vomitin-No Nausea/No Vomiting Muscle Tremors: 2 Anxiety: 2 Agitation: 2 Paroxysmal Sweats: No Perspiration Orientation: 0-Oriented Tacttile Disturbances: 0-None Auditory Disturbances: 0-None Visual Disturbances: 0-None Headache: 0-None Present CIWA-Ar Total Score: 6 S Progress Note (SOAP) Subjective: 55 years old male admitted on 07/14/19 for alcohol withdrawal sx management treating with librium detox regiments hard of hearing both ears signed behavior contract upon admission that self control is necessary at all time while in detox and rehab patient is anxious about the discharge that he wants to maintain sober possible anxiety related loud and aggression emotional assurance given continue observe alcohol withdrawal related behavior issues Objective: Vital Signs Temperature 98.0 F 07/18/19 08:52 Pulse Rate 87 07/18/19 08:52 Respiratory Rate 18 07/18/19 08:52 Blood Pressure 137/90 07/18/19 08:52 O2 Sat by Pulse Oximetry (%) Laboratory Last Values WBC 5.1 K/mm3 (4.0-10.0) 07/15/19 08:00 RBC 4.49 M/mm3 (4.00-5.60) 07/15/19 08:00 Hgb 12.8 GM/dL (11.7-16.9) 07/15/19 08:00 Hct 38.0 % (35.4-49) 07/15/19 08:00 MCV 84.5 fl (80-96) 07/15/19 08:00 MCH 28.4 pg (25.7-33.7) 07/15/19 08:00 MCHC 33.7 g/dl (32.0-35.9) 07/15/19 08:00 RDW 15.1 % (11.9-15.9) 07/15/19 08:00 Plt Count 277 K/MM3 (134-434) 07/15/19 08:00 MPV 7.5 fl (7.5-11.1) 07/15/19 08:00 Sodium 141 mmol/L (136-145) 07/15/19 08:00 Potassium 4.1 mmol/L (3.5-5.1) 07/15/19 08:00 Chloride 108 mmol/L (98-107) H 07/15/19 08:00 Carbon Dioxide 27 mmol/L (21-32) 07/15/19 08:00 Anion Gap 6 MMOL/L (8-16) L 07/15/19 08:00 BUN 21.5 mg/dL (7-18) H 07/15/19 08:00 Creatinine 1.3 mg/dL (0.55-1.3) 07/15/19 08:00 Est GFR (CKD-EPI)AfAm 72.71 07/15/19 08:00 Est GFR (CKD-EPI)NonAf 62.73 07/15/19 08:00 POC Glucometer 117 UNITS (80-120) 07/18/19 06:42 Random Glucose 94 mg/dL (74-106) 07/15/19 08:00 Calcium 9.1 mg/dL (8.5-10.1) 07/15/19 08:00 Total Bilirubin 0.3 mg/dL (0.2-1) 07/15/19 08:00 AST 48 U/L (15-37) H 07/15/19 08:00 ALT 47 U/L (13-61) 07/15/19 08:00 Alkaline Phosphatase 70 U/L (45-117) 07/15/19 08:00 Total Protein 6.9 g/dl (6.4-8.2) 07/15/19 08:00 Albumin 3.7 g/dl (3.4-5.0) 07/15/19 08:00 RPR Titer Nonreactive (NONREACTIVE) 07/15/19 08:00 lab noted
[2019-07-18 13:31] VITALS: BP 125/84; PULSE 93; TEMP 98.1
--- NOTE | 2019-07-18 15:53 | DS ---
[facility] Detox Discharge Summary Admission Date: 07/14/19 Discharge Date: 07/18/19 - History Present History: Alcohol Dependence Additional Comments: 53 years old male admitted on 07/14/19 for alcohol withdrawal sx management treated wt librium detox regiment patient has completed librium regiment and tolerated well alert oriented x 3 respiratory clear lungs bilaterally on auscultation extremities full range of motion skin warm and dry - Physical Exam Results Vital Signs: Vital Signs Temperature 98.1 F 07/18/19 12:35 Pulse Rate 93 H 07/18/19 12:35 Respiratory Rate 07/18/19 12:35 Blood Pressure 125/84 07/18/19 12:35 O2 Sat by Pulse Oximetry (%) Pertinent Admission Physical Exam Findings: alcohol withdrawal Laboratory Last Values WBC 5.1 K/mm3 (4.0-10.0) 07/15/19 08:00 RBC 4.49 M/mm3 (4.00-5.60) 07/15/19 08:00 Hgb 12.8 GM/dL (11.7-16.9) 07/15/19 08:00 Hct 38.0 % (35.4-49) 07/15/19 08:00 MCV 84.5 fl (80-96) 07/15/19 08:00 MCH 28.4 pg (25.7-33.7) 07/15/19 08:00 MCHC 33.7 g/dl (32.0-35.9) 07/15/19 08:00 RDW 15.1 % (11.9-15.9) 07/15/19 08:00 Plt Count 277 K/MM3 (134-434) 07/15/19 08:00 MPV 7.5 fl (7.5-11.1) 07/15/19 08:00 Sodium 141 mmol/L (136-145) 07/15/19 08:00 Potassium 4.1 mmol/L (3.5-5.1) 07/15/19 08:00 Chloride 108 mmol/L (98-107) H 07/15/19 08:00 Carbon Dioxide 27 mmol/L (21-32) 07/15/19 08:00 Anion Gap 6 MMOL/L (8-16) L 07/15/19 08:00 BUN 21.5 mg/dL (7-18) H 07/15/19 08:00 Creatinine 1.3 mg/dL (0.55-1.3) 07/15/19 08:00 Est GFR (CKD-EPI)AfAm 72.71 07/15/19 08:00 Est GFR (CKD-EPI)NonAf 62.73 07/15/19 08:00 POC Glucometer 117 UNITS (80-120) 07/18/19 06:42 Random Glucose 94 mg/dL (74-106) 07/15/19 08:00 Calcium 9.1 mg/dL (8.5-10.1) 07/15/19 08:00 Total Bilirubin 0.3 mg/dL (0.2-1) 07/15/19 08:00 AST 48 U/L (15-37) H 07/15/19 08:00 ALT 47 U/L (13-61) 07/15/19 08:00 Alkaline Phosphatase 70 U/L (45-117) 07/15/19 08:00 Total Protein 6.9 g/dl (6.4-8.2) 07/15/19 08:00 Albumin 3.7 g/dl (3.4-5.0) 07/15/19 08:00 RPR Titer Nonreactive (NONREACTIVE) 07/15/19 08:00 lab noted - Treatment Hospital Course: Detox Protocol Followed, Detoxed Safely, Responded well, Discharged Condition Good, Rehab Referral Accepted Patient has Accepted [facility] Referral [facility] - Medication Discharge Medications: Ambulatory Orders Atorvastatin Calcium 40 mg PO HS #14 tablet 12/31/17 Hydrochlorothiazide [Hctz -] 25 mg PO DAILY #14 cap 12/31/17 metFORMIN HCL [Glucophage -] 500 mg PO BID #30 tablet 12/31/17 Quetiapine Fumarate [Seroquel -] 50 mg PO HS #30 tablet 02/11/18 Carboxymethylcellulos/Glycerin [Refresh Optive Gel Eye Drops] 2 drop OU TID PRN 11/02/18 Multivitamin [Multiple Vitamins] 1 each PO DAILY 11/21/18 Elviteg/Cob/Emtri/Tenof Alafen [Genvoya Tablet] 1 tablet PO DAILY 07/14/19 - Diagnosis (1) Nicotine dependence Current Visit: Yes Status: Acute Qualifiers: Nicotine product type: cigarettes Substance use status: in withdrawal Qualified Code(s): F17.213 - Nicotine dependence, cigarettes, with withdrawal (2) HTN (hypertension) Current Visit: Yes Status: Chronic Qualifiers: Hypertension type: essential hypertension Qualified Code(s): I10 - Essential (primary) hypertension (3) Human immunodeficiency virus infection Current Visit: Yes Status: Chronic (4) hearing loss left wearing hearing aide Current Visit: Yes Status: Chronic (5) Substance induced mood disorder Current Visit: Yes Status: Suspected (6) DM2 (diabetes mellitus, type 2) Current Visit: Yes Status: Chronic Qualifiers: Diabetes mellitus penitentiary insulin use: without penitentiary use Diabetes mellitus complication status: without complication Qualified Code(s): E11.9 - Type 2 diabetes mellitus without complications (7) Hyperlipidemia Current Visit: Yes Status: Chronic Qualifiers: Hyperlipidemia type: pure hypertriglyceridemia Qualified Code(s): E78.1 - Pure hyperglyceridemia (8) deafness of right ear Current Visit: Yes Status: Chronic - AMA Did Patient Leave Against Medical Advice: No CIWA Score - CIWA Score Nausea/Vomitin-No Nausea/No Vomiting Muscle Tremors: 1-None Visible, but [place] Anxiety: 1-Mildly Anxious Agitation: 1-Slight > Activity Paroxysmal Sweats: 1-Minimal Palms Moist Orientation: 0-Oriented Tacttile Disturbances: 0-None Auditory Disturbances: 0-None Visual Disturbances: 0-None Headache: 0-None Present CIWA-Ar Total Score: 4
== END 2019-07-18 18:12 | disposition other institution (70) | DRG 897 ==
LOC: YASAS 11:42 → Y6N 14:43 → Y3N 14:49
PROVIDERS: ADMIT Allergy & Immunology; ATTEND Allergy & Immunology
PROC: HZ2ZZZZ Detoxification Services for Substance Abuse Treatment (ICD-10-PCS; principal; 2019-07-14)
DX: F10.230 Alcohol dependence with withdrawal, uncomplicated (principal); F14.20 Cocaine dependence, uncomplicated; F17.210 Nicotine dependence, cigarettes, uncomplicated; F19.24 Other psychoactive substance dependence with psychoactive substance-induced mood disorder; I10 Essential (primary) hypertension; Z21 Asymptomatic human immunodeficiency virus [HIV] infection status; H91.8X3 Other specified hearing loss, bilateral; E11.9 Type 2 diabetes mellitus without complications; E78.5 Hyperlipidemia, unspecified; Z85.46 Personal history of malignant neoplasm of prostate; Z87.438 Personal history of other diseases of male genital organs
CPT/HCPCS: 36415; 80053; 82962; 85027; 86593

== ENCOUNTER 2019-07-18 18:21 | Inpatient (IN) | payer OTHER ==
[2019-07-18] MEDS ORDERED: IBUPROFEN 400 MG TABLET (FP) PO PRN (19:25)
[2019-07-18] MEDS ORDERED: MAG HYDROX/AL HYDROX/SIMETH 30 ML UNIT-DOSE CUP PO PRN (19:26)
[2019-07-18] MEDS ORDERED: LOPERAMIDE HCL 2 MG CAPSULE PO PRN (19:26)
[2019-07-18] MEDS ORDERED: MAGNESIUM CITRATE 300 ML BOTTLE PO PRN (19:27)
[2019-07-18] MEDS ORDERED: MENTHOL/PHENOL 1 EACH UD MM PRN (19:29)
[2019-07-18] MEDS ORDERED: NICOTINE POLACRILEX 2 MG GUM BUC PRN (19:29)
[2019-07-18] MEDS ORDERED: P-EPHED 60MG/TRIPROLIDI 2.5MG TABLET PO PRN (19:30)
[2019-07-18] MEDS ORDERED: ACETAMINOPHEN 325 MG TABLET (FP) PO PRN (19:32)
[2019-07-18] MEDS ORDERED: guaiFENesin 200 MG/10 ML 10 ML UNIT-DOSE CUPS PO PRN (19:33)
[2019-07-18] MEDS: THIAMINE HCL 100 MG TABLET (FP) PO SCH (21:34)
[2019-07-18] MEDS: QUEtiapine FUMARATE 50 MG TABLET PO SCH (21:34)
[2019-07-18] MEDS: MELATONIN 5 MG TABLETS PO PRN (21:34)
[2019-07-18] MEDS: ATORVASTATIN CA 20 MG TABLET (FP) PO SCH (21:34)
[2019-07-19] MEDS: metFORMIN HCL 500 MG TABLET (FP) PO SCH ×2 (06:24→16:58)
[2019-07-19] MEDS: ELVITEG/COB/EMTRI/TENOF (GENVOYA) TABLET (NF) PO SCH (07:05)
[2019-07-19] MEDS: NICOTINE 14 MG/24 HOURS TOPICAL PATCH TD SCH (10:53)
[2019-07-19] MEDS: PRENATAL VITAMINS W/ FOLIC ACID TABLET (FP) PO SCH (10:53)
[2019-07-19] MEDS: HYDROCHLOROTHIAZIDE 25 MG TABLET (FP) PO SCH (10:53)
[2019-07-19] MEDS: MAGNESIUM HYDROX 2400MG/30ML ORAL SUSPENSION 30 ML CUP PO PRN (16:03)
[2019-07-19] MEDS: ATORVASTATIN CA 20 MG TABLET (FP) PO SCH (21:19)
[2019-07-19] MEDS: QUEtiapine FUMARATE 50 MG TABLET PO SCH (21:19)
[2019-07-19] MEDS: MELATONIN 5 MG TABLETS PO PRN (21:19)
[2019-07-19] MEDS: THIAMINE HCL 100 MG TABLET (FP) PO SCH (21:19)
[2019-07-20] MEDS: metFORMIN HCL 500 MG TABLET (FP) PO SCH ×2 (07:05→17:21)
[2019-07-20] MEDS: ELVITEG/COB/EMTRI/TENOF (GENVOYA) TABLET (NF) PO SCH (07:06)
[2019-07-20] MEDS: PRENATAL VITAMINS W/ FOLIC ACID TABLET (FP) PO SCH (09:42)
[2019-07-20] MEDS: HYDROCHLOROTHIAZIDE 25 MG TABLET (FP) PO SCH (09:42)
[2019-07-20] MEDS: NICOTINE 14 MG/24 HOURS TOPICAL PATCH TD SCH (09:43)
[2019-07-20] MEDS: MAGNESIUM HYDROX 2400MG/30ML ORAL SUSPENSION 30 ML CUP PO PRN (18:08)
[2019-07-20] MEDS: ATORVASTATIN CA 20 MG TABLET (FP) PO SCH (21:41)
[2019-07-20] MEDS: THIAMINE HCL 100 MG TABLET (FP) PO SCH (21:41)
[2019-07-20] MEDS: QUEtiapine FUMARATE 50 MG TABLET PO SCH (21:41)
[2019-07-21] MEDS: metFORMIN HCL 500 MG TABLET (FP) PO SCH ×2 (07:02→17:01)
[2019-07-21] MEDS: ELVITEG/COB/EMTRI/TENOF (GENVOYA) TABLET (NF) PO SCH (07:02)
[2019-07-21] MEDS: HYDROCHLOROTHIAZIDE 25 MG TABLET (FP) PO SCH (10:09)
[2019-07-21] MEDS: PRENATAL VITAMINS W/ FOLIC ACID TABLET (FP) PO SCH (10:09)
[2019-07-21] MEDS: NICOTINE 14 MG/24 HOURS TOPICAL PATCH TD SCH (10:10)
[2019-07-21] MEDS: QUEtiapine FUMARATE 50 MG TABLET PO SCH (21:12)
[2019-07-21] MEDS: ATORVASTATIN CA 20 MG TABLET (FP) PO SCH (21:12)
[2019-07-21] MEDS: THIAMINE HCL 100 MG TABLET (FP) PO SCH (21:12)
[2019-07-22] MEDS: ELVITEG/COB/EMTRI/TENOF (GENVOYA) TABLET (NF) PO SCH (07:05)
[2019-07-22] MEDS: metFORMIN HCL 500 MG TABLET (FP) PO SCH ×2 (07:05→16:27)
[2019-07-22] MEDS: PRENATAL VITAMINS W/ FOLIC ACID TABLET (FP) PO SCH (09:36)
[2019-07-22] MEDS: HYDROCHLOROTHIAZIDE 25 MG TABLET (FP) PO SCH (09:36)
[2019-07-22] MEDS: NICOTINE 14 MG/24 HOURS TOPICAL PATCH TD SCH (09:37)
[2019-07-22] MEDS: THIAMINE HCL 100 MG TABLET (FP) PO SCH (21:24)
[2019-07-22] MEDS: ATORVASTATIN CA 20 MG TABLET (FP) PO SCH (21:24)
[2019-07-22] MEDS: QUEtiapine FUMARATE 50 MG TABLET PO SCH (21:24)
[2019-07-22] MEDS: MELATONIN 5 MG TABLETS PO PRN (21:24)
[2019-07-23] MEDS: metFORMIN HCL 500 MG TABLET (FP) PO SCH ×2 (07:02→17:25)
[2019-07-23] MEDS: ELVITEG/COB/EMTRI/TENOF (GENVOYA) TABLET (NF) PO SCH (07:03)
[2019-07-23] MEDS: PRENATAL VITAMINS W/ FOLIC ACID TABLET (FP) PO SCH (09:59)
[2019-07-23] MEDS: HYDROCHLOROTHIAZIDE 25 MG TABLET (FP) PO SCH (09:59)
[2019-07-23] MEDS: NICOTINE 14 MG/24 HOURS TOPICAL PATCH TD SCH (10:01)
[2019-07-23] MEDS: MELATONIN 5 MG TABLETS PO PRN (21:09)
[2019-07-23] MEDS: THIAMINE HCL 100 MG TABLET (FP) PO SCH (21:09)
[2019-07-23] MEDS: ATORVASTATIN CA 20 MG TABLET (FP) PO SCH (21:09)
[2019-07-23] MEDS: QUEtiapine FUMARATE 50 MG TABLET PO SCH (21:10)
[2019-07-24] MEDS: metFORMIN HCL 500 MG TABLET (FP) PO SCH (06:28)
[2019-07-24 07:03] VITALS: TEMP 97.6
[2019-07-24] MEDS: ELVITEG/COB/EMTRI/TENOF (GENVOYA) TABLET (NF) PO SCH (07:26)
[2019-07-24] MEDS: HYDROCHLOROTHIAZIDE 25 MG TABLET (FP) PO SCH (09:41)
[2019-07-24] MEDS: PRENATAL VITAMINS W/ FOLIC ACID TABLET (FP) PO SCH (09:41)
[2019-07-24] MEDS: NICOTINE 14 MG/24 HOURS TOPICAL PATCH TD SCH (09:41)
[2019-07-24 11:14] VITALS: BP 145/83; PULSE 97
--- NOTE | 2019-07-24 15:45 | DS ---
[facility] Rehab Discharge Summary - [facility] Rehab Discharge Summary Admission Date: 07/18/19 Discharge Date: 07/24/19 - History Present History: Alcohol dependence, Cocaine dependence Pertinent Past History: 53 year old man with alcohol dependence known to this facility. Patient has h/o aggressive behavior towards staff and on this admission,he has signed a behavioral contract. Patient did not display aggressive behavior while in rehab. - Discharge Physical Exam Vital Signs: Vital Signs Temperature 97.6 F 07/24/19 07:03 Pulse Rate 97 H 07/24/19 08:15 Respiratory Rate 18 07/24/19 08:15 Blood Pressure 145/83 07/24/19 08:15 O2 Sat by Pulse Oximetry (%) Pertinent Admission Physical Exam Findings: Physical General Appearance: No Apparent Distress HEENTM: Normocephalic, , Neck: Supple Musculoskeletal: full range of Motion, Gait Steady, Neurological: loom operator II-XII NML intact, - Treatment Discharge Condition: Discharge condition good (medically stable for discharge. Patient referred to [facility] Hospital Course: Patient attended groups, had 1:1 with his provider. He had no acute or urgent medical problems while in rehab. - Medication Discharge Medications: Ambulatory Orders Quetiapine Fumarate [Seroquel -] 50 mg PO HS #30 tablet 02/11/18 Carboxymethylcellulos/Glycerin [Refresh Optive Gel Eye Drops] 2 drop OU TID PRN 11/02/18 Atorvastatin Calcium 40 mg PO HS #14 tablet 07/24/19 Elviteg/Cob/Emtri/Tenof Alafen [Genvoya Tablet] 1 tablet PO DAILY #30 tablet 11/05 Hydrochlorothiazide [Hctz -] 25 mg PO DAILY #14 cap 07/24/19 Multivitamin [Multiple Vitamins] 1 each PO DAILY #30 tablet 07/24/19 metFORMIN HCL [Glucophage -] 500 mg PO BID #30 tablet 07/24/19 - Medication-Assisted Treatment (MAT) Medication-Assisted Treatment (MAT): No - Discharge Instructions Diet, activity, other medical instructions: Diet: as tolerated Activity: as tolerated Other medical instructions: Please follow up with aftercare referrals. - Diagnosis (1) Cocaine dependence, uncomplicated Current Visit: No Status: Chronic (2) Alcohol dependence with uncomplicated withdrawal Current Visit: No Status: Chronic - Follow-up Referral Minutes to complete discharge: 10 - AMA Did Patient Leave Against Medical Advice: No
== END 2019-07-24 16:50 | disposition home or self-care (01) | DRG 895 ==
LOC: YASAS 18:21 → Y3W 18:23
PROVIDERS: ADMIT Allergy & Immunology; ATTEND Allergy & Immunology
PROC: HZ42ZZZ Group Counseling for Substance Abuse Treatment, Cognitive-Behavioral (ICD-10-PCS; principal; 2019-07-18)
DX: F10.20 Alcohol dependence, uncomplicated (principal); F14.20 Cocaine dependence, uncomplicated
CPT/HCPCS: 82962

== ENCOUNTER 2020-01-12 11:48 | Inpatient (IN) | payer OTHER ==
--- NOTE | 2020-01-12 16:17 | HP ---
CIWA Score Nausea/Vomitin-Mild Nausea/No Vomiting Muscle Tremors: 2 Anxiety: 2 Agitation: 2 Paroxysmal Sweats: 2 Orientation: 0-Oriented Tacttile Disturbances: 1-Very Mild Itch/Numbness Auditory Disturbances: 0-None Visual Disturbances: 1-Very Mild Sensitivity Headache: 1-Very Mild CIWA-Ar Total Score: 12 - Admission Criteria OASAS Guidelines: Admission for Medically Managed Detox: Requires at least one of the followin. CIWA greater than 12 2. Seizures within the past 24 hours 3. Delirium tremens within the past 24 hours 4. Hallucinations within the past 24 hours 5. Acute intervention needed for co occurring medical disorder 6. Acute intervention needed for co occurring psychiatric disorder 7. Severe withdrawal that cannot be handled at a lower level of care (continued vomiting, continued diarrhea, abnormal vital signs) requiring intravenous medication and/or fluids 8. Patient presents the following: CIWA greater than 12 Admission Criteria Met: Admission criteria met Admitting History and Physical - Smoking History Smoking history: Current some day smoker Have you smoked in the past 12 months: Yes Aproximately how many cigarettes per day: 10 - Alcohol/Substance Use Hx Alcohol Use: Yes Admission ROS S - [facility] Chief Complaint: I need detox and rehab. Allergies/Adverse Reactions: Allergies Allergy/AdvReac Type Severity Reaction Status Date / Time No Known Allergies Allergy Verified 01/12/20 17:05 History of Present Illness: This 54 years old man with alcohol dependence is well known to this facility. His last admission was on 07/14/2019. He has h/o aggressive behavior towards staff, last admission he signed a contract which seemed to work as he behaved well throughout his stay. Exam Limitations: No Limitations - Ebola screening Have you traveled outside of the country in the last 21 days: No Have you had contact with anyone from an Ebola affected area: No Have you been sick,other than usual withdrawal symptoms: No Do you have a fever: No - Review of Systems Constitutional: Chills, Changes in sleep, Weight Stable EENT: reports: Blurred Vision, Hearing Loss Respiratory: reports: No Symptoms reported Cardiac: reports: No Symptoms Reported GI: reports: Nausea, Abdominal cramping : reports: No Symptoms Reported Musculoskeletal: reports: Back Pain, Joint Pain, Muscle Pain Integumentary: reports: Sweating Endocrine: reports: No Symptoms Reported Psychiatric: reports: Anxious, Depressed Other Systems: Reviewed and Negative Patient History - Patient Medical History Hx Anemia: No Hx Asthma: No Hx Chronic Obstructive Pulmonary Disease (COPD): No Hx Cancer: Yes (prostate cancer - s/p prostatectomy) Hx Cardiac Disorders: No Hx Congestive Heart Failure: No Hx Hypertension: Yes Hx Hypercholesterolemia: Yes Hx Pacemaker: No HX Cerebrovascular Accident: No Hx Seizures: No Hx Dementia: No Hx Diabetes: Yes Hx Gastrointestinal Disorders: No Hx Liver Disease: No Hx Genitourinary Disorders: No Hx Sexually Transmitted Disorders: Yes Hx Renal Disease (ESRD): No Hx Thyroid Disease: No Hx Human Immunodeficiency Virus (HIV): Yes (diagnosed in 2007) Hx Hepatitis C: No Hx Depression: Yes Hx Suicide Attempt: No Hx Bipolar Disorder: Yes Hx Schizophrenia: No - Patient Surgical History Past Surgical History: Yes Hx Neurologic Surgery: No Hx Cataract Extraction: No Hx Cardiac Surgery: No Hx Lung Surgery: No Hx Breast Surgery: No Hx Breast Biopsy: No Hx Abdominal Surgery: No Hx Appendectomy: No Hx Cholecystectomy: No Hx Genitourinary Surgery: No Hx Section: No Hx Orthopedic Surgery: No Other Surgical History: left ear surg ; prostate sx 08/2016 Anesthesia Reaction: No - PPD History Previous Implant?: Yes Documented Results: Negative w/proof Implanted On Prior [facility] Admission?: Yes Date: 07/16/19 Results: 0mm PPD to be Administered?: No - Smoking Cessation Smoking history: Current some day smoker Have you smoked in the past 12 months: Yes Aproximately how many cigarettes per day: 10 Cigars Per Day: 0 Hx Chewing Tobacco Use: No Initiated information on smoking cessation: Yes 'Breaking Loose' booklet given: 01/12/20 - Substances abused Alcohol Other (specify): Bacardi and beer Substance route: Oral Frequency: Daily Amount used: 3 pts/ 4 40 oz cans Age of first use: 17 Date of last use: 01/11/20 Cocaine Substance route: Smoking Frequency: 3-6 times per week Amount used: $100 Age of first use: 24 Date of last use: 01/12/20 Admission Physical Exam BHS - Physical General Appearance: Yes: No Apparent Distress HEENTM: Yes: Normal ENT Inspection, Normocephalic, Other (marked hearing loss) Respiratory: Yes: Chest Non-Tender, Lungs Clear, No Respiratory Distress, No Accessory Muscle Use Neck: Yes: No masses,lesions,Nodules, Supple Breast: Yes: Breast Exam Deferred Cardiology: Yes: Regular Rhythm, Regular Rate, S1, S2 Abdominal: Yes: Normal Bowel Sounds, Soft Genitourinary: Yes: Within Normal Limits Back: Yes: Normal Inspection Musculoskeletal: Yes: full range of Motion, Gait Steady, Back pain, Muscle Pain, Muscle weakness Extremities: Yes: Non-Tender, Tremors Neurological: Yes: Alert, Motor Strength 5/5, Normal Mood/Affect, Normal Response Integumentary: Yes: Cold Lymphatic: Yes: Within Normal Limits - Diagnostic (1) Alcohol dependence with uncomplicated withdrawal Current Visit: Yes Status: Acute (2) Cocaine dependence, uncomplicated Current Visit: Yes Status: Chronic (3) DM2 (diabetes mellitus, type 2) Current Visit: No Status: Chronic Qualifiers: 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 insulin use: without fci use Diabetes mellitus complication status: without complication Qualified Code(s): E11.9 - Type 2 diabetes mellitus without complications (4) HTN (hypertension) Current Visit: Yes Status: Chronic Qualifiers: Hypertension type: essential hypertension Qualified Code(s): I10 - Essential (primary) hypertension (5) Human immunodeficiency virus infection Current Visit: Yes Status: Chronic (6) Hyperlipidemia Current Visit: Yes Status: Chronic Qualifiers: Hyperlipidemia type: pure hypertriglyceridemia Qualified Code(s): E78.1 - Pure hyperglyceridemia (7) deafness of right ear Current Visit: Yes Status: Chronic (8) hearing loss left wearing hearing aide Current Visit: Yes Status: Chronic Cleared for Admission S - Detox or Rehab [facility] Level of Care: Medically Managed Detox Regimen/Protocol: Librium Claeared for Rehab Admission: No Breathalyzer - Breathalyzer Breathalyzer: 0 Urine Drug Screen - Test Device Lot number: [id number] Expiration date: 02/16/21 - Control Is test valid?: Yes - Results Drug screen NEGATIVE: No Urine drug screen results: MINNIE-Cocaine Inpatient Rehab Admission - Rehab Decision to Admit Inpatient rehab admission?: No
[2020-01-12] MEDS ORDERED: METHOCARBAMOL 500 MG TABLET PO PRN (16:33)
[2020-01-12] MEDS ORDERED: MENTHOL/PHENOL 1 EACH UD MM PRN (16:33)
[2020-01-12] MEDS ORDERED: BISMUTH SUBSALICYLATE 524 MG/30 ML UD PO PRN (16:33)
[2020-01-12] MEDS ORDERED: NICOTINE POLACRILEX 2 MG GUM BUC PRN (16:33)
[2020-01-12] MEDS ORDERED: MAGNESIUM CITRATE 300 ML BOTTLE PO PRN (16:33)
[2020-01-12] MEDS ORDERED: chlordiazePOXIDE HCL 10 MG CAPSULE PO PRN (16:33)
[2020-01-12] MEDS ORDERED: hydrOXYzine PAMOATE 25 MG CAPSULE (FP) PO PRN (16:33)
[2020-01-12] MEDS ORDERED: MAGNESIUM HYDROX 2400MG/30ML ORAL SUSPENSION 30 ML CUP PO PRN (16:33)
[2020-01-12] MEDS ORDERED: MAG HYDROX/AL HYDROX/SIMETH 30 ML UNIT-DOSE CUP PO PRN (16:33)
[2020-01-12] MEDS ORDERED: ACETAMINOPHEN 325 MG TABLET (FP) PO PRN ×2 (16:33)
[2020-01-12] MEDS ORDERED: IBUPROFEN 400 MG TABLET (FP) PO PRN (16:33)
[2020-01-12 16:45] VITALS: BMI 32.6
[2020-01-12] MEDS ORDERED: ONDANSETRON *ODT* 4 MG TABLET SL ONE (17:45)
[2020-01-12] MEDS: ATORVASTATIN CA 40 MG TABLET (FP) PO SCH (21:44)
[2020-01-12] MEDS: MELATONIN 5 MG TABLETS PO SCH (21:44)
[2020-01-12] MEDS: THIAMINE HCL 100 MG TABLET (FP) PO SCH (21:44)
[2020-01-12] MEDS: QUEtiapine FUMARATE 50 MG TABLET PO SCH (21:45)
[2020-01-12] MEDS: chlordiazePOXIDE HCL 25 MG CAPSULE PO SCH (21:45)
[2020-01-12] MEDS ORDERED: metFORMIN HCL 500 MG TABLET (FP) PO SCH (22:00)
[2020-01-13] MEDS: chlordiazePOXIDE HCL 25 MG CAPSULE PO SCH ×3 (05:52→22:03)
[2020-01-13] MEDS: metFORMIN HCL 500 MG TABLET (FP) PO SCH ×2 (06:23→18:03)
--- NOTE | 2020-01-13 09:54 | PN ---
S CIWA - CIWA Score Nausea/Vomitin-Mild Nausea/No Vomiting Muscle Tremors: 2 Anxiety: 3 Agitation: 2 Paroxysmal Sweats: 2 Orientation: 0-Oriented Tacttile Disturbances: 0-None Auditory Disturbances: 0-None Visual Disturbances: 1-Very Mild Sensitivity Headache: 0-None Present CIWA-Ar Total Score: 11 BHS Progress Note (SOAP) Subjective: 54 years old hard of hearing on both ears male admitted on 01/12/20 for alcohol withdrawal sx management treating with librum detox regiment sitting on the edge of the bed eating breakfast conversation through reading lips states less tremor today Objective: 01/13/20 09:52 Vital Signs - 24 hr 01/12/20 01/12/20 01/12/20 16:30 17:12 18:05 Temperature 98.1 F 98.1 F 97.5 F L Pulse Rate 93 H 93 H 85 Respiratory 18 18 18 Rate Blood Pressure 137/97 133/97 144/96 O2 Sat by Pulse 98 Oximetry (%) 01/12/20 01/13/20 01/13/20 20:36 05:43 08:54 Temperature 97.1 F L 97.7 F 97.5 F L Pulse Rate 86 99 H 102 H Respiratory 18 18 18 Rate Blood Pressure 134/84 118/81 125/71 O2 Sat by Pulse 98 98 Oximetry (%) Laboratory Tests 01/12/20 01/13/20 17:30 05:54 POC Glucometer 94 129 01/13/20 09:52 lab pending Assessment: 01/13/20 09:52 alcohol withdrawal both ears hard of hearing Plan: librium regiment mr rodney can be loud and frustrated easily at time follow directions
[2020-01-13] MEDS: HYDROCHLOROTHIAZIDE 12.5 MG CAPSULE (FP) PO SCH (10:18)
[2020-01-13] MEDS: PRENATAL VITAMINS W/ FOLIC ACID TABLET (FP) PO SCH (10:18)
[2020-01-13] MEDS: NICOTINE 7 MG/24 HOURS TOPICAL PATCH TD SCH (10:19)
[2020-01-13] MEDS: ELVITEG/COB/EMTRI/TENOF (GENVOYA) TABLET (NF) PO SCH (10:59)
[2020-01-13 11:48] LABS: HEMATOCRIT 38.8 % (35.4-49); HEMOGLOBIN 12.5 GM/dL (11.7-16.9); MCH 27.8 pg (25.7-33.7); MCHC 32.2 g/dl (32.0-35.9); MEAN CELL VOLUME 86.4 fl (80-96); MEAN PLT VOLUME 8.1 fl (7.5-11.1); PLATELET COUNT 244 K/MM3 (134-434); RBC 4.49 M/mm3 (4.00-5.60); WHITE BLOOD COUNT 6.6 K/mm3 (4.0-10.0)
[2020-01-13 11:59] LABS: ALBUMIN 3.6 g/dl (3.4-5.0); BILIRUBIN,TOTAL 0.6 mg/dL (0.2-1); BLOOD UREA NITROGEN 21.6 mg/dL (7-18); CALCIUM 8.6 mg/dL (8.5-10.1); CREATININE 1.3 mg/dL (0.55-1.3); POTASSIUM 3.7 mmol/L (3.5-5.1)
[2020-01-13] MEDS ORDERED: PNEUMOC 13-VAL CONJ-DIP CRM/PF 0.5 ML DISP.SYRIN IM ONE (12:00)
--- NOTE | 2020-01-13 15:02 | CONSULT ---
[facility] Psychiatric Consult - Data Date of interview: 01/13/20 Admission source: [facility] Identifying data: Readmission to [address] [place] [address] for this 53 y/o AA male self-referred for detoxification treatment. VIVEK issues : alcohol, cocaine (crack), nicotine. Patient is single, no dependents, domiciled, unemployed and supported on SSI benefits (self-report). Substance Abuse History: Discussed with the patient (in writing). VIVEK profile as follows : Smoking history: Current some day smoker. Have you smoked in the past 12 months: Yes. Aproximately how many cigarettes per day: 10. Cigars Per Day: 0. Hx Chewing Tobacco Use: No. Initiated information on smoking cessation: Yes. 'Breaking Loose' booklet given: 01/12/20. Substances abused. Alcohol. Other (specify): Bacardi and beer. Substance route: Oral. Frequency: Daily. Amount used: 3 pts/ 4 40 oz cans. Age of first use: 17. Date of last use: 01/11/20. Cocaine. Substance route: Smoking. Frequency: 3-6 times per week. Amount used: $100. Age of first use: 24. Date of last use: 01/12/20. History of multiple VIVEK treatment failures. Medical History: Medical profile is remarkable for deafness in right ear + decreased hearing in left ear (hearing aid in place), tinnitus, diabetes mellitus, hypertension, HIV infection since 2007 (on HAART medications), dyslipidemia and history of treatment for prostatic cancer. No knpwn allergies. Psychiatric History: Patient is a good and consistent historian. Communicates well via written material (questions are presented to Mr Carreon in writing). Remote history of a psychiatric hospitalization (1992) at [facility]. Diagnosed with MDD (in the past). Mr Carreon states that he sees a psychiatrist at the [facility] mental health clinic. Does not recall the names of his medications. Denies history of suicide attempts. Physical/Sexual Abuse/Trauma History: Patient denies. Additional Comment: Urine drug screen results: MINNIE-Cocaine. Noted. Mental Status Exam - Mental Status Exam Alert and Oriented to: Time, Place, Person Cognitive Function: Good Patient Appearance: Unkempt, Disheveled Mood: Nervous, Withdrawn, Anxious Affect: Mood Congruent, Constricted Patient Behavior: Fatigued, Appropriate, Cooperative Speech Pattern: Clear, Appropriate Voice Loudness: Normal Thought Process: Goal Oriented Thought Disorder: Not Present Hallucinations: Denies Suicidal Ideation: Denies Homicidal Ideation: Denies Insight/Judgement: Poor Sleep: Well Appetite: Good Gait/Station: Normal Psychiatric Findings - Problem List ([place] 1, 2,3) (1) Alcohol dependence with uncomplicated withdrawal Current Visit: Yes Status: Acute (2) Cocaine dependence, uncomplicated Current Visit: Yes Status: Chronic (3) Nicotine dependence Current Visit: Yes Status: Chronic Qualifiers: Nicotine product type: cigarettes Substance use status: in withdrawal Qualified Code(s): F17.213 - Nicotine dependence, cigarettes, with withdrawal (4) Substance induced mood disorder Current Visit: Yes Status: Chronic (5) Insomnia Current Visit: Yes Status: Chronic - Initial Treatment Plan Initial Treatment Plan: Psychoeducation. Sleep hygiene. Detoxification. Resumed : seroquel 50 mg po hs. Side effects/benefits discussed, in writing, with the patient. Mr Carreon granted consent (verbal) to MD. Vallejo.
[2020-01-13] MEDS: hydrOXYzine PAMOATE 50 MG CAPSULE (FP) PO SCH ×2 (18:02→22:06)
[2020-01-13] MEDS ORDERED: MASKS NR ONE (19:35)
[2020-01-13] MEDS: ATORVASTATIN CA 40 MG TABLET (FP) PO SCH (22:03)
[2020-01-13] MEDS: THIAMINE HCL 100 MG TABLET (FP) PO SCH (22:04)
[2020-01-13] MEDS: QUEtiapine FUMARATE 50 MG TABLET PO SCH (22:06)
[2020-01-13] MEDS: MELATONIN 5 MG TABLETS PO SCH (22:27)
[2020-01-14] MEDS ORDERED: chlordiazePOXIDE 5 MG CAPSULE PO SCH (05:00)
[2020-01-14] MEDS: metFORMIN HCL 500 MG TABLET (FP) PO SCH ×2 (06:07→17:11)
[2020-01-14] MEDS: hydrOXYzine PAMOATE 50 MG CAPSULE (FP) PO SCH ×4 (06:07→23:02)
--- NOTE | 2020-01-14 08:51 | PN ---
S CIWA - CIWA Score Nausea/Vomitin-Mild Nausea/No Vomiting Muscle Tremors: 3 Anxiety: 2 Agitation: 3 Paroxysmal Sweats: 1-Minimal Palms Moist Orientation: 0-Oriented Tacttile Disturbances: 0-None Auditory Disturbances: 0-None Visual Disturbances: 0-None Headache: 0-None Present CIWA-Ar Total Score: 10 BHS Progress Note (SOAP) Subjective: 54 years old male admitted on 01/12/20 for alcohol withdrawal sx management treating with librium detox regiment hard of hearing on both ears ate breakfast in room resting in bed aroused by light touch calm and cooperative prefers to sleep longer Objective: 01/14/20 09:51 Vital Signs - 24 hr 01/13/20 01/13/20 01/13/20 12:45 16:32 20:47 Temperature 97.1 F L 97.3 F L 97.5 F L Pulse Rate 92 H 88 91 H Respiratory 18 18 18 Rate Blood Pressure 116/77 130/84 124/84 O2 Sat by Pulse 96 98 Oximetry (%) 01/14/20 01/14/20 06:43 08:42 Temperature 97.5 F L 97.3 F L Pulse Rate 87 92 H Respiratory 18 18 Rate Blood Pressure 121/77 119/74 O2 Sat by Pulse 96 Oximetry (%) Laboratory Tests 01/12/20 01/12/20 01/13/20 17:30 17:36 05:54 WBC RBC Hgb Hct MCV MCH MCHC RDW Plt Count MPV Sodium Potassium Chloride Carbon Dioxide Anion Gap BUN Creatinine Est GFR (CKD-EPI)AfAm Est GFR (CKD-EPI)NonAf POC Glucometer 94 129 Random Glucose Calcium Total Bilirubin AST ALT Alkaline Phosphatase Total Protein Albumin Syphilis Serology COVID-19 (CHRISTA) Not detected 01/13/20 01/13/20 01/13/20 08:00 08:00 08:00 WBC 6.6 RBC 4.49 Hgb 12.5 Hct 38.8 MCV 86.4 MCH 27.8 MCHC 32.2 RDW 15.0 Plt Count 244 MPV 8.1 Sodium 141 Potassium 3.7 Chloride 107 Carbon Dioxide 26 Anion Gap 8 BUN 21.6 H Creatinine 1.3 Est GFR (CKD-EPI)AfAm 72.20 Est GFR (CKD-EPI)NonAf 62.29 POC Glucometer Random Glucose 116 H Calcium 8.6 Total Bilirubin 0.6 AST 93 H ALT 114 H Alkaline Phosphatase 62 Total Protein 7.0 Albumin 3.6 Syphilis Serology Non-reactive COVID-19 (CHRISTA) 01/13/20 01/14/20 17:01 06:29 WBC RBC Hgb Hct MCV MCH MCHC RDW Plt Count MPV Sodium Potassium Chloride Carbon Dioxide Anion Gap BUN Creatinine Est GFR (CKD-EPI)AfAm Est GFR (CKD-EPI)NonAf POC Glucometer 81 108 Random Glucose Calcium Total Bilirubin AST ALT Alkaline Phosphatase Total Protein Albumin Syphilis Serology COVID-19 (CHRISTA) non insulin dependent diabetes treated with metformin 500mg po bid ac 01/14/20 09:56 ast elevation discontinue librium begin ativan for alcohol detox Assessment: 01/14/20 09:52 alcohol withdrawal hiv 01/14/20 09:56 non insulin dependent diabetes Plan: ativan regiment continue genvoya continue bgm with metformin bid ac
[2020-01-14] MEDS ORDERED: LORazepam 1 MG TABLET PO PRN (09:59)
[2020-01-14] MEDS: LORazepam 1 MG TABLET PO SCH ×3 (10:47→23:01)
[2020-01-14] MEDS: HYDROCHLOROTHIAZIDE 12.5 MG CAPSULE (FP) PO SCH (10:48)
[2020-01-14] MEDS: ELVITEG/COB/EMTRI/TENOF (GENVOYA) TABLET (NF) PO SCH (10:48)
[2020-01-14] MEDS: PRENATAL VITAMINS W/ FOLIC ACID TABLET (FP) PO SCH (10:48)
[2020-01-14] MEDS: NICOTINE 7 MG/24 HOURS TOPICAL PATCH TD SCH (10:48)
[2020-01-14] MEDS: THIAMINE HCL 100 MG TABLET (FP) PO SCH (23:01)
[2020-01-14] MEDS: MELATONIN 5 MG TABLETS PO SCH (23:01)
[2020-01-14] MEDS: QUEtiapine FUMARATE 50 MG TABLET PO SCH (23:01)
[2020-01-14] MEDS: ATORVASTATIN CA 40 MG TABLET (FP) PO SCH (23:01)
[2020-01-15] MEDS ORDERED: chlordiazePOXIDE HCL 10 MG CAPSULE PO PRN
[2020-01-15] MEDS ORDERED: chlordiazePOXIDE HCL 10 MG CAPSULE PO SCH (05:00)
[2020-01-15 05:41] VITALS: TEMP 97.3
[2020-01-15] MEDS: metFORMIN HCL 500 MG TABLET (FP) PO SCH (07:38)
[2020-01-15] MEDS: LORazepam 0.5 MG TABLET PO SCH ×2 (07:38→10:05)
[2020-01-15] MEDS: hydrOXYzine PAMOATE 50 MG CAPSULE (FP) PO SCH ×2 (07:39→10:05)
[2020-01-15 08:57] VITALS: BP 133/77; PULSE 98
--- NOTE | 2020-01-15 09:01 | DS ---
[facility] Detox Discharge Summary Admission Date: 01/12/20 Discharge Date: 01/15/20 - History Present History: Alcohol Dependence Additional Comments: mr stevens requests the out reach staff picking up his clothings for him from home than mr stevens agrees to go to [facility] no clothings mr stevens refuses to go to [facility] - Physical Exam Results Vital Signs: Vital Signs Temperature 97.3 F L 01/15/20 08:31 Pulse Rate 98 H 01/15/20 08:31 Respiratory Rate 18 01/15/20 08:31 Blood Pressure 133/77 01/15/20 08:31 O2 Sat by Pulse Oximetry (%) 97 01/15/20 05:40 - Treatment Hospital Course: Detox Protocol Followed, Detoxed Safely, Responded well, Discharged Condition Good, Rehab Referral Accepted - Medication Discharge Medications: Ambulatory Orders Quetiapine Fumarate [Seroquel -] 50 mg PO HS #30 tablet 02/11/18 Carboxymethylcellulos/Glycerin [Refresh Optive Gel Eye Drops] 2 drop OU TID PRN 11/02/18 Atorvastatin Calcium 40 mg PO HS #14 tablet 07/24/19 Elviteg/Cob/Emtri/Tenof Alafen [Genvoya Tablet] 1 tablet PO DAILY #30 tablet 07/24/19 Hydrochlorothiazide [Hctz -] 25 mg PO DAILY #14 cap 07/24/19 Multivitamin [Multiple Vitamins] 1 each PO DAILY #30 tablet 07/24/19 metFORMIN HCL [Glucophage -] 500 mg PO BID #30 tablet 07/24/19 - AMA Did Patient Leave Against Medical Advice: No CIWA Score - CIWA Score Nausea/Vomitin-Mild Nausea/No Vomiting Muscle Tremors: 2 Anxiety: 1-Mildly Anxious Agitation: 2 Paroxysmal Sweats: No Perspiration Orientation: 0-Oriented Tacttile Disturbances: 0-None Auditory Disturbances: 0-None Visual Disturbances: 0-None Headache: 0-None Present CIWA-Ar Total Score: 6
--- NOTE | 2020-01-15 09:38 | PN ---
S CIWA - CIWA Score Nausea/Vomitin-No Nausea/No Vomiting Muscle Tremors: 1-None Visible, but Taberg Anxiety: 1-Mildly Anxious Agitation: 1-Slight > Activity Paroxysmal Sweats: No Perspiration Orientation: 0-Oriented Tacttile Disturbances: 0-None Auditory Disturbances: 0-None Visual Disturbances: 0-None Headache: 1-Very Mild CIWA-Ar Total Score: 4 BHS Progress Note (SOAP) Subjective: 54 years old male admitted on 01/12/20 for alcohol withdrawal sx management treating with ativan detox regiment feeling better today discussing aftercare with staff that [facility] center is possible for alcohol recovery Objective: 01/15/20 09:39 Vital Signs - 24 hr 01/14/20 01/14/20 01/14/20 12:35 16:35 20:45 Temperature 98.1 F 97.3 F L 97.8 F Pulse Rate 100 H 96 H 97 H Respiratory 18 18 18 Rate Blood Pressure 95/56 L 124/79 144/88 O2 Sat by Pulse 98 95 Oximetry (%) 01/15/20 01/15/20 05:40 08:31 Temperature 97.3 F L 97.3 F L Pulse Rate 76 98 H Respiratory 18 18 Rate Blood Pressure 129/78 133/77 O2 Sat by Pulse 97 Oximetry (%) Laboratory Tests 01/12/20 01/12/20 01/13/20 17:30 17:36 05:54 WBC RBC Hgb Hct MCV MCH MCHC RDW Plt Count MPV Sodium Potassium Chloride Carbon Dioxide Anion Gap BUN Creatinine Est GFR (CKD-EPI)AfAm Est GFR (CKD-EPI)NonAf POC Glucometer 94 129 Random Glucose Calcium Total Bilirubin AST ALT Alkaline Phosphatase Total Protein Albumin Syphilis Serology COVID-19 ([facility]STA) Not detected 01/13/20 01/13/20 01/13/20 08:00 08:00 08:00 WBC 6.6 RBC 4.49 Hgb 12.5 Hct 38.8 MCV 86.4 MCH 27.8 MCHC 32.2 RDW 15.0 Plt Count 244 MPV 8.1 Sodium 141 Potassium 3.7 Chloride 107 Carbon Dioxide 26 Anion Gap 8 BUN 21.6 H Creatinine 1.3 Est GFR (CKD-EPI)AfAm 72.20 Est GFR (CKD-EPI)NonAf 62.29 POC Glucometer Random Glucose 116 H Calcium 8.6 Total Bilirubin 0.6 AST 93 H ALT 114 H Alkaline Phosphatase 62 Total Protein 7.0 Albumin 3.6 Syphilis Serology Non-reactive COVID-19 ([facility]STA) 01/13/20 01/14/20 01/14/20 17:01 06:29 16:21 WBC RBC Hgb Hct MCV MCH MCHC RDW Plt Count MPV Sodium Potassium Chloride Carbon Dioxide Anion Gap BUN Creatinine Est GFR (CKD-EPI)AfAm Est GFR (CKD-EPI)NonAf POC Glucometer 81 108 137 Random Glucose Calcium Total Bilirubin AST ALT Alkaline Phosphatase Total Protein Albumin Syphilis Serology COVID-19 (CHRISTA) 01/15/20 07:35 WBC RBC Hgb Hct MCV MCH MCHC RDW Plt Count MPV Sodium Potassium Chloride Carbon Dioxide Anion Gap BUN Creatinine Est GFR (CKD-EPI)AfAm Est GFR (CKD-EPI)NonAf POC Glucometer 91 Random Glucose Calcium Total Bilirubin AST ALT Alkaline Phosphatase Total Protein Albumin Syphilis Serology COVID-19 ([facility]RISTA) 01/15/20 09:40 non insulin dependent diabetes Assessment: 01/15/20 09:40 alcohol withdrawal Plan: ativan regiment
[2020-01-15] MEDS: HYDROCHLOROTHIAZIDE 12.5 MG CAPSULE (FP) PO SCH (10:05)
[2020-01-15] MEDS: ELVITEG/COB/EMTRI/TENOF (GENVOYA) TABLET (NF) PO SCH (10:07)
[2020-01-15] MEDS: NICOTINE 7 MG/24 HOURS TOPICAL PATCH TD SCH (10:07)
[2020-01-15] MEDS: PRENATAL VITAMINS W/ FOLIC ACID TABLET (FP) PO SCH (10:08)
[2020-01-16] MEDS ORDERED: LORazepam 0.5 MG TABLET PO PRN
[2020-01-16] MEDS ORDERED: LORazepam 0.5 MG TABLET PO ONE (05:00)
[2020-01-16] MEDS ORDERED: chlordiazePOXIDE HCL 10 MG CAPSULE PO ONE (05:00)
== END 2020-01-15 10:59 | disposition home or self-care (01) | DRG 897 ==
LOC: YASAS 11:48 → Y3N 17:28
PROVIDERS: ADMIT Allergy & Immunology; ATTEND Allergy & Immunology
PROC: HZ2ZZZZ Detoxification Services for Substance Abuse Treatment (ICD-10-PCS; principal; 2020-01-12)
DX: F10.230 Alcohol dependence with withdrawal, uncomplicated (principal); F14.20 Cocaine dependence, uncomplicated; F17.210 Nicotine dependence, cigarettes, uncomplicated; F19.24 Other psychoactive substance dependence with psychoactive substance-induced mood disorder; Z21 Asymptomatic human immunodeficiency virus [HIV] infection status; I10 Essential (primary) hypertension; E78.5 Hyperlipidemia, unspecified; E11.9 Type 2 diabetes mellitus without complications; G47.00 Insomnia, unspecified; H91.93 Unspecified hearing loss, bilateral; Z79.84 Long term (current) use of oral hypoglycemic drugs; Z85.46 Personal history of malignant neoplasm of prostate; Z97.4 Presence of external hearing-aid; Z90.79 Acquired absence of other genital organ(s); Z56.0 Unemployment, unspecified
CPT/HCPCS: 36415; 80053; 82962; 85027; 86780; 90670; Q0162; U0003

== ENCOUNTER 2020-02-25 14:59 | Inpatient (IN) | payer OTHER ==
--- NOTE | 2020-02-25 15:24 | BHS.RME ---
Substance Use & Tx History - Substance Use History Alcohol Substance amount: 3 pints bacardi + 4 40 oz beers Frequency of use: Daily Substance route: Oral Date of Last Use: 02/24/20 Cocaine-Crack Substance amount: $100 Frequency of use: Daily Substance route: Smoking Date of Last Use: 02/24/20 Nicotine Substance amount: 10 ciggs Frequency of use: Daily Substance route: Smoking Date of Last Use: 02/25/20 Physical/Psych/Mental Status - Behavior General Behavior: Increased activity (restlessness, agitation) Eye Contact: Normal - Cooperativeness Cooperativeness: Cooperative - Thinking Thought Processes: Tight, Logical, Goal Directed - Physical Health Problems Is patient presently having any pain?: No Does patient presently have any injuries (include location): No Does patient currently have a fever: No Is patient : No CIWA Nausea/Vomitin Muscle Tremors: 4-Moderate,w/Arms Extend Anxiety: 4-Mod. Anxious/Guarded Agitation: 3 Paroxysmal Sweats: 2 Orientation: 0-Oriented Tacttile Disturbances: 0-None Auditory Disturbances: 0-None Visual Disturbances: 0-None Headache: 1-Very Mild CIWA-Ar Total Score: 16
--- NOTE | 2020-02-25 17:02 | HP ---
CIWA Score Nausea/Vomitin Muscle Tremors: 3 Anxiety: 4-Mod. Anxious/Guarded Agitation: 2 Paroxysmal Sweats: 2 Orientation: 0-Oriented Tacttile Disturbances: 0-None Auditory Disturbances: 0-None Visual Disturbances: 0-None Headache: 0-None Present CIWA-Ar Total Score: 13 - Admission Criteria OASAS Guidelines: Admission for Medically Managed Detox: Requires at least one of the followin. CIWA greater than 12 2. Seizures within the past 24 hours 3. Delirium tremens within the past 24 hours 4. Hallucinations within the past 24 hours 5. Acute intervention needed for co occurring medical disorder 6. Acute intervention needed for co occurring psychiatric disorder 7. Severe withdrawal that cannot be handled at a lower level of care (continued vomiting, continued diarrhea, abnormal vital signs) requiring intravenous medication and/or fluids 8. Patient presents the following: CIWA greater than 12 Admission Criteria Met: Admission criteria met Admitting History and Physical - Admission Chief Complaint: I need help to stop drinking. History of Present Illness: Mr. stevens is 54 y/o male with past medical history of HIV+, left ear deafness, HTN, HIV, hyperlipidemia,alcohol,crack and nicotine use disorder presents to [facility] for alcohol detox. last visit here was 01/06/2020. Started drinking since age 17. Currently drinking 3 pints of Bacardi and 5-40 oz beers daily, last drink was this morning.History of blackouts and withdrawal seizures. History Source: Patient Limitations to Obtaining History: Other (hearing impaired with left ear hearing aid.) - Past Medical History Cardiovascular: Yes: HTN, Hyperlipdemia Renal/: Yes: Cancer (history of prostate cancer, S/P prostectomy 3 years ago) Infectious Disease: Yes: HIV Psych: Yes: Bipolar Endocrine: Yes: Diabetes Mellitus - Past Surgical History Past Surgical History: Yes: Prostatectomy - Smoking History Smoking history: Current every day smoker Have you smoked in the past 12 months: Yes Aproximately how many cigarettes per day: 10 - Alcohol/Substance Use Hx Alcohol Use: Yes Number of Drinks Daily: 5 History of Substance Use: reports: Cocaine - Social History Usual Living Arrangement: Yes: Alone (Homeless.) Do you think of yourself as: Straight/Heterosexual ADL: Independent History of Recent Travel: No Admission ROS S - HPI Chief Complaint: Mr. stevens is 54 y/o male with past medical history of HIV+, left ear deafness, HTN, HIV, hyperlipidemia,alcohol,crack and nicotine use disorder presents to [facility] for alcohol detox. last visit here was 01/06/2020. Started drinking since age 17. Currently drinking 3 pints of Bacardi and 5-40 oz beers daily, last drink was this morning.History of blackouts and withdrawal seizures. Allergies/Adverse Reactions: Allergies Allergy/AdvReac Type Severity Reaction Status Date / Time No Known Allergies Allergy Verified 02/25/20 17:41 Exam Limitations: No Limitations, Other (Hearing impaired) - Ebola screening Have you traveled outside of the country in the last 21 days: No Have you had contact with anyone from an Ebola affected area: No Have you been sick,other than usual withdrawal symptoms: No Do you have a fever: No - Review of Systems Constitutional: No Symptoms Reported EENT: reports: Hearing Loss Respiratory: reports: No Symptoms reported Cardiac: reports: No Symptoms Reported GI: reports: No Symptoms Reported : reports: No Symptoms Reported Musculoskeletal: reports: No Symptoms Reported Integumentary: reports: No Symptoms Reported Neuro: reports: Seizure Endocrine: reports: No Symptoms Reported Hematology: reports: No Symptoms Reported Psychiatric: reports: Judgement Intact, Orientated x3, Anxious Other Systems: Reviewed and Negative Patient History - Patient Medical History Hx Anemia: No Hx Asthma: No Hx Chronic Obstructive Pulmonary Disease (COPD): No Hx Cancer: Yes (prostate cancer - s/p prostatectomy) Hx Cardiac Disorders: No Hx Congestive Heart Failure: No Hx Hypertension: Yes Hx Hypercholesterolemia: Yes Hx Pacemaker: No HX Cerebrovascular Accident: No Hx Seizures: No Hx Dementia: No Hx Diabetes: Yes Hx Gastrointestinal Disorders: No Hx Liver Disease: No Hx Genitourinary Disorders: No Hx Sexually Transmitted Disorders: Yes Hx Renal Disease (ESRD): No Hx Thyroid Disease: No Hx Human Immunodeficiency Virus (HIV): Yes (diagnosed in 2007) Hx Hepatitis C: No Hx Depression: Yes Hx Suicide Attempt: No Hx Bipolar Disorder: Yes Hx Schizophrenia: No - Patient Surgical History Hx Neurologic Surgery: No Hx Cataract Extraction: No Hx Cardiac Surgery: No Hx Lung Surgery: No Hx Breast Surgery: No Hx Breast Biopsy: No Hx Abdominal Surgery: No Hx Appendectomy: No Hx Cholecystectomy: No Hx Genitourinary Surgery: Yes (Prostate surgery 08/2026) Hx Section: No Hx Orthopedic Surgery: No Other Surgical History: left ear surg ; prostate sx 08/2016 Anesthesia Reaction: No - PPD History Date: 07/16/19 Results: 0mm - Smoking Cessation Smoking history: Current some day smoker Have you smoked in the past 12 months: Yes Aproximately how many cigarettes per day: 10 Cigars Per Day: 0 Hx Chewing Tobacco Use: No Initiated information on smoking cessation: Yes 'Breaking Loose' booklet given: 02/25/20 - Substance & Tx. History Hx Alcohol Use: Yes Substance Use Type: Alcohol, Cocaine - Substances abused Alcohol Substance route: Oral Frequency: Daily Amount used: 3 pints of bacardi, 5-40oz beers Age of first use: 17 Date of last use: 02/25/20 Cocaine Substance route: Smoking Frequency: Daily Amount used: $100 Age of first use: 24 Date of last use: 02/24/20 Admission Physical Exam [facility] Physical General Appearance: Yes: Tremorous, Anxious HEENTM: Yes: Within Normal Limits, Normal ENT Inspection (Hearing impaired) Respiratory: Yes: Within Normal Limits Neck: Yes: Within Normal Limits, No masses,lesions,Nodules Breast: Yes: Within Normal Limits Cardiology: Yes: Within Normal Limits, S1, S2 Abdominal: Yes: Within Normal Limits, Normal Bowel Sounds, Non Tender Genitourinary: Yes: Within Normal Limits Back: Yes: Within Normal Limits, Normal Inspection Musculoskeletal: Yes: Within Normal Limits, full range of Motion, Gait Steady Extremities: Yes: Within Normal Limits, Normal Capillary Refill Neurological: Yes: Within Normal Limits, Fully Oriented, Normal Mood/Affect, Normal Response Integumentary: Yes: Within Normal Limits Lymphatic: Yes: Within Normal Limits Cleared for [facility] - [facility]ox or [facility]hab [facility] Level of Care: Medically Supervised Detox Regimen/Protocol: Librium Claeared for Rehab Admission: No Breathalyzer - Breathalyzer Breathalyzer: 0 Urine Drug Screen - Test Device Lot number: [id number] Expiration date: 02/16/21 - Control Is test valid?: Yes - Results Drug screen NEGATIVE: No Urine drug screen results: MINNIE-Cocaine Inpatient Rehab Admission - Rehab Decision to Admit Inpatient rehab admission?: No
[2020-02-25 17:08] VITALS: BMI 30.7
[2020-02-25] MEDS ORDERED: chlordiazePOXIDE HCL 25 MG CAPSULE PO PRN (17:11)
[2020-02-25] MEDS ORDERED: IBUPROFEN 400 MG TABLET (FP) PO PRN (17:11)
[2020-02-25] MEDS ORDERED: MAGNESIUM CITRATE 300 ML BOTTLE PO PRN (17:11)
[2020-02-25] MEDS ORDERED: NICOTINE POLACRILEX 2 MG GUM BUC PRN (17:11)
[2020-02-25] MEDS ORDERED: MAGNESIUM HYDROX 2400MG/30ML ORAL SUSPENSION 30 ML CUP PO PRN (17:11)
[2020-02-25] MEDS ORDERED: BISMUTH SUBSALICYLATE 524 MG/30 ML UD PO PRN (17:11)
[2020-02-25] MEDS ORDERED: METHOCARBAMOL 500 MG TABLET PO PRN (17:11)
[2020-02-25] MEDS ORDERED: ONDANSETRON *ODT* 4 MG TABLET SL PRN (17:11)
[2020-02-25] MEDS ORDERED: MAG HYDROX/AL HYDROX/SIMETH 30 ML UNIT-DOSE CUP PO PRN (17:11)
[2020-02-25] MEDS ORDERED: MENTHOL/PHENOL 1 EACH UD MM PRN (17:11)
[2020-02-25] MEDS ORDERED: ACETAMINOPHEN 325 MG TABLET (FP) PO PRN ×2 (17:11)
[2020-02-25] MEDS: chlordiazePOXIDE HCL 25 MG CAPSULE PO SCH ×2 (19:13→22:39)
[2020-02-25] MEDS: hydrOXYzine PAMOATE 25 MG CAPSULE (FP) PO SCH ×2 (19:15→22:39)
[2020-02-25] MEDS: MELATONIN 5 MG TABLETS PO SCH (22:39)
[2020-02-25] MEDS: THIAMINE HCL 100 MG TABLET (FP) PO SCH (22:39)
[2020-02-25] MEDS: ATORVASTATIN CA 40 MG TABLET (FP) PO SCH (22:39)
[2020-02-26] MEDS: chlordiazePOXIDE HCL 25 MG CAPSULE PO SCH ×4 (06:45→22:22)
[2020-02-26] MEDS: metFORMIN HCL 500 MG TABLET (FP) PO SCH ×2 (06:46→17:48)
[2020-02-26] MEDS: hydrOXYzine PAMOATE 25 MG CAPSULE (FP) PO SCH ×2 (06:46→10:25)
[2020-02-26] MEDS: HYDROCHLOROTHIAZIDE 25 MG TABLET (FP) PO SCH (10:25)
[2020-02-26] MEDS: NICOTINE 7 MG/24 HOURS TOPICAL PATCH TD SCH (10:25)
[2020-02-26] MEDS: PRENATAL VITAMINS W/ FOLIC ACID TABLET (FP) PO SCH (10:25)
[2020-02-26 10:32] LABS: HEMATOCRIT 40.9 % (35.4-49); HEMOGLOBIN 13.2 GM/dL (11.7-16.9); MCH 27.9 pg (25.7-33.7); MCHC 32.2 g/dl (32.0-35.9); MEAN CELL VOLUME 86.4 fl (80-96); MEAN PLT VOLUME 7.8 fl (7.5-11.1); PLATELET COUNT 297 K/MM3 (134-434); RBC 4.73 M/mm3 (4.00-5.60); RDW 14.9 % (11.9-15.9); WHITE BLOOD COUNT 5.5 K/mm3 (4.0-10.0)
[2020-02-26 10:38] LABS: ALBUMIN 3.7 g/dl (3.4-5.0); BILIRUBIN,TOTAL 0.8 mg/dL (0.2-1); BLOOD UREA NITROGEN 13.1 mg/dL (7-18); CALCIUM 8.7 mg/dL (8.5-10.1); CREATININE 1.1 mg/dL (0.55-1.3); POTASSIUM 3.6 mmol/L (3.5-5.1); TOT PROT 7.3 g/dl (6.4-8.2)
--- NOTE | 2020-02-26 11:38 | PN ---
S CIWA - CIWA Score Nausea/Vomitin-No Nausea/No Vomiting Muscle Tremors: 2 Anxiety: 1-Mildly Anxious Agitation: 1-Slight > Activity Paroxysmal Sweats: 1-Minimal Palms Moist Orientation: 0-Oriented Tacttile Disturbances: 0-None Auditory Disturbances: 0-None Visual Disturbances: 2-Mild Sensitivity Headache: 2-Mild CIWA-Ar Total Score: 9 BHS Progress Note (SOAP) Subjective: 54 years old male was admitted on 02/25/20 for alcohol withdrawal sx management treatig with librium detox regiment resting in bed most of the time express feeling with staffing specialist informed roommate that hard of hearing may be loud at time encourage written communication method Objective: 02/26/20 11:36 Vital Signs - 24 hr 02/25/20 02/25/20 02/25/20 17:06 17:42 19:10 Temperature 97.8 F 97.8 F 96.6 F L Pulse Rate 93 H 93 H 78 Respiratory 19 19 20 Rate Blood Pressure 140/84 140/84 141/90 O2 Sat by Pulse 100 Oximetry (%) 02/25/20 02/26/20 02/26/20 21:24 06:44 08:38 Temperature 97.1 F L 97.3 F L 97.1 F L Pulse Rate 91 H 86 87 Respiratory 18 18 18 Rate Blood Pressure 117/81 126/84 126/76 O2 Sat by Pulse 97 97 Oximetry (%) Laboratory Tests 02/25/20 02/26/20 02/26/20 21:53 06:27 07:50 WBC 5.5 RBC 4.73 Hgb 13.2 Hct 40.9 MCV 86.4 MCH 27.9 MCHC 32.2 RDW 14.9 Plt Count 297 D MPV 7.8 Sodium Potassium Chloride Carbon Dioxide Anion Gap BUN Creatinine Est GFR (CKD-EPI)AfAm Est GFR (CKD-EPI)NonAf POC Glucometer 110 128 Random Glucose Calcium Total Bilirubin AST ALT Alkaline Phosphatase Total Protein Albumin 02/26/20 07:50 WBC RBC Hgb Hct MCV MCH MCHC RDW Plt Count MPV Sodium 142 Potassium 3.6 Chloride 108 H Carbon Dioxide 28 Anion Gap 6 L BUN 13.1 Creatinine 1.1 Est GFR (CKD-EPI)AfAm 88.36 Est GFR (CKD-EPI)NonAf 76.24 POC Glucometer Random Glucose 119 H Calcium 8.7 Total Bilirubin 0.8 AST 64 H ALT 122 H Alkaline Phosphatase 84 Total Protein 7.3 Albumin 3.7 bgm within acceptable range Assessment: 02/26/20 11:37 alcohol withdrawal Plan: librium regiment
[2020-02-26] MEDS: ELVITEG/COB/EMTRI/TENOF (GENVOYA) TABLET (NF) PO SCH (12:00)
[2020-02-26] MEDS: hydrOXYzine PAMOATE 50 MG CAPSULE (FP) PO SCH ×3 (12:01→22:56)
--- NOTE | 2020-02-26 13:32 | EKG ---
Test Reason : Blood Pressure : / mmHG Vent. Rate : 082 BPM Atrial Rate : 082 BPM P-R Int : 178 ms QRS Dur : 078 ms QT Int : 392 ms P-R-T Axes : 053 049 049 degrees QTc Int : 457 ms NORMAL SINUS RHYTHM NORMAL ECG Confirmed by MD FIGUEROA GREGORY ([id number]) on 02/26/2020 1:32:18 PM Referred By: Confirmed By:PRADIP FIGUEROA MD
--- NOTE | 2020-02-26 15:47 | CONSULT ---
[facility] Psychiatric Consult - Data Date of interview: 02/26/20 Admission source: [facility] Identifying data: Revisit to [facility] and admission to [address] [place] [address] for this 54 y/o AA male, self-referred for detoxification treatment. VIVEK issues : alcohol, cocaine (crack), nicotine. Patient is single, no dependents, domiciled, unemployed and supported on SSI benefits. Communication with the patient is conducted via written material (clipboard). Substance Abuse History: Discussed with the patient. VIVEK profiel as follows : Smoking history: Current some day smoker. Have you smoked in the past 12 months: Yes. Aproximately how many cigarettes per day: 10. Cigars Per Day: 0. Hx Chewing Tobacco Use: No. Initiated information on smoking cessation: Yes. 'Breaking Loose' booklet given: 02/25/20. - Substance & Tx. History. Hx Alcohol Use: Yes. Substance Use Type: Alcohol, Cocaine. - Substances abused. Alcohol. Substance route: Oral. Frequency: Daily. Amount used: 3 pints of bacardi, 5-40oz beers. Age of first use: 17. Date of last use: 02/25/20. Cocaine. Substance route: Smoking. Frequency: Daily. Amount used: $100. Age of first use: 24. Date of last use: 02/24/20. History of multiple VIVEK treatment failures. Medical History: No changes since my interview of 12/2019. Medical profile remains as follows : deafness in right ear + decreased hearing in left ear (hearing aid in place), tinnitus, diabetes mellitus, hypertension, HIV infection since 2007 (on HAART medications), dyslipidemia and history of treatment for prostatic cancer. No known allergies. Psychiatric History: Patient is a good, cooperative and clear historian. Communicates well via written material (questions are presented to Mr Carreon in writing). He presents with a remote history of one psychiatric hospitalization (1992) at [facility]. Has been diagnosed with MDD (in the past). In this interview, Mr Carreon states that he is no longer in contact with the [facility] mental health clinic. Takes seroquel at bedtime. Prescriber : patient does not recall. He denies history of suicide attempts. Physical/Sexual Abuse/Trauma History: Patient denies history of abuse. Additional Comment: Urine drug screen results: MINNIE-Cocaine. Noted. Mental Status Exam - Mental Status Exam Alert and Oriented to: Time, Place, Person Cognitive Function: Good Patient Appearance: Well Groomed Mood: Withdrawn Affect: Mood Congruent, Constricted Patient Behavior: Fatigued, Appropriate (friendly on approach), Cooperative Speech Pattern: Clear, Appropriate (questions are communicated with patient in writing) Voice Loudness: Normal Thought Process: Intact, Goal Oriented Thought Disorder: Not Present Hallucinations: Denies Suicidal Ideation: Denies Homicidal Ideation: Denies Insight/Judgement: Poor Sleep: Well (noted asleep for most of the day) Appetite: Good Gait/Station: Normal Psychiatric Findings - Problem List ([place] 1, 2,3) (1) Alcohol dependence with uncomplicated withdrawal Status: Acute (2) Cocaine dependence, uncomplicated Status: Chronic (3) Nicotine dependence Status: Acute Qualifiers: Nicotine product type: cigarettes Substance use status: in withdrawal Qualified Code(s): F17.213 - Nicotine dependence, cigarettes, with withdrawal (4) Insomnia Status: Chronic (5) Substance induced mood disorder Status: Suspected (6) Non-compliance Status: Chronic - Initial Treatment Plan Initial Treatment Plan: Patient with special needs (deafness) : recommend use of written material for communication puposes. Psychoeducation. Sleep hygiene. Support. Continue seroquel 50 mg po hs. Side effects/benefits discussed with patient (in writing). He verbalizes consent to this plan of care. Observation.
[2020-02-26] MEDS: QUEtiapine FUMARATE 50 MG TABLET PO SCH (22:21)
[2020-02-26] MEDS: MELATONIN 5 MG TABLETS PO SCH (22:21)
[2020-02-26] MEDS: ATORVASTATIN CA 40 MG TABLET (FP) PO SCH (22:21)
[2020-02-26] MEDS: THIAMINE HCL 100 MG TABLET (FP) PO SCH (22:21)
[2020-02-27] MEDS: metFORMIN HCL 500 MG TABLET (FP) PO SCH ×2 (06:39→18:14)
[2020-02-27] MEDS: chlordiazePOXIDE HCL 25 MG CAPSULE PO SCH ×4 (06:39→23:00)
[2020-02-27] MEDS: hydrOXYzine PAMOATE 50 MG CAPSULE (FP) PO SCH ×4 (06:40→23:00)
[2020-02-27] MEDS: ELVITEG/COB/EMTRI/TENOF (GENVOYA) TABLET (NF) PO SCH (10:21)
[2020-02-27] MEDS: NICOTINE 7 MG/24 HOURS TOPICAL PATCH TD SCH (10:22)
[2020-02-27] MEDS: HYDROCHLOROTHIAZIDE 25 MG TABLET (FP) PO SCH (10:22)
[2020-02-27] MEDS: PRENATAL VITAMINS W/ FOLIC ACID TABLET (FP) PO SCH (10:22)
--- NOTE | 2020-02-27 15:04 | PN ---
S CIWA - CIWA Score Nausea/Vomitin-Mild Nausea/No Vomiting Muscle Tremors: 2 Anxiety: 2 Agitation: 2 Paroxysmal Sweats: No Perspiration Orientation: 0-Oriented Tacttile Disturbances: 1-Very Mild Itch/Numbness Auditory Disturbances: 0-None Visual Disturbances: 0-None Headache: 1-Very Mild CIWA-Ar Total Score: 9 BHS Progress Note (SOAP) Subjective: alert,irritable,interrupted sleep,tremor,aching pain Objective: 02/27/20 15:02 Vital Signs Temperature 97.8 F 02/27/20 12:26 Pulse Rate 89 02/27/20 12:26 Respiratory Rate 18 02/27/20 12:26 Blood Pressure 105/61 02/27/20 12:26 O2 Sat by Pulse Oximetry (%) 98 02/27/20 12:26 02/27/20 15:03 Laboratory Last Values WBC 5.5 K/mm3 (4.0-10.0) 02/26/20 07:50 RBC 4.73 M/mm3 (4.00-5.60) 02/26/20 07:50 Hgb 13.2 GM/dL (11.7-16.9) 02/26/20 07:50 Hct 40.9 % (35.4-49) 02/26/20 07:50 MCV 86.4 fl (80-96) 02/26/20 07:50 MCH 27.9 pg (25.7-33.7) 02/26/20 07:50 MCHC 32.2 g/dl (32.0-35.9) 02/26/20 07:50 RDW 14.9 % (11.9-15.9) 02/26/20 07:50 Plt Count 297 K/MM3 (134-434) D 02/26/20 07:50 MPV 7.8 fl (7.5-11.1) 02/26/20 07:50 Sodium 142 mmol/L (136-145) 02/26/20 07:50 Potassium 3.6 mmol/L (3.5-5.1) 02/26/20 07:50 Chloride 108 mmol/L (98-107) H 02/26/20 07:50 Carbon Dioxide 28 mmol/L (21-32) 02/26/20 07:50 Anion Gap 6 MMOL/L (8-16) L 02/26/20 07:50 BUN 13.1 mg/dL (7-18) 02/26/20 07:50 Creatinine 1.1 mg/dL (0.55-1.3) 02/26/20 07:50 Est GFR (CKD-EPI)AfAm 88.36 02/26/20 07:50 Est GFR (CKD-EPI)NonAf 76.24 02/26/20 07:50 POC Glucometer 92 UNITS (80-120) 02/27/20 06:36 Random Glucose 119 mg/dL (74-106) H 02/26/20 07:50 Calcium 8.7 mg/dL (8.5-10.1) 02/26/20 07:50 Total Bilirubin 0.8 mg/dL (0.2-1) 02/26/20 07:50 AST 64 U/L (15-37) H 02/26/20 07:50 ALT 122 U/L (13-61) H 02/26/20 07:50 Alkaline Phosphatase 84 U/L (45-117) 02/26/20 07:50 Total Protein 7.3 g/dl (6.4-8.2) 02/26/20 07:50 Albumin 3.7 g/dl (3.4-5.0) 02/26/20 07:50 Syphilis Serology Non-reactive (NONREACTIVE) 02/26/20 07:50 COVID-19 (CHRISTA) Not detected (Not Detected) 02/25/20 18:00 Assessment: 02/27/20 15:03 withdrawal symptom Plan: continue detox librium regimen,would like bgm to change to bid ac,
[2020-02-27] MEDS: THIAMINE HCL 100 MG TABLET (FP) PO SCH (22:59)
[2020-02-27] MEDS: MELATONIN 5 MG TABLETS PO SCH (23:00)
[2020-02-27] MEDS: ATORVASTATIN CA 40 MG TABLET (FP) PO SCH (23:00)
[2020-02-27] MEDS: QUEtiapine FUMARATE 50 MG TABLET PO SCH (23:00)
[2020-02-28] MEDS ORDERED: chlordiazePOXIDE HCL 10 MG CAPSULE PO PRN
[2020-02-28] MEDS: hydrOXYzine PAMOATE 50 MG CAPSULE (FP) PO SCH ×4 (06:08→22:32)
[2020-02-28] MEDS: metFORMIN HCL 500 MG TABLET (FP) PO SCH ×2 (06:08→18:11)
[2020-02-28] MEDS: chlordiazePOXIDE HCL 10 MG CAPSULE PO SCH ×4 (06:08→22:32)
[2020-02-28] MEDS: ELVITEG/COB/EMTRI/TENOF (GENVOYA) TABLET (NF) PO SCH (10:20)
[2020-02-28] MEDS: NICOTINE 7 MG/24 HOURS TOPICAL PATCH TD SCH (10:20)
[2020-02-28] MEDS: PRENATAL VITAMINS W/ FOLIC ACID TABLET (FP) PO SCH (10:21)
[2020-02-28] MEDS: HYDROCHLOROTHIAZIDE 25 MG TABLET (FP) PO SCH (10:21)
--- NOTE | 2020-02-28 10:58 | PN ---
S CIWA - CIWA Score Nausea/Vomitin-No Nausea/No Vomiting Muscle Tremors: None Anxiety: 1-Mildly Anxious Agitation: 1-Slight > Activity Paroxysmal Sweats: No Perspiration Orientation: 0-Oriented Tacttile Disturbances: 0-None Auditory Disturbances: 0-None Visual Disturbances: 0-None Headache: 0-None Present CIWA-Ar Total Score: 2 BHS Progress Note (SOAP) Subjective: Pt state "I don't want to talk, I feel good" Objective: 02/28/20 10:56 PE Gnl: WDWN, in no distress MS: nl mentation Motor: moves limbs well HEENT: reads lips due to hearing loss, speaks loudly Gait: steady Laboratory Tests 02/25/20 02/25/20 02/26/20 18:00 21:53 06:27 WBC RBC Hgb Hct MCV MCH MCHC RDW Plt Count MPV Sodium Potassium Chloride Carbon Dioxide Anion Gap BUN Creatinine Est GFR (CKD-EPI)AfAm Est GFR (CKD-EPI)NonAf POC Glucometer 110 128 Random Glucose Calcium Total Bilirubin AST ALT Alkaline Phosphatase Total Protein Albumin Syphilis Serology COVID-19 (CHRISTA) Not detected 02/26/20 02/26/20 02/26/20 07:50 07:50 07:50 WBC 5.5 RBC 4.73 Hgb 13.2 Hct 40.9 MCV 86.4 MCH 27.9 MCHC 32.2 RDW 14.9 Plt Count 297 D MPV 7.8 Sodium 142 Potassium 3.6 Chloride 108 H Carbon Dioxide 28 Anion Gap 6 L BUN 13.1 Creatinine 1.1 Est GFR (CKD-EPI)AfAm 88.36 Est GFR (CKD-EPI)NonAf 76.24 POC Glucometer Random Glucose 119 H Calcium 8.7 Total Bilirubin 0.8 AST 64 H ALT 122 H Alkaline Phosphatase 84 Total Protein 7.3 Albumin 3.7 Syphilis Serology Non-reactive COVID-19 (CHRISTA) 02/26/20 02/26/20 02/27/20 16:27 20:55 06:36 WBC RBC Hgb Hct MCV MCH MCHC RDW Plt Count MPV Sodium Potassium Chloride Carbon Dioxide Anion Gap BUN Creatinine Est GFR (CKD-EPI)AfAm Est GFR (CKD-EPI)NonAf POC Glucometer 124 126 92 Random Glucose Calcium Total Bilirubin AST ALT Alkaline Phosphatase Total Protein Albumin Syphilis Serology COVID-19 (CHRISTA) 02/27/20 02/28/20 16:42 06:11 WBC RBC Hgb Hct MCV MCH MCHC RDW Plt Count MPV Sodium Potassium Chloride Carbon Dioxide Anion Gap BUN Creatinine Est GFR (CKD-EPI)AfAm Est GFR (CKD-EPI)NonAf POC Glucometer 119 167 Random Glucose Calcium Total Bilirubin AST ALT Alkaline Phosphatase Total Protein Albumin Syphilis Serology COVID-19 (CHRISTA) Vital Signs Temperature 97.1 F L 02/28/20 09:02 Pulse Rate 77 02/28/20 09:02 Respiratory Rate 18 02/28/20 09:02 Blood Pressure 137/88 02/28/20 09:02 O2 Sat by Pulse Oximetry (%) 96 02/28/20 05:13 Assessment: 1. Alcohol withdrawal uncomplicated 2. Cocaine use disorder 3. Nicotine dependence 4. HTN 5. HL 6. HIV 7. DM 8. Substance induced mood disorder, insomnia, noncompliance: seen by Psychiatry 02/28/20 11:00 Plan: 1. Librium detox protocol, projected completion on 03/01 2. glucose monitoring, relatively well controlled 3. Seen by Psychiatry dx with insomnia, substance induced mood disorder, noncompliance:Patient with special needs (deafness) : recommend use of written material for communication puposes. Psychoeducation. Sleep hygiene. Support. Continue seroquel 50 mg po hs. Side effects/benefits discussed with patient (in writing). He verbalizes consent to this plan of care. Observation. 4. Nicoderm patch 5. continue Genvoya 6. monitor vitals, BP in good range at this time
[2020-02-28] MEDS: ATORVASTATIN CA 40 MG TABLET (FP) PO SCH (22:31)
[2020-02-28] MEDS: MELATONIN 5 MG TABLETS PO SCH (22:31)
[2020-02-28] MEDS: THIAMINE HCL 100 MG TABLET (FP) PO SCH (22:32)
[2020-02-28] MEDS: QUEtiapine FUMARATE 50 MG TABLET PO SCH (22:32)
[2020-02-29] MEDS: chlordiazePOXIDE HCL 10 MG CAPSULE PO SCH ×2 (08:00→19:06)
[2020-02-29] MEDS: hydrOXYzine PAMOATE 50 MG CAPSULE (FP) PO SCH ×4 (08:00→22:32)
[2020-02-29] MEDS: metFORMIN HCL 500 MG TABLET (FP) PO SCH ×2 (08:00→19:06)
[2020-02-29] MEDS: ELVITEG/COB/EMTRI/TENOF (GENVOYA) TABLET (NF) PO SCH (10:45)
[2020-02-29] MEDS: PRENATAL VITAMINS W/ FOLIC ACID TABLET (FP) PO SCH (10:45)
[2020-02-29] MEDS: HYDROCHLOROTHIAZIDE 25 MG TABLET (FP) PO SCH (10:45)
[2020-02-29] MEDS: NICOTINE 7 MG/24 HOURS TOPICAL PATCH TD SCH (10:46)
--- NOTE | 2020-02-29 12:23 | PN ---
S CIWA - CIWA Score Nausea/Vomitin-No Nausea/No Vomiting Muscle Tremors: None Anxiety: 2 Agitation: 0-Normal Activity Paroxysmal Sweats: No Perspiration Orientation: 0-Oriented Tacttile Disturbances: 0-None Auditory Disturbances: 0-None Visual Disturbances: 0-None Headache: 0-None Present CIWA-Ar Total Score: 2 BHS Progress Note (SOAP) Subjective: c/o mild withdrawal symptoms. Objective: 02/29/20 12:22 Vital Signs 02/29/20 02/29/20 06:00 08:30 Temperature 97.8 F 97.7 F Pulse Rate 101 H 84 Respiratory 20 18 Rate Blood Pressure 145/95 120/61 O2 Sat by Pulse 95 Oximetry (%) Laboratory Last Values WBC 5.5 K/mm3 (4.0-10.0) 02/26/20 07:50 RBC 4.73 M/mm3 (4.00-5.60) 02/26/20 07:50 Hgb 13.2 GM/dL (11.7-16.9) 02/26/20 07:50 Hct 40.9 % (35.4-49) 02/26/20 07:50 MCV 86.4 fl (80-96) 02/26/20 07:50 MCH 27.9 pg (25.7-33.7) 02/26/20 07:50 MCHC 32.2 g/dl (32.0-35.9) 02/26/20 07:50 RDW 14.9 % (11.9-15.9) 02/26/20 07:50 Plt Count 297 K/MM3 (134-434) D 02/26/20 07:50 MPV 7.8 fl (7.5-11.1) 02/26/20 07:50 Sodium 142 mmol/L (136-145) 02/26/20 07:50 Potassium 3.6 mmol/L (3.5-5.1) 02/26/20 07:50 Chloride 108 mmol/L (98-107) H 02/26/20 07:50 Carbon Dioxide 28 mmol/L (21-32) 02/26/20 07:50 Anion Gap 6 MMOL/L (8-16) L 02/26/20 07:50 BUN 13.1 mg/dL (7-18) 02/26/20 07:50 Creatinine 1.1 mg/dL (0.55-1.3) 02/26/20 07:50 Est GFR (CKD-EPI)AfAm 88.36 02/26/20 07:50 Est GFR (CKD-EPI)NonAf 76.24 02/26/20 07:50 POC Glucometer 113 UNITS (80-120) 02/29/20 07:59 Random Glucose 119 mg/dL (74-106) H 02/26/20 07:50 Calcium 8.7 mg/dL (8.5-10.1) 02/26/20 07:50 Total Bilirubin 0.8 mg/dL (0.2-1) 02/26/20 07:50 AST 64 U/L (15-37) H 02/26/20 07:50 ALT 122 U/L (13-61) H 02/26/20 07:50 Alkaline Phosphatase 84 U/L (45-117) 02/26/20 07:50 Total Protein 7.3 g/dl (6.4-8.2) 02/26/20 07:50 Albumin 3.7 g/dl (3.4-5.0) 02/26/20 07:50 Syphilis Serology Non-reactive (NONREACTIVE) 02/26/20 07:50 COVID-19 (CHRISTA) Not detected (Not Detected) 02/25/20 18:00 Labs noted. Assessment: 02/29/20 12:23 AOX3, in no acute respiratory distress. Full ROM, ambulating in the unit. Mild Withdrawal symptoms. For d/c tomorrow. 02/29/20 12:23 Plan: continue detox. D/C in AM.
[2020-02-29] MEDS: ATORVASTATIN CA 40 MG TABLET (FP) PO SCH (22:31)
[2020-02-29] MEDS: QUEtiapine FUMARATE 50 MG TABLET PO SCH (22:32)
[2020-02-29] MEDS: MELATONIN 5 MG TABLETS PO SCH (22:32)
[2020-02-29] MEDS: THIAMINE HCL 100 MG TABLET (FP) PO SCH (22:32)
[2020-03-01] MEDS ORDERED: chlordiazePOXIDE HCL 10 MG CAPSULE PO ONE (05:00)
[2020-03-01] MEDS: metFORMIN HCL 500 MG TABLET (FP) PO SCH (06:04)
[2020-03-01 07:27] VITALS: TEMP 96.9
[2020-03-01 09:40] VITALS: BP 115/90; PULSE 85
[2020-03-01] MEDS: HYDROCHLOROTHIAZIDE 25 MG TABLET (FP) PO SCH (10:43)
[2020-03-01] MEDS: ELVITEG/COB/EMTRI/TENOF (GENVOYA) TABLET (NF) PO SCH (10:43)
[2020-03-01] MEDS: PRENATAL VITAMINS W/ FOLIC ACID TABLET (FP) PO SCH (10:43)
[2020-03-01] MEDS: NICOTINE 7 MG/24 HOURS TOPICAL PATCH TD SCH (10:44)
--- NOTE | 2020-03-01 11:30 | DS ---
[facility] Detox Discharge Summary Admission Date: 02/25/20 Discharge Date: 03/01/20 - History Present History: Alcohol Dependence Additional Comments: 54 yearsj old male was admitted on 02/25/20 for alcohol withdrawal sx management treated with librium detox regiment seen by psychiatrist kristian jc mr stevens has completed the librium detox regiment and is tolerated well General Appearance: Yes: mild Tremorous, mild Anxious HEENTM: Yes: Within Normal Limits, Normal ENT Inspection (Hearing impaired) Respiratory: Yes: Within Normal Limits Neck: Yes: Within Normal Limits, No masses,lesions,Nodules Breast: Yes: Within Normal Limits Cardiology: Yes: Within Normal Limits, S1, S2 Abdominal: Yes: Within Normal Limits, Normal Bowel Sounds, Non Tender Genitourinary: Yes: Within Normal Limits Back: Yes: Within Normal Limits, Normal Inspection Musculoskeletal: Yes: Within Normal Limits, full range of Motion, Gait Steady Extremities: Yes: Within Normal Limits, Normal Capillary Refill Neurological: Yes: Within Normal Limits, Fully Oriented, Normal Mood/Affect, Normal Response Integumentary: Yes: Within Normal Limits Lymphatic: Yes: Within Normal Limits Pertinent Past History: time for discharge 45 minutes transferred order set from detox to rehab - Physical Exam Results Vital Signs: Vital Signs Temperature 96.9 F L 03/01/20 09:00 Pulse Rate 85 03/01/20 09:00 Respiratory Rate 18 03/01/20 09:00 Blood Pressure 115/90 03/01/20 09:00 O2 Sat by Pulse Oximetry (%) 96 03/01/20 05:56 Pertinent Admission Physical Exam Findings: alcohol withdrawal Vital Signs - 24 hr 02/29/20 02/29/20 02/29/20 12:35 16:55 20:52 Temperature 97.2 F L 97.3 F L 97.2 F L Pulse Rate 99 H 107 H 102 H Respiratory 18 19 19 Rate Blood Pressure 112/71 128/81 134/88 O2 Sat by Pulse 98 95 Oximetry (%) 03/01/20 03/01/20 05:56 09:00 Temperature 96.9 F L 96.9 F L Pulse Rate 87 85 Respiratory 18 18 Rate Blood Pressure 132/99 115/90 O2 Sat by Pulse 96 Oximetry (%) Laboratory Tests 02/25/20 02/25/20 02/26/20 18:00 21:53 06:27 WBC RBC Hgb Hct MCV MCH MCHC RDW Plt Count MPV Sodium Potassium Chloride Carbon Dioxide Anion Gap BUN Creatinine Est GFR (CKD-EPI)AfAm Est GFR (CKD-EPI)NonAf POC Glucometer 110 128 Random Glucose Calcium Total Bilirubin AST ALT Alkaline Phosphatase Total Protein Albumin Syphilis Serology COVID-19 ([facility]STA) Not detected 02/26/20 02/26/20 02/26/20 07:50 07:50 07:50 WBC 5.5 RBC 4.73 Hgb 13.2 Hct 40.9 MCV 86.4 MCH 27.9 MCHC 32.2 RDW 14.9 Plt Count 297 D MPV 7.8 Sodium 142 Potassium 3.6 Chloride 108 H Carbon Dioxide 28 Anion Gap 6 L BUN 13.1 Creatinine 1.1 Est GFR (CKD-EPI)AfAm 88.36 Est GFR (CKD-EPI)NonAf 76.24 POC Glucometer Random Glucose 119 H Calcium 8.7 Total Bilirubin 0.8 AST 64 H ALT 122 H Alkaline Phosphatase 84 Total Protein 7.3 Albumin 3.7 Syphilis Serology Non-reactive COVID-19 (CHRISTA) 02/26/20 02/26/20 02/27/20 16:27 20:55 06:36 WBC RBC Hgb Hct MCV MCH MCHC RDW Plt Count MPV Sodium Potassium Chloride Carbon Dioxide Anion Gap BUN Creatinine Est GFR (CKD-EPI)AfAm Est GFR (CKD-EPI)NonAf POC Glucometer 124 126 92 Random Glucose Calcium Total Bilirubin AST ALT Alkaline Phosphatase Total Protein Albumin Syphilis Serology COVID-19 (CHRISTA) 02/27/20 02/28/20 02/28/20 16:42 06:11 16:55 WBC RBC Hgb Hct MCV MCH MCHC RDW Plt Count MPV Sodium Potassium Chloride Carbon Dioxide Anion Gap BUN Creatinine Est GFR (CKD-EPI)AfAm Est GFR (CKD-EPI)NonAf POC Glucometer 119 167 126 Random Glucose Calcium Total Bilirubin AST ALT Alkaline Phosphatase Total Protein Albumin Syphilis Serology COVID-19 (CHRISTA) 02/29/20 02/29/20 03/01/20 07:59 17:00 06:06 WBC RBC Hgb Hct MCV MCH MCHC RDW Plt Count MPV Sodium Potassium Chloride Carbon Dioxide Anion Gap BUN Creatinine Est GFR (CKD-EPI)AfAm Est GFR (CKD-EPI)NonAf POC Glucometer 113 141 106 Random Glucose Calcium Total Bilirubin AST ALT Alkaline Phosphatase Total Protein Albumin Syphilis Serology COVID-19 (CHRISTA) none insulin dependent diabetes - Treatment Hospital Course: Detox Protocol Followed, Detoxed Safely, Responded well, Discharged Condition Good, Rehab Referral Accepted Patient has Accepted [facility] Referral [facility] - Medication Discharge Medications: Ambulatory Orders Quetiapine Fumarate [Seroquel -] 50 mg PO HS #30 tablet 02/11/18 Carboxymethylcellulos/Glycerin [Refresh Optive Gel Eye Drops] 2 drop OU TID PRN 11/02/18 Atorvastatin Calcium 40 mg PO HS #14 tablet 07/24/19 Elviteg/Cob/Emtri/Tenof Alafen [Genvoya Tablet] 1 tablet PO DAILY #30 tablet 07/24/19 Hydrochlorothiazide [Hctz -] 25 mg PO DAILY #14 cap 07/24/19 Multivitamin [Multiple Vitamins] 1 each PO DAILY #30 tablet 07/24/19 metFORMIN HCL [Glucophage -] 500 mg PO BID #30 tablet 07/24/19 - Diagnosis (1) Alcohol dependence with uncomplicated withdrawal Current Visit: Yes Status: Acute (2) Nicotine dependence Current Visit: Yes Status: Acute Qualifiers: Nicotine product type: cigarettes Substance use status: in withdrawal Qualified Code(s): F17.213 - Nicotine dependence, cigarettes, with withdrawal (3) Substance induced mood disorder Current Visit: Yes Status: Suspected (4) DM2 (diabetes mellitus, type 2) Current Visit: Yes Status: Chronic Qualifiers: Diabetes mellitus 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 oil 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 insulin use: without 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 oil terminal use Diabetes mellitus complication status: without complication Qualified Code(s): E11.9 - Type 2 diabetes mellitus without complications (5) HTN (hypertension) Current Visit: Yes Status: Chronic Qualifiers: Hypertension type: essential hypertension Qualified Code(s): I10 - Essential (primary) hypertension (6) Human immunodeficiency virus infection Current Visit: Yes Status: Chronic (7) Hyperlipidemia Current Visit: Yes Status: Chronic Qualifiers: Hyperlipidemia type: pure hypertriglyceridemia Qualified Code(s): E78.1 - Pure hyperglyceridemia - AMA Did Patient Leave Against Medical Advice: No CIWA Score - CIWA Score Nausea/Vomitin-No Nausea/No Vomiting Muscle Tremors: None Anxiety: 1-Mildly Anxious Agitation: 0-Normal Activity Paroxysmal Sweats: No Perspiration Orientation: 0-Oriented Tacttile Disturbances: 0-None Auditory Disturbances: 0-None Visual Disturbances: 0-None Headache: 0-None Present CIWA-Ar Total Score: 1
== END 2020-03-01 12:30 | disposition other institution (70) | DRG 897 ==
LOC: YASAS 14:59 → Y3N 17:57
PROVIDERS: ADMIT Allergy & Immunology; ATTEND Allergy & Immunology
PROC: HZ2ZZZZ Detoxification Services for Substance Abuse Treatment (ICD-10-PCS; principal; 2020-02-25)
DX: F10.230 Alcohol dependence with withdrawal, uncomplicated (principal); F14.20 Cocaine dependence, uncomplicated; F17.210 Nicotine dependence, cigarettes, uncomplicated; F19.24 Other psychoactive substance dependence with psychoactive substance-induced mood disorder; Z21 Asymptomatic human immunodeficiency virus [HIV] infection status; E78.5 Hyperlipidemia, unspecified; E11.9 Type 2 diabetes mellitus without complications; Z79.84 Long term (current) use of oral hypoglycemic drugs; G47.00 Insomnia, unspecified; H91.93 Unspecified hearing loss, bilateral; I10 Essential (primary) hypertension; Z85.46 Personal history of malignant neoplasm of prostate; Z90.79 Acquired absence of other genital organ(s); Z97.4 Presence of external hearing-aid; Z91.19 Patient's noncompliance with other medical treatment and regimen; Z56.0 Unemployment, unspecified
CPT/HCPCS: 36415; 80053; 82962; 85027; 86780; 93005; 93010; U0003

== ENCOUNTER 2020-03-01 12:36 | Inpatient (IN) | payer OTHER ==
--- NOTE | 2020-03-01 11:31 | HP ---
[facility] Rehab Assess/Revision - Admission History Admitted to Rehab from: [facility] Date of Admission to Rehab: 03/01/20 - Findings Detox History & Physical reviewed: Yes Concur with findings: Yes Comments/Additional Findings: transferred from detox to rehab admission as per protocol Inpatient Rehab Admission - Rehab Decision to Admit Inpatient rehab admission?: Yes - Initial Determination Are CD services needed?: Yes Free of communicable disease: Yes Not in need of hospitalization: Yes - Rehab Admission Criteria Previous failed treatment: Yes Poor recovery environment: Yes Comorbidities: Yes Lacks judgement: Yes Patient is meeting Inpatient Rehab admission criteria:: Yes
[~2020-03-01 12:36] MED LIST changes: -ACETAMINOPHEN 325 MG TABLET (FP) PO PRN; +MAGNESIUM HYDROX 2400MG/30ML ORAL SUSPENSION 30 ML CUP PO PRN; -MENTHOL/PHENOL 1 EACH UD MM PRN; -NICOTINE 14 MG/24 HOURS TOPICAL PATCH TD PRN; -NICOTINE POLACRILEX 2 MG GUM BC PRN; +NICOTINE POLACRILEX 2 MG GUM BUC PRN
--- NOTE | 2020-03-01 14:37 | CONSULT ---
[facility] Psychiatric Consult - Data Date of interview: 03/01/20 Admission source: [facility] Identifying data: Patient is a 54 year old single black male, without children, unemployed, homeless, and is supported with SSI benefits. This is one of multiple admissions for patient. Patient admitted to rehab for alcohol, cocaine (crack), and nicotine dependence. Substance Abuse History: - Smoking Cessation. Smoking history: Current some day smoker. Have you smoked in the past 12 months: Yes. Aproximately how many cigarettes per day: 10. Cigars Per Day: 0. Hx Chewing Tobacco Use: No. Initiated information on smoking cessation: Yes. 'Breaking Loose' booklet given: 02/25/20. - Substance & Tx. History. Hx Alcohol Use: Yes. Substance Use Type: Alcohol, Cocaine. - Substances abused. Alcohol. Substance route: Oral. Frequency: Daily. Amount used: 3 pints of bacardi, 5-40oz beers. Age of first use: 17. Date of last use: 02/25/20. Cocaine. Substance route: Smoking. Frequency: Daily. Amount used: $100. Age of first use: 24. 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 Reports a past diagnosis of MDD. Patient is not provided with outpatient psychiatric care. No reported history of suicide attempt. Patient seen by Dr. Odonnell while in detox and was prescribed seroquel 50mg HS. Patient requesting to continue same medications. At present, patient reports stable mood. Physical/Sexual Abuse/Trauma History: denies. 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 and answer questions appropriately.) Voice Loudness: Normal Thought Process: Goal Oriented Thought Disorder: Not Present Hallucinations: Denies Suicidal Ideation: Denies Homicidal Ideation: Denies Insight/Judgement: Poor Sleep: Fair Appetite: Fair Muscle strength/Tone: Normal Gait/Station: Normal Psychiatric Findings - Problem List ([place] 1, 2,3) (1) Alcohol use disorder Current Visit: Yes Status: Acute (2) Cocaine use disorder Current Visit: Yes Status: Acute (3) Nicotine dependence Current Visit: Yes Status: Acute (4) Substance-induced sleep disorder Current Visit: Yes Status: Acute - Initial Treatment Plan Initial Treatment Plan: Psychoeducation provided. Rehab in progress. Will continue Seroquel 50mg HS. Benefits and side effects discussed. Verbal consent given.
[2020-03-01] MEDS: metFORMIN HCL 500 MG TABLET (FP) PO SCH (16:24)
[2020-03-01] MEDS ORDERED: QUEtiapine FUMARATE 25 MG TABLET ONE (20:40)
[2020-03-01] MEDS: THIAMINE HCL 100 MG TABLET (FP) PO SCH (21:26)
[2020-03-01] MEDS: QUEtiapine FUMARATE 50 MG TABLET PO SCH (21:27)
[2020-03-01] MEDS: ATORVASTATIN CA 40 MG TABLET (FP) PO SCH (21:27)
[2020-03-01] MEDS: MELATONIN 5 MG TABLETS PO SCH (21:27)
[2020-03-02] MEDS: metFORMIN HCL 500 MG TABLET (FP) PO SCH ×2 (06:43→16:59)
[2020-03-02] MEDS ORDERED: HYDROCHLOROTHIAZIDE 12.5 MG CAPSULE (FP) PO SCH (10:00)
[2020-03-02] MEDS: ELVITEG/COB/EMTRI/TENOF (GENVOYA) TABLET (NF) PO SCH (10:41)
[2020-03-02] MEDS: NICOTINE 7 MG/24 HOURS TOPICAL PATCH TD SCH (10:42)
[2020-03-02] MEDS: PRENATAL VITAMINS W/ FOLIC ACID TABLET (FP) PO SCH (10:42)
[2020-03-02] MEDS: HYDROCHLOROTHIAZIDE 25 MG TABLET (FP) PO SCH (10:42)
--- NOTE | 2020-03-02 12:01 | PN ---
[facility] Progress Note Note: Pt c/oitchy eyes with redness. Denies eye discharge or pain. C/o Hx of hard stool and requesting to continue with Colace. Vital Signs - 24 hr 03/01/20 03/01/20 03/02/20 15:04 20:16 07:33 Temperature 97.1 F L 97.3 F L Pulse Rate 96 H 86 Respiratory 20 18 Rate Blood Pressure 140/105 H 111/86 O2 Sat by Pulse 95 95 Oximetry (%) alert o x 3 nad oob ambulating with steady gait Eyes: Sclera anicteric, slight redness with teary eyes. No exudates. A:Eye Redness with Itch Visine-A apply 2 gtts to each eye BID Colace 100 mg po TID
[2020-03-02] MEDS: DOCUSATE SODIUM 100 MG CAPSULE (FP) PO SCH ×2 (15:11→21:09)
[2020-03-02] MEDS: NAPHAZOLINE/PHENIRAMINE OPHTHALMIC 15 ML BOTTLE OU SCH ×2 (15:12→21:10)
[2020-03-02] MEDS: QUEtiapine FUMARATE 50 MG TABLET PO SCH (21:09)
[2020-03-02] MEDS: MELATONIN 5 MG TABLETS PO SCH (21:09)
[2020-03-02] MEDS: ATORVASTATIN CA 40 MG TABLET (FP) PO SCH (21:09)
[2020-03-02] MEDS: THIAMINE HCL 100 MG TABLET (FP) PO SCH (21:09)
[2020-03-03] MEDS: DOCUSATE SODIUM 100 MG CAPSULE (FP) PO SCH ×3 (06:22→21:35)
[2020-03-03] MEDS: metFORMIN HCL 500 MG TABLET (FP) PO SCH ×2 (06:22→17:03)
[2020-03-03] MEDS: HYDROCHLOROTHIAZIDE 25 MG TABLET (FP) PO SCH (10:35)
[2020-03-03] MEDS: PRENATAL VITAMINS W/ FOLIC ACID TABLET (FP) PO SCH (10:35)
[2020-03-03] MEDS: NICOTINE 7 MG/24 HOURS TOPICAL PATCH TD SCH (10:35)
[2020-03-03] MEDS: ELVITEG/COB/EMTRI/TENOF (GENVOYA) TABLET (NF) PO SCH (10:35)
[2020-03-03] MEDS: NAPHAZOLINE/PHENIRAMINE OPHTHALMIC 15 ML BOTTLE OU SCH ×2 (14:43→21:35)
[2020-03-03] MEDS: IBUPROFEN 400 MG TABLET (FP) PO PRN (14:45)
[2020-03-03] MEDS: THIAMINE HCL 100 MG TABLET (FP) PO SCH (21:35)
[2020-03-03] MEDS: MELATONIN 5 MG TABLETS PO SCH (21:35)
[2020-03-03] MEDS: ATORVASTATIN CA 40 MG TABLET (FP) PO SCH (21:35)
[2020-03-03] MEDS: QUEtiapine FUMARATE 50 MG TABLET PO SCH (21:35)
[2020-03-04] MEDS: metFORMIN HCL 500 MG TABLET (FP) PO SCH ×2 (06:45→16:56)
[2020-03-04] MEDS: DOCUSATE SODIUM 100 MG CAPSULE (FP) PO SCH ×3 (06:45→21:43)
[2020-03-04] MEDS: ELVITEG/COB/EMTRI/TENOF (GENVOYA) TABLET (NF) PO SCH (11:46)
[2020-03-04] MEDS: PRENATAL VITAMINS W/ FOLIC ACID TABLET (FP) PO SCH (11:46)
[2020-03-04] MEDS: NICOTINE 7 MG/24 HOURS TOPICAL PATCH TD SCH (11:46)
[2020-03-04] MEDS: HYDROCHLOROTHIAZIDE 25 MG TABLET (FP) PO SCH (11:47)
[2020-03-04] MEDS: NAPHAZOLINE/PHENIRAMINE OPHTHALMIC 15 ML BOTTLE OU SCH ×2 (11:47→21:43)
[2020-03-04] MEDS: THIAMINE HCL 100 MG TABLET (FP) PO SCH (21:43)
[2020-03-04] MEDS: ATORVASTATIN CA 40 MG TABLET (FP) PO SCH (21:43)
[2020-03-04] MEDS: QUEtiapine FUMARATE 50 MG TABLET PO SCH (21:43)
[2020-03-04] MEDS: MELATONIN 5 MG TABLETS PO SCH (21:44)
[2020-03-05] MEDS: metFORMIN HCL 500 MG TABLET (FP) PO SCH ×2 (06:49→16:36)
[2020-03-05] MEDS: DOCUSATE SODIUM 100 MG CAPSULE (FP) PO SCH ×3 (06:50→21:04)
[2020-03-05] MEDS: HYDROCHLOROTHIAZIDE 25 MG TABLET (FP) PO SCH (09:07)
[2020-03-05] MEDS: NICOTINE 7 MG/24 HOURS TOPICAL PATCH TD SCH (09:07)
[2020-03-05] MEDS: PRENATAL VITAMINS W/ FOLIC ACID TABLET (FP) PO SCH (09:07)
[2020-03-05] MEDS: ELVITEG/COB/EMTRI/TENOF (GENVOYA) TABLET (NF) PO SCH (09:08)
[2020-03-05] MEDS: NAPHAZOLINE/PHENIRAMINE OPHTHALMIC 15 ML BOTTLE OU SCH ×2 (09:09→21:02)
[2020-03-05] MEDS: TOLNAFTATE 1% CREAM 15 GM TUBE TP SCH ×2 (14:03→21:03)
[2020-03-05] MEDS: THIAMINE HCL 100 MG TABLET (FP) PO SCH (21:04)
[2020-03-05] MEDS: ATORVASTATIN CA 40 MG TABLET (FP) PO SCH (21:04)
[2020-03-05] MEDS: QUEtiapine FUMARATE 50 MG TABLET PO SCH (21:04)
[2020-03-05] MEDS: ACETAMINOPHEN 325 MG TABLET (FP) PO PRN (21:04)
[2020-03-05] MEDS: MELATONIN 5 MG TABLETS PO SCH (21:06)
[2020-03-06] MEDS: metFORMIN HCL 500 MG TABLET (FP) PO SCH ×2 (06:47→17:03)
[2020-03-06] MEDS: DOCUSATE SODIUM 100 MG CAPSULE (FP) PO SCH ×3 (06:47→21:52)
[2020-03-06] MEDS: HYDROCHLOROTHIAZIDE 25 MG TABLET (FP) PO SCH (10:43)
[2020-03-06] MEDS: PRENATAL VITAMINS W/ FOLIC ACID TABLET (FP) PO SCH (10:43)
[2020-03-06] MEDS: NICOTINE 7 MG/24 HOURS TOPICAL PATCH TD SCH (10:44)
[2020-03-06] MEDS: ELVITEG/COB/EMTRI/TENOF (GENVOYA) TABLET (NF) PO SCH (10:45)
[2020-03-06] MEDS: TOLNAFTATE 1% CREAM 15 GM TUBE TP SCH ×2 (10:46→21:53)
[2020-03-06] MEDS: NAPHAZOLINE/PHENIRAMINE OPHTHALMIC 15 ML BOTTLE OU SCH ×2 (10:48→21:56)
[2020-03-06] MEDS: IBUPROFEN 400 MG TABLET (FP) PO PRN (17:01)
[2020-03-06] MEDS: QUEtiapine FUMARATE 50 MG TABLET PO SCH (21:52)
[2020-03-06] MEDS: ATORVASTATIN CA 40 MG TABLET (FP) PO SCH (21:52)
[2020-03-06] MEDS: THIAMINE HCL 100 MG TABLET (FP) PO SCH (21:53)
[2020-03-06] MEDS: MELATONIN 5 MG TABLETS PO SCH (21:53)
[2020-03-06] MEDS: ACETAMINOPHEN 325 MG TABLET (FP) PO PRN (21:54)
[2020-03-07] MEDS: metFORMIN HCL 500 MG TABLET (FP) PO SCH ×2 (06:40→16:40)
[2020-03-07] MEDS: DOCUSATE SODIUM 100 MG CAPSULE (FP) PO SCH ×3 (06:43→21:35)
[2020-03-07] MEDS: PRENATAL VITAMINS W/ FOLIC ACID TABLET (FP) PO SCH (10:19)
[2020-03-07] MEDS: TOLNAFTATE 1% CREAM 15 GM TUBE TP SCH ×2 (10:19→21:35)
[2020-03-07] MEDS: HYDROCHLOROTHIAZIDE 25 MG TABLET (FP) PO SCH (10:19)
[2020-03-07] MEDS: NAPHAZOLINE/PHENIRAMINE OPHTHALMIC 15 ML BOTTLE OU SCH ×2 (10:19→21:34)
[2020-03-07] MEDS: NICOTINE 7 MG/24 HOURS TOPICAL PATCH TD SCH (10:19)
[2020-03-07] MEDS: ELVITEG/COB/EMTRI/TENOF (GENVOYA) TABLET (NF) PO SCH (10:19)
[2020-03-07] MEDS: THIAMINE HCL 100 MG TABLET (FP) PO SCH (21:35)
[2020-03-07] MEDS: MELATONIN 5 MG TABLETS PO SCH (21:35)
[2020-03-07] MEDS: ATORVASTATIN CA 40 MG TABLET (FP) PO SCH (21:35)
[2020-03-07] MEDS: QUEtiapine FUMARATE 50 MG TABLET PO SCH (21:35)
[2020-03-07] MEDS: IBUPROFEN 400 MG TABLET (FP) PO PRN (22:16)
[2020-03-08] MEDS: DOCUSATE SODIUM 100 MG CAPSULE (FP) PO SCH ×3 (06:30→21:48)
[2020-03-08] MEDS: metFORMIN HCL 500 MG TABLET (FP) PO SCH ×2 (06:30→17:01)
[2020-03-08] MEDS: PRENATAL VITAMINS W/ FOLIC ACID TABLET (FP) PO SCH (10:26)
[2020-03-08] MEDS: NAPHAZOLINE/PHENIRAMINE OPHTHALMIC 15 ML BOTTLE OU SCH ×2 (10:27→21:47)
[2020-03-08] MEDS: ELVITEG/COB/EMTRI/TENOF (GENVOYA) TABLET (NF) PO SCH (10:27)
[2020-03-08] MEDS: HYDROCHLOROTHIAZIDE 25 MG TABLET (FP) PO SCH (10:28)
[2020-03-08] MEDS: NICOTINE 7 MG/24 HOURS TOPICAL PATCH TD SCH (10:28)
[2020-03-08] MEDS: TOLNAFTATE 1% CREAM 15 GM TUBE TP SCH ×2 (10:28→21:47)
[2020-03-08] MEDS: MELATONIN 5 MG TABLETS PO SCH (21:48)
[2020-03-08] MEDS: THIAMINE HCL 100 MG TABLET (FP) PO SCH (21:48)
[2020-03-08] MEDS: QUEtiapine FUMARATE 50 MG TABLET PO SCH (21:48)
[2020-03-08] MEDS: ATORVASTATIN CA 40 MG TABLET (FP) PO SCH (21:48)
[2020-03-09] MEDS: DOCUSATE SODIUM 100 MG CAPSULE (FP) PO SCH ×3 (06:28→21:39)
[2020-03-09] MEDS: metFORMIN HCL 500 MG TABLET (FP) PO SCH ×2 (06:29→16:31)
[2020-03-09] MEDS: PRENATAL VITAMINS W/ FOLIC ACID TABLET (FP) PO SCH (09:28)
[2020-03-09] MEDS: NAPHAZOLINE/PHENIRAMINE OPHTHALMIC 15 ML BOTTLE OU SCH ×2 (09:29→21:39)
[2020-03-09] MEDS: HYDROCHLOROTHIAZIDE 25 MG TABLET (FP) PO SCH (09:29)
[2020-03-09] MEDS: NICOTINE 7 MG/24 HOURS TOPICAL PATCH TD SCH (09:30)
[2020-03-09] MEDS: ELVITEG/COB/EMTRI/TENOF (GENVOYA) TABLET (NF) PO SCH (09:30)
[2020-03-09] MEDS: TOLNAFTATE 1% CREAM 15 GM TUBE TP SCH ×2 (09:30→21:40)
[2020-03-09] MEDS: MELATONIN 5 MG TABLETS PO SCH (21:39)
[2020-03-09] MEDS: QUEtiapine FUMARATE 50 MG TABLET PO SCH (21:39)
[2020-03-09] MEDS: ATORVASTATIN CA 40 MG TABLET (FP) PO SCH (21:39)
[2020-03-09] MEDS: THIAMINE HCL 100 MG TABLET (FP) PO SCH (21:40)
[2020-03-10] MEDS: IBUPROFEN 400 MG TABLET (FP) PO PRN (00:55)
[2020-03-10] MEDS: metFORMIN HCL 500 MG TABLET (FP) PO SCH ×2 (06:37→16:24)
[2020-03-10] MEDS: DOCUSATE SODIUM 100 MG CAPSULE (FP) PO SCH ×3 (06:37→21:32)
[2020-03-10] MEDS: HYDROCHLOROTHIAZIDE 25 MG TABLET (FP) PO SCH (10:39)
[2020-03-10] MEDS: PRENATAL VITAMINS W/ FOLIC ACID TABLET (FP) PO SCH (10:39)
[2020-03-10] MEDS: NAPHAZOLINE/PHENIRAMINE OPHTHALMIC 15 ML BOTTLE OU SCH ×3 (10:39→22:55)
[2020-03-10] MEDS: ELVITEG/COB/EMTRI/TENOF (GENVOYA) TABLET (NF) PO SCH (10:40)
[2020-03-10] MEDS: NICOTINE 7 MG/24 HOURS TOPICAL PATCH TD SCH (10:40)
[2020-03-10] MEDS: TOLNAFTATE 1% CREAM 15 GM TUBE TP SCH ×2 (10:41→21:33)
[2020-03-10] MEDS ORDERED: ATORVASTATIN CA 20 MG TABLET (FP) ONE (20:33)
[2020-03-10] MEDS: ATORVASTATIN CA 40 MG TABLET (FP) PO SCH (21:32)
[2020-03-10] MEDS: QUEtiapine FUMARATE 50 MG TABLET PO SCH (21:32)
[2020-03-10] MEDS: MELATONIN 5 MG TABLETS PO SCH (21:32)
[2020-03-10] MEDS: THIAMINE HCL 100 MG TABLET (FP) PO SCH (21:32)
[2020-03-11] MEDS: metFORMIN HCL 500 MG TABLET (FP) PO SCH ×2 (06:36→17:11)
[2020-03-11] MEDS: DOCUSATE SODIUM 100 MG CAPSULE (FP) PO SCH ×3 (06:36→21:42)
[2020-03-11] MEDS: PRENATAL VITAMINS W/ FOLIC ACID TABLET (FP) PO SCH (09:25)
[2020-03-11] MEDS: ELVITEG/COB/EMTRI/TENOF (GENVOYA) TABLET (NF) PO SCH (09:26)
[2020-03-11] MEDS: NICOTINE 7 MG/24 HOURS TOPICAL PATCH TD SCH (09:26)
[2020-03-11] MEDS: HYDROCHLOROTHIAZIDE 25 MG TABLET (FP) PO SCH (09:26)
[2020-03-11] MEDS: TOLNAFTATE 1% CREAM 15 GM TUBE TP SCH ×2 (09:27→21:42)
[2020-03-11] MEDS: NAPHAZOLINE/PHENIRAMINE OPHTHALMIC 15 ML BOTTLE OU SCH ×2 (09:27→21:41)
[2020-03-11] MEDS: ATORVASTATIN CA 40 MG TABLET (FP) PO SCH (21:41)
[2020-03-11] MEDS: QUEtiapine FUMARATE 50 MG TABLET PO SCH (21:41)
[2020-03-11] MEDS: MELATONIN 5 MG TABLETS PO SCH (21:42)
[2020-03-11] MEDS: THIAMINE HCL 100 MG TABLET (FP) PO SCH (21:42)
[2020-03-12] MEDS: metFORMIN HCL 500 MG TABLET (FP) PO SCH ×2 (06:44→16:57)
[2020-03-12] MEDS: DOCUSATE SODIUM 100 MG CAPSULE (FP) PO SCH ×3 (06:44→21:36)
[2020-03-12] MEDS: PRENATAL VITAMINS W/ FOLIC ACID TABLET (FP) PO SCH (10:14)
[2020-03-12] MEDS: ELVITEG/COB/EMTRI/TENOF (GENVOYA) TABLET (NF) PO SCH (10:14)
[2020-03-12] MEDS: HYDROCHLOROTHIAZIDE 25 MG TABLET (FP) PO SCH (10:14)
[2020-03-12] MEDS: NAPHAZOLINE/PHENIRAMINE OPHTHALMIC 15 ML BOTTLE OU SCH ×2 (10:15→21:36)
[2020-03-12] MEDS: TOLNAFTATE 1% CREAM 15 GM TUBE TP SCH ×2 (10:15→21:36)
[2020-03-12] MEDS: NICOTINE 7 MG/24 HOURS TOPICAL PATCH TD SCH (10:15)
[2020-03-12] MEDS: QUEtiapine FUMARATE 50 MG TABLET PO SCH (21:36)
[2020-03-12] MEDS: ATORVASTATIN CA 40 MG TABLET (FP) PO SCH (21:36)
[2020-03-12] MEDS: THIAMINE HCL 100 MG TABLET (FP) PO SCH (21:36)
[2020-03-12] MEDS: MELATONIN 5 MG TABLETS PO SCH (21:37)
[2020-03-13] MEDS: DOCUSATE SODIUM 100 MG CAPSULE (FP) PO SCH ×3 (06:30→21:36)
[2020-03-13] MEDS: metFORMIN HCL 500 MG TABLET (FP) PO SCH ×2 (06:30→16:44)
[2020-03-13] MEDS: ELVITEG/COB/EMTRI/TENOF (GENVOYA) TABLET (NF) PO SCH (10:27)
[2020-03-13] MEDS: NAPHAZOLINE/PHENIRAMINE OPHTHALMIC 15 ML BOTTLE OU SCH ×2 (10:27→21:37)
[2020-03-13] MEDS: HYDROCHLOROTHIAZIDE 25 MG TABLET (FP) PO SCH (10:27)
[2020-03-13] MEDS: PRENATAL VITAMINS W/ FOLIC ACID TABLET (FP) PO SCH (10:27)
[2020-03-13] MEDS: TOLNAFTATE 1% CREAM 15 GM TUBE TP SCH ×2 (10:28→21:36)
[2020-03-13] MEDS: NICOTINE 7 MG/24 HOURS TOPICAL PATCH TD SCH (10:28)
[2020-03-13] MEDS: QUEtiapine FUMARATE 50 MG TABLET PO SCH (21:36)
[2020-03-13] MEDS: THIAMINE HCL 100 MG TABLET (FP) PO SCH (21:36)
[2020-03-13] MEDS: MELATONIN 5 MG TABLETS PO SCH (21:36)
[2020-03-13] MEDS: ATORVASTATIN CA 40 MG TABLET (FP) PO SCH (21:36)
[2020-03-14] MEDS: metFORMIN HCL 500 MG TABLET (FP) PO SCH ×2 (07:14→16:35)
[2020-03-14] MEDS: DOCUSATE SODIUM 100 MG CAPSULE (FP) PO SCH ×3 (07:14→21:34)
[2020-03-14] MEDS: ELVITEG/COB/EMTRI/TENOF (GENVOYA) TABLET (NF) PO SCH (10:39)
[2020-03-14] MEDS: PRENATAL VITAMINS W/ FOLIC ACID TABLET (FP) PO SCH (10:39)
[2020-03-14] MEDS: NICOTINE 7 MG/24 HOURS TOPICAL PATCH TD SCH (10:39)
[2020-03-14] MEDS: HYDROCHLOROTHIAZIDE 25 MG TABLET (FP) PO SCH (10:39)
[2020-03-14] MEDS: TOLNAFTATE 1% CREAM 15 GM TUBE TP SCH ×2 (10:40→21:34)
[2020-03-14] MEDS: NAPHAZOLINE/PHENIRAMINE OPHTHALMIC 15 ML BOTTLE OU SCH ×2 (10:41→21:35)
[2020-03-14] MEDS: THIAMINE HCL 100 MG TABLET (FP) PO SCH (21:34)
[2020-03-14] MEDS: MELATONIN 5 MG TABLETS PO SCH (21:34)
[2020-03-14] MEDS: ATORVASTATIN CA 40 MG TABLET (FP) PO SCH (21:34)
[2020-03-14] MEDS: QUEtiapine FUMARATE 50 MG TABLET PO SCH (21:34)
[2020-03-15] MEDS: metFORMIN HCL 500 MG TABLET (FP) PO SCH ×2 (06:49→16:24)
[2020-03-15] MEDS: DOCUSATE SODIUM 100 MG CAPSULE (FP) PO SCH ×3 (06:49→21:36)
[2020-03-15] MEDS: ELVITEG/COB/EMTRI/TENOF (GENVOYA) TABLET (NF) PO SCH (10:17)
[2020-03-15] MEDS: HYDROCHLOROTHIAZIDE 25 MG TABLET (FP) PO SCH (10:17)
[2020-03-15] MEDS: NICOTINE 7 MG/24 HOURS TOPICAL PATCH TD SCH (10:17)
[2020-03-15] MEDS: TOLNAFTATE 1% CREAM 15 GM TUBE TP SCH ×2 (10:17→21:37)
[2020-03-15] MEDS: PRENATAL VITAMINS W/ FOLIC ACID TABLET (FP) PO SCH (10:17)
[2020-03-15] MEDS: NAPHAZOLINE/PHENIRAMINE OPHTHALMIC 15 ML BOTTLE OU SCH ×2 (10:17→21:36)
[2020-03-15] MEDS: MELATONIN 5 MG TABLETS PO SCH (21:36)
[2020-03-15] MEDS: ATORVASTATIN CA 40 MG TABLET (FP) PO SCH (21:36)
[2020-03-15] MEDS: THIAMINE HCL 100 MG TABLET (FP) PO SCH (21:36)
[2020-03-15] MEDS: QUEtiapine FUMARATE 50 MG TABLET PO SCH (21:36)
[2020-03-16] MEDS: DOCUSATE SODIUM 100 MG CAPSULE (FP) PO SCH ×3 (06:57→21:52)
[2020-03-16] MEDS: metFORMIN HCL 500 MG TABLET (FP) PO SCH ×2 (06:57→18:20)
[2020-03-16] MEDS: HYDROCHLOROTHIAZIDE 25 MG TABLET (FP) PO SCH (11:02)
[2020-03-16] MEDS: PRENATAL VITAMINS W/ FOLIC ACID TABLET (FP) PO SCH (11:02)
[2020-03-16] MEDS: ELVITEG/COB/EMTRI/TENOF (GENVOYA) TABLET (NF) PO SCH (11:02)
[2020-03-16] MEDS: NICOTINE 7 MG/24 HOURS TOPICAL PATCH TD SCH (11:02)
[2020-03-16] MEDS: NAPHAZOLINE/PHENIRAMINE OPHTHALMIC 15 ML BOTTLE OU SCH ×2 (11:02→22:12)
[2020-03-16] MEDS: TOLNAFTATE 1% CREAM 15 GM TUBE TP SCH ×2 (11:03→21:53)
[2020-03-16] MEDS: QUEtiapine FUMARATE 50 MG TABLET PO SCH (21:52)
[2020-03-16] MEDS: MELATONIN 5 MG TABLETS PO SCH (21:52)
[2020-03-16] MEDS: THIAMINE HCL 100 MG TABLET (FP) PO SCH (21:52)
[2020-03-16] MEDS: ATORVASTATIN CA 40 MG TABLET (FP) PO SCH (21:52)
[2020-03-17] MEDS: DOCUSATE SODIUM 100 MG CAPSULE (FP) PO SCH ×3 (06:35→21:20)
[2020-03-17] MEDS: metFORMIN HCL 500 MG TABLET (FP) PO SCH ×2 (06:36→16:28)
[2020-03-17] MEDS: NAPHAZOLINE/PHENIRAMINE OPHTHALMIC 15 ML BOTTLE OU SCH ×2 (10:32→21:19)
[2020-03-17] MEDS: NICOTINE 7 MG/24 HOURS TOPICAL PATCH TD SCH (10:33)
[2020-03-17] MEDS: ELVITEG/COB/EMTRI/TENOF (GENVOYA) TABLET (NF) PO SCH (10:33)
[2020-03-17] MEDS: PRENATAL VITAMINS W/ FOLIC ACID TABLET (FP) PO SCH (10:33)
[2020-03-17] MEDS: HYDROCHLOROTHIAZIDE 25 MG TABLET (FP) PO SCH (10:33)
[2020-03-17] MEDS: TOLNAFTATE 1% CREAM 15 GM TUBE TP SCH ×2 (10:33→21:21)
[2020-03-17] MEDS: ATORVASTATIN CA 40 MG TABLET (FP) PO SCH (21:20)
[2020-03-17] MEDS: QUEtiapine FUMARATE 50 MG TABLET PO SCH (21:20)
[2020-03-17] MEDS: MELATONIN 5 MG TABLETS PO SCH (21:20)
[2020-03-17] MEDS: THIAMINE HCL 100 MG TABLET (FP) PO SCH (21:20)
[2020-03-18] MEDS: metFORMIN HCL 500 MG TABLET (FP) PO SCH ×2 (06:39→16:41)
[2020-03-18] MEDS: DOCUSATE SODIUM 100 MG CAPSULE (FP) PO SCH ×3 (06:39→21:45)
[2020-03-18] MEDS: HYDROCHLOROTHIAZIDE 25 MG TABLET (FP) PO SCH (09:33)
[2020-03-18] MEDS: ELVITEG/COB/EMTRI/TENOF (GENVOYA) TABLET (NF) PO SCH (09:33)
[2020-03-18] MEDS: NICOTINE 7 MG/24 HOURS TOPICAL PATCH TD SCH (09:33)
[2020-03-18] MEDS: TOLNAFTATE 1% CREAM 15 GM TUBE TP SCH ×2 (09:34→21:45)
[2020-03-18] MEDS: PRENATAL VITAMINS W/ FOLIC ACID TABLET (FP) PO SCH (09:34)
[2020-03-18] MEDS: NAPHAZOLINE/PHENIRAMINE OPHTHALMIC 15 ML BOTTLE OU SCH ×2 (09:34→21:45)
[2020-03-18] MEDS: ATORVASTATIN CA 40 MG TABLET (FP) PO SCH (21:45)
[2020-03-18] MEDS: QUEtiapine FUMARATE 50 MG TABLET PO SCH (21:45)
[2020-03-18] MEDS: MELATONIN 5 MG TABLETS PO SCH (21:45)
[2020-03-18] MEDS: THIAMINE HCL 100 MG TABLET (FP) PO SCH (21:45)
[2020-03-19] MEDS: DOCUSATE SODIUM 100 MG CAPSULE (FP) PO SCH ×3 (06:33→21:21)
[2020-03-19] MEDS: metFORMIN HCL 500 MG TABLET (FP) PO SCH ×2 (06:34→16:42)
[2020-03-19] MEDS: ELVITEG/COB/EMTRI/TENOF (GENVOYA) TABLET (NF) PO SCH (10:57)
[2020-03-19] MEDS: HYDROCHLOROTHIAZIDE 25 MG TABLET (FP) PO SCH (10:57)
[2020-03-19] MEDS: NAPHAZOLINE/PHENIRAMINE OPHTHALMIC 15 ML BOTTLE OU SCH ×2 (10:57→21:20)
[2020-03-19] MEDS: PRENATAL VITAMINS W/ FOLIC ACID TABLET (FP) PO SCH (10:57)
[2020-03-19] MEDS: NICOTINE 7 MG/24 HOURS TOPICAL PATCH TD SCH (10:58)
[2020-03-19] MEDS: TOLNAFTATE 1% CREAM 15 GM TUBE TP SCH ×2 (10:58→21:21)
[2020-03-19] MEDS: QUEtiapine FUMARATE 50 MG TABLET PO SCH (21:20)
[2020-03-19] MEDS: ATORVASTATIN CA 40 MG TABLET (FP) PO SCH (21:21)
[2020-03-19] MEDS: THIAMINE HCL 100 MG TABLET (FP) PO SCH (21:21)
[2020-03-19] MEDS: MELATONIN 5 MG TABLETS PO SCH (21:21)
[2020-03-20] MEDS: DOCUSATE SODIUM 100 MG CAPSULE (FP) PO SCH ×3 (07:52→21:18)
[2020-03-20] MEDS: metFORMIN HCL 500 MG TABLET (FP) PO SCH ×2 (07:52→16:44)
[2020-03-20] MEDS: HYDROCHLOROTHIAZIDE 25 MG TABLET (FP) PO SCH (09:33)
[2020-03-20] MEDS: NICOTINE 7 MG/24 HOURS TOPICAL PATCH TD SCH (09:34)
[2020-03-20] MEDS: PRENATAL VITAMINS W/ FOLIC ACID TABLET (FP) PO SCH (09:34)
[2020-03-20] MEDS: ELVITEG/COB/EMTRI/TENOF (GENVOYA) TABLET (NF) PO SCH (09:34)
[2020-03-20] MEDS: NAPHAZOLINE/PHENIRAMINE OPHTHALMIC 15 ML BOTTLE OU SCH ×2 (09:34→21:33)
[2020-03-20] MEDS: TOLNAFTATE 1% CREAM 15 GM TUBE TP SCH ×2 (10:06→21:33)
[2020-03-20] MEDS: QUEtiapine FUMARATE 50 MG TABLET PO SCH (21:18)
[2020-03-20] MEDS: MELATONIN 5 MG TABLETS PO SCH (21:18)
[2020-03-20] MEDS: ATORVASTATIN CA 40 MG TABLET (FP) PO SCH (21:18)
[2020-03-20] MEDS: THIAMINE HCL 100 MG TABLET (FP) PO SCH (21:18)
[2020-03-21] MEDS: metFORMIN HCL 500 MG TABLET (FP) PO SCH ×2 (07:04→16:50)
[2020-03-21] MEDS: DOCUSATE SODIUM 100 MG CAPSULE (FP) PO SCH ×3 (07:05→21:27)
[2020-03-21] MEDS: NICOTINE 7 MG/24 HOURS TOPICAL PATCH TD SCH (09:49)
[2020-03-21] MEDS: HYDROCHLOROTHIAZIDE 25 MG TABLET (FP) PO SCH (09:49)
[2020-03-21] MEDS: ELVITEG/COB/EMTRI/TENOF (GENVOYA) TABLET (NF) PO SCH (09:49)
[2020-03-21] MEDS: TOLNAFTATE 1% CREAM 15 GM TUBE TP SCH ×2 (09:49→21:28)
[2020-03-21] MEDS: PRENATAL VITAMINS W/ FOLIC ACID TABLET (FP) PO SCH (09:49)
[2020-03-21] MEDS: NAPHAZOLINE/PHENIRAMINE OPHTHALMIC 15 ML BOTTLE OU SCH ×2 (09:50→21:27)
[2020-03-21] MEDS: THIAMINE HCL 100 MG TABLET (FP) PO SCH (21:27)
[2020-03-21] MEDS: ATORVASTATIN CA 40 MG TABLET (FP) PO SCH (21:27)
[2020-03-21] MEDS: MELATONIN 5 MG TABLETS PO SCH (21:27)
[2020-03-21] MEDS: QUEtiapine FUMARATE 50 MG TABLET PO SCH (21:27)
[2020-03-22 07:07] VITALS: TEMP 97.3
[2020-03-22] MEDS: DOCUSATE SODIUM 100 MG CAPSULE (FP) PO SCH ×3 (07:07→21:37)
[2020-03-22] MEDS: metFORMIN HCL 500 MG TABLET (FP) PO SCH ×2 (07:07→16:41)
[2020-03-22] MEDS: ELVITEG/COB/EMTRI/TENOF (GENVOYA) TABLET (NF) PO SCH (09:56)
[2020-03-22] MEDS: HYDROCHLOROTHIAZIDE 25 MG TABLET (FP) PO SCH (09:56)
[2020-03-22] MEDS: NAPHAZOLINE/PHENIRAMINE OPHTHALMIC 15 ML BOTTLE OU SCH ×2 (09:56→21:39)
[2020-03-22] MEDS: PRENATAL VITAMINS W/ FOLIC ACID TABLET (FP) PO SCH (09:56)
[2020-03-22] MEDS: TOLNAFTATE 1% CREAM 15 GM TUBE TP SCH ×3 (09:57→21:53)
[2020-03-22] MEDS: NICOTINE 7 MG/24 HOURS TOPICAL PATCH TD SCH (09:57)
[2020-03-22] MEDS: QUEtiapine FUMARATE 50 MG TABLET PO SCH (21:37)
[2020-03-22] MEDS: THIAMINE HCL 100 MG TABLET (FP) PO SCH (21:37)
[2020-03-22] MEDS: ATORVASTATIN CA 40 MG TABLET (FP) PO SCH (21:37)
[2020-03-22] MEDS: MELATONIN 5 MG TABLETS PO SCH (21:37)
[2020-03-23] MEDS: metFORMIN HCL 500 MG TABLET (FP) PO SCH (06:49)
[2020-03-23] MEDS: DOCUSATE SODIUM 100 MG CAPSULE (FP) PO SCH (06:49)
[2020-03-23 07:06] VITALS: BP 123/76; PULSE 79
[2020-03-23] MEDS: ELVITEG/COB/EMTRI/TENOF (GENVOYA) TABLET (NF) PO SCH (09:16)
[2020-03-23] MEDS: PRENATAL VITAMINS W/ FOLIC ACID TABLET (FP) PO SCH (09:17)
[2020-03-23] MEDS: NICOTINE 7 MG/24 HOURS TOPICAL PATCH TD SCH (09:17)
[2020-03-23] MEDS: TOLNAFTATE 1% CREAM 15 GM TUBE TP SCH (09:32)
[2020-03-23] MEDS: HYDROCHLOROTHIAZIDE 25 MG TABLET (FP) PO SCH (09:32)
[2020-03-23] MEDS: NAPHAZOLINE/PHENIRAMINE OPHTHALMIC 15 ML BOTTLE OU SCH (09:33)
--- NOTE | 2020-03-23 10:00 | DS ---
[facility] Rehab Discharge Summary - [facility] Rehab Discharge Summary Admission Date: 03/01/20 Discharge Date: 03/23/20 - History Present History: Alcohol dependence, Cocaine dependence Pertinent Past History: DM HLD HTN HIV+ Hearing Loss(wears Hearing aids-left. Depression - Discharge Physical Exam Vital Signs: Vital Signs Temperature 97.3 F L 03/23/20 07:06 Pulse Rate 79 03/23/20 07:06 Respiratory Rate 18 03/23/20 07:06 Blood Pressure 123/76 03/23/20 07:06 O2 Sat by Pulse Oximetry (%) 97 03/23/20 07:06 General:WDWN male; Alert o x 3,oob with steady gait,denies s/h/i Head:normocephalic, eomi,rufina; hearing deficit-wears hearing aid Neck:supple, no jvd cardiac:s1 s2,rrr lungs:ctab abdomen:soft, +bs,nt,nd MSK:Active FROM, all limbs. No edema skin:warm, intact Pertinent Admission Physical Exam Findings: Laboratory Tests 03/01/20 03/02/20 03/02/20 16:24 06:42 16:58 POC Glucometer 139 109 142 03/03/20 03/03/20 03/04/20 06:20 17:01 06:43 POC Glucometer 133 85 103 03/04/20 03/05/20 03/05/20 16:56 06:49 16:34 POC Glucometer 109 122 121 03/06/20 03/06/20 03/07/20 06:47 17:00 06:43 POC Glucometer 105 88 100 03/07/20 03/08/20 03/08/20 16:38 06:29 17:01 POC Glucometer 87 108 101 03/09/20 03/09/20 03/10/20 06:27 16:31 06:36 POC Glucometer 90 128 114 03/10/20 03/11/20 03/11/20 16:23 06:34 17:10 POC Glucometer 83 101 112 03/12/20 03/12/20 03/13/20 06:43 16:56 06:31 POC Glucometer 105 115 97 03/13/20 03/14/20 03/14/20 16:43 07:15 16:35 POC Glucometer 86 105 82 03/15/20 03/15/20 03/16/20 06:48 16:23 06:57 POC Glucometer 102 127 97 03/16/20 03/17/20 03/17/20 18:19 06:34 16:27 POC Glucometer 95 101 165 03/18/20 03/18/20 03/19/20 06:38 16:41 06:33 POC Glucometer 103 96 112 03/19/20 03/20/20 03/20/20 16:41 07:26 16:43 POC Glucometer 109 96 120 03/21/20 03/21/20 03/22/20 07:02 16:49 07:07 POC Glucometer 96 90 108 03/22/20 03/23/20 16:41 06:49 POC Glucometer 122 98 - Treatment Discharge Condition: Discharge condition good, Rehabilitated safely, Responded well, Outpatient referral accepted Hospital Course: Pt completed rehab and discharged today. [facility] [place] [place] - Medication Discharge Medications: Ambulatory Orders Quetiapine Fumarate [Seroquel -] 50 mg PO HS #30 tablet 02/11/18 Carboxymethylcellulos/Glycerin [Refresh Optive Gel Eye Drops] 2 drop OU TID PRN 11/02/18 Atorvastatin Calcium 40 mg PO HS #30 tablet 03/20/20 Elviteg/Cob/Emtri/Tenof Alafen [Genvoya Tablet] 1 tablet PO DAILY #30 tablet 03/20/20 Hydrochlorothiazide [Hctz -] 25 mg PO DAILY #30 cap 03/20/20 Multivitamin [Multiple Vitamins] 1 each PO DAILY #30 tablet 03/20/20 metFORMIN HCL [Glucophage -] 500 mg PO BID #60 tablet 03/20/20 - Medication-Assisted Treatment (MAT) Medication-Assisted Treatment (MAT): No - Discharge Instructions Diet, activity, other medical instructions: Diet:CASSANDRA/NCS Activity:oob ad yuli Other medical instructions:Follow up with primary care after LTC with [facility] program(pt reports he has no current PCP). - Diagnosis (1) Alcohol use disorder Current Visit: Yes Status: Chronic (2) Cocaine use disorder Current Visit: Yes Status: Chronic (3) Nicotine dependence Current Visit: Yes Status: Chronic Qualifiers: Nicotine product type: cigarettes Substance use status: uncomplicated Qualified Code(s): F17.210 - Nicotine dependence, cigarettes, uncomplicated (4) DM2 (diabetes mellitus, type 2) Current Visit: Yes Status: Chronic Qualifiers: Diabetes mellitus buttermaker insulin use: without buttermaker use Diabetes mellitus complication status: without complication Qualified Code(s): E11.9 - Type 2 diabetes mellitus without complications (5) HTN (hypertension) Current Visit: Yes Status: Chronic Qualifiers: Hypertension type: essential hypertension Qualified Code(s): I10 - Essential (primary) hypertension (6) Human immunodeficiency virus infection Current Visit: Yes Status: Chronic (7) Hyperlipidemia Current Visit: Yes Status: Chronic Qualifiers: Hyperlipidemia type: pure hypertriglyceridemia Qualified Code(s): E78.1 - Pure hyperglyceridemia (8) hearing loss left wearing hearing aide Current Visit: Yes Status: Chronic - Follow-up Referral Minutes to complete discharge: 30 - AMA Did Patient Leave Against Medical Advice: No Additional Comments: [facility] Atorvastatin 40 mg po HS #30, Genvoya 1 tab po daily #30, Hctz 25 mg po daily #30, Metformin 500 mg po BID #60 sent to [place] pharmacy for roll picker after discharge.
== END 2020-03-23 09:55 | disposition other institution (70) | DRG 895 ==
LOC: YASAS 12:36 → Y5N 12:37
PROVIDERS: ADMIT Allergy & Immunology; ATTEND Allergy & Immunology
PROC: HZ42ZZZ Group Counseling for Substance Abuse Treatment, Cognitive-Behavioral (ICD-10-PCS; principal; 2020-03-01)
DX: F10.20 Alcohol dependence, uncomplicated (principal); F14.20 Cocaine dependence, uncomplicated; F19.282 Other psychoactive substance dependence with psychoactive substance-induced sleep disorder; F17.210 Nicotine dependence, cigarettes, uncomplicated; F32.9 Major depressive disorder, single episode, unspecified; Z21 Asymptomatic human immunodeficiency virus [HIV] infection status; E78.5 Hyperlipidemia, unspecified; E11.9 Type 2 diabetes mellitus without complications; Z79.84 Long term (current) use of oral hypoglycemic drugs; I10 Essential (primary) hypertension; H91.91 Unspecified hearing loss, right ear; Z85.46 Personal history of malignant neoplasm of prostate; Z97.4 Presence of external hearing-aid; H04.123 Dry eye syndrome of bilateral lacrimal glands; H57.89 Other specified disorders of eye and adnexa; Z56.0 Unemployment, unspecified; Z59.0 Homelessness
CPT/HCPCS: 82962

== ENCOUNTER 2022-02-06 11:23 | Inpatient (IN) | payer OTHER ==
[2022-02-06 12:07] VITALS: BMI 36.5
[2022-02-06] MEDS ORDERED: MAGNESIUM HYDROX 2400MG/30ML ORAL SUSPENSION 30 ML CUP PO PRN (13:45)
[2022-02-06] MEDS ORDERED: IBUPROFEN 400 MG TABLET (FP) PO PRN (13:45)
[2022-02-06] MEDS ORDERED: ACETAMINOPHEN 325 MG TABLET (FP) PO PRN ×2 (13:45)
[2022-02-06] MEDS ORDERED: NICOTINE 10 MG CARTRIDGE (INHALER) IH PRN (13:45)
[2022-02-06] MEDS ORDERED: LOPERAMIDE HCL 2 MG CAPSULE PO PRN (13:45)
[2022-02-06] MEDS ORDERED: MAGNESIUM CITRATE 300 ML BOTTLE PO PRN (13:45)
[2022-02-06] MEDS ORDERED: DICYCLOMINE HCL 10 MG CAPSULE PO PRN (13:45)
[2022-02-06] MEDS ORDERED: MAG HYDROX/AL HYDROX/SIMETH 30 ML UNIT-DOSE CUP PO PRN (13:45)
[2022-02-06] MEDS ORDERED: BENZOCAINE/MENTHOL (CHLORASEPTIC ) LOZENGE MM PRN (13:45)
[2022-02-06] MEDS ORDERED: ONDANSETRON *ODT* 4 MG TABLET SL PRN (13:45)
[2022-02-06] MEDS ORDERED: IBUPROFEN 600 MG TABLET (FP) PO PRN (13:45)
[2022-02-06] MEDS ORDERED: METHOCARBAMOL 500 MG TABLET PO PRN (13:45)
[2022-02-06] MEDS ORDERED: BISMUTH SUBSALICYLATE 524 MG/30 ML PO PRN (13:45)
[2022-02-06] MEDS ORDERED: PATIENT'S OWN MEDICATION (NON-FORMULARY) (Carboxymethylcellulos/Glycerin [Refresh Optive G OU PRN (13:48)
[2022-02-06] MEDS: hydrOXYzine PAMOATE 25 MG CAPSULE (FP) PO SCH ×3 (14:41→22:23)
[2022-02-06] MEDS ORDERED: ARTIFICIAL TEARS (POLYVINYL ALCOHOL) OPTH DROPS OU PRN (15:56)
[2022-02-06] MEDS: metFORMIN HCL 500 MG TABLET (FP) PO SCH (17:42)
[2022-02-06] MEDS: ATORVASTATIN CA 40 MG TABLET (FP) PO SCH (22:23)
[2022-02-06] MEDS: MELATONIN 5 MG TABLETS PO SCH (22:23)
[2022-02-06] MEDS: THIAMINE HCL 100 MG TABLET (FP) PO SCH (22:23)
[2022-02-07] MEDS: metFORMIN HCL 500 MG TABLET (FP) PO SCH ×2 (07:05→17:54)
[2022-02-07] MEDS: hydrOXYzine PAMOATE 25 MG CAPSULE (FP) PO SCH ×5 (07:05→22:27)
[2022-02-07] MEDS ORDERED: ELVITEG/COB/EMTRI/TENOF (GENVOYA) TABLET (NF) PO SCH ×3 (10:00→10:50)
[2022-02-07] MEDS: HYDROCHLOROTHIAZIDE 25 MG TABLET (FP) PO SCH (10:21)
[2022-02-07] MEDS: amLODIPine BESYLATE 5 MG TABLET (FP) PO SCH (10:22)
[2022-02-07] MEDS: PRENATAL VITAMINS W/ FOLIC ACID TABLET (FP) PO SCH (10:22)
[2022-02-07] MEDS: NICOTINE 7 MG/24 HOURS TOPICAL PATCH TD SCH (10:23)
[2022-02-07] MEDS ORDERED: chlordiazePOXIDE HCL 25 MG CAPSULE PO PRN (11:04)
[2022-02-07] MEDS: ELVITEG/COB/EMTRI/TENOF (GENVOYA) TABLET (NF) PO SCH (11:29)
[2022-02-07] MEDS: chlordiazePOXIDE HCL 25 MG CAPSULE PO SCH ×3 (11:29→22:27)
[2022-02-07 11:57] LABS: HEMATOCRIT 37.1 % (35.4-49); HEMOGLOBIN 12.1 GM/dL (11.7-16.9); MCHC 32.7 g/dl (32.0-35.9); MEAN CELL VOLUME 82.7 fl (80-96); MEAN PLT VOLUME 7.3 fl (7.5-11.1); PLATELET COUNT 310 10^3/uL (134-434); RBC 4.49 M/mm3 (4.00-5.60); RDW 15.8 % (11.9-15.9); WHITE BLOOD COUNT 5.4 K/mm3 (4.0-10.0)
[2022-02-07 12:04] LABS: CALCIUM 8.9 mg/dL (8.5-10.1)
[2022-02-07 12:05] LABS: BLOOD UREA NITROGEN 14.7 mg/dL (7-18)
[2022-02-07 12:06] LABS: ALBUMIN 3.3 g/dl (3.4-5.0)
[2022-02-07 12:09] LABS: BILIRUBIN,TOTAL 0.4 mg/dL (0.2-1)
[2022-02-07 12:10] LABS: TOT PROT 6.4 g/dl (6.4-8.2)
[2022-02-07] MEDS: ATORVASTATIN CA 40 MG TABLET (FP) PO SCH (22:27)
[2022-02-07] MEDS: THIAMINE HCL 100 MG TABLET (FP) PO SCH (22:27)
[2022-02-07] MEDS: QUEtiapine FUMARATE 50 MG TABLET PO SCH (22:27)
[2022-02-07] MEDS: MELATONIN 5 MG TABLETS PO SCH (22:28)
[2022-02-08] MEDS: chlordiazePOXIDE HCL 25 MG CAPSULE PO SCH ×4 (07:00→22:30)
[2022-02-08] MEDS: hydrOXYzine PAMOATE 25 MG CAPSULE (FP) PO SCH ×5 (07:00→22:29)
[2022-02-08] MEDS: metFORMIN HCL 500 MG TABLET (FP) PO SCH ×2 (08:00→17:40)
[2022-02-08] MEDS: ELVITEG/COB/EMTRI/TENOF (GENVOYA) TABLET (NF) PO SCH (08:13)
[2022-02-08] MEDS: amLODIPine BESYLATE 5 MG TABLET (FP) PO SCH (10:30)
[2022-02-08] MEDS: HYDROCHLOROTHIAZIDE 25 MG TABLET (FP) PO SCH (10:30)
[2022-02-08] MEDS: NICOTINE 7 MG/24 HOURS TOPICAL PATCH TD SCH (10:31)
[2022-02-08] MEDS: PRENATAL VITAMINS W/ FOLIC ACID TABLET (FP) PO SCH (10:31)
[2022-02-08] MEDS: THIAMINE HCL 100 MG TABLET (FP) PO SCH (22:29)
[2022-02-08] MEDS: MELATONIN 5 MG TABLETS PO SCH (22:29)
[2022-02-08] MEDS: QUEtiapine FUMARATE 50 MG TABLET PO SCH (22:30)
[2022-02-08] MEDS: ATORVASTATIN CA 40 MG TABLET (FP) PO SCH (22:30)
[2022-02-09] MEDS: hydrOXYzine PAMOATE 25 MG CAPSULE (FP) PO SCH ×5 (06:35→22:03)
[2022-02-09] MEDS: chlordiazePOXIDE HCL 25 MG CAPSULE PO SCH ×4 (06:35→22:03)
[2022-02-09] MEDS: metFORMIN HCL 500 MG TABLET (FP) PO SCH ×2 (06:36→17:41)
[2022-02-09] MEDS: ELVITEG/COB/EMTRI/TENOF (GENVOYA) TABLET (NF) PO SCH (08:08)
[2022-02-09] MEDS: PRENATAL VITAMINS W/ FOLIC ACID TABLET (FP) PO SCH (10:45)
[2022-02-09] MEDS: HYDROCHLOROTHIAZIDE 25 MG TABLET (FP) PO SCH (10:45)
[2022-02-09] MEDS: amLODIPine BESYLATE 5 MG TABLET (FP) PO SCH (10:47)
[2022-02-09] MEDS: NICOTINE 7 MG/24 HOURS TOPICAL PATCH TD SCH (10:47)
[2022-02-09] MEDS: ATORVASTATIN CA 40 MG TABLET (FP) PO SCH (22:02)
[2022-02-09] MEDS: MELATONIN 5 MG TABLETS PO SCH (22:02)
[2022-02-09] MEDS: QUEtiapine FUMARATE 50 MG TABLET PO SCH (22:03)
[2022-02-09] MEDS: THIAMINE HCL 100 MG TABLET (FP) PO SCH (22:03)
[2022-02-10] MEDS ORDERED: chlordiazePOXIDE HCL 10 MG CAPSULE PO PRN
[2022-02-10] MEDS: chlordiazePOXIDE HCL 10 MG CAPSULE PO SCH ×4 (06:27→22:22)
[2022-02-10] MEDS: hydrOXYzine PAMOATE 25 MG CAPSULE (FP) PO SCH ×5 (06:27→22:22)
[2022-02-10] MEDS: metFORMIN HCL 500 MG TABLET (FP) PO SCH ×2 (06:27→16:32)
[2022-02-10] MEDS: ELVITEG/COB/EMTRI/TENOF (GENVOYA) TABLET (NF) PO SCH (07:02)
[2022-02-10] MEDS: PRENATAL VITAMINS W/ FOLIC ACID TABLET (FP) PO SCH (10:27)
[2022-02-10] MEDS: NICOTINE 7 MG/24 HOURS TOPICAL PATCH TD SCH (10:27)
[2022-02-10] MEDS: HYDROCHLOROTHIAZIDE 25 MG TABLET (FP) PO SCH (10:27)
[2022-02-10] MEDS: amLODIPine BESYLATE 5 MG TABLET (FP) PO SCH (10:28)
[2022-02-10] MEDS: THIAMINE HCL 100 MG TABLET (FP) PO SCH (22:22)
[2022-02-10] MEDS: MELATONIN 5 MG TABLETS PO SCH (22:22)
[2022-02-10] MEDS: QUEtiapine FUMARATE 50 MG TABLET PO SCH (22:22)
[2022-02-10] MEDS: ATORVASTATIN CA 40 MG TABLET (FP) PO SCH (22:22)
[2022-02-11] MEDS: chlordiazePOXIDE HCL 10 MG CAPSULE PO SCH ×2 (06:26→17:51)
[2022-02-11] MEDS: hydrOXYzine PAMOATE 25 MG CAPSULE (FP) PO SCH ×5 (06:27→22:39)
[2022-02-11] MEDS: metFORMIN HCL 500 MG TABLET (FP) PO SCH ×2 (06:27→17:51)
[2022-02-11] MEDS: ELVITEG/COB/EMTRI/TENOF (GENVOYA) TABLET (NF) PO SCH (07:05)
[2022-02-11] MEDS: HYDROCHLOROTHIAZIDE 25 MG TABLET (FP) PO SCH (10:49)
[2022-02-11] MEDS: PRENATAL VITAMINS W/ FOLIC ACID TABLET (FP) PO SCH (10:49)
[2022-02-11] MEDS: NICOTINE 7 MG/24 HOURS TOPICAL PATCH TD SCH (10:49)
[2022-02-11] MEDS: amLODIPine BESYLATE 5 MG TABLET (FP) PO SCH (10:49)
[2022-02-11 18:18] VITALS: RESP 18
[2022-02-11] MEDS: MELATONIN 5 MG TABLETS PO SCH (22:39)
[2022-02-11] MEDS: ATORVASTATIN CA 40 MG TABLET (FP) PO SCH (22:39)
[2022-02-11] MEDS: THIAMINE HCL 100 MG TABLET (FP) PO SCH (22:39)
[2022-02-11] MEDS: QUEtiapine FUMARATE 50 MG TABLET PO SCH (22:39)
[2022-02-12] MEDS ORDERED: chlordiazePOXIDE HCL 10 MG CAPSULE PO ONE (05:00)
[2022-02-12] MEDS: metFORMIN HCL 500 MG TABLET (FP) PO SCH ×2 (07:05→17:27)
[2022-02-12] MEDS: hydrOXYzine PAMOATE 25 MG CAPSULE (FP) PO SCH ×2 (07:05→10:24)
[2022-02-12] MEDS: ELVITEG/COB/EMTRI/TENOF (GENVOYA) TABLET (NF) PO SCH (07:06)
[2022-02-12] MEDS: HYDROCHLOROTHIAZIDE 25 MG TABLET (FP) PO SCH (10:23)
[2022-02-12] MEDS: amLODIPine BESYLATE 5 MG TABLET (FP) PO SCH (10:23)
[2022-02-12] MEDS: PRENATAL VITAMINS W/ FOLIC ACID TABLET (FP) PO SCH (10:24)
[2022-02-12] MEDS: NICOTINE 7 MG/24 HOURS TOPICAL PATCH TD SCH (10:24)
[2022-02-12 11:13] VITALS: BP 145/91; PULSE 829; TEMP 97.3
== END 2022-02-12 17:49 | disposition home or self-care (01) | DRG 897 ==
LOC: YASAS 11:23 → Y3N 13:12 → UNDOADMIN 13:12
PROVIDERS: ADMIT Allergy & Immunology; ATTEND Surgery
PROC: HZ2ZZZZ Detoxification Services for Substance Abuse Treatment (ICD-10-PCS; principal; 2022-02-06)
DX: F10.230 Alcohol dependence with withdrawal, uncomplicated (principal); F14.20 Cocaine dependence, uncomplicated; F12.20 Cannabis dependence, uncomplicated; F17.213 Nicotine dependence, cigarettes, with withdrawal; F31.9 Bipolar disorder, unspecified; F19.24 Other psychoactive substance dependence with psychoactive substance-induced mood disorder; Z21 Asymptomatic human immunodeficiency virus [HIV] infection status; E78.1 Pure hyperglyceridemia; I10 Essential (primary) hypertension; Z85.46 Personal history of malignant neoplasm of prostate; Z90.79 Acquired absence of other genital organ(s)
CPT/HCPCS: 36415; 80053; 82962; 85027; 86780; C9803-CS; U0003; U0005

== ENCOUNTER 2022-02-12 18:07 | Inpatient (IN) | payer OTHER ==
[2022-02-12] MEDS ORDERED: MAGNESIUM HYDROX 2400MG/30ML ORAL SUSPENSION 30 ML CUP PO PRN (22:20)
[2022-02-12] MEDS ORDERED: NICOTINE POLACRILEX 2 MG GUM BUC PRN (22:20)
[2022-02-12] MEDS ORDERED: LOPERAMIDE HCL 2 MG CAPSULE PO PRN (22:20)
[2022-02-12] MEDS ORDERED: guaiFENesin 200 MG/10 ML 10 ML UNIT-DOSE CUPS PO PRN (22:20)
[2022-02-12] MEDS ORDERED: BENZOCAINE/MENTHOL (CHLORASEPTIC ) LOZENGE MM PRN (22:20)
[2022-02-12] MEDS ORDERED: MAG HYDROX/AL HYDROX/SIMETH 30 ML UNIT-DOSE CUP PO PRN (22:20)
[2022-02-12] MEDS ORDERED: MAGNESIUM CITRATE 300 ML BOTTLE PO PRN (22:20)
[2022-02-12] MEDS ORDERED: IBUPROFEN 400 MG TABLET (FP) PO PRN (22:20)
[2022-02-12] MEDS ORDERED: ACETAMINOPHEN 325 MG TABLET (FP) PO PRN (22:20)
[2022-02-12 22:21] VITALS: RESP 18
[2022-02-12] MEDS: MELATONIN 5 MG TABLETS PO SCH (22:45)
[2022-02-13] MEDS: metFORMIN HCL 500 MG TABLET (FP) PO SCH ×2 (06:54→17:21)
[2022-02-13] MEDS: PRENATAL VITAMINS W/ FOLIC ACID TABLET (FP) PO SCH (09:47)
[2022-02-13] MEDS: amLODIPine BESYLATE 5 MG TABLET (FP) PO SCH (09:48)
[2022-02-13] MEDS: HYDROCHLOROTHIAZIDE 25 MG TABLET (FP) PO SCH (09:48)
[2022-02-13] MEDS: NICOTINE 14 MG/24 HOURS TOPICAL PATCH TD SCH (09:48)
[2022-02-13] MEDS ORDERED: ELVITEG/COB/EMTRI/TENOF (GENVOYA) TABLET (NF) PO SCH (19:00)
[2022-02-13] MEDS: MELATONIN 5 MG TABLETS PO SCH (21:12)
[2022-02-13] MEDS: THIAMINE HCL 100 MG TABLET (FP) PO SCH (21:12)
[2022-02-13] MEDS: ATORVASTATIN CA 40 MG TABLET (FP) PO SCH (21:14)
[2022-02-14] MEDS ORDERED: hydrOXYzine PAMOATE 25 MG CAPSULE (FP) PO ONE (01:45)
[2022-02-14] MEDS: MELATONIN 5 MG TABLETS PO PRN ×4 (01:48→21:32)
[2022-02-14] MEDS: metFORMIN HCL 500 MG TABLET (FP) PO SCH ×2 (06:39→16:34)
[2022-02-14] MEDS: HYDROCHLOROTHIAZIDE 25 MG TABLET (FP) PO SCH (09:54)
[2022-02-14] MEDS: PRENATAL VITAMINS W/ FOLIC ACID TABLET (FP) PO SCH (09:54)
[2022-02-14] MEDS: amLODIPine BESYLATE 5 MG TABLET (FP) PO SCH (09:54)
[2022-02-14] MEDS: NICOTINE 14 MG/24 HOURS TOPICAL PATCH TD SCH (09:54)
[2022-02-14] MEDS: ATORVASTATIN CA 40 MG TABLET (FP) PO SCH (21:12)
[2022-02-14] MEDS: THIAMINE HCL 100 MG TABLET (FP) PO SCH (21:12)
[2022-02-14] MEDS: MELATONIN 5 MG TABLETS PO SCH (21:56)
[2022-02-14] MEDS ORDERED: diphenhydrAMINE HCL 25 MG CAPSULE (FP) PO ONE (22:57)
[2022-02-15] MEDS: metFORMIN HCL 500 MG TABLET (FP) PO SCH ×2 (06:22→16:34)
[2022-02-15] MEDS: amLODIPine BESYLATE 5 MG TABLET (FP) PO SCH (09:50)
[2022-02-15] MEDS: HYDROCHLOROTHIAZIDE 25 MG TABLET (FP) PO SCH (09:50)
[2022-02-15] MEDS: PRENATAL VITAMINS W/ FOLIC ACID TABLET (FP) PO SCH (09:51)
[2022-02-15] MEDS: NICOTINE 14 MG/24 HOURS TOPICAL PATCH TD SCH (09:51)
[2022-02-15] MEDS: TETRAHYDROZOLINE HCL EYE DROPS OD PRN (16:36)
[2022-02-15] MEDS: QUEtiapine FUMARATE 50 MG TABLET PO SCH (21:12)
[2022-02-15] MEDS: ATORVASTATIN CA 40 MG TABLET (FP) PO SCH (21:12)
[2022-02-15] MEDS: THIAMINE HCL 100 MG TABLET (FP) PO SCH (21:12)
[2022-02-15] MEDS: MELATONIN 5 MG TABLETS PO SCH (21:12)
[2022-02-16] MEDS: metFORMIN HCL 500 MG TABLET (FP) PO SCH ×2 (06:18→17:10)
[2022-02-16] MEDS: TETRAHYDROZOLINE HCL EYE DROPS OD PRN (09:52)
[2022-02-16] MEDS: amLODIPine BESYLATE 5 MG TABLET (FP) PO SCH (09:52)
[2022-02-16] MEDS: HYDROCHLOROTHIAZIDE 25 MG TABLET (FP) PO SCH (09:53)
[2022-02-16] MEDS: NICOTINE 14 MG/24 HOURS TOPICAL PATCH TD SCH (09:53)
[2022-02-16] MEDS: PRENATAL VITAMINS W/ FOLIC ACID TABLET (FP) PO SCH (09:54)
[2022-02-16] MEDS: QUEtiapine FUMARATE 50 MG TABLET PO SCH (21:22)
[2022-02-16] MEDS: ATORVASTATIN CA 40 MG TABLET (FP) PO SCH (21:22)
[2022-02-16] MEDS: MELATONIN 5 MG TABLETS PO SCH (21:22)
[2022-02-16] MEDS: THIAMINE HCL 100 MG TABLET (FP) PO SCH (21:23)
[2022-02-17] MEDS: metFORMIN HCL 500 MG TABLET (FP) PO SCH ×2 (06:24→16:30)
[2022-02-17] MEDS: HYDROCHLOROTHIAZIDE 25 MG TABLET (FP) PO SCH (09:54)
[2022-02-17] MEDS: NICOTINE 14 MG/24 HOURS TOPICAL PATCH TD SCH (09:54)
[2022-02-17] MEDS: amLODIPine BESYLATE 5 MG TABLET (FP) PO SCH (09:54)
[2022-02-17] MEDS: PRENATAL VITAMINS W/ FOLIC ACID TABLET (FP) PO SCH (09:54)
[2022-02-17] MEDS: TETRAHYDROZOLINE HCL EYE DROPS OD PRN (11:12)
[2022-02-17] MEDS: MELATONIN 5 MG TABLETS PO SCH (21:10)
[2022-02-17] MEDS: THIAMINE HCL 100 MG TABLET (FP) PO SCH (21:10)
[2022-02-17] MEDS: QUEtiapine FUMARATE 50 MG TABLET PO SCH (21:11)
[2022-02-17] MEDS: ATORVASTATIN CA 40 MG TABLET (FP) PO SCH (21:11)
[2022-02-18] MEDS: metFORMIN HCL 500 MG TABLET (FP) PO SCH ×2 (06:21→16:18)
[2022-02-18 07:28] VITALS: TEMP 97.1
[2022-02-18] MEDS: HYDROCHLOROTHIAZIDE 25 MG TABLET (FP) PO SCH (09:53)
[2022-02-18] MEDS: amLODIPine BESYLATE 5 MG TABLET (FP) PO SCH (09:53)
[2022-02-18] MEDS: PRENATAL VITAMINS W/ FOLIC ACID TABLET (FP) PO SCH (09:53)
[2022-02-18] MEDS: NICOTINE 14 MG/24 HOURS TOPICAL PATCH TD SCH (09:53)
[2022-02-18] MEDS: MELATONIN 5 MG TABLETS PO SCH (21:15)
[2022-02-18] MEDS: ATORVASTATIN CA 40 MG TABLET (FP) PO SCH (21:16)
[2022-02-18] MEDS: THIAMINE HCL 100 MG TABLET (FP) PO SCH (21:16)
[2022-02-18] MEDS: QUEtiapine FUMARATE 50 MG TABLET PO SCH (21:16)
[2022-02-19] MEDS: metFORMIN HCL 500 MG TABLET (FP) PO SCH ×2 (06:24→16:53)
[2022-02-19] MEDS: HYDROCHLOROTHIAZIDE 25 MG TABLET (FP) PO SCH (09:44)
[2022-02-19] MEDS: amLODIPine BESYLATE 5 MG TABLET (FP) PO SCH (09:44)
[2022-02-19] MEDS: PRENATAL VITAMINS W/ FOLIC ACID TABLET (FP) PO SCH (09:44)
[2022-02-19] MEDS: NICOTINE 14 MG/24 HOURS TOPICAL PATCH TD SCH (09:45)
[2022-02-19] MEDS: MELATONIN 5 MG TABLETS PO SCH (21:21)
[2022-02-19] MEDS: THIAMINE HCL 100 MG TABLET (FP) PO SCH (21:22)
[2022-02-19] MEDS: QUEtiapine FUMARATE 50 MG TABLET PO SCH (21:22)
[2022-02-19] MEDS: ATORVASTATIN CA 40 MG TABLET (FP) PO SCH (21:22)
[2022-02-20] MEDS: metFORMIN HCL 500 MG TABLET (FP) PO SCH ×2 (06:46→16:58)
[2022-02-20] MEDS: TETRAHYDROZOLINE HCL EYE DROPS OD PRN (07:11)
[2022-02-20] MEDS: PRENATAL VITAMINS W/ FOLIC ACID TABLET (FP) PO SCH (10:31)
[2022-02-20] MEDS: HYDROCHLOROTHIAZIDE 25 MG TABLET (FP) PO SCH (10:31)
[2022-02-20] MEDS: amLODIPine BESYLATE 5 MG TABLET (FP) PO SCH (10:31)
[2022-02-20] MEDS: NICOTINE 14 MG/24 HOURS TOPICAL PATCH TD SCH (10:33)
[2022-02-20] MEDS: MELATONIN 5 MG TABLETS PO SCH (21:15)
[2022-02-20] MEDS: ATORVASTATIN CA 40 MG TABLET (FP) PO SCH (21:15)
[2022-02-20] MEDS: QUEtiapine FUMARATE 50 MG TABLET PO SCH (21:16)
[2022-02-20] MEDS: THIAMINE HCL 100 MG TABLET (FP) PO SCH (21:16)
[2022-02-21] MEDS: metFORMIN HCL 500 MG TABLET (FP) PO SCH ×2 (06:22→16:40)
[2022-02-21] MEDS: TETRAHYDROZOLINE HCL EYE DROPS OD PRN ×3 (08:58→21:40)
[2022-02-21] MEDS: HYDROCHLOROTHIAZIDE 25 MG TABLET (FP) PO SCH (10:03)
[2022-02-21] MEDS: NICOTINE 14 MG/24 HOURS TOPICAL PATCH TD SCH (10:04)
[2022-02-21] MEDS: PRENATAL VITAMINS W/ FOLIC ACID TABLET (FP) PO SCH (10:04)
[2022-02-21] MEDS: amLODIPine BESYLATE 5 MG TABLET (FP) PO SCH (10:04)
[2022-02-21] MEDS: LORATADINE 10 MG TABLET PO SCH (13:55)
[2022-02-21] MEDS: ATORVASTATIN CA 40 MG TABLET (FP) PO SCH (21:14)
[2022-02-21] MEDS: QUEtiapine FUMARATE 50 MG TABLET PO SCH (21:14)
[2022-02-21] MEDS: THIAMINE HCL 100 MG TABLET (FP) PO SCH (21:14)
[2022-02-21] MEDS: MELATONIN 5 MG TABLETS PO SCH (21:15)
[2022-02-21] MEDS: P-EPHED 60MG/TRIPROLIDI 2.5MG TABLET PO PRN (21:42)
[2022-02-22] MEDS: metFORMIN HCL 500 MG TABLET (FP) PO SCH ×2 (06:14→17:02)
[2022-02-22] MEDS: P-EPHED 60MG/TRIPROLIDI 2.5MG TABLET PO PRN ×3 (06:15→21:28)
[2022-02-22] MEDS: PRENATAL VITAMINS W/ FOLIC ACID TABLET (FP) PO SCH (09:55)
[2022-02-22] MEDS: HYDROCHLOROTHIAZIDE 25 MG TABLET (FP) PO SCH (09:55)
[2022-02-22] MEDS: NICOTINE 14 MG/24 HOURS TOPICAL PATCH TD SCH (09:55)
[2022-02-22] MEDS: amLODIPine BESYLATE 5 MG TABLET (FP) PO SCH (09:55)
[2022-02-22] MEDS: LORATADINE 10 MG TABLET PO SCH (09:55)
[2022-02-22] MEDS: TETRAHYDROZOLINE HCL EYE DROPS OD PRN ×2 (13:15→21:29)
[2022-02-22] MEDS: ATORVASTATIN CA 40 MG TABLET (FP) PO SCH (21:28)
[2022-02-22] MEDS: THIAMINE HCL 100 MG TABLET (FP) PO SCH (21:28)
[2022-02-22] MEDS: QUEtiapine FUMARATE 50 MG TABLET PO SCH (21:29)
[2022-02-22] MEDS: MELATONIN 5 MG TABLETS PO SCH (21:29)
[2022-02-23] MEDS: metFORMIN HCL 500 MG TABLET (FP) PO SCH ×2 (06:13→16:57)
[2022-02-23] MEDS: TETRAHYDROZOLINE HCL EYE DROPS OD PRN ×3 (06:13→21:19)
[2022-02-23] MEDS: HYDROCHLOROTHIAZIDE 25 MG TABLET (FP) PO SCH (09:59)
[2022-02-23] MEDS: amLODIPine BESYLATE 5 MG TABLET (FP) PO SCH (09:59)
[2022-02-23] MEDS: LORATADINE 10 MG TABLET PO SCH (09:59)
[2022-02-23] MEDS: PRENATAL VITAMINS W/ FOLIC ACID TABLET (FP) PO SCH (09:59)
[2022-02-23] MEDS: NICOTINE 14 MG/24 HOURS TOPICAL PATCH TD SCH (10:00)
[2022-02-23] MEDS: ATORVASTATIN CA 40 MG TABLET (FP) PO SCH (21:20)
[2022-02-23] MEDS: THIAMINE HCL 100 MG TABLET (FP) PO SCH (21:20)
[2022-02-23] MEDS: QUEtiapine FUMARATE 50 MG TABLET PO SCH (21:20)
[2022-02-23] MEDS: MELATONIN 5 MG TABLETS PO SCH (21:20)
[2022-02-24] MEDS: metFORMIN HCL 500 MG TABLET (FP) PO SCH ×2 (06:28→16:56)
[2022-02-24] MEDS: TETRAHYDROZOLINE HCL EYE DROPS OD PRN ×2 (06:44→13:40)
[2022-02-24] MEDS: NICOTINE 14 MG/24 HOURS TOPICAL PATCH TD SCH (09:53)
[2022-02-24] MEDS: HYDROCHLOROTHIAZIDE 25 MG TABLET (FP) PO SCH (09:53)
[2022-02-24] MEDS: LORATADINE 10 MG TABLET PO SCH (09:53)
[2022-02-24] MEDS: amLODIPine BESYLATE 5 MG TABLET (FP) PO SCH (09:53)
[2022-02-24] MEDS: PRENATAL VITAMINS W/ FOLIC ACID TABLET (FP) PO SCH (09:53)
[2022-02-24] MEDS: P-EPHED 60MG/TRIPROLIDI 2.5MG TABLET PO PRN (13:40)
[2022-02-24 14:12] VITALS: BP 128/68; PULSE 82
== END 2022-02-24 18:15 | disposition home or self-care (01) | DRG 895 ==
LOC: YASAS 18:07 → Y5N 18:10
PROVIDERS: ADMIT Allergy & Immunology; ATTEND Psychiatry & Neurology Pain Medicine
PROC: HZ42ZZZ Group Counseling for Substance Abuse Treatment, Cognitive-Behavioral (ICD-10-PCS; principal; 2022-02-12)
DX: F10.20 Alcohol dependence, uncomplicated (principal); F14.20 Cocaine dependence, uncomplicated; F19.282 Other psychoactive substance dependence with psychoactive substance-induced sleep disorder; F31.9 Bipolar disorder, unspecified; Z21 Asymptomatic human immunodeficiency virus [HIV] infection status; I10 Essential (primary) hypertension; E78.5 Hyperlipidemia, unspecified; E11.9 Type 2 diabetes mellitus without complications; H91.93 Unspecified hearing loss, bilateral; J30.2 Other seasonal allergic rhinitis; Z79.84 Long term (current) use of oral hypoglycemic drugs; Z97.4 Presence of external hearing-aid; Z85.46 Personal history of malignant neoplasm of prostate; Z90.79 Acquired absence of other genital organ(s); Z72.0 Tobacco use
CPT/HCPCS: 82962

== ENCOUNTER 2022-06-25 08:44 | Inpatient (IN) | payer OTHER ==
[2022-06-25 10:30] VITALS: BMI 36.5
[2022-06-25] MEDS ORDERED: DICYCLOMINE HCL 10 MG CAPSULE PO PRN (14:33)
[2022-06-25] MEDS ORDERED: ONDANSETRON *ODT* 4 MG TABLET SL PRN (14:33)
[2022-06-25] MEDS ORDERED: NICOTINE 10 MG CARTRIDGE (INHALER) IH PRN (14:33)
[2022-06-25] MEDS ORDERED: LOPERAMIDE HCL 2 MG CAPSULE PO PRN (14:33)
[2022-06-25] MEDS ORDERED: METHOCARBAMOL 500 MG TABLET PO PRN (14:33)
[2022-06-25] MEDS ORDERED: IBUPROFEN 400 MG TABLET (FP) PO PRN (14:33)
[2022-06-25] MEDS ORDERED: NALOXONE HCL (KLOXXADO) 8 MG SPRAY NS PRN (14:33)
[2022-06-25] MEDS ORDERED: BENZOCAINE/MENTHOL (CHLORASEPTIC ) LOZENGE MM PRN (14:33)
[2022-06-25] MEDS ORDERED: IBUPROFEN 600 MG TABLET (FP) PO PRN (14:33)
[2022-06-25] MEDS ORDERED: POLYETHYLENE GLYCOL (HEALTHYLAX) 3350 17 GM PACKET PO PRN (14:33)
[2022-06-25] MEDS ORDERED: ACETAMINOPHEN 325 MG TABLET (FP) PO PRN ×2 (14:33)
[2022-06-25] MEDS ORDERED: MAG HYDROX/AL HYDROX/SIMETH 30 ML UNIT-DOSE CUP PO PRN (14:33)
[2022-06-25] MEDS ORDERED: BISMUTH SUBSALICYLATE 524 MG/30 ML PO PRN (14:33)
[2022-06-25] MEDS ORDERED: hydrOXYzine PAMOATE 25 MG CAPSULE (FP) PO PRN (14:33)
[2022-06-25] MEDS: NICOTINE 21 MG/24 HOURS TOPICAL PATCH TD SCH (15:12)
[2022-06-25] MEDS: THIAMINE HCL 100 MG TABLET (FP) PO SCH (21:56)
[2022-06-25] MEDS: metFORMIN HCL 500 MG TABLET (FP) PO SCH (21:56)
[2022-06-25] MEDS: ATORVASTATIN CA 40 MG TABLET (FP) PO SCH (21:57)
[2022-06-25] MEDS ORDERED: MELATONIN 5 MG TABLETS PO SCH (22:00)
[2022-06-25] MEDS: MAGNESIUM HYDROX 2400MG/30ML ORAL SUSPENSION 30 ML CUP PO PRN (22:21)
[2022-06-26] MEDS: PRENATAL VITAMINS W/ FOLIC ACID TABLET (FP) PO SCH (10:10)
[2022-06-26] MEDS: NICOTINE 21 MG/24 HOURS TOPICAL PATCH TD SCH (10:11)
[2022-06-26] MEDS: metFORMIN HCL 500 MG TABLET (FP) PO SCH ×2 (10:11→22:02)
[2022-06-26] MEDS: amLODIPine BESYLATE 5 MG TABLET (FP) PO SCH (10:11)
[2022-06-26] MEDS: HYDROCHLOROTHIAZIDE 12.5 MG CAPSULE (FP) PO SCH (10:11)
[2022-06-26] MEDS: MAGNESIUM HYDROX 2400MG/30ML ORAL SUSPENSION 30 ML CUP PO PRN (10:12)
[2022-06-26 11:01] LABS: HEMATOCRIT 39.4 % (35.4-49); MCH 26.8 pg (25.7-33.7); MCHC 32.9 g/dl (32.0-35.9); MEAN CELL VOLUME 81.3 fl (80-96); MEAN PLT VOLUME 6.7 fl (7.5-11.1); PLATELET COUNT 282 10^3/uL (134-434); RBC 4.85 M/mm3 (4.00-5.60); RDW 16.5 % (11.9-15.9); WHITE BLOOD COUNT 6.1 K/mm3 (4.0-10.0)
[2022-06-26 11:07] LABS: CREATININE 0.9 mg/dL (0.55-1.3)
[2022-06-26 11:08] LABS: ALBUMIN 3.5 g/dl (3.4-5.0); CALCIUM 8.9 mg/dL (8.5-10.1)
[2022-06-26 11:09] LABS: BLOOD UREA NITROGEN 8.3 mg/dL (7-18)
[2022-06-26 11:12] LABS: TOT PROT 6.8 g/dl (6.4-8.2)
[2022-06-26 11:13] LABS: BILIRUBIN,TOTAL 0.3 mg/dL (0.2-1)
[2022-06-26] MEDS: ELVITEG/COB/EMTRI/TENOF (GENVOYA) TABLET (NF) PO SCH (11:20)
[2022-06-26] MEDS ORDERED: QUEtiapine FUMARATE 100 MG TABLET (FP) PO SCH (22:00)
[2022-06-26] MEDS: ATORVASTATIN CA 40 MG TABLET (FP) PO SCH (22:02)
[2022-06-26] MEDS: THIAMINE HCL 100 MG TABLET (FP) PO SCH (22:03)
[2022-06-27 07:22] VITALS: RESP 18
[2022-06-27] MEDS: amLODIPine BESYLATE 5 MG TABLET (FP) PO SCH (10:05)
[2022-06-27] MEDS: PRENATAL VITAMINS W/ FOLIC ACID TABLET (FP) PO SCH (10:05)
[2022-06-27] MEDS: ELVITEG/COB/EMTRI/TENOF (GENVOYA) TABLET (NF) PO SCH (10:05)
[2022-06-27] MEDS: HYDROCHLOROTHIAZIDE 12.5 MG CAPSULE (FP) PO SCH (10:05)
[2022-06-27] MEDS: metFORMIN HCL 500 MG TABLET (FP) PO SCH (10:05)
[2022-06-27] MEDS: NICOTINE 21 MG/24 HOURS TOPICAL PATCH TD SCH (10:06)
[2022-06-27 13:00] VITALS: BP 124/75; PULSE 80; TEMP 97.5
== END 2022-06-27 14:06 | disposition other institution (70) | DRG 897 ==
LOC: YASAS 08:44 → Y3N 14:14 → UNDOADMIN 14:14
PROVIDERS: ADMIT Allergy & Immunology; ATTEND Surgery
PROC: HZ2ZZZZ Detoxification Services for Substance Abuse Treatment (ICD-10-PCS; principal; 2022-06-25)
DX: F10.230 Alcohol dependence with withdrawal, uncomplicated (principal); F14.20 Cocaine dependence, uncomplicated; F19.282 Other psychoactive substance dependence with psychoactive substance-induced sleep disorder; F17.210 Nicotine dependence, cigarettes, uncomplicated; F32.A Depression, unspecified; Z21 Asymptomatic human immunodeficiency virus [HIV] infection status; I10 Essential (primary) hypertension; E78.5 Hyperlipidemia, unspecified; E11.9 Type 2 diabetes mellitus without complications; Z79.84 Long term (current) use of oral hypoglycemic drugs; H91.8X3 Other specified hearing loss, bilateral; Z97.4 Presence of external hearing-aid; H93.19 Tinnitus, unspecified ear; Z85.46 Personal history of malignant neoplasm of prostate; Z90.79 Acquired absence of other genital organ(s)
CPT/HCPCS: 36415; 80053; 82962; 85027; 86780; C9803-CS; U0003; U0005

== ENCOUNTER 2022-06-27 14:11 | Inpatient (IN) | payer OTHER ==
[2022-06-27] MEDS ORDERED: LOPERAMIDE HCL 2 MG CAPSULE PO PRN (16:22)
[2022-06-27] MEDS ORDERED: MAGNESIUM HYDROX 2400MG/30ML ORAL SUSPENSION 30 ML CUP PO PRN (16:22)
[2022-06-27] MEDS ORDERED: POLYETHYLENE GLYCOL (HEALTHYLAX) 3350 17 GM PACKET PO PRN (16:22)
[2022-06-27] MEDS ORDERED: MAG HYDROX/AL HYDROX/SIMETH 30 ML UNIT-DOSE CUP PO PRN (16:22)
[2022-06-27] MEDS ORDERED: BENZOCAINE/MENTHOL (CHLORASEPTIC ) LOZENGE MM PRN (16:22)
[2022-06-27] MEDS ORDERED: NICOTINE 10 MG CARTRIDGE (INHALER) IH PRN (16:22)
[2022-06-27] MEDS ORDERED: NICOTINE 7 MG/24 HOURS TOPICAL PATCH TD PRN (16:22)
[2022-06-27] MEDS ORDERED: guaiFENesin 200 MG/10 ML 10 ML UNIT-DOSE CUPS PO PRN (16:22)
[2022-06-27] MEDS ORDERED: P-EPHED 60MG/TRIPROLIDI 2.5MG TABLET PO PRN (16:22)
[2022-06-27] MEDS ORDERED: hydrOXYzine PAMOATE 25 MG CAPSULE (FP) PO PRN (16:22)
[2022-06-27] MEDS ORDERED: NICOTINE POLACRILEX 2 MG GUM BUC PRN (16:22)
[2022-06-27] MEDS: metFORMIN HCL 500 MG TABLET (FP) PO SCH (21:41)
[2022-06-27] MEDS: MELATONIN 5 MG TABLETS PO SCH (21:41)
[2022-06-27] MEDS: THIAMINE HCL 100 MG TABLET (FP) PO SCH (21:42)
[2022-06-27] MEDS: ATORVASTATIN CA 40 MG TABLET (FP) PO SCH (21:42)
[2022-06-27] MEDS: DOCUSATE SODIUM 100 MG CAPSULE (FP) PO PRN (21:42)
[2022-06-28] MEDS: metFORMIN HCL 500 MG TABLET (FP) PO SCH ×2 (06:36→21:08)
[2022-06-28] MEDS: HYDROCHLOROTHIAZIDE 12.5 MG CAPSULE (FP) PO SCH (10:14)
[2022-06-28] MEDS: PRENATAL VITAMINS W/ FOLIC ACID TABLET (FP) PO SCH (10:14)
[2022-06-28] MEDS: amLODIPine BESYLATE 5 MG TABLET (FP) PO SCH (10:14)
[2022-06-28] MEDS: ELVITEG/COB/EMTRI/TENOF (GENVOYA) TABLET (NF) PO SCH (10:15)
[2022-06-28] MEDS: DOCUSATE SODIUM 100 MG CAPSULE (FP) PO PRN (10:17)
[2022-06-28] MEDS ORDERED: HYDROCORTISONE 2.5% TOPICAL CREAM 30 GM TUBE RC PRN (14:46)
[2022-06-28] MEDS: MELATONIN 5 MG TABLETS PO SCH (21:08)
[2022-06-28] MEDS: ATORVASTATIN CA 40 MG TABLET (FP) PO SCH (21:08)
[2022-06-28] MEDS: THIAMINE HCL 100 MG TABLET (FP) PO SCH (21:08)
[2022-06-29] MEDS: metFORMIN HCL 500 MG TABLET (FP) PO SCH ×2 (06:28→21:17)
[2022-06-29] MEDS: amLODIPine BESYLATE 5 MG TABLET (FP) PO SCH (10:03)
[2022-06-29] MEDS: HYDROCHLOROTHIAZIDE 12.5 MG CAPSULE (FP) PO SCH (10:03)
[2022-06-29] MEDS: ELVITEG/COB/EMTRI/TENOF (GENVOYA) TABLET (NF) PO SCH (10:03)
[2022-06-29] MEDS: PRENATAL VITAMINS W/ FOLIC ACID TABLET (FP) PO SCH (10:03)
[2022-06-29] MEDS: THIAMINE HCL 100 MG TABLET (FP) PO SCH (21:17)
[2022-06-29] MEDS: MELATONIN 5 MG TABLETS PO SCH (21:17)
[2022-06-29] MEDS: ATORVASTATIN CA 40 MG TABLET (FP) PO SCH (21:17)
[2022-06-29] MEDS: QUEtiapine FUMARATE 100 MG TABLET (FP) PO SCH (21:18)
[2022-06-29] MEDS: DOCUSATE SODIUM 100 MG CAPSULE (FP) PO PRN (21:18)
[2022-06-30] MEDS: metFORMIN HCL 500 MG TABLET (FP) PO SCH ×2 (06:12→21:07)
[2022-06-30] MEDS: HYDROCHLOROTHIAZIDE 12.5 MG CAPSULE (FP) PO SCH (09:36)
[2022-06-30] MEDS: PRENATAL VITAMINS W/ FOLIC ACID TABLET (FP) PO SCH (09:36)
[2022-06-30] MEDS: ARTIFICIAL TEARS (POLYVINYL ALCOHOL) OPTH DROPS OU PRN (09:36)
[2022-06-30] MEDS: amLODIPine BESYLATE 5 MG TABLET (FP) PO SCH (09:37)
[2022-06-30] MEDS: ELVITEG/COB/EMTRI/TENOF (GENVOYA) TABLET (NF) PO SCH (10:18)
[2022-06-30] MEDS: MELATONIN 5 MG TABLETS PO SCH (21:06)
[2022-06-30] MEDS: ATORVASTATIN CA 40 MG TABLET (FP) PO SCH (21:06)
[2022-06-30] MEDS: THIAMINE HCL 100 MG TABLET (FP) PO SCH (21:06)
[2022-06-30] MEDS: QUEtiapine FUMARATE 100 MG TABLET (FP) PO SCH (21:07)
[2022-06-30] MEDS: DOCUSATE SODIUM 100 MG CAPSULE (FP) PO PRN (21:08)
[2022-07-01] MEDS: metFORMIN HCL 500 MG TABLET (FP) PO SCH ×2 (06:07→21:05)
[2022-07-01] MEDS: ARTIFICIAL TEARS (POLYVINYL ALCOHOL) OPTH DROPS OU PRN ×2 (09:28→21:06)
[2022-07-01] MEDS: ELVITEG/COB/EMTRI/TENOF (GENVOYA) TABLET (NF) PO SCH (09:28)
[2022-07-01] MEDS: HYDROCHLOROTHIAZIDE 12.5 MG CAPSULE (FP) PO SCH (09:29)
[2022-07-01] MEDS: amLODIPine BESYLATE 5 MG TABLET (FP) PO SCH (09:29)
[2022-07-01] MEDS: PRENATAL VITAMINS W/ FOLIC ACID TABLET (FP) PO SCH (09:29)
[2022-07-01] MEDS: THIAMINE HCL 100 MG TABLET (FP) PO SCH (21:05)
[2022-07-01] MEDS: ATORVASTATIN CA 40 MG TABLET (FP) PO SCH (21:05)
[2022-07-01] MEDS: QUEtiapine FUMARATE 100 MG TABLET (FP) PO SCH (21:05)
[2022-07-01] MEDS: DOCUSATE SODIUM 100 MG CAPSULE (FP) PO PRN (21:05)
[2022-07-01] MEDS: MELATONIN 5 MG TABLETS PO SCH (21:05)
[2022-07-02] MEDS: metFORMIN HCL 500 MG TABLET (FP) PO SCH ×3 (06:21→21:22)
[2022-07-02] MEDS: amLODIPine BESYLATE 5 MG TABLET (FP) PO SCH (09:59)
[2022-07-02] MEDS: HYDROCHLOROTHIAZIDE 12.5 MG CAPSULE (FP) PO SCH (09:59)
[2022-07-02] MEDS: PRENATAL VITAMINS W/ FOLIC ACID TABLET (FP) PO SCH (09:59)
[2022-07-02] MEDS: ELVITEG/COB/EMTRI/TENOF (GENVOYA) TABLET (NF) PO SCH (10:00)
[2022-07-02] MEDS: ARTIFICIAL TEARS (POLYVINYL ALCOHOL) OPTH DROPS OU PRN (10:00)
[2022-07-02] MEDS: THIAMINE HCL 100 MG TABLET (FP) PO SCH (21:21)
[2022-07-02] MEDS: MELATONIN 5 MG TABLETS PO SCH (21:22)
[2022-07-02] MEDS: ATORVASTATIN CA 40 MG TABLET (FP) PO SCH (21:22)
[2022-07-02] MEDS: QUEtiapine FUMARATE 100 MG TABLET (FP) PO SCH (21:22)
[2022-07-03] MEDS: metFORMIN HCL 500 MG TABLET (FP) PO SCH ×2 (06:02→21:11)
[2022-07-03] MEDS: HYDROCHLOROTHIAZIDE 12.5 MG CAPSULE (FP) PO SCH (09:35)
[2022-07-03] MEDS: ELVITEG/COB/EMTRI/TENOF (GENVOYA) TABLET (NF) PO SCH (09:35)
[2022-07-03] MEDS: PRENATAL VITAMINS W/ FOLIC ACID TABLET (FP) PO SCH (09:35)
[2022-07-03] MEDS: amLODIPine BESYLATE 5 MG TABLET (FP) PO SCH (09:37)
[2022-07-03] MEDS: QUEtiapine FUMARATE 100 MG TABLET (FP) PO SCH (21:12)
[2022-07-03] MEDS: ATORVASTATIN CA 40 MG TABLET (FP) PO SCH (21:12)
[2022-07-03] MEDS: THIAMINE HCL 100 MG TABLET (FP) PO SCH (21:12)
[2022-07-03] MEDS: MELATONIN 5 MG TABLETS PO SCH (21:12)
[2022-07-04] MEDS: metFORMIN HCL 500 MG TABLET (FP) PO SCH ×2 (06:38→21:08)
[2022-07-04] MEDS: ELVITEG/COB/EMTRI/TENOF (GENVOYA) TABLET (NF) PO SCH (10:03)
[2022-07-04] MEDS: HYDROCHLOROTHIAZIDE 12.5 MG CAPSULE (FP) PO SCH (10:04)
[2022-07-04] MEDS: PRENATAL VITAMINS W/ FOLIC ACID TABLET (FP) PO SCH (10:04)
[2022-07-04] MEDS: amLODIPine BESYLATE 5 MG TABLET (FP) PO SCH (10:04)
[2022-07-04] MEDS: THIAMINE HCL 100 MG TABLET (FP) PO SCH (21:07)
[2022-07-04] MEDS: QUEtiapine FUMARATE 100 MG TABLET (FP) PO SCH (21:07)
[2022-07-04] MEDS: ATORVASTATIN CA 40 MG TABLET (FP) PO SCH (21:07)
[2022-07-04] MEDS: MELATONIN 5 MG TABLETS PO SCH (21:08)
[2022-07-05] MEDS: metFORMIN HCL 500 MG TABLET (FP) PO SCH ×2 (06:17→21:03)
[2022-07-05] MEDS: IBUPROFEN 400 MG TABLET (FP) PO PRN ×3 (06:43→19:20)
[2022-07-05] MEDS: PRENATAL VITAMINS W/ FOLIC ACID TABLET (FP) PO SCH (09:35)
[2022-07-05] MEDS: ARTIFICIAL TEARS (POLYVINYL ALCOHOL) OPTH DROPS OU PRN (09:35)
[2022-07-05] MEDS: amLODIPine BESYLATE 5 MG TABLET (FP) PO SCH (09:35)
[2022-07-05] MEDS: ELVITEG/COB/EMTRI/TENOF (GENVOYA) TABLET (NF) PO SCH (09:36)
[2022-07-05] MEDS: HYDROCHLOROTHIAZIDE 12.5 MG CAPSULE (FP) PO SCH (09:36)
[2022-07-05] MEDS: ACETAMINOPHEN 325 MG TABLET (FP) PO PRN (09:37)
[2022-07-05] MEDS: QUEtiapine FUMARATE 100 MG TABLET (FP) PO SCH (21:03)
[2022-07-05] MEDS: ATORVASTATIN CA 40 MG TABLET (FP) PO SCH (21:03)
[2022-07-05] MEDS: THIAMINE HCL 100 MG TABLET (FP) PO SCH (21:03)
[2022-07-05] MEDS: MELATONIN 5 MG TABLETS PO SCH (21:03)
[2022-07-06] MEDS: metFORMIN HCL 500 MG TABLET (FP) PO SCH ×2 (06:32→21:01)
[2022-07-06] MEDS: HYDROCHLOROTHIAZIDE 12.5 MG CAPSULE (FP) PO SCH (09:54)
[2022-07-06] MEDS: PRENATAL VITAMINS W/ FOLIC ACID TABLET (FP) PO SCH (09:54)
[2022-07-06] MEDS: ELVITEG/COB/EMTRI/TENOF (GENVOYA) TABLET (NF) PO SCH (09:54)
[2022-07-06] MEDS: amLODIPine BESYLATE 5 MG TABLET (FP) PO SCH (09:54)
[2022-07-06] MEDS: IBUPROFEN 400 MG TABLET (FP) PO PRN ×2 (10:37→21:02)
[2022-07-06] MEDS: TOLNAFTATE 1% CREAM 15 GM TUBE TP SCH ×2 (14:50→21:03)
[2022-07-06] MEDS: THIAMINE HCL 100 MG TABLET (FP) PO SCH (21:01)
[2022-07-06] MEDS: ATORVASTATIN CA 40 MG TABLET (FP) PO SCH (21:01)
[2022-07-06] MEDS: DOCUSATE SODIUM 100 MG CAPSULE (FP) PO PRN (21:01)
[2022-07-06] MEDS: QUEtiapine FUMARATE 100 MG TABLET (FP) PO SCH (21:01)
[2022-07-06] MEDS: MELATONIN 5 MG TABLETS PO SCH (21:01)
[2022-07-07] MEDS: metFORMIN HCL 500 MG TABLET (FP) PO SCH ×2 (06:04→21:03)
[2022-07-07] MEDS: ARTIFICIAL TEARS (POLYVINYL ALCOHOL) OPTH DROPS OU PRN (09:24)
[2022-07-07] MEDS: amLODIPine BESYLATE 5 MG TABLET (FP) PO SCH (09:25)
[2022-07-07] MEDS: ELVITEG/COB/EMTRI/TENOF (GENVOYA) TABLET (NF) PO SCH (09:25)
[2022-07-07] MEDS: TOLNAFTATE 1% CREAM 15 GM TUBE TP SCH ×2 (09:25→21:05)
[2022-07-07] MEDS: HYDROCHLOROTHIAZIDE 12.5 MG CAPSULE (FP) PO SCH (09:25)
[2022-07-07] MEDS: PRENATAL VITAMINS W/ FOLIC ACID TABLET (FP) PO SCH (09:25)
[2022-07-07] MEDS: IBUPROFEN 400 MG TABLET (FP) PO PRN ×2 (09:26→21:04)
[2022-07-07] MEDS: ACETAMINOPHEN 325 MG TABLET (FP) PO PRN (15:18)
[2022-07-07] MEDS: QUEtiapine FUMARATE 100 MG TABLET (FP) PO SCH (21:03)
[2022-07-07] MEDS: ATORVASTATIN CA 40 MG TABLET (FP) PO SCH (21:03)
[2022-07-07] MEDS: DOCUSATE SODIUM 100 MG CAPSULE (FP) PO PRN (21:03)
[2022-07-07] MEDS: THIAMINE HCL 100 MG TABLET (FP) PO SCH (21:05)
[2022-07-07] MEDS: MELATONIN 5 MG TABLETS PO SCH (21:05)
[2022-07-08] MEDS: metFORMIN HCL 500 MG TABLET (FP) PO SCH ×2 (06:16→21:03)
[2022-07-08] MEDS: ELVITEG/COB/EMTRI/TENOF (GENVOYA) TABLET (NF) PO SCH (09:25)
[2022-07-08] MEDS: TOLNAFTATE 1% CREAM 15 GM TUBE TP SCH ×2 (09:26→21:05)
[2022-07-08] MEDS: PRENATAL VITAMINS W/ FOLIC ACID TABLET (FP) PO SCH (09:26)
[2022-07-08] MEDS: amLODIPine BESYLATE 5 MG TABLET (FP) PO SCH (09:26)
[2022-07-08] MEDS: HYDROCHLOROTHIAZIDE 12.5 MG CAPSULE (FP) PO SCH (09:26)
[2022-07-08] MEDS: ARTIFICIAL TEARS (POLYVINYL ALCOHOL) OPTH DROPS OU PRN (09:27)
[2022-07-08] MEDS: IBUPROFEN 400 MG TABLET (FP) PO PRN ×2 (09:28→21:04)
[2022-07-08] MEDS: ATORVASTATIN CA 40 MG TABLET (FP) PO SCH (21:03)
[2022-07-08] MEDS: QUEtiapine FUMARATE 100 MG TABLET (FP) PO SCH (21:03)
[2022-07-08] MEDS: THIAMINE HCL 100 MG TABLET (FP) PO SCH (21:04)
[2022-07-08] MEDS: MELATONIN 5 MG TABLETS PO SCH (21:04)
[2022-07-09] MEDS: metFORMIN HCL 500 MG TABLET (FP) PO SCH ×2 (06:16→21:09)
[2022-07-09] MEDS: PRENATAL VITAMINS W/ FOLIC ACID TABLET (FP) PO SCH (09:26)
[2022-07-09] MEDS: HYDROCHLOROTHIAZIDE 12.5 MG CAPSULE (FP) PO SCH (09:26)
[2022-07-09] MEDS: ARTIFICIAL TEARS (POLYVINYL ALCOHOL) OPTH DROPS OU PRN (09:27)
[2022-07-09] MEDS: ELVITEG/COB/EMTRI/TENOF (GENVOYA) TABLET (NF) PO SCH (09:27)
[2022-07-09] MEDS: amLODIPine BESYLATE 5 MG TABLET (FP) PO SCH (09:27)
[2022-07-09] MEDS: TOLNAFTATE 1% CREAM 15 GM TUBE TP SCH ×2 (09:27→21:11)
[2022-07-09] MEDS: ACETAMINOPHEN 325 MG TABLET (FP) PO PRN (09:29)
[2022-07-09] MEDS: MELATONIN 5 MG TABLETS PO SCH (21:09)
[2022-07-09] MEDS: DOCUSATE SODIUM 100 MG CAPSULE (FP) PO PRN (21:09)
[2022-07-09] MEDS: QUEtiapine FUMARATE 100 MG TABLET (FP) PO SCH (21:09)
[2022-07-09] MEDS: THIAMINE HCL 100 MG TABLET (FP) PO SCH (21:09)
[2022-07-09] MEDS: ATORVASTATIN CA 40 MG TABLET (FP) PO SCH (21:09)
[2022-07-09] MEDS: IBUPROFEN 400 MG TABLET (FP) PO PRN (21:10)
[2022-07-09 21:57] VITALS: RESP 18
[2022-07-10] MEDS: metFORMIN HCL 500 MG TABLET (FP) PO SCH ×2 (06:12→21:05)
[2022-07-10] MEDS: TOLNAFTATE 1% CREAM 15 GM TUBE TP SCH ×2 (09:22→21:06)
[2022-07-10] MEDS: ARTIFICIAL TEARS (POLYVINYL ALCOHOL) OPTH DROPS OU PRN (09:22)
[2022-07-10] MEDS: PRENATAL VITAMINS W/ FOLIC ACID TABLET (FP) PO SCH (09:23)
[2022-07-10] MEDS: ELVITEG/COB/EMTRI/TENOF (GENVOYA) TABLET (NF) PO SCH (09:23)
[2022-07-10] MEDS: amLODIPine BESYLATE 5 MG TABLET (FP) PO SCH (09:23)
[2022-07-10] MEDS: HYDROCHLOROTHIAZIDE 12.5 MG CAPSULE (FP) PO SCH (09:23)
[2022-07-10] MEDS: DOCUSATE SODIUM 100 MG CAPSULE (FP) PO PRN (21:05)
[2022-07-10] MEDS: THIAMINE HCL 100 MG TABLET (FP) PO SCH (21:05)
[2022-07-10] MEDS: ATORVASTATIN CA 40 MG TABLET (FP) PO SCH (21:05)
[2022-07-10] MEDS: MELATONIN 5 MG TABLETS PO SCH (21:05)
[2022-07-10] MEDS: QUEtiapine FUMARATE 100 MG TABLET (FP) PO SCH (21:05)
[2022-07-11] MEDS: metFORMIN HCL 500 MG TABLET (FP) PO SCH (06:04)
[2022-07-11 06:45] VITALS: BP 123/80; PULSE 90; TEMP 97.3
[2022-07-11] MEDS: ELVITEG/COB/EMTRI/TENOF (GENVOYA) TABLET (NF) PO SCH (09:05)
[2022-07-11] MEDS: HYDROCHLOROTHIAZIDE 12.5 MG CAPSULE (FP) PO SCH (09:05)
[2022-07-11] MEDS: PRENATAL VITAMINS W/ FOLIC ACID TABLET (FP) PO SCH (09:06)
[2022-07-11] MEDS: ARTIFICIAL TEARS (POLYVINYL ALCOHOL) OPTH DROPS OU PRN (09:06)
[2022-07-11] MEDS: TOLNAFTATE 1% CREAM 15 GM TUBE TP SCH (09:06)
[2022-07-11] MEDS: amLODIPine BESYLATE 5 MG TABLET (FP) PO SCH (09:06)
== END 2022-07-11 09:45 | disposition home or self-care (01) | DRG 895 ==
LOC: YASAS 14:11 → Y3W 14:12 → Y5N 16:18 → Y3W 16:19
PROVIDERS: ADMIT Allergy & Immunology; ATTEND Psychiatry & Neurology Pain Medicine
PROC: HZ42ZZZ Group Counseling for Substance Abuse Treatment, Cognitive-Behavioral (ICD-10-PCS; principal; 2022-06-27)
DX: F10.20 Alcohol dependence, uncomplicated (principal); F14.20 Cocaine dependence, uncomplicated; F19.282 Other psychoactive substance dependence with psychoactive substance-induced sleep disorder; F17.210 Nicotine dependence, cigarettes, uncomplicated; F31.9 Bipolar disorder, unspecified; Z21 Asymptomatic human immunodeficiency virus [HIV] infection status; G47.00 Insomnia, unspecified; I10 Essential (primary) hypertension; E78.5 Hyperlipidemia, unspecified; E11.9 Type 2 diabetes mellitus without complications; Z79.84 Long term (current) use of oral hypoglycemic drugs; K59.00 Constipation, unspecified; H91.93 Unspecified hearing loss, bilateral; Z85.46 Personal history of malignant neoplasm of prostate; Z90.79 Acquired absence of other genital organ(s); Z97.4 Presence of external hearing-aid; Z59.00 Homelessness unspecified
CPT/HCPCS: 36415; 82962; 86803